=== PATIENT | female | born 1945 | race Caucasian/White ===

== ENCOUNTER 2020-10-22 21:53 | Inpatient (IN) | payer MEDICARE, SELFPAY ==
--- NOTE | ~2020-10-22 | XR_ITS ---
EXAMINATION: XR chest 1V portable INDICATION: Shortness of breath TECHNIQUE: Portable AP chest at 2341 hours COMPARISON: 07/27/2018 FINDINGS: The lungs are free of acute opacities. There is no pleural effusion. Chronic atelectasis is present in the left lung base. The heart size is normal. There is right paratracheal widening of the upper mediastinum, previously characterized as goiter. IMPRESSION: 1. No acute cardiopulmonary abnormality. Reviewed, dictated and finalized at location A.
[2020-10-22 21:55] VITALS: BP 130/79; PULSE 137; RESP 20; O2SAT 95
--- NOTE | 2020-10-22 22:00 | ECG_ITS ---
Measurements Intervals [place] Rate: 126 P: CO: 0 QRS: 74 QRSD: 101 T: 42 QT: 325 QTc: 471 Interpretive Statements ATRIAL FIBRILLATION WITH RAPID VENTRICULAR RESPONSE INCOMPLETE RIGHT BUNDLE BRANCH BLOCK CANNOT RULE OUT SEPTAL INFARCT, AGE INDETERMINATE ABNORMAL ECG Electronically Signed On 10-23-2020 5:45:43 CDT by George Bradley D.O.
[2020-10-22] MEDS: dilTIAZem HCl INJ 25 MG/5 ML VIAL 10 MG IV PUSH ×2 (22:24→23:33)
[2020-10-22 22:25] VITALS: TEMP 36.5
[2020-10-22 22:39] LABS: Basophils Percent Auto 0.5 % (0.2-1.2); Eosinophils Absolute Auto 0.1 K/mm3 (0-0.3); Eosinophils Percent Auto 0.6 % (0-4.4); Hematocrit 25.4 % (37.0-47.0); Hemoglobin 7.4 g/dL (12.0-15.0); Immature Granulocyte Absolute 0.04 K/mm3 (0.00-0.031); Immature Granulocyte Percent A 0.5 % (0-0.5); Lymphocytes Absolute Auto 1.51 K/mm3 (0.9-3.2); Lymphocytes Percent Auto 17.4 % (18.3-44.2); Mean Corpuscular HGB Conc 29.1 g/dl (32-36); Mean Corpuscular Hemoglobin 23.1 pg (26-34); Mean Corpuscular Volume 79.1 fl (80-100); Mean Platelet Volume 10.1 fl (7.4-10.4); Monocytes Absolute Auto 0.6 K/mm3 (0.1-0.6); Monocytes Percent Auto 6.9 % (2.6-8.5); Neutrophils Absolute Auto 6.4 K/mm3 (1.3-6.7); Neutrophils Percent Auto 74.1 % (45.5-73.1); Platelet Count Result 327 k/mm3 (150-375); Red Blood Count 3.21 M/mm3 (4.2-5.4); Red Cell Distribution Width 15.9 % (11.5-14.5); White Blood Count 8.7 K/mm3 (4.5-10.0)
[2020-10-22 22:49] LABS: Anion Gap 9 mmol/L (8-16); Blood Urea Nitrogen 13 mg/dL (7-17); Calcium 9.4 mg/dL (8.4-10.2); Carbon Dioxide 26 mmol/L (22-30); Chloride 96 mmol/L (98-107); Estimated CRCL calculation 50 ml/min; Estimated Glomerular Filt Rate 54; Glucose 153 mg/dL (65-110); Potassium 2.9 mmol/L (3.4-5.0); Sodium 131 mmol/L (137-145)
[2020-10-22 22:56] VITALS: BP 110/57; PULSE 116
[2020-10-22 23:02] LABS: Anisocytosis 1+ (NORMAL); Hypochromasia 1+ (NORMAL); Platelet Estimate Adequate (Adequate)
[2020-10-22 23:41] VITALS: BP 119/67; PULSE 126; RESP 19; O2SAT 97
--- NOTE | 2020-10-22 23:42 | ED.DIZZY ---
HPI - Dizziness General Chief Complaint: Dizziness Stated Complaint: dizziness, rt arm pain Time Seen by Provider: 10/22/20 22:12 Source: patient and family Mode of arrival: EMS Limitations: no limitations History of Present Illness HPI Narrative: 74-year-old with a history of hypertension, CVA on Xarelto was brought in from home with complaints of sudden onset of dizziness. 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 She ordered pizza for herself and her . She states that she ate more than normal few minutes after eating she felt a big bubble in the mid abdomen and she later became dizzy and and laid down on the floor. She denied any chest pain or headache. At the time she came to the ER her symptoms have much subsided. Patient states that she had normal blood work done 6 months ago and is scheduled to see Dr. Gonzalez end october. elicited complaint: dizziness Onset (ago): minute(s) (30) Timing: sudden onset Severity: moderate Description: lightheadedness Exacerbating factors: nothing Relieving factors: nothing Associated symptoms: denies other symptoms Related Data Home Medications Medication Instructions Recorded Confirmed alprazolam 10/22/20 10/22/20 amlodipine 10/22/20 clonidine HCl 10/22/20 gabapentin 10/22/20 hydrochlorothiazide 10/22/20 rivaroxaban [Xarelto] mg 10/22/20 triazolam 10/22/20 Allergies Allergy/AdvReac Type Severity Reaction Status Date / Time No Known Allergies Allergy Verified 10/22/20 22:08 Review of Systems Review of Systems: All systems reviewed & are unremarkable except as noted in HPI and below Constitutional: Constitutional: Reports no additional constitutional complaints Eyes: Eyes: Reports no additional eye complaints ENT: Reports dizziness Cardiovascular: Cardiovascular: Reports no additional cardiovascular complaints Respiratory: Respiratory: Reports no additional respiratory complaints Gastrointestinal: Gastrointestinal: Reports no additional gastrointestinal complaints Genitourinary: Genitourinary: Reports no additional female genitourinary complaints Musculoskeletal: Musculoskeletal: Reports no additional musculoskeletal complaints Integumentary/Breasts: Skin/Breast: Reports system reviewed and no additional complaints, except as docu PMFSH Past Medical History Medical History (Updated 10/22/20 @ 23:56 by Adelfo Hinds MD) Anxiety CVA (cerebrovascular accident) Follow-up fracture care for healing fracture GERD (gastroesophageal reflux disease) HTN (hypertension) Hypothyroid Metatarsal bone fracture (02/13/19) Metatarsal bone fracture (02/13/19) Peripheral neuropathy Pulmonary embolism Weight gain Surgical History Surgical History No history of previous surgery Family History Family History Father Acute myocardial infarction Social History Social History Smoking packs per day: 0.25 Smoking cigarettes per day: 5.0 Years smoked: 50 Smoking pack-years: 12.50 Smoking status: Current every day smoker Tobacco type: cigarettes Alcohol intake: never Gender identity (if verbalized by the patient): Female Exam Narrative: GENERAL: Well-appearing, well-nourished, and in no acute distress , pale. HEAD: Normocephalic, atraumatic. EYES: PERRLA and EOMI. ENT: Nares clear, no rhinorrhea or epistaxis. Mucous membranes moist. NECK: Supple. CHEST: Clear to auscultation. No respiratory distress. HEART: Irregularly irregular and tachycardic no murmur heard. Normal peripheral pulses. ABDOMEN: Soft, nontender, nondistended, normal active bowel sounds. Heme positive stool EXTREMITIES: Normal range of motion. No edema. SKIN: Warm, dry, no rash. NEURO: No focal deficits. Alert and oriented x3. PSYCH: Normal
[2020-10-23] VITALS (25 sets, daily range): BP systolic 98–150; BP diastolic 41–70; PULSE 51–119; RESP 14–20; TEMP 35.9–36.9; O2SAT 93–100; BMI 37.5
[2020-10-23] MEDS: PANTOPRAZOLE SODIUM IV 40 MG VIAL IV PUSH ×3 (00:42→17:22)
[2020-10-23] MEDS: SODIUM CHLORIDE 0.9% IV 500 ML 999 ML IV CONT (00:42)
--- NOTE | 2020-10-23 03:05 | ADMIMU ---
This patient, Norma Coleman, was admitted to IMU status, and placed in IMU Room 203-01. Patient/family oriented to hospital policies and general routines including ID bracelet, bed and alarms, visiting hours, pain management, procedures, bathroom and other care routines, personal items, smoking policy, room service/diet, and visiting hours. Valuables list has been completed. Information on how to activate the Rapid Response Team has been discussed. Patient/Family are encouraged to report perceived risks to care and to ask questions if they do not understand what they are told or what they should do.
--- NOTE | 2020-10-23 03:46 | PM.IMHP ---
H&P: HPI History of Present Illness Date/Time: 10/23/20 03:46 Chief Complaint: Dizziness Narrative: This is a 74-year-old female with past medical history significant for hypertension, stroke, tobacco dependence, peripheral neuropathy, hypothyroidism, pulmonary embolism, on chronic anticoagulation. Patient has been in her usual state of health. 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 Upon arrival to the emergency room she was found to have atrial fibrillation with rapid ventricular response. According to patient she has felt dizzy on another occasion just recent lightheaded as well funny fluttery feeling in her chest but did not think much of it. She denies any PND any orthopnea any cough any sputum production any leg swelling she had near syncopal episode no headaches, no vision changes, no chest pain, no fevers, no rigors, no chills, no nausea, no vomiting, no diarrhea. Chemistry panel was significant for sodium of 139 potassium of 2.9. Review of Systems Review of Systems: Dizziness abdominal discomfort near syncope Constitutional: Constitutional: Denies chills, Denies fatigue and Denies fever(s) Eyes: Eyes: Denies change in vision ENT: Denies dysphagia, Reports dizziness, Denies nasal congestion, Denies nasal discharge, Denies nasal obstruction and Denies odynophagia Cardiovascular: Cardiovascular: Denies irregular heart rhythm, Denies leg edema, Reports lightheadedness, Denies radiating jaw, neck or arm pain, Denies palpitations, Denies dyspnea, Denies dyspnea on exertion and Denies orthopnea Respiratory: Respiratory: Denies cough and Denies dyspnea Gastrointestinal: Gastrointestinal: Reports abdominal pain, Denies diarrhea, Denies nausea and Denies vomiting Genitourinary: Genitourinary: Reports no additional female genitourinary complaints Musculoskeletal: Musculoskeletal: Reports no additional musculoskeletal complaints Integumentary/Breasts: Skin/Breast: Reports system reviewed and no additional complaints, except as docu Neurologic: Reports system reviewed and no additional complaints, except as documented Psychiatric: Psychiatric: Reports no additional psychiatric complaints Endocrine: Endocrine: Reports no additional endocrine complaints Hematologic/Lymphatic: Hematologic/Lymphatic: Reports no additional hematologic/lymphatic complaints Allergic/Immunologic: Allergic/Immunologic: Reports no additional allergic/immunologic complaints PMFSH Past Medical History Medical History (Updated 10/23/20 @ 04:27 by Trevin Pereira MD) Anxiety CVA (cerebrovascular accident) Follow-up fracture care for healing fracture GERD (gastroesophageal reflux disease) HTN (hypertension) Hypothyroid Metatarsal bone fracture (02/13/19) Metatarsal bone fracture (02/13/19) Peripheral neuropathy Pulmonary embolism Weight gain Surgical History Surgical History No history of previous surgery Family History Family History Father Acute myocardial infarction Social History Social History Smoking packs per day: 0.25 Smoking cigarettes per day: 5.0 Years smoked: 50 Smoking pack-years: 12.50 Smoking status: Current every day smoker Tobacco type: cigarettes Alcohol intake: never Gender identity (if verbalized by the patient): Female Meds Home Medications and Allergies Home Medications Medication Instructions Recorded Confirmed Type alprazolam 0.5 mg PO DAILY PRN 10/22/20 10/23/20 History amlodipine 5 mg PO DAILY 10/22/20 10/23/20 History clonidine HCl 0.1 mg PO PRN 10/22/20 History gabapentin 300 mg PO TID 10/22/20 10/23/20 History hydrochlorothiazide 25 mg DAILY 10/22/20 10/23/20 History rivaroxaban [Xar
[2020-10-23 04:29] LABS: Troponin I 0.065 ng/mL (0.000-0.034)
[2020-10-23] MEDS: LEVOTHYROXINE SODIUM 88 MCG TABLET PO (05:34)
[2020-10-23] MEDS: SODIUM CHLORIDE 0.9% IV 1,000 ML 75 ML IV CONT (05:34)
[2020-10-23 07:22] LABS: Troponin I 0.085 ng/mL (0.000-0.034)
[2020-10-23] MEDS: GABAPENTIN 300 MG CAPSULE PO ×2 (08:19→17:22)
[2020-10-23] MEDS: CHOLECALCIFEROL 1,000 UNITS TABLET 2000 UNITS PO (08:19)
[2020-10-23] MEDS: hydroCHLOROthiazide 25 MG TABLET BY MOUTH (08:20)
[2020-10-23] MEDS: THERAPEUTIC MULTIVITAMINS/MINERALS TAB (*BKC) 1 TABLET PO (08:20)
[2020-10-23] MEDS: amLODIPine BESYLATE 5 MG TABLET PO (08:21)
[2020-10-23] MEDS: PREGABALIN (*CRX) 75 MG CAPSULE PO ×2 (08:26→17:22)
[2020-10-23] MEDS: ALPRAZolam (*CRX) 0.5 MG TABLET PO (08:26)
[2020-10-23 09:46] LABS: Hematocrit 24.1 % (37.0-47.0)
[2020-10-23 10:58] LABS: Anion Gap 7 mmol/L (8-16); Blood Urea Nitrogen 13 mg/dL (7-17); Calcium 9.3 mg/dL (8.4-10.2); Carbon Dioxide 24 mmol/L (22-30); Chloride 103 mmol/L (98-107); Estimated CRCL calculation 63 ml/min; Estimated Glomerular Filt Rate > 60; Glucose 108 mg/dL (65-110); Lactate Dehydrogenase 285 U/L (313-618); Magnesium 1.7 mg/dL (1.6-2.3); Potassium 3.7 mmol/L (3.4-5.0); Sodium 134 mmol/L (137-145)
[2020-10-23 11:07] LABS: Transferrin 277 mg/dL (206-381)
[2020-10-23 12:06] LABS: Folic Acid 17.9 ng/mL (2.76->20)
[2020-10-23 12:06] LABS: Troponin I 0.083 ng/mL (0.000-0.034)
--- NOTE | 2020-10-23 12:19 | WPDGICN ---
Assessment and Plan Assessment and plan (1) GI bleed: Qualifiers: GI bleed type/associated pathology: unspecified gastrointestinal hemorrhage type Qualified Code(s): K92.2 - Gastrointestinal hemorrhage, unspecified Code(s): K92.2 - Gastrointestinal hemorrhage, unspecified Status: Acute Assessment and Plan: probably occult gib, noted drop in hb and she was symptomatic but also presented with a fib with rvr (converted now) and hypokalemia egd today to asssess if upper gi loss, consider colonoscopy if no major findings to explain anemia (she never had one and has been using xarelto) (2) Acute blood loss anemia: Code(s): D62 - Acute posthemorrhagic anemia Status: Acute Assessment and Plan: monitor for signs of bleeding transfuse if hb<7 holding xarelto (3) Microcytic anemia: Code(s): D50.9 - Iron deficiency anemia, unspecified Status: Acute Assessment and Plan: most likely will need also colonoscopy (4) Atrial fibrillation with rapid ventricular response: Code(s): I48.91 - Unspecified atrial fibrillation Status: Acute Assessment and Plan: converted to sinus after drip, cardiology on board (5) CVA (cerebrovascular accident): Code(s): I63.9 - Cerebral infarction, unspecified Status: Acute (6) Chronic anticoagulation: Code(s): Z79.01 - halfway (current) use of anticoagulants Status: Acute Assessment and Plan: hold xarelto (7) Tobacco dependence: Code(s): F17.200 - Nicotine dependence, unspecified, uncomplicated Status: Acute GI Consult Note Consult date/time: 10/23/20 12:19 Reason for consult: acute blood loss anemia HPI: Norma Coleman is a 74 year old female with history of hypertension, stroke on xarelto for at least 2 years, tobacco dependence, peripheral neuropathy, pulmonary embolism. She came to the emergency room via EMS after new onset of dizziness and near syncope along with abdominal pain after dinner last night, also was tachycardic when checked her pulse ~ 130's. On arrival found to have atrial fibrillation with rapid ventricular response started on drip, had mild elevated troponins but flat. Also found to have low potassium of 2.9 and hb 7.4 (11 few months ago), microcytic anemia, she denies obvious GIB. Never had scopes. Review of Systems Constitutional: Constitutional: Reports weakness Eyes: Eyes: Denies blurry vision ENT: Reports Normal hearing present Cardiovascular: Cardiovascular: Reports palpitations Respiratory: Respiratory: Denies dyspnea Gastrointestinal: Gastrointestinal: Denies abdominal pain and Denies vomiting Genitourinary: Genitourinary: Denies flank pain Musculoskeletal: Musculoskeletal: Denies neck pain Neurologic: Comments: near syncope Psychiatric: Psychiatric: Denies anxiety REPLACED BY [facility] Past Medical History Medical History (Updated 10/23/20 @ 15:52 by Wilfredo Bridges MD) Acute blood loss anemia Anxiety CVA (cerebrovascular accident) Follow-up fracture care for healing fracture GERD (gastroesophageal reflux disease) HTN (hypertension) Hypothyroid Metatarsal bone fracture (02/13/19) Metatarsal bone fracture (02/13/19) Microcytic anemia Peripheral neuropathy Pulmonary embolism Weight gain Surgical History Surgical History No history of previous surgery Family History Family History Father Acute myocardial infarction Social History Social History Smoking packs per day: 0.4 Smoking cigarettes per day: 8.0 Years smoked: 50 Smoking pack-years: 20.00 Smoking status: Current every day smoker Tobacco type: cigarettes Alcohol intake: never Substance use: never Gender identity (if verbalized by the patient): Female Spiritual care concern
[2020-10-23 12:36] LABS: Iron 12 ug/dL (37-170)
[2020-10-23 12:47] LABS: Percent Iron Saturation 3 % (20-50)
[2020-10-23 13:13] LABS: Ferritin 5.62 ng/mL (11.1-264)
[2020-10-23] MEDS: METOPROLOL TARTRATE 25 MG TABLET PO ×2 (13:39→20:02)
[2020-10-23] MEDS: LACTATED RINGERS 1,000 ML 150 ML IV CONT (13:40)
--- NOTE | 2020-10-23 13:42 | WPDANESEPPF ---
Anes - Initial Pre Proc Eval Procedure: Operation Date: 10/23/20 14:45 Proposed Procedures p Esophagogastroduodenoscopy - Wilfredo Bridges MD Date/Time: 10/23/20 13:42 Surgeon: Julita Diaz PA-C Pre Op Diagnosis: Afib w/RVR, Hypokalemia, GI Bleed Patient Data Age: 74 Gender: F Height: 1.64 m Weight: 100.8 kg Last Vital Signs Temp 36.3 C L 10/23/20 12:00 Pulse 67 10/23/20 13:39 Resp 18 10/23/20 12:00 BP 118/53 L 10/23/20 12:00 Pulse Ox 96 10/23/20 12:00 Allergies Allergy/AdvReac Type Severity Reaction Status Date / Time No Known Allergies Allergy Verified 10/23/20 13:44 Home Medications Medication Instructions Recorded Confirmed Type alprazolam 0.5 mg PO DAILY PRN 10/22/20 10/23/20 History amlodipine 5 mg PO DAILY 10/22/20 10/23/20 History clonidine HCl 0.1 mg PO Q10-12H PRN 10/22/20 10/23/20 History gabapentin 300 mg PO TID 10/22/20 10/23/20 History hydrochlorothiazide 25 mg DAILY 10/22/20 10/23/20 History rivaroxaban [Xarelto] 20 mg PO DAILY 10/22/20 10/23/20 History alendronate-vitamin D3 2,000 units PO DAILY 10/23/20 10/23/20 History levothyroxine 0.8 mcg PO DAILY 10/23/20 10/23/20 History meclizine 25 mg PO DAILY PRN 10/23/20 10/23/20 History multivit with min-folic acid 0.4 tablet PO DAILY 10/23/20 10/23/20 History [Adult One Daily Multivitamin] pregabalin 75 mg PO BID 10/23/20 10/23/20 History Laboratory Tests 10/22/20 10/22/20 10/22/20 22:23 22:33 22:33 WBC 8.7 K/mm3 K/mm3 (4.5-10.0) RBC 3.21 M/mm3 L M/mm3 (4.2-5.4) Hgb 7.4 g/dL L g/dL (12.0-15.0) Hct 25.4 % L % (37.0-47.0) MCV 79.1 fl L fl (80-100) MCH 23.1 pg L pg (26-34) MCHC 29.1 g/dl L g/dl (32-36) RDW 15.9 % H % (11.5-14.5) Plt Count 327 k/mm3 k/mm3 (150-375) MPV 10.1 fl fl (7.4-10.4) Immature Gran % (Auto) 0.5 % % (0-0.5) Neut % (Auto) 74.1 % H % (45.5-73.1) Lymph % (Auto) 17.4 % L % (18.3-44.2) Grant % (Auto) 6.9 % % (2.6-8.5) Eos % (Auto) 0.6 % % (0-4.4) Baso % (Auto) 0.5 % % (0.2-1.2) Lymph # (Auto) 1.51 K/mm3 K/mm3 (0.9-3.2) Grant # (Auto) 0.6 K/mm3 K/mm3 (0.1-0.6) Eos # (Auto) 0.1 K/mm3 K/mm3 (0-0.3) Baso # (Auto) 0.0 K/mm3 K/mm3 (0.0-0.1) Abs Immat Gran (auto) 0.04 K/mm3 H K/mm3 (0.00-0.031) Absolute Neuts (auto) 6.4 K/mm3 K/mm3 (1.3-6.7) Absolute Nucleated RBC 0.0 K/mm3 K/mm3 (0.0-0.012) Nucleated RBC % 0.0 % % (0.0-0.2) Platelet Estimate Adequate (Adequate) Hypochromasia 1+ (NORMAL) Anisocytosis 1+ (NORMAL) Sodium 131 mmol/L L mmol/L (137-145) Potassium 2.9 mmol/L L mmol/L (3.4-5.0) Chloride 96 mmol/L L mmol/L (98-107) Carbon Dioxide 26 mmol/L mmol/L (22-30) Anion Gap 9 mmol/L mmol/L (8-16) BUN 13 mg/dL mg/dL (7-17) Creatinine 1.00 mg/dL mg/dL (0.7-1.0) Estim Creat Clear Calc 50 ml/min ml/min Estimated GFR 54 L (59 - ) Glucose 153 mg/dL H mg/dL (65-110) Calcium 9.4 mg/dL mg/dL (8.4-10.2) Magnesium Iron TIBC % Saturation Transferrin Ferritin Lactate Dehydrogenase Troponin I Vitamin B12 Folate TSH 3.240 uIU/mL uIU/mL (0.465-4.680) 10/23/20 10/23/20 10/23/20 03:49 06:39 09:18 WBC RBC Hgb Hct MCV MCH MCHC RDW Plt Count MPV Immature Gran % (Auto) Neut % (Auto) Lymph % (Auto) Grant % (Auto) Eos % (Auto) Baso % (Auto)
--- NOTE | 2020-10-23 15:19 | PM.CNCAR ---
Assessment and Plan Assessment and plan (1) Atrial fibrillation with rapid ventricular response: Code(s): I48.91 - Unspecified atrial fibrillation Status: Acute Assessment and Plan: Patient converted to sinus rhythm on diltiazem infusion. Transition to oral AV rebecca blocking agents metoprolol tartrate 25 mg twice. Monitor for bradycardia and or hypotension. Discontinue diltiazem infusion. Discussed pathophysiology and associated large stroke risk with atrial fibrillation. Patient is clearly symptomatic due to AFib with RVR at presentation. We discussed management options including rate versus rhythm control, antiplatelet versus anticoagulant therapy. CHADS2 Vasc score 3 (5 if CVA although unclear, negative CT head 2019), nonetheless systemic anticoagulation advised. However, in light of her severe anemia further workup per Gastroenterology anticipate EGD later today. Resume Xarelto if okay from GI and no evidence of active or recent bleeding. No prior known documented history of AFib although symptoms suggest at least paroxysmal in the past. No doubt her severe anemia and hypokalemia contribute to development of atrial fibrillation. 2D echocardiogram ordered. Will review when available. Recommendation to follow. All questions answered to patient's satisfaction. She verbalized understanding and agreed with plan of care. Apnea link overnight to screen for TRICIA as possible additional contributor. (2) Elevated troponin: Code(s): R77.8 - Other specified abnormalities of plasma proteins Status: Acute Assessment and Plan: Mild, flat troponin elevation type 2 infarct indicative of demand ischemia secondary to AFib with RVR in setting of severe anemia not acute coronary syndrome and/or plaque rupture. We will discuss appropriateness for ischemic evaluation on an outpatient basis provided patient remains asymptomatic and otherwise stable. (3) Anemia: Qualifiers: Anemia type: iron deficiency Iron deficiency anemia type: chronic blood loss Qualified Code(s): D50.0 - Iron deficiency anemia secondary to blood loss (chronic) Code(s): D64.9 - Anemia, unspecified Status: Acute Assessment and Plan: Severe. Patient denies evidence of active bleed. GI consult, anticipate EGD. Will await their recommendations. (4) Acute hypokalemia: Code(s): E87.6 - Hypokalemia Status: Acute Assessment and Plan: Repleted, 3.7 this morning. Continue to monitor closely. (5) Chronic anticoagulation: Code(s): Z79.01 - senior care (current) use of anticoagulants Status: Acute Assessment and Plan: If able resume Xarelto 20 mg at bedtime. (6) HTN (hypertension): Code(s): I10 - Essential (primary) hypertension Status: Acute Assessment and Plan: Stable, relatively hypotensive intermittently. Need to monitor closely. (7) History of pulmonary embolism: Code(s): Z86.711 - Personal history of pulmonary embolism Status: Acute Assessment and Plan: Reported history of PE on systemic anticoagulation chronically managed by her primary care physician. (8) Tobacco dependence: Code(s): F17.200 - Nicotine dependence, unspecified, uncomplicated Status: Acute Assessment and Plan: Smoking cessation counseled performed. History of Present Illness History of Present Illness Consult date/time: Date of service: 10/23/20 09:15 Cardiology consultation at the request of Dr. Gallegos of the [facility] for our opinion regarding atrial fibrillation with rapid ventricular response. Reason For Visit: Afib w/RVR, Hypokalemia, GI Bleed Narrative: Patient is a pleasant 74-year-old female with a past medical history significant for hypertension, tobacco abuse, hypothyroidism, history of pulmonary embolism maintained on chronic systemic anticoagulation he states she was in her usual state of health when on
[2020-10-23] MEDS: SODIUM CHLORIDE 0.9% IV 250 ML 30 ML IV CONT (17:19)
[2020-10-23] MEDS: MAGNESIUM SULF 2 GM/WATER 50ML 2 GM/50 ML BAG IVPB (17:20)
[2020-10-23] MEDS: polyethylene glycoL 3350 238 GM BOTTLE PO (17:20)
[2020-10-23] MEDS: BISACODYL 5 MG TABLET EC 20 MG PO (17:21)
[2020-10-23] MEDS: TUBING, BLOOD PLUM PUMP TUBING 1 EACH XX (17:22)
--- NOTE | 2020-10-23 17:39 | PM.IMPN ---
Progress Note: A&P Assessment and Plan (1) Acute blood loss anemia: Code(s): D62 - Acute posthemorrhagic anemia Status: Acute Assessment and Plan: Hgb down to 7.0, no known baseline at this time -anemia labs showing b12 deficiency and iron deficiency, will supplement -will do IV iron starting tomorrow -egd without any etiology, colonoscopy planned for tomorrow -Pts dizziness likely due to blood loss -hold xarelto. Pt is on this due to hx of (unprovoked) PE in 2019 and was the only time she has ever had a blood clot. She is now on it for afib (presumably) (2) Atrial fibrillation with rapid ventricular response: Code(s): I48.91 - Unspecified atrial fibrillation Status: Acute Assessment and Plan: Pt now in NSR after IV cardizem -now on metoprolol -no cp, troponins flat. -could be due to anemia or due to hypokalemia -TSH normal -cardiology consulted, echo ordered (3) Acute hypokalemia: Code(s): E87.6 - Hypokalemia Status: Acute Assessment and Plan: Resolved (4) GERD (gastroesophageal reflux disease): Code(s): K21.9 - Gastro-esophageal reflux disease without esophagitis Status: Acute Assessment and Plan: mild gastritis on egd -continue PPI (5) Pulmonary embolism: Code(s): I26.99 - Other pulmonary embolism without acute cor pulmonale Status: Acute Assessment and Plan: single PE in 2019 -anticoagulation now on hold (6) Peripheral neuropathy: Code(s): G62.9 - Polyneuropathy, unspecified Status: Acute Assessment and Plan: chronic, continue gabapentin and pregabalin (7) Tobacco dependence: Code(s): F17.200 - Nicotine dependence, unspecified, uncomplicated Status: Acute Assessment and Plan: Pt understands she needs to quit smoking (8) Anxiety: Code(s): F41.9 - Anxiety disorder, unspecified Status: Acute Assessment and Plan: Chronic and controlled (9) CVA (cerebrovascular accident): Code(s): I63.9 - Cerebral infarction, unspecified Status: Acute Assessment and Plan: Hx of CVA -On Xarelto -Not on statin, will speak to her about this (10) Microcytic anemia: Code(s): D50.9 - Iron deficiency anemia, unspecified Status: Acute Assessment and Plan: as above (11) Elevated troponin: Code(s): R77.8 - Other specified abnormalities of plasma proteins Status: Acute Assessment and Plan: as above Time Spent With Patient Time with patient: 25 - 35 minutes Subjective Date/time seen: 10/23/20 17:39 Interval history: Pt is a 74 y/o female here for afib rvr and anemia. Pt was seen today after her EGD who states her dizziness is much better. She has not really gotten out of bed but when she is sitting up she is not as dizzy which is an improvement. She states she has not noticed any blood loss in the last few months including rectal bleeding or vaginal bleeding. She denies CP or SOB today but does feel a little weak. Her only complaint is that her mouth is dry. Review of Systems Review of Systems: All systems reviewed & are unremarkable except as noted in HPI and below Exam Narrative: General: Well developed well nourished patient in NAD HEENT: normocephalic Neck: supple Neuro: Alert and oriented x4 CV:RRR. Tele shows NSR rate 60 Resp:CTA Abd: Soft, non distended. No pain to palpation. Positive bowel sounds Extremities: No swelling, erythema, or pain to palpation. Objective Data Vital Signs Vital Signs: Vital Signs - 24 hr 10/22/20 21:55 10/22/20 22:25 10/22/20 22:56 Temperature 97.7 F Pulse Rate 137 H 116 H Respiratory Rate 20 Blood Pressure 130/79 110/57 L Pulse Oximetry 95 10/22/20 23:41 10/23/20 00:47 10/23/20 01:45 Temperature Pulse Rate 126 H 108 H 119 H Respiratory Rate 19 14 16 Blood Pressure 119/67 119/70 121/60 P
[2020-10-23 21:00] LABS: Hematocrit 27.4 % (37.0-47.0); Hemoglobin 8.1 g/dL (12.0-15.0)
[2020-10-24] VITALS (18 sets, daily range): BP systolic 112–161; BP diastolic 48–79; PULSE 54–69; RESP 16–20; TEMP 36–37.4; O2SAT 92–100
[2020-10-24] MEDS: SODIUM CHLORIDE 0.9% IV 1,000 ML 75 ML IV CONT (02:09)
[2020-10-24] MEDS: MAGNESIUM CITRATE 300 ML BTL PO (02:10)
[2020-10-24 03:32] LABS: Basophils Percent Auto 0.6 % (0.2-1.2); Eosinophils Absolute Auto 0.1 K/mm3 (0-0.3); Eosinophils Percent Auto 1.8 % (0-4.4); Hematocrit 29.6 % (37.0-47.0); Hemoglobin 8.6 g/dL (12.0-15.0); Immature Granulocyte Absolute 0.02 K/mm3 (0.00-0.031); Immature Granulocyte Percent A 0.3 % (0-0.5); Lymphocytes Absolute Auto 2.77 K/mm3 (0.9-3.2); Lymphocytes Percent Auto 38.3 % (18.3-44.2); Mean Corpuscular HGB Conc 29.1 g/dl (32-36); Mean Corpuscular Hemoglobin 23.2 pg (26-34); Mean Platelet Volume 10.5 fl (7.4-10.4); Monocytes Absolute Auto 0.6 K/mm3 (0.1-0.6); Monocytes Percent Auto 7.7 % (2.6-8.5); Neutrophils Absolute Auto 3.7 K/mm3 (1.3-6.7); Neutrophils Percent Auto 51.3 % (45.5-73.1); Platelet Count Result 351 k/mm3 (150-375); Red Cell Distribution Width 15.9 % (11.5-14.5); White Blood Count 7.2 K/mm3 (4.5-10.0)
[2020-10-24 03:42] LABS: Anion Gap 9 mmol/L (8-16); Blood Urea Nitrogen 9 mg/dL (7-17); Calcium 9.5 mg/dL (8.4-10.2); Carbon Dioxide 24 mmol/L (22-30); Chloride 106 mmol/L (98-107); Estimated CRCL calculation 71 ml/min; Estimated Glomerular Filt Rate > 60; Glucose 93 mg/dL (65-110); Potassium 3.5 mmol/L (3.4-5.0); Sodium 139 mmol/L (137-145)
[2020-10-24 04:01] LABS: Hypochromasia 1+ (NORMAL); Large Platelets Present; Ovalocytes 1+ (NORMAL); Platelet Estimate Adequate (Adequate); Poikilocytosis 1+ (NORMAL)
[2020-10-24] MEDS: LACTATED RINGERS 1,000 ML 150 ML IV CONT (07:08)
--- NOTE | 2020-10-24 07:14 | WPDANESEPPF ---
Anes - Initial Pre Proc Eval Procedure: Operation Date: 10/23/20 14:45 Proposed Procedures p Esophagogastroduodenoscopy - Wilfredo Bridges MD Operation Date: 10/24/20 07:00 Proposed Procedures p Colonoscopy - Wilfredo Bridges MD Date/Time: 10/24/20 07:14 Surgeon: Julita Diaz PA-C Pre Op Diagnosis: Afib w/RVR, Hypokalemia, GI Bleed Patient Data Age: 74 Gender: F Height: 1.64 m Weight: 100.8 kg Last Vital Signs Temp 36.4 C L 10/24/20 04:00 Pulse 63 10/24/20 06:00 Resp 20 10/24/20 04:00 BP 131/59 L 10/24/20 04:00 Pulse Ox 99 10/24/20 04:00 Allergies Allergy/AdvReac Type Severity Reaction Status Date / Time No Known Allergies Allergy Verified 10/23/20 13:44 Home Medications Medication Instructions Recorded Confirmed Type alprazolam 0.5 mg PO DAILY PRN 10/22/20 10/23/20 History amlodipine 5 mg PO DAILY 10/22/20 10/23/20 History clonidine HCl 0.1 mg PO Q10-12H PRN 10/22/20 10/23/20 History gabapentin 300 mg PO TID 10/22/20 10/23/20 History hydrochlorothiazide 25 mg DAILY 10/22/20 10/23/20 History rivaroxaban [Xarelto] 20 mg PO DAILY 10/22/20 10/23/20 History alendronate-vitamin D3 2,000 units PO DAILY 10/23/20 10/23/20 History levothyroxine 0.8 mcg PO DAILY 10/23/20 10/23/20 History meclizine 25 mg PO DAILY PRN 10/23/20 10/23/20 History multivit with min-folic acid 0.4 tablet PO DAILY 10/23/20 10/23/20 History [Adult One Daily Multivitamin] pregabalin 75 mg PO BID 10/23/20 10/23/20 History Laboratory Tests 10/23/20 10/23/20 10/23/20 06:39 09:18 09:18 WBC RBC Hgb Hct MCV MCH MCHC RDW Plt Count MPV Immature Gran % (Auto) Neut % (Auto) Lymph % (Auto) Frederick % (Auto) Eos % (Auto) Baso % (Auto) Lymph # (Auto) Frederick # (Auto) Eos # (Auto) Baso # (Auto) Abs Immat Gran (auto) Absolute Neuts (auto) Absolute Nucleated RBC Nucleated RBC % Platelet Estimate Large Platelets Hypochromasia Poikilocytosis Ovalocytes Sodium 134 mmol/L L mmol/L (137-145) Potassium 3.7 mmol/L mmol/L (3.4-5.0) Chloride 103 mmol/L mmol/L (98-107) Carbon Dioxide 24 mmol/L mmol/L (22-30) Anion Gap 7 mmol/L L mmol/L (8-16) BUN 13 mg/dL mg/dL (7-17) Creatinine 0.80 mg/dL mg/dL (0.7-1.0) Estim Creat Clear Calc 63 ml/min ml/min Estimated GFR > 60 (59 - ) Glucose 108 mg/dL mg/dL (65-110) Calcium 9.3 mg/dL mg/dL (8.4-10.2) Magnesium 1.7 mg/dL mg/dL (1.6-2.3) Iron 12 ug/dL L ug/dL (37-170) TIBC 388 ug/dL ug/dL (261-462) % Saturation 3 % L % (20-50) Transferrin 277 mg/dL mg/dL (206-381) Ferritin 5.62 ng/mL L ng/mL (11.1-264) Lactate Dehydrogenase 285 U/L L U/L (313-618) Troponin I 0.085 ng/mL H* D ng/mL (0.000-0.034) Vitamin B12 284.0 pg/mL pg/mL (239-931) Folate 17.9 ng/mL ng/mL (2.76->20) Blood Type Antibody Screen Crossmatch 10/23/20 10/23/20 10/23/20 09:23 09:23 12:57 WBC RBC Hgb 7.0 g/dL L g/dL (12.0-15.0) Hct 24.1 % L % (37.0-47.0) MCV MCH MCHC RDW Plt Count MPV Immature Gran % (Auto) Neut % (Auto) Lymph % (Auto) Frederick % (Auto) Eos % (Auto) Baso % (Auto) Lymph # (Auto) Frederick # (Auto) Eos # (Auto) Baso # (Auto)
--- NOTE | 2020-10-24 09:15 | PM.IMPN ---
Progress Note: A&P Assessment and Plan (1) Acute blood loss anemia: Code(s): D62 - Acute posthemorrhagic anemia Status: Acute Assessment and Plan: Hgb up to 8.6 which is an improvement from admission at 7.0 -patient received 1 PRBC on 10/23 -anemia labs showing b12 deficiency and iron deficiency, continue supplementation -egd without any etiology, colonoscopy showing AVM which is likely the etiology of her iron deficiency anemia over time -Pts dizziness likely due to blood loss -hold xarelto for 5 additional days. She will need Xarelto due to stroke risk with AFib but does not necessarily need Xarelto for her single PE back in 2019 -if patient's hemoglobin is stable in the morning, her weakness has improved, echo looks okay, she will likely be discharged tomorrow (2) Atrial fibrillation with rapid ventricular response: Code(s): I48.91 - Unspecified atrial fibrillation Status: Acute Assessment and Plan: Pt now in NSR after IV cardizem which has been transition to oral metoprolol -no cp, troponins flat. -could be due to anemia or due to hypokalemia -TSH normal -cardiology consulted, echo ordered (3) Acute hypokalemia: Code(s): E87.6 - Hypokalemia Status: Acute Assessment and Plan: Resolved (4) GERD (gastroesophageal reflux disease): Code(s): K21.9 - Gastro-esophageal reflux disease without esophagitis Status: Acute Assessment and Plan: mild gastritis on egd -continue PPI (5) Pulmonary embolism: Code(s): I26.99 - Other pulmonary embolism without acute cor pulmonale Status: Acute Assessment and Plan: single PE in 2019 -anticoagulation now on hold (6) Peripheral neuropathy: Code(s): G62.9 - Polyneuropathy, unspecified Status: Acute Assessment and Plan: chronic, continue gabapentin and pregabalin (7) Tobacco dependence: Code(s): F17.200 - Nicotine dependence, unspecified, uncomplicated Status: Acute Assessment and Plan: Pt understands she needs to quit smoking (8) Anxiety: Code(s): F41.9 - Anxiety disorder, unspecified Status: Acute Assessment and Plan: Chronic and controlled (9) CVA (cerebrovascular accident): Code(s): I63.9 - Cerebral infarction, unspecified Status: Acute Assessment and Plan: Reported Hx of CVA in 2007 as noted in [employer] -On Xarelto -pt takes simvastatin (not on her home med list). will continue with that. (10) Microcytic anemia: Code(s): D50.9 - Iron deficiency anemia, unspecified Status: Acute Assessment and Plan: as above (11) Elevated troponin: Code(s): R77.8 - Other specified abnormalities of plasma proteins Status: Acute Assessment and Plan: as above Subjective Date/time seen: 10/24/20 09:15 Interval history: Pt is a 74 y/o female here for afib rvr and anemia. Patient was seen today after her colonoscopy and is doing well. She has no complaints of dizziness, chest pain, SOB, nausea, vomiting, fevers or chills. She has not been up with therapy yet. Exam Narrative: General: Well developed well nourished patient in NAD HEENT: normocephalic Neck: supple Neuro: Alert and oriented x4 CV:RRR. Tele shows NSR rate 61 Resp:CTA Abd: Soft, non distended. No pain to palpation. Positive bowel sounds Extremities: No swelling, erythema, or pain to palpation. Objective Data Vital Signs Vital Signs: Vital Signs - 24 hr 10/23/20 10:00 10/23/20 12:00 10/23/20 13:39 Temperature 97.3 F L Pulse Rate 66 69 67 Respiratory Rate 18 Blood Pressure 118/53 L Pulse Oximetry 96 10/23/20 13:45 10/23/20 15:09 10/23/20 15:19 Temperature 97.3 F L Pulse Rate 68 51 L 56 L Respiratory Rate 18 14 15 Blood Pressure 112/51 L 98/41 L 107/54 L Pulse Oximetry 96 100 95 10/23/20 15:29 10/23/20 16:00 10/23/20 16:
--- NOTE | 2020-10-24 10:56 | PM.PNCARD ---
Progress Note: A&P Assessment and Plan (1) Paroxysmal atrial fibrillation: Code(s): I48.0 - Paroxysmal atrial fibrillation Status: Acute Assessment and Plan: Remains in NSR; now on metoprolol 25 mg BID Resume Xarelto when OK w/ GI, in 5 days (resume Oct 30). Echo as above. FU w/ Dr. Wells in our office after discharge. (2) Acute blood loss anemia: Code(s): D62 - Acute posthemorrhagic anemia Status: Acute Assessment and Plan: Possibly 2nd AVM + gastritis. H&H stable. (3) HTN (hypertension): Code(s): I10 - Essential (primary) hypertension Status: Acute Assessment and Plan: Adequate control on metoprolol (4) Elevated troponin: Code(s): R77.8 - Other specified abnormalities of plasma proteins Status: Acute Assessment and Plan: 2nd to demand ischemia, no ACS (5) History of pulmonary embolism: Code(s): Z86.711 - Personal history of pulmonary embolism Status: Acute Assessment and Plan: Takes Xarelto for h/o PE. Additional Plan Will follow at a distance unless new or recurrent cardiac problems arise. Subjective Date/time seen: 10/24/20 10:56 Interval history: Fu for a fib of new onset. Date of Service: 10/24/2020 Feels fine, up in room w/o problems. Remains in NSR. EGD showed mild gastritis and colonoscopy showed AVMs and internal hemorrhoids. Echo showed normal LV function EF greater than 70%, mild LVH, diastolic dysfunction, moderate left atrial enlargement, no significant valve disease, normal pulmonary pressure. Review of Systems Review of Systems: Tired of sitting around in bed, hopes to go home tmr. Constitutional: Constitutional: Reports no additional constitutional complaints and Denies weakness Eyes: Eyes: Reports no additional eye complaints ENT: Denies epistaxis Cardiovascular: Cardiovascular: Denies chest pain, Denies pedal edema, Denies leg edema, Denies lightheadedness and Denies palpitations Respiratory: Respiratory: Denies dyspnea and Denies dyspnea on exertion Gastrointestinal: Gastrointestinal: Denies abdominal pain Genitourinary: Genitourinary: Denies hematuria Musculoskeletal: Musculoskeletal: Denies back pain Integumentary/Breasts: Skin/Breast: Denies rash Neurologic: Denies headache(s) Psychiatric: Psychiatric: Reports no additional psychiatric complaints Exam Const: General: comfortable and no acute distress HENMT: Mouth: Yes moist mucous membranes Eyes: EOM: EOMs intact bilaterally Neck: Neck: supple Resp: Effort & Inspection: normal respiratory effort Auscultation: clear to auscultation bilaterally Cardio: Rate: regular rate Rhythm: regular rhythm Heart sounds: no murmurs GI: GI Palp: Yes Soft to palpation Skin: General skin exam: normal color and no rashes or lesions noted Neuro: Cognition (Neuro): normal cognition Motor exam (neuro): Normal motor muscle tone present throughout Extrem: General: no edema and no pedal edema Psych: Mental Status: mental status grossly normal Objective Data Vital Signs Vital Signs: Vital Signs - 24 hr 10/23/20 12:00 10/23/20 13:39 10/23/20 13:45 Temperature 97.3 F L 97.3 F L Pulse Rate 69 67 68 Respiratory Rate 18 18 Blood Pressure 118/53 L 112/51 L Pulse Oximetry 96 96 10/23/20 15:09 10/23/20 15:19 10/23/20 15:29 Temperature Pulse Rate 51 L 56 L 53 L Respiratory Rate 14 15 14 Blood Pressure 98/41 L 107/54 L 107/53 L Pulse Oximetry 100 95 95 10/23/20 16:00 10/23/20 16:35 10/23/20 17:27 Temperature 96.7 F L 97.7 F 97.5 F L Pulse Rate 57 L 57 L 56 L Respiratory Rate 20 20 20 Blood Pressure 150/47 H 143/59 H 132/59 L Pulse Oximetry 100 93 99 10/23/20 17:44 10/23/20 17:45 10/23/20 18:00 Temperature 96.7 F L 96.7 F L Pulse Rate 56 L 57 L 57 L Re
[2020-10-24] MEDS: SIMVASTATIN 20 MG TABLET 40 MG PO (11:36)
[2020-10-24] MEDS: THERAPEUTIC MULTIVITAMINS/MINERALS TAB (*BKC) 1 TABLET PO (11:36)
[2020-10-24] MEDS: PANTOPRAZOLE 40 MG TABLET PO (11:36)
[2020-10-24] MEDS: METOPROLOL TARTRATE 25 MG TABLET PO ×2 (11:37→21:20)
[2020-10-24] MEDS: CHOLECALCIFEROL 1,000 UNITS TABLET 2000 UNITS PO (11:37)
[2020-10-24] MEDS: CYANOCOBALAMIN 1,000 MCG TABLET 1000 MCG PO (11:37)
[2020-10-24] MEDS: GABAPENTIN 300 MG CAPSULE PO ×2 (11:37→16:20)
[2020-10-24] MEDS: hydroCHLOROthiazide 25 MG TABLET BY MOUTH (11:38)
[2020-10-24] MEDS: IRON SUCROSE COMPLEX 100 MG in SODIUM CHLORIDE 0.9% IV 50 ML 220 MG IVPB (11:38)
[2020-10-24] MEDS: PREGABALIN (*CRX) 75 MG CAPSULE PO ×2 (11:43→16:20)
--- NOTE | 2020-10-24 13:21 | PC.NURSE ---
This patient, Norma Coleman, was transferred to [[id number] ] on 10/24/20 at 1321. Personal belongings sent with patient. Report given to [ Kori SPRINGER]. Appropriate documentation sent with patient.
--- NOTE | 2020-10-24 13:25 | PC.NURSE ---
Received from [facility] / via bed.
--- NOTE | 2020-10-24 15:38 | ECHO_ITS ---
Patient Info Name: Norma Coleman Age: 74 years : 1945 Gender: Female Ht: 64 in Wt: 210 lbs BSA: 2.12 m2 HR: 63 bpm BP: 131 / 59 mmHg Heart Rhythm: Sinus Rhythm Technical Quality: Good Exam Date: 10/24/2020 10:09 AM Exam Location: [facility] Patient Status: Inpatient Admit Date: 10/23/2020 Staff Ordering Physician: Bhavesh Wells MD Kitchen Lead: Louise Akhtar RDCS Attending Provider: Julita Diaz PA-C Referring Physician: Russell BENAVIDES; Exam Type: CA echo doppler color flow Study Info Complete two-dimensional, color flow and Doppler transthoracic echocardiogram is performed. Summary 1. Complete two-dimensional, color flow and Doppler transthoracic echocardiogram is performed. 2. Normal left ventricular size with mild concentric hypertrophy. Good systolic function of all segments, EF greater than 70%. Diastolic dysfunction is present. No segmental wall motion abnormalities. 3. Left atrial chamber dimension is moderately enlarged. 4. No pulmonary hypertension, estimated pulmonary arterial systolic pressure is 30 mmHg. 5. There is trace mitral and tricuspid valve regurgitation. 6. Normal sinus rhythm. Left Ventricle Left ventricular chamber dimension is normal. Left ventricular systolic function is normal, estimated at >70%. There is mildly increased left ventricular wall thickness. Left ventricular septal wall motion is normal. The left ventricular diastolic function is grade III diastolic dysfunction. Right Ventricle Right ventricular chamber dimension is normal. Right ventricular systolic function is normal. Left Atria Left atrial chamber dimension is moderately enlarged. Right Atria Right atrial chamber dimension is normal. Aortic Valve The aortic valve is trileaflet. There is no aortic valve sclerosis. There is no aortic valve stenosis. There is no aortic valve regurgitation. Pulmonic Valve The pulmonic valve is normal. There is no pulmonic valve stenosis. There is no pulmonic regurgitation. Mitral Valve The mitral valve has normal leaflets. There is no mitral valve stenosis. There is trace mitral and tricuspid valve regurgitation. Tricuspid Valve The tricuspid valve leaflets are normal. There is no significant tricuspid valve stenosis. There is trace tricuspid valve regurgitation. No pulmonary hypertension, estimated pulmonary arterial systolic pressure is 30 mmHg. Pericardium/Pleural The pericardium appears normal. There is no pericardial effusion. Inferior Vena Cava Normal inferior vena cava with >50% collapse upon inspiration consistent with Empty right atrial pressure, 10 mmHg. Aorta The aortic root size at the sinus of Valsalva is normal. The prox ascending aorta size is normal. Left Ventricular Outflow Tract Name Value Normal LVOT 2D LVOT Diameter 2.2 cm LVOT Doppler LVOT Peak Gradient 4 mmHg LVOT Mean Gradient 2 mmHg LVOT VTI 25 cm LVOT VTI/AV VTI Ratio 0.7 LVOT Stroke Volume
[2020-10-25] VITALS (7 sets, daily range): BP systolic 134–144; BP diastolic 51–67; PULSE 53–65; RESP 18; TEMP 36.1–36.2; O2SAT 93–95
[2020-10-25] MEDS: LEVOTHYROXINE SODIUM 88 MCG TABLET PO (06:09)
[2020-10-25 08:04] LABS: Hemoglobin 8.4 g/dL (12.0-15.0)
[2020-10-25 08:06] LABS: Cholesterol 135 mg/dL (0-200); HDL Direct 43 mg/dL; Triglycerides 139 mg/dL (<150)
[2020-10-25 08:17] LABS: LDL Cholesterol Direct 52 mg/dL
[2020-10-25] MEDS: GABAPENTIN 300 MG CAPSULE PO ×2 (08:29→12:26)
[2020-10-25] MEDS: hydroCHLOROthiazide 25 MG TABLET BY MOUTH (08:29)
[2020-10-25] MEDS: CHOLECALCIFEROL 1,000 UNITS TABLET 2000 UNITS PO (08:29)
[2020-10-25] MEDS: METOPROLOL TARTRATE 25 MG TABLET PO (08:30)
[2020-10-25] MEDS: CYANOCOBALAMIN 1,000 MCG TABLET 1000 MCG PO (08:30)
[2020-10-25] MEDS: PANTOPRAZOLE 40 MG TABLET PO (08:31)
[2020-10-25] MEDS: THERAPEUTIC MULTIVITAMINS/MINERALS TAB (*BKC) 1 TABLET PO (08:31)
[2020-10-25] MEDS: SIMVASTATIN 20 MG TABLET 40 MG PO (08:31)
[2020-10-25] MEDS: PREGABALIN (*CRX) 75 MG CAPSULE PO (08:41)
--- NOTE | 2020-10-25 09:03 | PM.DS ---
DS: Admitting Diagnosis Admitting Diagnosis acute blood loss anemia DS: Discharge Diagnosis Discharge Diagnosis (1) Acute blood loss anemia: Code(s): D62 - Acute posthemorrhagic anemia Status: Acute Assessment and Plan: Hgb up to 8.4 which is an improvement from admission at 7.0 -patient received 1 PRBC on 10/23 -anemia labs showing b12 deficiency and iron deficiency, these we were supplemented -egd without any etiology, colonoscopy showing AVM which is likely the etiology of her iron deficiency anemia over time -Pts dizziness likely due to blood loss, resolved at discharge -hold xarelto for 5 additional days. She will need Xarelto due to stroke risk with AFib but does not necessarily need Xarelto for her single PE back in 2019 -redraw h and h outpt and results to be sent to pcp (2) Atrial fibrillation with rapid ventricular response: Code(s): I48.91 - Unspecified atrial fibrillation Status: Acute Assessment and Plan: Pt now in NSR after IV cardizem which has been transition to oral metoprolol -no cp, troponins flat. -Likely due to anemia or due to hypokalemia (both have which resolved) -TSH normal -continue xarelto -f/u with cardiology outpt (3) Acute hypokalemia: Code(s): E87.6 - Hypokalemia Status: Acute Assessment and Plan: Resolved (4) GERD (gastroesophageal reflux disease): Code(s): K21.9 - Gastro-esophageal reflux disease without esophagitis Status: Acute Assessment and Plan: mild/mod gastritis on egd -continue PPI (5) Pulmonary embolism: Code(s): I26.99 - Other pulmonary embolism without acute cor pulmonale Status: Acute Assessment and Plan: single PE in 2019 -anticoagulation as above (6) Peripheral neuropathy: Code(s): G62.9 - Polyneuropathy, unspecified Status: Acute Assessment and Plan: chronic, continue gabapentin and pregabalin (7) Tobacco dependence: Code(s): F17.200 - Nicotine dependence, unspecified, uncomplicated Status: Acute Assessment and Plan: Pt understands she needs to quit smoking (8) Anxiety: Code(s): F41.9 - Anxiety disorder, unspecified Status: Acute Assessment and Plan: Chronic and controlled (9) CVA (cerebrovascular accident): Code(s): I63.9 - Cerebral infarction, unspecified Status: Acute Assessment and Plan: Reported Hx of CVA in 2007 as noted in [employer] -On Xarelto -pt takes simvastatin (not on her home med list). will continue with that. (10) Microcytic anemia: Code(s): D50.9 - Iron deficiency anemia, unspecified Status: Acute Assessment and Plan: as above (11) Elevated troponin: Code(s): R77.8 - Other specified abnormalities of plasma proteins Status: Acute Assessment and Plan: as above DS: Summary Hospital Course Hospital Course: Date of service October 25, 2020 Patient is a 74-year-old female who has history of PE and CVA on Xarelto who presented emergency room for sudden onset of dizziness with abdominal pain. Vitals in the ER were temperature 36.5? C, pulse 137, respiratory rate 20, blood pressure 130/79, pulse ox 95 on room air. Initial hemoglobin 7.4, hematocrit 25.4. Initial potassium 2.9. EKG showed atrial fibrillation with RVR which was new onset for the patient. She was admitted to the hospitalist service and started on a Cardizem drip. Troponins were mildly elevated and flat. She underwent echocardiogram which revealed mild hypertrophy with EF 70% with no pulmonary hypertension. Her AFib resolved and she converted on her own and was transition to metoprolol. AFib likely due to anemia and hypokalemia. She was given 1 unit of blood which improved her dizziness. She was found to be deficient in B12 and iron. She underwent an EGD which showed [id number] gastritis but no cause for he
[2020-10-25] MEDS: IRON SUCROSE COMPLEX 100 MG in SODIUM CHLORIDE 0.9% IV 50 ML 220 MG IVPB (10:01)
--- NOTE | 2020-10-25 11:13 | WPDGIPROGNO ---
Progress Note: A&P Assessment and Plan (1) Acute blood loss anemia: Code(s): D62 - Acute posthemorrhagic anemia Status: Acute Assessment and Plan: hb stable now, no signs of bleeding colonoscopy yesterday revealed AVM in cecum treated with APC, probably contributing factor for anemia ok to resume xarelto oct 30 she can go home by gi standpoint (2) AVM (arteriovenous malformation) of colon: Code(s): K55.20 - Angiodysplasia of colon without hemorrhage Status: Acute Assessment and Plan: treated yesterday, it was not actively bleeding (3) Erosive gastritis: Code(s): K29.60 - Other gastritis without bleeding Status: Acute Assessment and Plan: found by egd, on ppi now (4) Paroxysmal atrial fibrillation: Code(s): I48.0 - Paroxysmal atrial fibrillation Status: Acute Assessment and Plan: cardiology on board (5) Chronic anticoagulation: Code(s): Z79.01 - skilled nursing (current) use of anticoagulants Status: Acute Assessment and Plan: resume in 5 days (6) CVA (cerebrovascular accident): Code(s): I63.9 - Cerebral infarction, unspecified Status: Acute Subjective Date/time seen: 10/25/20 10:00 Interval history: she is doing well, no pain or signs of bleeding Review of Systems Review of Systems: All systems reviewed & are unremarkable except as noted in HPI and below Exam Const: General: comfortable and no acute distress HENMT: General nose exam: Normal nares present Eyes: General: appearance normal, both eyes and all related structures Neck: Neck: no JVD Resp: Auscultation: clear to auscultation bilaterally Cardio: Rate: regular rate Rhythm: regular rhythm GI: Inspection: non-distended GI Palp: Yes Soft to palpation and No Guarding due to palpation present (GI) Auscultation: normal bowel sounds Skin: General skin exam: normal color Neuro: General: gait normal Speech: normal speech Extrem: General: normal to inspection Psych: Mental Status: mental status grossly normal Objective Data Vital Signs Vital Signs: Vital Signs - 24 hr 10/24/20 11:37 10/24/20 12:00 10/24/20 13:30 Temperature Pulse Rate 67 69 Respiratory Rate 20 Blood Pressure Pulse Oximetry 99 10/24/20 13:46 10/24/20 14:00 10/24/20 16:00 Temperature 97.8 F 99.3 F Pulse Rate 57 L 60 61 Respiratory Rate 20 20 Blood Pressure 137/58 L 137/58 L Pulse Oximetry 100 95 10/24/20 20:00 10/24/20 20:53 10/24/20 21:20 Temperature 96.9 F L Pulse Rate 63 63 65 Respiratory Rate 20 Blood Pressure 119/48 L Pulse Oximetry 92 10/25/20 00:00 10/25/20 04:00 10/25/20 05:42 Temperature 96.9 F L 96.9 F L Pulse Rate 60 53 L 60 Respiratory Rate 18 18 Blood Pressure 137/51 L 144/60 H Pulse Oximetry 93 95 10/25/20 08:00 10/25/20 08:30 10/25/20 08:31 Temperature 97.1 F L Pulse Rate 62 63 Respiratory Rate 18 18 Blood Pressure 134/67 Pulse Oximetry 95 95 Intake/Output Intake/Output: Intake & Output 10/22/20 10/23/20 10/24/20 10/25/20 23:59 23:59 23:59 23:59 Intake Total 3010 995 350 Output Total 1250 900 Balance 1760 995 -550 Meds/Results Medications: Active Medications Generic Name Dose Route Start Last Admin Trade Name Freq PRN Reason Stop Dose Admin Acetaminophen 650 mg 10/23/20 00:01 Acetaminophen 325 Mg Tablet PO Q4H PRN Mild Pain (1-3) or Fever Alprazolam 0.5 mg 10/23/20 04:31 10/23/20 08:26 Alprazolam (*Crx) 0.5 Mg Tablet PO 0.5 mg DAILY PRN Administration Anxiety Cyanocobalamin 1,000 mcg 10/24/20 09:00 10/25/20 08:30 Cyanocobalamin 1,000 Mcg Tablet PO 1,000 mcg QAM ANGELIQUE Administration Gabapentin 300 mg 10/23/20 09:00 10/25/20 08:29 Gabapentin 300 Mg Capsule PO 300 mg TID ANGELIQUE Administration Hydrochlorothiazide 25 mg 10/23/20 09:00 10/25/20 08:29 Hydrochlorothiazide 25 Mg Tablet BY MOUTH 25 mg D
== END 2020-10-25 12:30 | disposition home or self-care (01) | DRG 811 ==
LOC: ANHED 23:56 → ANHIMU 10-23 05:57 → ANH2MED 10-25 09:02 → ANHIMU 10-28 16:56
PROVIDERS: Internal Medicine Gastroenterology; Admitting Provider Internal Medicine; Emergency Provider Family Medicine; PCP Family Medicine; Visit Provider Physician Assistant
PROC: 0DJ08ZZ Inspection of Upper Intestinal Tract, Via Natural or Artificial Opening Endoscopic (ICD-10-PCS; CPT 43235; principal; 2020-10-23 14:45)
PROC: 0DJD8ZZ Inspection of Lower Intestinal Tract, Via Natural or Artificial Opening Endoscopic (ICD-10-PCS; CPT 45378; principal; 2020-10-24 07:00)
DX: D62 Acute posthemorrhagic anemia (principal); I21.A1 Myocardial infarction type 2; K92.2 Gastrointestinal hemorrhage, unspecified; Q27.33 Arteriovenous malformation of digestive system vessel; I48.91 Unspecified atrial fibrillation; I10 Essential (primary) hypertension; Z86.73 Personal history of transient ischemic attack (TIA), and cerebral infarction without residual deficits; Z79.01 Long term (current) use of anticoagulants; F41.9 Anxiety disorder, unspecified; K21.9 Gastro-esophageal reflux disease without esophagitis; E03.9 Hypothyroidism, unspecified; G62.9 Polyneuropathy, unspecified; Z86.711 Personal history of pulmonary embolism; F17.210 Nicotine dependence, cigarettes, uncomplicated; E87.6 Hypokalemia; E53.8 Deficiency of other specified B group vitamins; K29.70 Gastritis, unspecified, without bleeding; G47.33 Obstructive sleep apnea (adult) (pediatric); I95.9 Hypotension, unspecified; K64.8 Other hemorrhoids
CPT/HCPCS: 36415; 36430; 71045; 80048; 80061; 82607; 82728; 82746; 83540; 83550; 83615; 83735; 84443; 84466; 84484; 85014; 85018; 85025; 86850; 86900; 86901; 86920; 88305; 93005; 93306; 96374; 96376; 97161; 97165; 99285; A9270; C9113; J1756; J2704; J3475; J3480; J7030; J7040; J7050; J7120; P9016

== ENCOUNTER 2020-12-28 21:22 | Observation (INO) | payer MEDICARE, SELFPAY ==
--- NOTE | ~2020-12-28 | XR_ITS ---
EXAMINATION: XR chest 1V portable EXAM DATE: 12/28/2020 22:05 INDICATION: palpitations X 1 HR,HX HTN,AFIB. TECHNIQUE: Portable AP frontal chest x-ray was obtained. Comparison is made to prior examination from 10/22/2020. FINDINGS: Chronic left pleural blunting. No acute airspace disease. There are no pleural effusions. The cardiomediastinal silhouette is within normal limits. There is no pneumothorax suspected. There is aortic arteriosclerosis. IMPRESSION: No acute cardiopulmonary findings. Reviewed, dictated and finalized at location A. ANCE CONSULTANT
[2020-12-28 21:27] VITALS: BP 216/135; PULSE 131; RESP 20; TEMP 35.8; O2SAT 100
[2020-12-28 21:32] VITALS: BP 125/100
[2020-12-28 22:05] LABS: Basophils Absolute Auto 0.1 K/mm3 (0.0-0.1); Basophils Percent Auto 0.6 % (0.2-1.2); Eosinophils Absolute Auto 0.2 K/mm3 (0-0.3); Eosinophils Percent Auto 2.6 % (0-4.4); Hematocrit 40.9 % (37.0-47.0); Hemoglobin 12.8 g/dL (12.0-15.0); Immature Granulocyte Absolute 0.01 K/mm3 (0.00-0.031); Immature Granulocyte Percent A 0.1 % (0-0.5); Lymphocytes Absolute Auto 3.13 K/mm3 (0.9-3.2); Lymphocytes Percent Auto 40.5 % (18.3-44.2); Mean Corpuscular HGB Conc 31.3 g/dl (32-36); Mean Corpuscular Hemoglobin 25.7 pg (26-34); Mean Corpuscular Volume 82.1 fl (80-100); Mean Platelet Volume 9.7 fl (7.4-10.4); Monocytes Absolute Auto 0.7 K/mm3 (0.1-0.6); Monocytes Percent Auto 8.5 % (2.6-8.5); Neutrophils Absolute Auto 3.7 K/mm3 (1.3-6.7); Neutrophils Percent Auto 47.7 % (45.5-73.1); Platelet Count Result 270 k/mm3 (150-375); Red Blood Count 4.98 M/mm3 (4.2-5.4); Red Cell Distribution Width 20.6 % (11.5-14.5); White Blood Count 7.7 K/mm3 (4.5-10.0)
--- NOTE | 2020-12-28 22:08 | ED.GENADULT ---
HPI - General Adult General Chief complaint: Arrhythmia/Palpitations Stated complaint: heart palpitations Time Seen by Provider: 12/28/20 21:42 Source: patient and RN notes reviewed History of Present Illness HPI narrative: Patient is a 75 y/o female complaining of heart fluttering starting 2 hours ago. She states that this feeling is intermittent. There is no alleviating or exacerbating factor. She has no chest pain or SOB. Related Data Home Medications Medication Instructions Recorded Confirmed Xarelto 20 mg PO DAILY 10/22/20 12/29/20 alprazolam 0.5 mg PO TID PRN 10/22/20 12/29/20 amlodipine 5 mg PO DAILY 10/22/20 12/29/20 gabapentin 300 mg PO TID 10/22/20 12/29/20 hydrochlorothiazide 25 mg DAILY 10/22/20 12/29/20 alendronate-vitamin D3 2,000 units PO DAILY 10/23/20 12/29/20 multivit with min-folic acid 0.4 tablet PO DAILY 10/23/20 12/29/20 pregabalin 75 mg PO BID 10/23/20 12/29/20 simvastatin 40 mg PO DAILY 10/24/20 12/29/20 levothyroxine 88 mcg PO DAILY 12/29/20 12/29/20 meclizine 25 mg PO BID 12/29/20 12/29/20 olmesartan 40 mg PO DAILY 12/29/20 12/29/20 Allergies Allergy/AdvReac Type Severity Reaction Status Date / Time No Known Allergies Allergy Verified 10/23/20 13:44 Review of Systems Constitutional: Constitutional: Denies chills, Denies fever(s), Denies headache(s) and Denies weakness Eyes: Eyes: Denies blurry vision ENT: Denies headache(s) and Denies neck pain Cardiovascular: Cardiovascular: Denies chest pain, Reports rapid heart rate, Reports irregular heart rhythm and Denies dyspnea Respiratory: Respiratory: Denies cough and Denies dyspnea Gastrointestinal: Gastrointestinal: Denies abdominal pain, Denies diarrhea, Denies nausea and Denies vomiting Genitourinary: Genitourinary: Denies hematuria and Denies dysuria Musculoskeletal: Musculoskeletal: Denies back pain and Denies neck pain Neurologic: Denies headache(s) and Denies weakness [facility] Past Medical History Medical History (Updated 12/29/20 @ 16:46 by Shaina Michel MD) Acute blood loss anemia Anxiety AVM (arteriovenous malformation) of colon (10/2020) CVA (cerebrovascular accident) Erosive gastritis (10/2020) GERD (gastroesophageal reflux disease) HTN (hypertension) Hypothyroid Macular degeneration Metatarsal bone fracture (02/13/19) Metatarsal bone fracture (02/13/19) Obstructive sleep apnea Apnea link screening was positive October 2020 Paroxysmal atrial fibrillation Peripheral neuropathy Pulmonary embolism (~07/2018) Vitamin D deficiency Weight gain Surgical History Surgical History (Updated 12/29/20 @ 04:03 by Liya Perdue DO) History of esophagogastroduodenoscopy (EGD) (10/2020) AVMs noted in cecum and erosive gastritis Status post cataract extraction of both eyes with insertion of intraocular lens Family History Family History Father Acute myocardial infarction Social History Social History (Updated 12/29/20 @ 07:09 by Liya Perdue DO) Social History: She has been for 52 years. They had 1 son who last year at 49 years old of heart disease. She is a retired hairdresser. She still smokes about 5 cigarettes a day. Up until recent years she used to smoke a half a pack of cigarettes per day and started smoking as a teenager. She denies any alcohol use or illicit substance use. Smoking packs per day: 5 Smoking cigarettes per day: 100.0 Years smoked: 50 Smoking pack-years: 250.00 Smoking status: Light tobacco smoker Tobacco type: cigarettes Alcohol intake: never Substance use: never Gender identity (if verbalized by the patient): Female Spiritual care concerns: No Exam Const: General: no acute distress and well developed Orientation/consciousness: oriented to person, oriented to place, oriented to time and patient oriented x3 HENMT: Head: normocephalic Ears: external ears normal General nose exam: N
[2020-12-28 22:14] LABS: INR 1.2; Prothrombin Time 15.3 Seconds (11.1-14.7)
[2020-12-28 22:15] LABS: Partial Thromboplastin Time 39.2 SECONDS (22.3-36.8)
[2020-12-28 22:16] LABS: Anion Gap 12 mmol/L (8-16); Blood Urea Nitrogen 13 mg/dL (7-17); Calcium 10.3 mg/dL (8.4-10.2); Carbon Dioxide 29 mmol/L (22-30); Chloride 96 mmol/L (98-107); Estimated CRCL calculation 59 ml/min; Estimated Glomerular Filt Rate > 60; Glucose 129 mg/dL (65-110); Sodium 137 mmol/L (137-145)
--- NOTE | 2020-12-28 22:23 | PC.NURSE ---
2215 sat patient up in bed heart rate decreased to 88
[2020-12-28 22:24] VITALS: BP 129/91; PULSE 103; RESP 18; O2SAT 96
[2020-12-28 22:27] LABS: Troponin I < 0.012 ng/mL (0.000-0.034)
[2020-12-28] MEDS: dilTIAZem HCl INJ 25 MG/5 ML VIAL 10 MG IV PUSH (23:14)
[2020-12-28 23:15] VITALS: BP 142/91; PULSE 146; RESP 20; O2SAT 96
[2020-12-28 23:25] VITALS: BP 125/73; PULSE 114
[2020-12-29] VITALS (15 sets, daily range): BP systolic 113–159; BP diastolic 61–74; PULSE 55–110; RESP 15–20; TEMP 36.3–36.6; O2SAT 96–98; BMI 36.8
[2020-12-29] MEDS: POTASSIUM CHLORIDE 20 MEQ TABLET 40 MEQ PO (01:06)
--- NOTE | 2020-12-29 01:30 | PC.NURSE ---
Patient placed in a hospital bed for comfort while awaiting IMU room availability
--- NOTE | 2020-12-29 03:49 | PM.IMHP ---
H&P: HPI History of Present Illness Date/Time: 12/29/20 06:00 Chief Complaint: Palpitations Narrative: 75-year-old female with a past medical history of paroxysmal atrial fibrillation, hypertension, hypothyroidism,, pulmonary embolism, and symptomatic anemia October 2020 who presented to the ER from home due to palpitations. The patient had been hospitalized in October due to symptomatic anemia an and AFib RVR at that time. She had an AVM that was Yang eyes. She has not had any further bleeding since that time and her hemoglobin has normalized. She was restarted on her Xarelto October 30. She has been compliant with all of her cardiac medications. She stated that she was at home watching TV when around 8:00 p.m. she felt a funny sensation in her chest similar to when she had her prior episodes of AFib. She came into the ER and was noted to be in AFib RVR. She was placed on a Cardizem drip and converted to sinus rhythm just prior to my evaluation this morning. She denies having any chest pain or shortness breast. She has not had any lower extremity swelling paroxysmal nocturnal dyspnea lightheadedness or dizziness. She reported that she felt her usual state of health prior to 8:00 p.m.. She denies any other ill symptoms. Review of Systems Review of Systems: 12 systems were reviewed with pertinent positives and negatives per HPI. Except as documented in the HPI, all other systems were reviewed and are negative. [facility] Past Medical History Medical History (Updated 12/29/20 @ 04:03 by Liya Perdue DO) Acute blood loss anemia Anxiety AVM (arteriovenous malformation) of colon (10/2020) CVA (cerebrovascular accident) Erosive gastritis (10/2020) GERD (gastroesophageal reflux disease) HTN (hypertension) Hypothyroid Macular degeneration Metatarsal bone fracture (02/13/19) Metatarsal bone fracture (02/13/19) Obstructive sleep apnea Apnea link screening was positive October 2020 Paroxysmal atrial fibrillation Peripheral neuropathy Pulmonary embolism (~07/2018) Vitamin D deficiency Weight gain Surgical History Surgical History (Updated 12/29/20 @ 04:03 by Liya Perdue DO) History of esophagogastroduodenoscopy (EGD) (10/2020) AVMs noted in cecum and erosive gastritis Status post cataract extraction of both eyes with insertion of intraocular lens Family History Family History Father Acute myocardial infarction Social History Social History (Updated 12/29/20 @ 07:09 by Liya Perdue DO) Social History: She has been for 52 years. They had 1 son who last year at 49 years old of heart disease. She is a retired hairdresser. She still smokes about 5 cigarettes a day. Up until recent years she used to smoke a half a pack of cigarettes per day and started smoking as a teenager. She denies any alcohol use or illicit substance use. Smoking packs per day: 0.4 Smoking cigarettes per day: 8.0 Years smoked: 50 Smoking pack-years: 20.00 Smoking status: Current every day smoker Tobacco type: cigarettes Alcohol intake: never Substance use: never Gender identity (if verbalized by the patient): Female Spiritual care concerns: No Meds Home Medications and Allergies Home Medications Medication Instructions Recorded Confirmed Type Xarelto 20 mg PO DAILY 10/22/20 12/29/20 History alprazolam 0.5 mg PO TID PRN 10/22/20 12/29/20 History amlodipine 5 mg PO DAILY 10/22/20 12/29/20 History gabapentin 300 mg PO TID 10/22/20 12/29/20 History hydrochlorothiazide 25 mg DAILY 10/22/20 12/29/20 History alendronate-vitamin D3 2,000 units PO DAILY 10/23/20 12/29/20 History multivit with min-folic acid 0.4 tablet PO DAILY 10/23/20 12/29/20 History pregabalin 75 mg PO BID 10/23/20 12/29/20 History simvastatin 40 mg PO DAILY 10/24/20 12/29/20 History metoprolol tartrate 25 mg PO Q12HR #60 tablet 10/25/20 12/29/20 Rx pantoprazole
--- NOTE | 2020-12-29 04:54 | ECG_ITS ---
Measurements Intervals [place] Rate: 52 P: 16 FL: 212 QRS: 80 QRSD: 101 T: 19 QT: 478 QTc: 447 Interpretive Statements SINUS BRADYCARDIA WITH FIRST DEGREE AV BLOCK INCOMPLETE RIGHT BUNDLE BRANCH BLOCK BASELINE WANDER- V5 ABNORMAL ECG Electronically Signed On 12-29-2020 7:42:30 TRAIN ENGINEER by George Bradley D.O.
--- NOTE | 2020-12-29 05:04 | PC.NURSE ---
dr wilson informed pt converted to nsr request stop Lela ramirez
[2020-12-29 06:00] LABS: Anion Gap 7 mmol/L (8-16); Blood Urea Nitrogen 12 mg/dL (7-17); Calcium 9.3 mg/dL (8.4-10.2); Carbon Dioxide 30 mmol/L (22-30); Chloride 100 mmol/L (98-107); Estimated CRCL calculation 67 ml/min; Estimated Glomerular Filt Rate > 60; Glucose 109 mg/dL (65-110); Magnesium 1.7 mg/dL (1.6-2.3); Potassium 3.5 mmol/L (3.4-5.0); Sodium 137 mmol/L (137-145)
--- NOTE | 2020-12-29 06:47 | PC.NURSE ---
This patient, Norma Coleman, was admitted to Intensive Care Unit-5. Patient/family oriented to hospital policies and general routines including ID bracelet, bed and alarms, visiting hours, pain management, procedures, bathroom and other care routines, personal items, smoking policy, room service/diet, and visiting hours. Information on how to activate the Rapid Response Team has been discussed. Patient/Family are encouraged to report perceived risks to care and to ask questions if they do not understand what they are told or what they should do.
[2020-12-29] MEDS: MAGNESIUM SULF 2 GM/WATER 50ML 2 GM/50 ML BAG IVPB (08:07)
[2020-12-29] MEDS: POTASSIUM CHLORIDE 20 MEQ PACKET (FOR LIQUID) 40 MEQ PO (08:07)
[2020-12-29 08:18] LABS: Add Urine Microscopic? YES; Appearance Urine Clear (Clear); Bilirubin Urine Negative (Negative); Blood Urine Negative (Negative); Color Urine Yellow (Yellow); Glucose Urine UA Negative (Negative); Ketones Urine Negative (Negative); Leukocyte Esterase Ur Negative LEU/UL (Negative); Mucus Urine Rare /lpf; Nitrate Urine Negative (Negative); Protein Urine Negative (Negative); RBC Urine 0-2 /hpf (0-2); Specific Grav Ur 1.012 (1.001-1.035); Urobilinogen Urine Negative mg/dL (<2.0)
[2020-12-29] MEDS: LEVOTHYROXINE SODIUM 88 MCG TABLET PO (08:52)
[2020-12-29] MEDS: amLODIPine BESYLATE 5 MG TABLET PO (08:52)
[2020-12-29] MEDS: hydroCHLOROthiazide 25 MG TABLET PO (08:52)
[2020-12-29] MEDS: GABAPENTIN 300 MG CAPSULE PO ×3 (08:52→17:28)
[2020-12-29] MEDS: MECLIZINE HCL 25 MG TABLET PO (08:52)
[2020-12-29] MEDS: RIVAROXABAN 20 MG TABLET PO (08:53)
[2020-12-29] MEDS: PANTOPRAZOLE 40 MG TABLET PO (08:53)
[2020-12-29] MEDS: OLMESARTAN MEDOXOMIL 20 MG TABLET 40 MG PO (08:53)
[2020-12-29] MEDS: METOPROLOL TARTRATE 25 MG TABLET PO ×2 (08:53→20:24)
[2020-12-29] MEDS: PREGABALIN (*CRX) 75 MG CAPSULE PO ×2 (08:53→17:28)
[2020-12-29] MEDS: THERAPEUTIC MULTIVITAMINS/MINERALS TAB (*BKC) 1 TABLET PO (08:53)
[2020-12-29] MEDS: SIMVASTATIN 20 MG TABLET 40 MG PO (08:54)
--- NOTE | 2020-12-29 10:20 | PC.NURSE ---
REPORT CALLED TO RACHEAL SHEPPARD. ALL QUESTIONS ANSWERED. PATIENT TAKEN TO [place] [id number] PER WHEELCHAIR.
--- NOTE | 2020-12-29 10:55 | PM.IMPN ---
Progress Note: A&P Assessment and Plan (1) Paroxysmal atrial fibrillation: Code(s): I48.0 - Paroxysmal atrial fibrillation Status: Acute Assessment and Plan: Patient presented the ED with palpitations, found to be in AFib RVR with heart rates in the 130s, started on Cardizem infusion. The patient has already converted back to sinus rhythm. This likely has to do with the normalization of the patient's potassium. Will resume the patient's home metoprolol and Xarelto. 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 Found to be in atrial fibrillation RVR with heart rate in the 130s ED. Patient was started on Cardizem infusion. Patient transferred to the ICU as an AVIS overflow. Has been off Cardizem infusion since early this morning. Patient did get her home medications. UA was clear. Patient denies any shortness of breath, chest pain, abdominal pain, nausea, vomiting, palpitations Review of Systems Review of Systems: All systems reviewed & are unremarkable except as noted in HPI and below Exam Narrative: General: Obese, no acute distress HEENT: No scleral icterus pallor, head is normocephalic atraumatic, no thyromegaly, Respiratory: Clear to auscultation bilaterally, no increased work of breathing Cardiovascular: Sinus rhythm with sinus arrhythmia, 2+ bilateral radial pedal pulses Gastrointestinal: Obese, soft, normoactive bowel sounds Skin: Generalized pallor, non jaundice, varicose veins bilateral lower extremities Musculoskeletal: No clubbing, cyanosis or edema Neurological: Alert oriented, speech is clear, no facial asymmetry, no localizing neurologic deficits noted on limited exam, moves all extremities equally Psychiatric: Appropriate mood and affect, pleasant and cooperative : Deferred Hematologic/lymphatic: No petechiae, no bruising, no anterior cervical or submandibular lymphadenopathy Objective Data Vital Signs Vital Signs: Vital Signs - 24 hr 12/28/20 21:27 12/28/20 21:32 12/28/20 22:24 Temperature 96.4 F L Pulse Rate 131 H 103 H Respiratory Rate 20 18 Blood Pressure 216/135 H 125/100 H 129/91 H Pulse Oximetry 100 96 12/28/20 23:15 12/28/20 23:25 12/29/20 00:26 Temperature Pulse Rate 146 H 114 H 110 H Respiratory Rate 20 18 Blood Pressure 142/91 H 125/73 124/74 Pulse Oximetry 96 98 12/29/20 00:45 12/29/20 02:47 12/29/20 04:37 Temperature Pulse Rate 93 91 61 Respiratory Rate 18 18 16 Blood Pressure 124/74 113/61 126/61 Pulse Oximetry 98 97 96 12/29/20 07:03 12/29/20 08:00 12/29/20 08:53 Temperature 97.9 F 97.7 F Pulse Rate 55 L 57 L 57 L Respiratory Rate 16 15 Blood Pressure 145/66 H 147/70 H Pulse Oximetry 96 98 12/29/20 10:00 Temperature Pulse Rate 73 Respiratory Rate Blood Pressure Pulse Oximetry Intake/Output Intake/Output: Intake & Output 12/27/20 12/27/20 12/28/20 12/29/20 00:59 23:59 23:59 23:59 Intake Total 360 Balance 360 Meds/Results Medications: Active Medications Generic Name Dose Route Start Last Admin Trade Name Freq PRN Reason Stop Dose Admin Alprazolam 0.5 mg 12/29/20 07:03 Alprazolam (*Crx) 0.5 Mg Tablet PO TID PRN Anxiety Amlodipine Besylate 5 mg 12/29/20 09:00 12/29/20 08:52 Amlodipine Besylate 5 Mg Tablet PO 5 mg DAILY ANGELIQUE Davila
--- NOTE | 2020-12-29 13:04 | PM.IMPN ---
Progress Note: A&P Assessment and Plan (1) Paroxysmal atrial fibrillation: Code(s): I48.0 - Paroxysmal atrial fibrillation Status: Acute Assessment and Plan: Patient presented the ED with palpitations, found to be in AFib RVR with heart rates in the 130s, started on Cardizem infusion. now off the infusion. Pt is now in NSR monitor on tele overnite and dc tomorrow. (2) Chronic anticoagulation: Code(s): Z79.01 - terminal operations manager (current) use of anticoagulants Status: Acute Assessment and Plan: Continue Xarelto for AF (3) Acute hypokalemia: Code(s): E87.6 - Hypokalemia Status: Acute Assessment and Plan: Corrected potassium 3.5 now also supplement magnesium check BMP yue AM Subjective Date/time seen: 12/29/20 13:04 Interval history: 5-year-old female with a past medical history of paroxysmal atrial fibrillation, hypertension, hypothyroidism,, pulmonary embolism, and symptomatic anemia October 2020 who presented to the ER from home due to palpitations. The patient had been hospitalized in October due to symptomatic anemia an and AFib RVR at that time. Pt is here with hypokalemia and PAF today. Pt to be monitored today and hopeful dc tomorrow. Review of Systems Review of Systems: All systems reviewed & are unremarkable except as noted in HPI and below Exam Const: General: cooperative and healthy appearing; No in distress Nutritional Appearance: overweight Orientation/consciousness: oriented to person HENMT: Head: normal to inspection Resp: Effort & Inspection: no respiratory distress Auscultation: no rhonchi and no wheezes Cardio: Rate: regular rate Rhythm: regular rhythm GI: Inspection: normal to inspection GI Palp: No abdominal tenderness, No Guarding due to palpation present (GI) and No Hepatomegaly present Auscultation: normal bowel sounds Neuro: General: oriented to person Objective Data Vital Signs Vital Signs: Vital Signs - 24 hr 12/28/20 21:27 12/28/20 21:32 12/28/20 22:24 Temperature 35.8 C L Pulse Rate 131 H 103 H Respiratory Rate 20 18 Blood Pressure 216/135 H 125/100 H 129/91 H Pulse Oximetry 100 96 12/28/20 23:15 12/28/20 23:25 12/29/20 00:26 Temperature Pulse Rate 146 H 114 H 110 H Respiratory Rate 20 18 Blood Pressure 142/91 H 125/73 124/74 Pulse Oximetry 96 98 12/29/20 00:45 12/29/20 02:47 12/29/20 04:37 Temperature Pulse Rate 93 91 61 Respiratory Rate 18 18 16 Blood Pressure 124/74 113/61 126/61 Pulse Oximetry 98 97 96 12/29/20 07:03 12/29/20 08:00 12/29/20 08:53 Temperature 36.6 C 36.5 C Pulse Rate 55 L 57 L 57 L Respiratory Rate 16 15 Blood Pressure 145/66 H 147/70 H Pulse Oximetry 96 98 12/29/20 10:00 12/29/20 11:15 Temperature Pulse Rate 73 56 L Respiratory Rate Blood Pressure Pulse Oximetry Intake/Output Intake/Output: Intake & Output 12/27/20 12/27/20 12/28/20 12/29/20 00:59 23:59 23:59 23:59 Intake Total 360 Balance 360 Meds/Results Medications: Active Medications Generic Name Dose Route Start Last Admin Trade Name Freq PRN Reason Stop Dose Admin Alprazolam 0.5 mg 12/29/20 07:03 Alprazolam (*Crx) 0.5 Mg Tablet PO TID PRN Anxiety Amlodipine Besylate 5 mg 12/29/20 09:00 12/29/20 08:52 Amlodipine Besylate 5 Mg Tablet PO 5 mg DAILY ANGELIQUE Administration Gabapentin 300 mg 12/29/20 09:00 12/29/20 08:52 Gabapentin 300 Mg Capsule PO 300 mg TID ANGELIQUE Administration Hydrochlorothiazide 25 mg 12/29/20 09:00 12/29/20 08:52 Hydrochlorothiazide 25 Mg Tablet PO 25 mg DAILY ANGELIQUE Administration Diltiazem HCl 100 mg in 100 mls @ 5 mls/hr 12/28/20 23:00 12/29/20 05:05 Cardizem 100 Mg/D5w 100 Ml IV CONT 12/29/20 18:59 5 mg/hr .Q20H STA 5 mls/hr Titration Protocol 5 MG/HR Levothyroxine Sodium 88 mcg 12/29/20 06:30 12/29/20 08:52 Levothyroxine Sodium 88 Mcg Tablet PO 88 mcg D
[2020-12-30] VITALS: PULSE 53
[2020-12-30 04:00] VITALS: PULSE 50
[2020-12-30 04:52] VITALS: BP 144/69; PULSE 60; RESP 16; TEMP 36.1; O2SAT 95
[2020-12-30] MEDS: LEVOTHYROXINE SODIUM 88 MCG TABLET PO (06:28)
[2020-12-30 08:00] VITALS: PULSE 67
[2020-12-30] MEDS: PREGABALIN (*CRX) 75 MG CAPSULE PO (08:01)
[2020-12-30] MEDS: OLMESARTAN MEDOXOMIL 20 MG TABLET 40 MG PO (08:01)
[2020-12-30 08:02] VITALS: PULSE 69
[2020-12-30] MEDS: THERAPEUTIC MULTIVITAMINS/MINERALS TAB (*BKC) 1 TABLET PO (08:02)
[2020-12-30] MEDS: MECLIZINE HCL 25 MG TABLET PO (08:02)
[2020-12-30] MEDS: amLODIPine BESYLATE 5 MG TABLET PO (08:02)
[2020-12-30] MEDS: SIMVASTATIN 20 MG TABLET 40 MG PO (08:02)
[2020-12-30] MEDS: GABAPENTIN 300 MG CAPSULE PO ×2 (08:02→12:13)
[2020-12-30] MEDS: RIVAROXABAN 20 MG TABLET PO (08:02)
[2020-12-30] MEDS: METOPROLOL TARTRATE 25 MG TABLET PO (08:02)
[2020-12-30] MEDS: PANTOPRAZOLE 40 MG TABLET PO (08:02)
[2020-12-30 08:25] LABS: Anion Gap 9 mmol/L (8-16); Blood Urea Nitrogen 13 mg/dL (7-17); Calcium 9.3 mg/dL (8.4-10.2); Carbon Dioxide 24 mmol/L (22-30); Chloride 102 mmol/L (98-107); Estimated CRCL calculation 68 ml/min; Estimated Glomerular Filt Rate > 60; Glucose 88 mg/dL (65-110); Potassium 4.1 mmol/L (3.4-5.0); Sodium 135 mmol/L (137-145)
[2020-12-30 12:00] VITALS: PULSE 54
--- NOTE | 2020-12-30 12:47 | PM.DS ---
DS: Admitting Diagnosis Discharge Date 12/30/2020 Admitting Diagnosis Palpitations DS: Discharge Diagnosis Discharge Diagnosis (1) Paroxysmal atrial fibrillation: Code(s): I48.0 - Paroxysmal atrial fibrillation Status: Acute Assessment and Plan: Patient presented the ED with palpitations, found to be in AFib RVR with heart rates in the 130s, started on Cardizem infusion. now off the infusion. Pt is now in NSR Pt is on betablockers and remains in NSR, oral cardizem not started, pt can follow with Dr ROWAN as outpatient. (2) Chronic anticoagulation: Code(s): Z79.01 - correction (current) use of anticoagulants Status: Acute Assessment and Plan: Continue Xarelto for AF (3) Acute hypokalemia: Code(s): E87.6 - Hypokalemia Status: Acute Assessment and Plan: Potassium corrected with potassium and magnesium supplementation in hospital HCTZ stopped in hospital as pts potassium was low on admission. DS: Summary Hospital Course Hospital Course: 75-year-old female with a past medical history of paroxysmal atrial fibrillation, hypertension, hypothyroidism,, pulmonary embolism, and symptomatic anemia October 2020 who presented to the ER from home due to palpitations. The patient had been hospitalized in October due to symptomatic anemia and AFib RVR at that time. Pt is here with hypokalemia and PAF today. Pt to be monitored overnight on tele potassium corrected. Pt stable for discharge with cardiology follow up. Time Spent with Patient Time attestation: Total time spent providing and/or coordinating discharge services:40 minutes on day of dischrage Exam Const: General: cooperative and healthy appearing; No in distress Nutritional Appearance: overweight Orientation/consciousness: oriented to person HENMT: Head: normal to inspection Resp: Effort & Inspection: no respiratory distress Auscultation: no rhonchi and no wheezes Cardio: Rate: regular rate Rhythm: regular rhythm GI: Inspection: normal to inspection Auscultation: normal bowel sounds Neuro: General: oriented to person DS: Data Data Completed and Pending Labs on day of discharge: Labs from last 24 hours 12/30/20 07:48 Sodium 135 L Potassium 4.1 Chloride 102 Carbon Dioxide 24 Anion Gap 9 BUN 13 Creatinine 0.70 Estim Creat Clear Calc 68 Estimated GFR > 60 Glucose 88 Calcium 9.3 Discharge Plan Discharge Attending physician on discharge: Khushboo Henry Discharging Clinician: Khushboo Henry Anticipated Discharge Date/Time: 12/30/20 12:49 Patient Disposition: Home, Self-Care Activity: as tolerated Diet: heart healthy Patient Instructions: Antibiotic Form Stand Alone Forms: General Discharge Information Follow-up/Referrals: Bhavesh Wells MD [Physician] - (FOLLOW UP FOR PAF ) Stefano,Blair Wiggins MD [Primary Care Provider] - Discharge Medications: Continued amlodipine 5 mg tablet 5 mg PO DAILY RF: 0 alprazolam 0.5 mg tablet 0.5 mg PO TID PRN (Reason: Anxiety) RF: 0 gabapentin 300 mg capsule 300 mg PO TID RF: 0 Xarelto 20 mg tablet 20 mg PO DAILY RF: 0 Hold Instructions: Resume on 10/30/20. multivit with min-folic acid 0.4 mg Tablet 0.4 tablet PO DAILY RF: 0 alendronate-vitamin D3 2,000 units PO DAILY RF: 0 pregabalin 75 mg PO BID RF: 0 simvastatin 40 mg tablet 40 mg PO DAILY RF: 0 metoprolol tartrate 25 mg Tablet 25 mg PO Q12HR Qty: 60 RF: 0 pantoprazole 40 mg Tablet,Delayed Release (Dr/Ec) 40 mg PO QAM 30 Days Qty: 30 RF: 5 olmesartan 40 mg tablet 40 mg PO DAILY RF: 0 levothyroxine 88 mcg Tablet 88 mcg PO DAILY RF: 0 meclizine 25 mg Tablet 25 mg PO BID RF: 0 Discontinued hydrochlorothiazide 25 mg tablet 25 mg DAILY RF: 0 Date of admission: 12/29/20 00:25 Primary Care Provider: Stefano,Blair Wiggins Admitting Provider: Monet Perdue
== END 2020-12-30 13:31 | disposition home or self-care (01) ==
LOC: ANHED 21:54 → ANHICU 12-29 06:43 → ANH3MED 12-29 13:16 → ANHICU 12-31 12:10 → ANHIMU 12-31 12:10
PROVIDERS: Emergency Medicine; Internal Medicine; Admitting Provider Internal Medicine; Emergency Provider Emergency Medicine; PCP Family Medicine; Visit Provider Family Medicine
DX: I48.0 Paroxysmal atrial fibrillation (principal); R00.2 Palpitations; D64.9 Anemia, unspecified; E03.9 Hypothyroidism, unspecified; F17.210 Nicotine dependence, cigarettes, uncomplicated; I10 Essential (primary) hypertension; Z86.711 Personal history of pulmonary embolism; Z79.01 Long term (current) use of anticoagulants
CPT/HCPCS: 36415; 71045; 80048; 81001; 83735; 84484; 85025; 85610; 85730; 93005; 96365; 96366; 96375; 99285; A9270; G0378; J3475

== ENCOUNTER 2021-01-03 11:46 | Emergency (ER) | payer MEDICARE, SELFPAY ==
[2021-01-03] VITALS (13 sets, daily range): BP systolic 159–173; BP diastolic 69–87; PULSE 53–63; RESP 12–21; TEMP 36.1; O2SAT 94–97
--- NOTE | 2021-01-03 11:55 | ECG_ITS ---
Measurements Intervals [place] Rate: 56 P: 46 DC: 185 QRS: -25 QRSD: 95 T: 35 QT: 423 QTc: 411 Interpretive Statements SINUS BRADYCARDIA INCOMPLETE RIGHT BUNDLE BRANCH BLOCK BORDERLINE R WAVE PROGRESSION, ANTERIOR LEADS BORDERLINE ECG Electronically Signed On 01-03-2021 14:44:19 PANEL SAW OPERATOR by George Bradley D.O.
[2021-01-03 13:05] LABS: Basophils Absolute Auto 0.1 K/mm3 (0.0-0.1); Basophils Percent Auto 0.8 % (0.2-1.2); Eosinophils Absolute Auto 0.1 K/mm3 (0-0.3); Eosinophils Percent Auto 1.8 % (0-4.4); Hemoglobin 11.6 g/dL (12.0-15.0); Immature Granulocyte Absolute 0.02 K/mm3 (0.00-0.031); Immature Granulocyte Percent A 0.3 % (0-0.5); Lymphocytes Absolute Auto 1.49 K/mm3 (0.9-3.2); Lymphocytes Percent Auto 24.2 % (18.3-44.2); Mean Corpuscular HGB Conc 31.4 g/dl (32-36); Mean Corpuscular Hemoglobin 26.2 pg (26-34); Mean Corpuscular Volume 83.7 fl (80-100); Mean Platelet Volume 9.7 fl (7.4-10.4); Monocytes Absolute Auto 0.4 K/mm3 (0.1-0.6); Monocytes Percent Auto 7.2 % (2.6-8.5); Neutrophils Percent Auto 65.7 % (45.5-73.1); Platelet Count Result 242 k/mm3 (150-375); Red Blood Count 4.42 M/mm3 (4.2-5.4); Red Cell Distribution Width 20.1 % (11.5-14.5); White Blood Count 6.2 K/mm3 (4.5-10.0)
[2021-01-03 13:16] LABS: Alanine Aminotransferase 13 U/L (4-35); Albumin Level 4.5 g/dL (3.5-5.1); Alkaline Phosphatase 73 U/L (38-126); Anion Gap 8 mmol/L (8-16); Aspartate Amino Transferase 24 U/L (14-36); Bilirubin,Total 0.3 mg/dL (0.2-1.3); Blood Urea Nitrogen 11 mg/dL (7-17); Calcium 9.8 mg/dL (8.4-10.2); Carbon Dioxide 29 mmol/L (22-30); Chloride 102 mmol/L (98-107); Estimated CRCL calculation 59 ml/min; Estimated Glomerular Filt Rate > 60; Glucose 99 mg/dL (65-110); Sodium 139 mmol/L (137-145)
--- NOTE | 2021-01-03 13:35 | ED.RECABL ---
HPI - Recheck/Abnormal Lab/Rx General Chief Complaint: Recheck/Abnormal Lab/Rx Stated Complaint: high blood pressure Time Seen by Provider: 01/03/21 12:41 Source: patient History of Present Illness HPI narrative: Patient presents with concern for elevated blood pressure. She was recently admitted for A. fib with RVR and had some medication adjustments. This morning she felt off and had ringing in her ears she checked her blood pressure and it was in the 180s systolic. She took her medications rechecked her blood pressure is 160 she was concerned so she came to the ER for evaluation. The time of ER arrival she reports feeling improved. She denies chest pain or shortness of breath denies any nausea vomiting or diarrhea. Patient was concerned as she was discontinued on one of her water pills and was started on metoprolol and thinks this may be contributing to her continued elevated pressure Related Data Home Medications Medication Instructions Recorded Confirmed Xarelto 20 mg PO DAILY 10/22/20 12/29/20 alprazolam 0.5 mg PO TID PRN 10/22/20 12/29/20 amlodipine 5 mg PO DAILY 10/22/20 12/29/20 gabapentin 300 mg PO TID 10/22/20 12/29/20 alendronate-vitamin D3 2,000 units PO DAILY 10/23/20 12/29/20 multivit with min-folic acid 0.4 tablet PO DAILY 10/23/20 12/29/20 pregabalin 75 mg PO BID 10/23/20 12/29/20 simvastatin 40 mg PO DAILY 10/24/20 12/29/20 levothyroxine 88 mcg PO DAILY 12/29/20 12/29/20 meclizine 25 mg PO BID 12/29/20 12/29/20 olmesartan 40 mg PO DAILY 12/29/20 12/29/20 Allergies Allergy/AdvReac Type Severity Reaction Status Date / Time No Known Allergies Allergy Verified 10/23/20 13:44 Review of Systems Review of Systems: CONSTITUTIONAL: Denies fever, chills, or sweats. EYES: Denies visual changes, redness, or discharge. ENT: Denies rhinorrhea, congestion, sore throat, or otalgia. CARDIOVASCULAR: Denies chest pain, palpitations, or edema. RESPIRATORY: Denies cough or dyspnea. GASTROINTESTINAL: Denies abdominal pain, nausea, vomiting, or diarrhea. GENITOURINARY: Denies dysuria or hematuria. SKIN: Denies rash or itching. MUSCULOSKELETAL: Denies back pain, joint pain, or myalgia. NEUROLOGIC: Denies headache, numbness, dizziness, or weakness. PSYCHIATRIC: Denies anxiety or depression. All systems reviewed & are unremarkable except as noted in HPI and below PMFSH Past Medical History Medical History Acute blood loss anemia Anxiety AVM (arteriovenous malformation) of colon (10/2020) CVA (cerebrovascular accident) Erosive gastritis (10/2020) GERD (gastroesophageal reflux disease) HTN (hypertension) Hypothyroid Macular degeneration Metatarsal bone fracture (02/13/19) Metatarsal bone fracture (02/13/19) Obstructive sleep apnea Apnea link screening was positive October 2020 Paroxysmal atrial fibrillation Peripheral neuropathy Pulmonary embolism (~07/2018) Vitamin D deficiency Weight gain Surgical History Surgical History History of esophagogastroduodenoscopy (EGD) (10/2020) AVMs noted in cecum and erosive gastritis Status post cataract extraction of both eyes with insertion of intraocular lens Family History Family History Father Acute myocardial infarction Social History Social History Social History: She has been for 52 years. They had 1 son who last year at 49 years old of heart disease. She is a retired hairdresser. She still smokes about 5 cigarettes a day. Up until recent years she used to smoke a half a pack of cigarettes per day and started smoking as a teenager. She denies any alcohol use or illicit substance use. Smoking packs per day: 5 Smoking cigarettes per day: 100.0 Years smoked: 50 Smoking pack-years: 250.00 Smoking status: Light tobacco smoker
[2021-01-03 13:43] LABS: Add Urine Microscopic? YES; Appearance Urine Clear (Clear); Bilirubin Urine Negative (Negative); Blood Urine Negative (Negative); Color Urine Yellow (Yellow); Glucose Urine UA Negative (Negative); Ketones Urine Negative (Negative); Leukocyte Esterase Ur Negative LEU/UL (Negative); Mucus Urine Rare /lpf; Nitrate Urine Negative (Negative); Protein Urine Negative (Negative); Squamous Epithelial Cell Urine Rare /hpf (Few); Urobilinogen Urine Negative mg/dL (<2.0); WBC Urine 0-3 /hpf
[2021-01-03 13:45] LABS: Specific Grav Ur 1.004 (1.001-1.035)
== END 2021-01-03 14:55 | disposition home or self-care (01) ==
PROVIDERS: Emergency Provider Emergency Medicine; PCP Family Medicine
DX: I10 Essential (primary) hypertension (principal); F41.9 Anxiety disorder, unspecified; E03.9 Hypothyroidism, unspecified; G47.33 Obstructive sleep apnea (adult) (pediatric); I48.0 Paroxysmal atrial fibrillation; G62.9 Polyneuropathy, unspecified; Z86.2 Personal history of diseases of the blood and blood-forming organs and certain disorders involving the immune mechanism; Z86.73 Personal history of transient ischemic attack (TIA), and cerebral infarction without residual deficits; Z86.711 Personal history of pulmonary embolism; Z72.0 Tobacco use
CPT/HCPCS: 36415; 80053; 81001; 85025; 93005; 99283

== ENCOUNTER 2021-01-26 08:22 | Outpatient (CLI) | payer MEDICARE, SELFPAY ==
--- NOTE | ~2021-01-26 | US_ITS ---
EXAMINATION: US retroperitoneal duplex ltd DATE: 01/26/2021 09:13 INDICATION: Uncontrolled hypertension TECHNIQUE: Multiple grayscale, color Doppler, and pulsed Doppler images of the kidneys and renal adilia maryan were obtained. COMPARISON: None. FINDINGS: The aorta peak systolic velocity is 96 cm/s. The right renal artery peak systolic velocity is 70 cm/s in the proximal segment, 55 cm/s in the mid segment, and 105 cm/s in the distal segment. The left re nal artery peak systolic velocity is 62 cm/s in the proximal segment, 72 cm/s in the mid segment, and 56 cm/s in the distal segment. IMPRESSION: 1. No Doppler evidence of renal artery stenosis. Reviewed, dictated and finalized at location B. COM ASSISTANT
== END 2021-01-26 08:23 | disposition home or self-care (01) ==
LOC: ANHIMG 08:26
PROVIDERS: PCP Family Medicine; Visit Provider Nurse Practitioner Adult Health
DX: I10 Essential (primary) hypertension (principal)
CPT/HCPCS: 93976

== ENCOUNTER 2022-02-23 12:36 | Emergency (ER) | payer MEDICARE, SELFPAY ==
--- NOTE | ~2022-02-23 | XR_ITS ---
EXAMINATION: XR chest 2V DATE: 02/23/2022 13:18 INDICATION: Shortness of breath. Right arm weakness. TECHNIQUE: Frontal and lateral views of the chest were obtained. COMPARISON: Chest one view 12/28/2020, chest CT 07/27/2018 FINDINGS: There is mild atelectasis in right lower lung zone and left mid and lower lung zones. No pl eural effusion or pneumothorax. The heart size is normal. There is widening of the superior mediastin um correlating with an intrathoracic goiter by CT . IMPRESSION: 1. Mild atelectasis in right lower lung zone and left mid and lower lung zones. 2. Intrathoracic goiter. Reviewed, dictated and finalized at location A. HAMMER OPERATOR
[2022-02-23 12:51] VITALS: BP 154/81; PULSE 75; RESP 16; TEMP 36.2; O2SAT 99
--- NOTE | 2022-02-23 12:54 | ECG_ITS ---
Measurements Intervals [place] Rate: 68 P: 40 PA: 191 QRS: -28 QRSD: 92 T: 21 QT: 380 QTc: 405 Interpretive Statements SINUS RHYTHM LOW QRS VOLTAGE IN PRECORDIAL LEADS INCOMPLETE RIGHT BUNDLE BRANCH BLOCK POOR R WAVE PROGRESSION, ANTERIOR LEADS BORDERLINE ECG COMPARED TO ECG 01/03/2021 11:58:50 SINUS RHYTHM NOW PRESENT Electronically Signed On 02-23-2022 13:44:57 DIE CAST OPERATOR by George Bradley D.O.
[2022-02-23 13:10] LABS: Basophils Absolute Auto 0.1 K/mm3 (0.0-0.1); Basophils Percent Auto 0.7 % (0.2-1.2); Eosinophils Absolute Auto 0.1 K/mm3 (0-0.3); Eosinophils Percent Auto 1.5 % (0-4.4); Hematocrit 41.4 % (37.0-47.0); Hemoglobin 13.4 g/dL (12.0-15.0); Immature Granulocyte Absolute 0.02 K/mm3 (0.00-0.031); Immature Granulocyte Percent A 0.3 % (0-0.5); Lymphocytes Absolute Auto 1.65 K/mm3 (0.9-3.2); Lymphocytes Percent Auto 24.3 % (18.3-44.2); Mean Corpuscular HGB Conc 32.4 g/dl (32-36); Mean Corpuscular Hemoglobin 30.1 pg (26-34); Mean Platelet Volume 9.5 fl (7.4-10.4); Monocytes Absolute Auto 0.5 K/mm3 (0.1-0.6); Monocytes Percent Auto 7.2 % (2.6-8.5); Neutrophils Absolute Auto 4.5 K/mm3 (1.3-6.7); Platelet Count Result 274 k/mm3 (150-375); Red Blood Count 4.45 M/mm3 (4.2-5.4); Red Cell Distribution Width 13.1 % (11.5-14.5); White Blood Count 6.8 K/mm3 (4.5-10.0)
[2022-02-23 13:24] LABS: Potassium 4.3 mmol/L (3.4-5.0)
[2022-02-23 13:26] LABS: Alanine Aminotransferase 17 U/L (6-35); Albumin Level 4.6 g/dL (3.5-5.1); Alkaline Phosphatase 68 U/L (38-126); Anion Gap 9 mmol/L (8-16); Aspartate Amino Transferase 21 U/L (14-36); Bilirubin,Total 0.5 mg/dL (0.2-1.3); Blood Urea Nitrogen 14 mg/dL (7-17); Calcium 9.5 mg/dL (8.4-10.2); Carbon Dioxide 26 mmol/L (22-30); Chloride 97 mmol/L (98-107); Estimated CRCL calculation 46 ml/min; Estimated Glomerular Filt Rate 48; Glucose 113 mg/dL (65-110); Sodium 132 mmol/L (137-145)
[2022-02-23 13:48] LABS: Influenza A QL RT-PCR Negative (Negative); Influenza B QL RT-PCR Negative (Negative); SARS-CoV-2 RNA PCR Negative
[2022-02-23 14:30] VITALS: BP 140/68; PULSE 76; RESP 16; O2SAT 97
[2022-02-23 15:37] LABS: Troponin I < 0.012 ng/mL (0.000-0.034)
[2022-02-23 16:00] VITALS: BP 144/62; PULSE 70; RESP 16; O2SAT 97
--- NOTE | 2022-02-23 16:00 | ED.GENADULT ---
HPI - General Adult General Chief complaint: Unspecified Stated complaint: right arm pain/weakness - happening for days Time Seen by Provider: 02/23/22 14:51 History of Present Illness HPI narrative: Patient is a 76-year-old female who presents ER with multiple concerns. Reports first concern is right arm pain its in her forearm. Occurs sporadically. It improves when she applies a cream. She had it occurred today while she was blow drying her hair and it was particularly intense. It lasted 30 minutes until her cream kicked down. She also reports that she has been having intermittent nausea for last couple days that is separate from her arm pain. Today though it did occur with her arm pain. No chest pain or chest heaviness. No exertional chest pain or dyspnea. No exertional component to the arm pain. No history of [place]. She is without diarrhea or urinary symptoms. Related Data Home Medications Medication Instructions Recorded Confirmed alprazolam 0.5 mg tablet 0.5 mg PO TID PRN Anxiety 10/22/20 12/29/20 amlodipine 5 mg tablet 5 mg PO DAILY 10/22/20 12/29/20 gabapentin 300 mg capsule 300 mg PO TID 10/22/20 12/29/20 rivaroxaban 20 mg tablet (Xarelto) 20 mg PO DAILY 10/22/20 12/29/20 alendronate-vitamin D3 2,000 units PO DAILY 10/23/20 12/29/20 multivitamin with minerals-folic 0.4 tablet PO DAILY 10/23/20 12/29/20 acid 0.4 mg tablet pregabalin 75 mg PO BID 10/23/20 12/29/20 simvastatin 40 mg tablet 40 mg PO DAILY 10/24/20 12/29/20 levothyroxine 88 mcg tablet 88 mcg PO DAILY 12/29/20 12/29/20 meclizine 25 mg tablet 25 mg PO BID 12/29/20 12/29/20 olmesartan 40 mg tablet 40 mg PO DAILY 12/29/20 12/29/20 spironolactone 25 mg tablet mg 02/23/22 Allergies Allergy/AdvReac Type Severity Reaction Status Date / Time No Known Allergies Allergy Verified 02/23/22 12:54 Review of Systems Review of Systems: All systems reviewed & are unremarkable except as noted in HPI and below Constitutional: Constitutional: Reports no additional constitutional complaints Cardiovascular: Cardiovascular: Denies chest pain, Denies rapid heart rate and Denies palpitations Respiratory: Respiratory: Reports no additional respiratory complaints Gastrointestinal: Gastrointestinal: Reports as per HPI Musculoskeletal: Musculoskeletal: Reports as per HPI [facility] Past Medical History Medical History Acute blood loss anemia Anxiety AVM (arteriovenous malformation) of colon (10/2020) CVA (cerebrovascular accident) Erosive gastritis (10/2020) GERD (gastroesophageal reflux disease) HTN (hypertension) Hypothyroid Macular degeneration Metatarsal bone fracture (02/13/19) Metatarsal bone fracture (02/13/19) Obstructive sleep apnea Apnea link screening was positive October 2020 Paroxysmal atrial fibrillation Peripheral neuropathy Pulmonary embolism (~07/2018) Vitamin D deficiency Weight gain Surgical History Surgical History History of esophagogastroduodenoscopy (EGD) (10/2020) AVMs noted in cecum and erosive gastritis Status post cataract extraction of both eyes with insertion of intraocular lens Family History Family History Father Acute myocardial infarction Social History Social History Social History: She has been for 52 years. They had 1 son who last year at 49 years old of heart disease. She is a retired hairdresser. She still smokes about 5 cigarettes a day. Up until recent years she used to smoke a half a pack of cigarettes per day and started smoking as a teenager. She denies any alcohol use or illicit substance use. Smoking packs per day: 5 Smoking cigarettes per day: 100.0 Years smoked: 50 Smoking pack-years: 250.00 Smoking status: Light tobacco smoker Tobacco type: cigarettes [place]
[2022-02-23 17:30] VITALS: BP 144/62; PULSE 74; RESP 16; O2SAT 98
== END 2022-02-23 17:30 | disposition home or self-care (01) ==
PROVIDERS: Emergency Provider Emergency Medicine; PCP Family Medicine
DX: M79.631 Pain in right forearm (principal); R11.0 Nausea; Z20.822 Contact with and (suspected) exposure to COVID-19; I10 Essential (primary) hypertension; I48.0 Paroxysmal atrial fibrillation; E03.9 Hypothyroidism, unspecified; H35.30 Unspecified macular degeneration; E55.9 Vitamin D deficiency, unspecified; G47.33 Obstructive sleep apnea (adult) (pediatric); F41.9 Anxiety disorder, unspecified; F17.210 Nicotine dependence, cigarettes, uncomplicated; Z86.73 Personal history of transient ischemic attack (TIA), and cerebral infarction without residual deficits; Z86.711 Personal history of pulmonary embolism; Z98.42 Cataract extraction status, left eye; Z98.41 Cataract extraction status, right eye; Z96.1 Presence of intraocular lens; Z79.01 Long term (current) use of anticoagulants; E04.9 Nontoxic goiter, unspecified; I45.10 Unspecified right bundle-branch block; R94.31 Abnormal electrocardiogram [ECG] [EKG]
CPT/HCPCS: 36415; 71046; 80053; 84484; 85025; 87636; 93005; 99284

== ENCOUNTER 2022-08-21 07:01 | Emergency (ER) | payer MEDICARE, SELFPAY ==
[2022-08-21] VITALS (28 sets, daily range): BP systolic 131–180; BP diastolic 64–87; PULSE 62–87; RESP 10–18; TEMP 36.6; O2SAT 95–100
--- NOTE | 2022-08-21 07:28 | ECG_ITS ---
Measurements Intervals [place] Rate: 66 P: 33 ND: 186 QRS: -22 QRSD: 90 T: 30 QT: 415 QTc: 437 Interpretive Statements SINUS RHYTHM INCOMPLETE RIGHT BUNDLE BRANCH BLOCK DELAYED PRECORDIAL R/S TRANSITION BASELINE ARTIFACT- I, II, III, AVR BORDERLINE ECG COMPARED TO ECG 02/23/2022 12:53:28 NO SIGNIFICANT CHANGES Electronically Signed On 08-21-2022 8:54:24 CDT by George Bradley D.O.
--- NOTE | 2022-08-21 07:52 | PC.NURSE ---
Dr. correia at bedside to assess pt.
[2022-08-21 07:56] LABS: Basophils Percent Auto 0.6 % (0.2-1.2); Eosinophils Absolute Auto 0.2 K/mm3 (0-0.3); Eosinophils Percent Auto 3.3 % (0-4.4); Hematocrit 38.9 % (37.0-47.0); Hemoglobin 12.4 g/dL (12.0-15.0); Immature Granulocyte Absolute 0.02 K/mm3 (0.00-0.031); Immature Granulocyte Percent A 0.3 % (0-0.5); Lymphocytes Absolute Auto 1.67 K/mm3 (0.9-3.2); Lymphocytes Percent Auto 24.9 % (18.3-44.2); Mean Corpuscular HGB Conc 31.9 g/dl (32-36); Mean Corpuscular Hemoglobin 29.5 pg (26-34); Mean Corpuscular Volume 92.6 fl (80-100); Mean Platelet Volume 9.4 fl (7.4-10.4); Monocytes Absolute Auto 0.4 K/mm3 (0.1-0.6); Monocytes Percent Auto 6.6 % (2.6-8.5); Neutrophils Absolute Auto 4.3 K/mm3 (1.3-6.7); Neutrophils Percent Auto 64.3 % (45.5-73.1); Platelet Count Result 243 k/mm3 (150-375); Red Cell Distribution Width 13.1 % (11.5-14.5); White Blood Count 6.7 K/mm3 (4.5-10.0)
[2022-08-21 08:06] LABS: Alanine Aminotransferase 18 U/L (6-35); Albumin Level 4.4 g/dL (3.5-5.1); Alkaline Phosphatase 59 U/L (38-126); Anion Gap 7 mmol/L (8-16); Aspartate Amino Transferase 23 U/L (14-36); Bilirubin,Total 0.5 mg/dL (0.2-1.3); Blood Urea Nitrogen 12 mg/dL (7-17); Calcium 9.7 mg/dL (8.4-10.2); Carbon Dioxide 30 mmol/L (22-30); Chloride 100 mmol/L (98-107); Estimated CRCL calculation 52 ml/min; Estimated Glomerular Filt Rate 54; Glucose 101 mg/dL (65-110); Lipase 229 U/L (23-300); Potassium 4.5 mmol/L (3.4-5.0); Sodium 137 mmol/L (137-145)
--- NOTE | 2022-08-21 08:10 | ED.GENADULT ---
HPI - General Adult General Chief complaint: Nausea/Vomiting/Diarrhea Stated complaint: nausea, lightheaded Time Seen by Provider: 08/21/22 07:09 Source: patient and RN notes reviewed Mode of arrival: ambulatory Limitations: no limitations History of Present Illness HPI narrative: This is a 76 year old female with history of atrial fibrillation, hypertension who presents for evaluation of elevated blood pressure. Patient states she got herself upset this morning because her power was out. She states she could not sleep last night worrying about her . This morning she reports having upset stomach due to anxiety. She was then worried she that her blood pressure was high so had her to check her blood pressure. She states it was elevated to systolic 200, so she came to ER due to history of afib. She reports lightheadedness that is normal for her. She denies chest pain, shortness of breath, abdominal pain, vomiting, diarrhea, nausea. She feels better now that she knows her blood pressure is better and she is not in atrial fibrillation Related Data Home Medications Medication Instructions Recorded Confirmed alprazolam 0.5 mg tablet 0.5 mg PO TID PRN Anxiety 10/22/20 12/29/20 amlodipine 5 mg tablet 5 mg PO DAILY 10/22/20 12/29/20 gabapentin 300 mg capsule 300 mg PO TID 10/22/20 12/29/20 rivaroxaban 20 mg tablet (Xarelto) 20 mg PO DAILY 10/22/20 12/29/20 alendronate-vitamin D3 2,000 units PO DAILY 10/23/20 12/29/20 multivitamin with minerals-folic 0.4 tablet PO DAILY 10/23/20 12/29/20 acid 0.4 mg tablet pregabalin 75 mg PO BID 10/23/20 12/29/20 simvastatin 40 mg tablet 40 mg PO DAILY 10/24/20 12/29/20 levothyroxine 88 mcg tablet 88 mcg PO DAILY 12/29/20 12/29/20 meclizine 25 mg tablet 25 mg PO BID 12/29/20 12/29/20 olmesartan 40 mg tablet 40 mg PO DAILY 12/29/20 12/29/20 spironolactone 25 mg tablet mg 02/23/22 Allergies Allergy/AdvReac Type Severity Reaction Status Date / Time No Known Allergies Allergy Verified 08/21/22 07:02 Review of Systems Constitutional: Constitutional: Denies weakness Cardiovascular: Cardiovascular: Denies syncope, Denies rapid heart rate, Denies irregular heart rhythm, Denies leg edema and Denies dyspnea Respiratory: Respiratory: Denies chest congestion, Denies hemoptysis, Denies excessive phlegm production and Denies dyspnea Gastrointestinal: Gastrointestinal: Denies abdominal pain, Denies hematochezia, Denies diarrhea and Denies vomiting Genitourinary: Genitourinary: Denies hematuria and Denies dysuria Musculoskeletal: Musculoskeletal: Denies joint swelling, Denies loss of height and Denies muscle weakness Neurologic: Denies syncope, Denies focal weakness and Denies weakness PMFSH Past Medical History Medical History Acute blood loss anemia Anxiety AVM (arteriovenous malformation) of colon (10/2020) CVA (cerebrovascular accident) Erosive gastritis (10/2020) GERD (gastroesophageal reflux disease) HTN (hypertension) Hypothyroid Macular degeneration Metatarsal bone fracture (02/13/19) Metatarsal bone fracture (02/13/19) Obstructive sleep apnea Apnea link screening was positive October 2020 Paroxysmal atrial fibrillation Peripheral neuropathy Pulmonary embolism (~07/2018) Vitamin D deficiency Weight gain Surgical History Surgical History History of esophagogastroduodenoscopy (EGD) (10/2020) AVMs noted in cecum and erosive gastritis Status post cataract extraction of both eyes with insertion of intraocular lens Family History Family History Father Acute myocardial infarction Social History Social History Social History: She has been for 52 years. They had 1 son who last year at 49 years old of heart disease. She is a retired lisha
[2022-08-21 09:20] LABS: Appearance Urine Clear (Clear); Bilirubin Urine Negative (Negative); Blood Urine Negative (Negative); Color Urine Yellow (Yellow); Glucose Urine UA Negative (Negative); Ketones Urine Negative (Negative); Leukocyte Esterase Ur Negative LEU/UL (Negative); Nitrate Urine Negative (Negative); Protein Urine Negative (Negative); Specific Grav Ur 1.006 (1.001-1.035); Urobilinogen Urine 0.2 mg/dL (<2.0); pH Urine 7.5 (5.0-9.0)
[2022-08-21 09:25] LABS: Add Urine Microscopic? NO
== END 2022-08-21 11:12 | disposition home or self-care (01) ==
PROVIDERS: Emergency Provider General Practice; PCP Family Medicine
DX: I10 Essential (primary) hypertension (principal); F17.210 Nicotine dependence, cigarettes, uncomplicated; K21.9 Gastro-esophageal reflux disease without esophagitis; F41.9 Anxiety disorder, unspecified; G47.30 Sleep apnea, unspecified; Z86.73 Personal history of transient ischemic attack (TIA), and cerebral infarction without residual deficits; I48.91 Unspecified atrial fibrillation
CPT/HCPCS: 36415; 80053; 81003; 83690; 85025; 93005; 99283

== ENCOUNTER 2023-04-30 21:20 | Emergency (ER) | payer MEDICARE, SELFPAY ==
[2023-04-30] VITALS (8 sets, daily range): BP systolic 182–214; BP diastolic 88–93; PULSE 76–82; RESP 13–20; TEMP 36.1; O2SAT 96–99
--- NOTE | ~2023-04-30 | CT_ITS ---
Noncontrast CT scan of the cervical spine Technique: Multiple contiguous axial [address] images of the cervical spine were obtained and rec onstructed in 2D sagittal and coronal planes on the acquisition scanner. Dose reduction technique was used on this scan by utilizing automated exposure control, adjustment of the mA and/or kV according to patient size. The dose-length product (DLP) was 497.87 mGy-cm. Clinical History: Pain Findings: No fractures or dislocations. Scattered facet joint arthropathy is present and cervical sp ine there is probable right neural foraminal narrowing at C6-C7. Several small disc ossify complexes are present. The intervertebral disc spaces are preserved. No prevertebral soft tissue swelling. Impression: No fracture or subluxation of the cervical spine. Mild degenerative change. Reviewed, dictated and finalized at [facility]. Impression: No fracture or subluxation of the cervical spine. Mild degenerative change.
--- NOTE | ~2023-04-30 | XR_ITS ---
Left Forearm AP and lateral views of the left forearm were performed. Clinical History: Pain Findings: No fracture or dislocation is seen. Osseous alignment in anatomic. Joint spaces are prese rved. Soft tissues are unremarkable. Impression: Unremarkable exam. Reviewed, dictated and finalized at location M. Impression: Unremarkable exam.
--- NOTE | ~2023-04-30 | XR_ITS ---
Left Shoulder Technique: AP and scapular Y views were obtained. Clinical History: Pain Findings: No fracture or dislocation is seen. Osseous alignment is anatomic. The glenohumeral and acr omioclavicular joint spaces are preserved. Soft tissues are unremarkable. Impression: Unremarkable left shoulder radiographs. Reviewed, dictated and finalized at [facility]. Impression: Unremarkable left shoulder radiographs.
--- NOTE | ~2023-04-30 | CT_ITS ---
Non-contrast Head CT History: Weakness Technique: Axial non-contrast imaging of the brain was performed. Dose reduction technique was used on this scan by utilizing automated exposure control and iterative reconstruction technique. The dose -length product (DLP) was 681.00 mGy-cm. Findings: There is no evidence of intracranial hemorrhage, mass lesion, or acute infarct. Brain par enchyma appears normal. The ventricles and subarachnoid spaces are normal in size. The calvarium ap pears normal. The visualized paranasal sinuses and mastoid air cells are clear. Impression: No significant abnormality seen. Reviewed, dictated and finalized at location . Impression: No significant abnormality seen.
--- NOTE | ~2023-04-30 | XR_ITS ---
Left Humerus Technique: AP and lateral views were obtained. Clinical History: Pain Findings: No fracture or dislocation is seen. Osseous alignment is anatomic. Visualized joint spaces are grossly preserved. Soft tissues are unremarkable. Impression: Unremarkable examination. No fracture or dislocation. Reviewed, dictated and finalized at location . Impression: Unremarkable examination. No fracture or dislocation.
--- NOTE | 2023-04-30 23:13 | ECG_ITS ---
Measurements Intervals [place] Rate: 71 P: 32 PA: 187 QRS: -25 QRSD: 88 T: 28 QT: 376 QTc: 411 Interpretive Statements SINUS RHYTHM INCOMPLETE RIGHT BUNDLE BRANCH BLOCK LOW QRS VOLTAGE IN PRECORDIAL LEADS POOR R WAVE PROGRESSION, CONSIDER ANTERIOR INFARCT BASELINE ARTIFACT- I, II, AVR, AVL, AVF, V6 ABNORMAL ECG COMPARED TO ECG 08/21/2022 07:43:53 POOR R WAVE PROGRESSION NOW PRESENT Electronically Signed On 05-01-2023 6:42:03 CDT by George Bradley D.O.
--- NOTE | 2023-04-30 23:14 | ED.UPPEXIN ---
HPI - Extremity Injury (Upper) General Chief Complaint: Extremity Injury, Upper Stated Complaint: left arm pain Time Seen by Provider: 04/30/23 22:44 Source: patient Mode of arrival: ambulatory Limitations: no limitations History of Present Illness HPI narrative: This is a 77 year old female that presents to the ER for left shoulder pain. Reports the pain radiates into her arm. Ongoing over the last week. No known injury or trauma. The pain is worse with movement and relieved with rest. She took Tylenol today for pain. She saw her double needle operator lockstitch and he took her off her Statin to see if that helped. Reports she then saw her PCP who started her on a steroid taper. She was improving, but is down to her last 2 days and started to have worsening pain again. Reports decreased ROM due to pain. Denies fever, chest pain, shortness of breath, or erythema. Related Data Home Medications Medication Instructions Recorded Confirmed alprazolam 0.5 mg tablet 0.5 mg PO TID PRN Anxiety 10/22/20 12/29/20 amlodipine 5 mg tablet 5 mg PO DAILY 10/22/20 12/29/20 gabapentin 300 mg capsule 300 mg PO TID 10/22/20 12/29/20 rivaroxaban 20 mg tablet (Xarelto) 20 mg PO DAILY 10/22/20 12/29/20 alendronate-vitamin D3 2,000 units PO DAILY 10/23/20 12/29/20 multivitamin with minerals-folic 0.4 tablet PO DAILY 10/23/20 12/29/20 acid 0.4 mg tablet pregabalin 75 mg PO BID 10/23/20 12/29/20 simvastatin 40 mg tablet 40 mg PO DAILY 10/24/20 12/29/20 levothyroxine 88 mcg tablet 88 mcg PO DAILY 12/29/20 12/29/20 meclizine 25 mg tablet 25 mg PO BID 12/29/20 12/29/20 olmesartan 40 mg tablet 40 mg PO DAILY 12/29/20 12/29/20 spironolactone 25 mg tablet mg 02/23/22 Allergies Allergy/AdvReac Type Severity Reaction Status Date / Time No Known Allergies Allergy Verified 04/30/23 21:56 Review of Systems Review of Systems: CONSTITUTIONAL: Denies fever CARDIOVASCULAR: Denies chest pain, or edema. RESPIRATORY: Denies dyspnea. SKIN: Denies rash MUSCULOSKELETAL: Reports joint pain, and myalgia. NEUROLOGIC: Denies numbness, or weakness. All systems reviewed & are unremarkable except as noted in HPI and below PMFSH Past Medical History Medical History Acute blood loss anemia Anxiety AVM (arteriovenous malformation) of colon (10/2020) CVA (cerebrovascular accident) Erosive gastritis (10/2020) GERD (gastroesophageal reflux disease) HTN (hypertension) Hypothyroid Macular degeneration Metatarsal bone fracture (02/13/19) Metatarsal bone fracture (02/13/19) Obstructive sleep apnea Apnea link screening was positive October 2020 Paroxysmal atrial fibrillation Peripheral neuropathy Pulmonary embolism (~07/2018) Vitamin D deficiency Weight gain Surgical History Surgical History History of esophagogastroduodenoscopy (EGD) (10/2020) AVMs noted in cecum and erosive gastritis Status post cataract extraction of both eyes with insertion of intraocular lens Family History Family History Father Acute myocardial infarction Social History Social History Social History: She has been for 52 years. They had 1 son who last year at 49 years old of heart disease. She is a retired hairdresser. She still smokes about 5 cigarettes a day. Up until recent years she used to smoke a half a pack of cigarettes per day and started smoking as a teenager. She denies any alcohol use or illicit substance use. Smoking packs per day: 5 Smoking cigarettes per day: 100.0 Years smoked: 50 Smoking pack-years: 250.00 Smoking status: Light tobacco smoker Tobacco type: cigarettes Alcohol intake: never Substance use: never Gender identity (if verbalized by the patient): Female Spiritual care concerns: No Exam Narrative: GENERAL:
--- NOTE | 2023-04-30 23:20 | PC.NURSE ---
Patient moved from room 17 to 13, placed on monitor and then taken to imaging at this time. patient resting on stretcher, no acute distress.
[2023-04-30 23:47] LABS: Basophils Percent Auto 0.2 % (0.2-1.2); Eosinophils Percent Auto 0.1 % (0-4.4); Hematocrit 41.6 % (37.0-47.0); Hemoglobin 13.1 g/dL (12.0-15.0); Immature Granulocyte Absolute 0.08 K/mm3 (0.00-0.031); Immature Granulocyte Percent A 0.5 % (0-0.5); Lymphocytes Absolute Auto 2.28 K/mm3 (0.9-3.2); Lymphocytes Percent Auto 15.6 % (18.3-44.2); Mean Corpuscular HGB Conc 31.5 g/dl (32-36); Mean Corpuscular Hemoglobin 29.2 pg (26-34); Mean Corpuscular Volume 92.7 fl (80-100); Monocytes Absolute Auto 1.1 K/mm3 (0.1-0.6); Monocytes Percent Auto 7.4 % (2.6-8.5); Neutrophils Absolute Auto 11.1 K/mm3 (1.3-6.7); Neutrophils Percent Auto 76.2 % (45.5-73.1); Platelet Count Result 374 k/mm3 (150-375); Red Blood Count 4.49 M/mm3 (4.2-5.4); Red Cell Distribution Width 13.3 % (11.5-14.5); White Blood Count 14.6 K/mm3 (4.5-10.0)
[2023-04-30 23:57] LABS: Alanine Aminotransferase 19 U/L (6-35); Albumin Level 4.8 g/dL (3.5-5.1); Alkaline Phosphatase 83 U/L (38-126); Anion Gap 13 mmol/L (8-16); Aspartate Amino Transferase 25 U/L (14-36); Bilirubin,Total 0.4 mg/dL (0.2-1.3); Blood Urea Nitrogen 25 mg/dL (7-17); Calcium 10.6 mg/dL (8.4-10.2); Carbon Dioxide 23 mmol/L (22-30); Chloride 101 mmol/L (98-107); Creatine Kinase < 20 U/L (30-135); Estimated CRCL calculation 50 ml/min; Estimated Glomerular Filt Rate 54; Glucose 128 mg/dL (65-110); Potassium 4.3 mmol/L (3.4-5.0); Sodium 137 mmol/L (137-145)
[2023-05-01] VITALS (12 sets, daily range): BP systolic 147–174; BP diastolic 72–85; PULSE 64–73; RESP 13–19; O2SAT 94–97
[2023-05-01 00:08] LABS: Troponin I < 0.012 ng/mL (0.000-0.034)
[2023-05-01] MEDS: ACETAMINOPHEN 500 MG TABLET 1000 MG PO (01:57)
== END 2023-05-01 03:32 | disposition home or self-care (01) ==
PROVIDERS: Emergency Provider Physician Assistant; PCP Family Medicine
DX: M25.512 Pain in left shoulder (principal); I10 Essential (primary) hypertension; I48.0 Paroxysmal atrial fibrillation; H35.30 Unspecified macular degeneration; G47.33 Obstructive sleep apnea (adult) (pediatric); E03.9 Hypothyroidism, unspecified; E55.9 Vitamin D deficiency, unspecified; G62.9 Polyneuropathy, unspecified; K21.9 Gastro-esophageal reflux disease without esophagitis; F41.9 Anxiety disorder, unspecified; F17.210 Nicotine dependence, cigarettes, uncomplicated; Z86.73 Personal history of transient ischemic attack (TIA), and cerebral infarction without residual deficits; Z86.711 Personal history of pulmonary embolism; Z96.1 Presence of intraocular lens; Z98.42 Cataract extraction status, left eye; Z98.41 Cataract extraction status, right eye; Z79.01 Long term (current) use of anticoagulants
CPT/HCPCS: 36415; 70450; 72125; 73030; 73060; 73090; 80053; 82550; 84484; 85025; 93005; 99284; A9270

== ENCOUNTER 2023-06-16 12:50 | Outpatient (CLI) | payer MEDICARE, SELFPAY ==
--- NOTE | ~2023-06-16 | XR_ITS ---
XR hip RT min 2V 06/16/2023 13:20 Indication: Right hip pain Procedure: 2 views right hip Comparison: No prior studies for comparison. Findings: There is moderate-severe osteoarthritis of the right hip. No fracture, subluxation or dislo cation. There is atherosclerosis. No soft tissue abnormality. Impression: 1: Moderate-severe osteoarthritis of the right hip. Reviewed, dictated and finalized at location B. Impression: 1: Moderate-severe osteoarthritis of the right hip.
--- NOTE | ~2023-06-16 | XR_ITS ---
XR foot RT 2V 06/16/2023 13:20 Indication: Joint pain Procedure: 2 views right foot Comparison: No prior studies for comparison. Findings: Osteopenia. Healed fourth and fifth metatarsal fractures. Mild osteoarthritis of the first MTP and IP joints. Lisfranc joint intact. There is a degenerative calcaneal enthesophyte at the plant ar surface. 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 Reviewed, dictated and finalized at location B. 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
--- NOTE | ~2023-06-16 | XR_ITS ---
EXAMINATION: XR ankle RT 2V DATE: 06/16/2023 13:20 INDICATION: Multiple joint pain TECHNIQUE: Anteroposterior and lateral views of the right ankle were obtained. COMPARISON: None. FINDINGS: Bone alignment is normal. No fracture. Mild osteoarthritis at the right ankle and talonavicular joint s. Small plantar calcaneal spur. No ankle joint effusion. Mild soft tissue swelling about the medial and lateral aspects of the right ankle. IMPRESSION: 1. Mild osteoarthritis at the right ankle and hindfoot. Reviewed, dictated and finalized at location A.
--- NOTE | ~2023-06-16 | XR_ITS ---
EXAMINATION: XR foot LT 2V, XR ankle LT 2V DATE: 06/16/2023 13:20 INDICATION: Multiple joint pain TECHNIQUE: 1. Anteroposterior and lateral view of the left ankle were obtained. 2. Dorsoplantar and lateral views of the left foot were obtained. COMPARISON: None. FINDINGS: Alignment of the left foot and ankle is normal. No fracture. Corticated ossicle at the tip of the lat eral malleolus, likely sequela of chronic trauma. Mild polyarticular osteoarthritis involving multipl e joints throughout the left foot and ankle. No cortical erosions to suggest inflammatory arthritis. Small plantar calcaneal spur. No ankle joint effusion. The soft tissues are unremarkable. IMPRESSION: 1. Mild polyarticular osteoarthritis throughout the left foot and ankle. Reviewed, dictated and finalized at location A. IMPRESSION: 1. Mild polyarticular osteoarthritis throughout the left foot and ankle.
--- NOTE | ~2023-06-16 | XR_ITS ---
EXAMINATION: XR hand RT 2V, XR hand LT 2V DATE: 06/16/2023 13:20 INDICATION: Multiple joint pain TECHNIQUE: 1. Posteroanterior and lateral views of the left hand were obtained. 2. Posteroanterior and lateral views of the right hand were obtained. COMPARISON: None. FINDINGS: Bone alignment is normal at the bilateral hands and wrists. No fracture. Polyarticular osteoarthritis , moderate severity at the left first metatarsophalangeal joint and bilateral first interphalangeal j oints and mild osteoarthritis at multiple joints throughout the bilateral hands and wrists. No erosio ns to suggest inflammatory arthritis. IMPRESSION: 1. Mild to moderate polyarticular osteoarthritis at the bilateral hands and wrists most prominent at the thumbs. Reviewed, dictated and finalized at location A. IMPRESSION: 1. Mild to moderate polyarticular osteoarthritis at the bilateral hands and wri sts most prominent at the thumbs.
== END 2023-06-16 12:51 ==
PROVIDERS: PCP Internal Medicine; Visit Provider Internal Medicine
DX: M19.071 Primary osteoarthritis, right ankle and foot (principal); M19.041 Primary osteoarthritis, right hand; M19.042 Primary osteoarthritis, left hand; M19.072 Primary osteoarthritis, left ankle and foot; M16.11 Unilateral primary osteoarthritis, right hip
CPT/HCPCS: 73120; 73502; 73600; 73620

== ENCOUNTER 2024-06-03 06:21 | Emergency (ER) | payer MEDICARE, SELFPAY ==
--- NOTE | ~2024-06-03 | XR_ITS ---
HISTORY: Hip pain COMPARISON: 06/03/2024 TECHNIQUE: Single frontal view of the pelvis FINDINGS: Diffuse bony demineralization is noted. Significant degenerative disease within the visualized portion of the lumbar spine. Inferior medial joint space narrowing and sclerosis is identified within the bilateral femoral acetab ular joint spaces consistent with severe degenerative disease. Joint space narrowing and sclerosis is present within the pubic symphysis. No acute fracture or dislocation is appreciated. IMPRESSION: Severe degenerative disease, without acute fracture. Reviewed, dictated and finalized at location A.
--- NOTE | ~2024-06-03 | CT_ITS ---
Noncontrast CT scan of the lumbar spine CLINICAL HISTORY: Back pain TECHNIQUE: Axial noncontrast imaging of the lumbar spine was performed. Sagittal and coronal reformat leslie images were constructed. Dose reduction technique was used on this scan by utilizing automated ex posure control and iterative reconstruction technique. The dose-length product (DLP) was 1291.44 mGy- cm. FINDINGS: Probable mild compression deformity of L5. No other fracture or subluxation seen. At L1-L2, there is minimal disc bulge with minimal facet hypertrophy. No central canal stenosis. Prob able mild bilateral neural foraminal narrowing. At L2-L3, there is mild disc bulge and mild facet arthropathy. No central canal stenosis. There is mo derate left neural foraminal narrowing, and mild right neural foraminal narrowing. At L3-L4, there is mild disc bulge with moderate facet arthropathy. Possible mild central canal steno sis. There is moderate bilateral neural foraminal narrowing. At L4-L5, there is disc bulge with advanced facet arthropathy. Probable mild central canal stenosis. There is mild to moderate bilateral neural foraminal narrowing. At L5-S1, there is mild disc bulge. No central canal stenosis. There is mild left neural foraminal na rrowing. Right neural foramen preserved. Paravertebral soft tissues are unremarkable. Infrarenal abdominal aortic aneurysm measures up to 3.1 cm in diameter. There are extensive atherosclerotic calcifications of the aorta and iliac vessels. Impression: Probable mild compression fracture of L5. Moderate degenerative spondylosis, as above. 3.1 cm infrarenal abdominal aortic aneurysm. Reviewed, dictated and finalized at [facility]. Impression: Probable mild compression fracture of L5. Moderate degenerative spondylosis, as above. 3.1 cm infrarenal abdominal aortic aneurysm.
--- OUTSIDE RECORDS SUMMARY | 2024-06-03 06:24 | XMS_ITS | Clinical Summary ---
Author Organization [facility] Address [address] [place] [address] Care Team Providers Care Bank Appraiser Name Role Phone Blair Agarwal MD Primary Care Provider [phone] Source Comments [facility],non-owned Affiliates and Associated Physician Practices is amultiple site organization consisting of ambulatory clinics and hospital sitesin [place], [place], [place] and [place]. This disclosure is being madepursuant to the Care Everywhere program and may not contain all information available regarding this patient. Last updated 17.[facility] Allergies No known active allergies Medications * Be aware that medications may not be up to date on this document. Alwaysverify current medications with the patient. amLODIPine (NORVASC) 5 MG tablet Take 5 mg by mouth once daily 8 Active clopidogrel (PLAVIX) 75 MG tablet Take 75 mg by mouth once daily 8 Active gabapentin (NEURONTIN) 300 MG capsule Take 200 mg by mouth once daily 8 Active hydroCHLOROthia zide (HYDRODIURIL) 25 MG tablet Take 25 mg by mouth once daily 8 Active levothyroxine (SYNTHROID) 50 MCG tablet 0.05 mcg 8 Active lisinopril (PRINIVIL; ZESTRIL) 20 MG tablet Take 20 mg by mouth 2 times daily 8 Active simvastatin (ZOCOR) 40 MG/5 ML suspension Take 40 mg by mouth at bedtime Active ALPRAZolam (XANAX) 0.5 MG tablet Take 0.5 mg by mouth 2 times daily as needed for Anxiety Active B-12, Methylcobalamin , 1000 MCG Dissolve 1,000 mg under the tongue once daily Active vitamin D3 (CHOLECALCIFERO L) 400 UNIT tablet Take 400 Units by mouth once daily Active Multiple Vitamins-Minera ls (CENTRUM SILVER PO) Active Polyvinyl Alcohol-Povidon e (REFRESH OP) Activ e meclizine (ANTIVERT) 25 MG tablet Take 25 mg by mouth 2 times daily as needed for Dizziness Active Active Problems Problem Noted Date Diagnosed Date 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 05/30/2017 Social History Tobacco Use Types Packs/Day Years Used Date Smoking Tobacco: Every Day Smokeless Tobacco: Never Alcohol Use Standard Drinks/Week Comments No 0 (1 standard drink = 0.6 oz pur e alcohol) Comments Unknown Sex and Gender Information Value Date Recorded Sex Assigned at Not on file Legal Sex Female 5:59 PM CDT Gender Identity Not on file Sexual Orientation Not on file Plan of Treatment Health Maintenance Due Date Last Done Comments HEPATITIS C SCREENING 11[birth year]01/1963 DTAP/TDAP/TD VACCINES (1 - Tdap) 1964 PNEUMOCOCCAL VACCINE 50+ (1 of 2 - PCV) 1964 ZOSTER VACCINE (1 of 2) 11/06/1995 Respiratory Syncytial Virus (RSV) Vaccine Pt: or over 60 yrs (1 - 1-dose 75+ series) 2020 COVID-19 VACCINE (2023- season) 2023 09/28/2022, 11/20/2021, 11/17/2021, Additional history exists DEPRESSION SCREENING 02/21/2024 MEDICARE AWV CALENDAR YEAR 2024 INFLUENZA VACCINE (Season Ended) 2024 11/17/2021, 12/19/2020, 11/07/2019, Additional history exists BONE DENSITY TESTING Completed 01/26/2023, 08/17/2018, 09/23/2013 HEPATITIS B VACCINE Aged Out No longe r eligible based on patient's age to complete this topic HIB VACCINE Aged Out No longer eligi ble based on patient's age to complete this topic HPV VACCINE Aged Out No longer eligi ble based on patient's age to complete this topic MENINGOCOCCAL (Group B) VACCINE SHARED DECISION-MAKING Aged Out No longer eligible based on patient's age to complete this topic MENINGOCOCCAL GROUPS A/C/Y/W VACCINE Aged Out No longer eligible based on patient's age to complete this topic Insurance MEDICARE [facility] UHC MANAGED MEDICARE ADV Care Teams Bank Appraiser Relationship Specialty Start Date End Date Blair Agarwal MD [address] [place] [phone] PCP - General 05/29/17
--- OUTSIDE RECORDS SUMMARY | 2024-06-03 06:24 | XMS_ITS | Clinical Summary ---
Author Organization [facility] Address [address] [place] [id number] Care Team Providers Care Regulatory Scientist Name Role Phone Unavailable Primary Care Provider Unavailabl e Social History Tobacco Use Types Packs/Day Years Used Date Smoking Tobacco: Never Assessed Comments Unknown Sex and Gender Information Value Date Recorded Sex Assigned at Not on file Legal Sex Female 7:20 PM CDT Gender Identity Not on file Sexual Orientation Not on file Plan of Treatment Health Maintenance Due Date Last Done Comments Hepatitis C 11/06/1963 DTaP, Tdap and Td Vaccines ( 1 - Tdap) 1964 Zoster Vaccines (1 of 2) 11/06/1995 Dexa Scan (General) 2010 Pneumococcal Vaccine: 50+ Ye ars (1 of 1 - PCV) 2010 RSV Immunization or 60+ Years (1 - 1-dose 75+ series) 2020 COVID-19 Vaccine (2023-2 5 season) 2023 Meningococcal B Vaccine Aged Out No l onger eligible based on patient's age to complete this topic Meningococcal Vaccine Aged Out No ron bo eligible based on patient's age to complete this topic RSV Immunizations Under 20 Months Aged Out No longer eligible based on patient's age to complete this topic
--- OUTSIDE RECORDS SUMMARY | 2024-06-03 06:24 | XMS_ITS | Clinical Summary ---
Author Organization [facility] Address [address] [place] [address] Care Team Providers Care Auto Body Customizer Name Role Phone Blair Agarwal MD Primary Care Provider [phone] Frank Whitney MD Unavailable [phone] Allergies No known active allergies Medications vitamins A,C,L-zuuh-jwiugk (ICAPS) 14,320226-200 puap-lv-rbhc capsule Take 2 capsules by mouth daily Active MULTIVITAMIN ORAL Take by mouth Active cholecalciferol (VITAMIN D-3) 1,000 unit capsule 1 capsule (1,000 Units total) daily Active meclizine (ANTIVERT) 25 mg tablet Take 1 tablet (25 mg total) by mouth 3 (three) times a day as needed for dizziness 90 tablet 1 021 Active carboxymethylcell ulose-glycern (Refresh Optive) 0.5-0.9 % drops Administer into affected eye(s) Active furosemide (LASIX) 20 mg tablet Take 1 tablet (20 mg total) by mouth daily 30 tablet 2 023 Active Additional Information Patient not taking.Reported on 12/26/2023 potassium chloride ER (KLOR-CON) 10 mEq CR tablet Take 1 tablet/capsule (10 mEq total) by mouth daily 30 tablet/caps ule 2 023 Active Additional Information Patient taking differently:10 mEq oralDaily PRN, Reported on 12/26/2023 acetaminophen-cod eine (TYLENOL with CODEINE #3) 300-30 mg per tabletIndications :Acute pain of both shoulders,Acute hip pain, bilateral,Hand pain, right,Acute pain of left shoulder Take 1-2 tablets by mouth every 6 (six) hours as needed for pain 60 tablet 024 Active predniSONE (DELTASONE) 20 mg tablet One daily 30 tablet 1 Active folic acid (FOLVITE) 1 mg tablet Take 1 tablet (1,000 mcg total) by mouth daily Active methotrexate 2.5 mg tablet 024 Active olmesartan (BENICAR) 40 mg tablet TAKE 1 TABLET BY MOUTH DAILY 100 tablet 2 024 Active rosuvastatin (CRESTOR) 20 mg tablet Take 1 tablet (20 mg total) by mouth nightly 90 tablet 6 024 Active ondansetron ODT (ZOFRAN-ODT) 4 mg disintegrating tablet Take 1 tablet (4 mg total) by mouth every 8 (eight) hours as needed for nausea or vomiting 20 tablet 024 Active gabapentin (NEURONTIN) 300 mg capsule TAKE 1 CAPSULE BY MOUTH 3 TIMES DAILY 300 capsule 2 024 Active Xarelto 20 mg tablet TAKE 1 TABLET BY MOUTH DAILY 100 tablet 2 024 Active metoprolol tartrate (LOPRESSOR) 25 mg immediate release tabletIndications :Paroxysmal atrial fibrillation (HCC) TAKE 1 TABLET BY MOUTH TWICE DAILY 200 tablet 2 024 Active spironolactone (ALDACTONE) 25 mg tabletIndications :Uncontrolled hypertension TAKE 1 TABLET BY MOUTH DAILY 100 tablet 2 024 Active amLODIPine (NORVASC) 10 mg tabletIndications :Uncontrolled hypertension TAKE 1 TABLET BY MOUTH DAILY 100 tablet 1 025 Active ALPRAZolam (XANAX) 0.5 mg tabletIndications :JERRELL (generalized anxiety disorder) TAKE 1 TABLET BY MOUTH DAILY NEEDED FOR ANXIETY 90 tablet 025 Active levothyroxine (SYNTHROID) 88 mcg tablet TAKE 1 TABLET BY MOUTH DAILY 100 tablet 2 025 Active levothyroxine (SYNTHROID) 88 mcg tablet Take 1 tablet (88 mcg total) by mouth daily 90 tablet 3 024 2024 Discontinued Active Problems Problem Noted Date Diagnosed Date Idiopathic peripheral neuropathy 03/02/2022 History of TIA (transient ischemic attack) 03/02 Chronic anticoagulation 03/09/2021 Paroxysmal atrial fibrillation 11/02/2020 Iron deficiency anemia 11/02/2020 History of pulmonary embolus (PE) 05/14/2020 Medicare annual wellness visit, subsequent 05/01 Benign paroxysmal positional vertigo due to bilateral vestibular disorder 11/01/2018 Thyroid nodule 08/27/2018 Macular degeneration of both eyes 04/18/2017 Hyperlipemia 09/09/2015 HTN (hypertension) 09/09/2015 Assessment & Plan (06/26/2018 3:15 PM CDT): .BP eval Seen in ER On 3 meds Labs / EKG neg Sent home better Hypothyroid 09/09/2015 Resolved Problems Problem Noted Date Diagnosed Date Resolved Date Myalgia 04/26/2023 04/27/2023 Medication side effect, sequela 03/02/2022 12/26/2023 Tobacco abuse 03/09/2021 06/21/2023 Syncope 11/02/2020 06/21/2023 Low blood potassium 11/02/2020 12/09/19 23 Elevated troponin 11/02/2020 12/08/2022 Herpes zoster without complication 05/02/2019 04/27/2023 History of pulmonary embolism 08/06/2018 09/13/2021 TIA (transient ischemic attack) 09/09/2015 06/21/2023 Immunizations Immunization Administration Dates Next Due Influenza, Quad, Adjuvantate d, Intramuscular 11/20/2021,11/20/2020 Influenza, Quadrivalent, Hig h Dose, Preservative Free, Intrr 12/08/2022 Influenza, Quadrivalent, Rec ombinant, Egg Free, Preservative Free, Intramuscular 11/07/2019 Influenza, Quadrivalent, Spl it, Intramuscular 12/02/2017 Influenza, Trivalent, Adjuva nted, Intramuscular 12/28/2018,12/02/2017 Influenza, Trivalent, High D ose, Split, Preservative Free, Intramuscular 03/20/2017 Influenza, Unspecified 11/17/2021,12/19/2020 Pfizer SARS-CoV-2 Monovalent Vaccination (12+ Yrs) PURPLE 11/17/2021,05/08/2020,04/19/2020 Peter Blueberry Sars-Cov-2 Bivalent V accination (12+ YRS) 09/28/2022,11/20/2021 Pneumococcal Conjugate PCV 13 03/11/2015 Pneumococcal Polysaccharide PPV23 09/08/2011 RSV Vaccine, Pref, Recombina nt, Subunit, Adjuvanted, PF, IM (Arexvy) 02/03/2023 ZOSTER Recombinant 02/22/2023,09/28/2022 Surgical History Surgery Date Site/Laterality Comments SECTION Medical History Medical History Date Comments HTN (hypertension) HLD (hyperlipidemia) Nervousness Thyroid disease A-fib (HCC) Stroke (HCC) 11/2008 Family History Medical History Relation Name Comments No Known Problems Brother Heart disease Father No Known Problems Maternal Grandfather No Known Problems Maternal Grandmother Organ Failure Mother No Known Problems Paternal Grandfather No Known Problems Paternal Grandmother Relation Name Status Comments Brother Alive Father (Age 57) Maternal Grandfather Maternal Grandmother Mother (Age 65) Paternal Grandfather Paternal Grandmother Social History Tobacco Use Types Packs/Day Years Used Date Smoking Tobacco: Some Days Cigarettes Last attempted to quit: 12/29/2020 Smokeless Tobacco: Never Tobacco Cessation:Ready to Q uit: Not Asked; Counseling Given: Not Answered Alcohol Use Standard Drinks/Week Comments Never 0 (1 standard drink = 0.6 oz pur e alcohol) AUDIT-C Answer Date Recorded Q1: How often do you have a drink containing alc ohol? Never 11/02/2020 Average Number of Drinks Not on file 021 Q3: How often do you have si x or more drinks on one occasion? Never 11/02/2020 PHQ-2 Answer Date Recorded PHQ-2 Total Score (If total score is 3 or more points, staff should administer the PHQ-9) 0 06/21/2023 Comments No Sex and Gender Information Value Date Recorded Sex Assigned at Not on file Legal Sex Female 8:25 AM CDT Gender Identity Not on file Sexual Orientation Not on file Obstetrics History Last Filed Vital Signs Vital Sign Reading Time Taken Comments Blood Pressure 146/76 01/03/2024 1:37 PM MARINE SUPERINTENDENT Pulse 64 12/26/2023 2:31 PM MARINE SUPERINTENDENT Temperature 36.8 C (98.2 F) 12/26/2023 2:31 PM MARINE SUPERINTENDENT Respiratory Rate 18 05/13/2023 3:33 PM CDT Oxygen Saturation 96% 12/26/2023 2:31 PM MARINE SUPERINTENDENT Inhaled Oxygen Concentration - - Weight 109 kg (240 lb 6.4 oz) 12/26/2023 2:31 PM MARINE SUPERINTENDENT Height 165.1 cm (5' 5 ) 12/26/2023 2:31 PM MARINE SUPERINTENDENT Body Mass Index 40 12/26/2023 2:31 PM MARINE SUPERINTENDENT Plan of Treatment Health Maintenance Due Date Last Done Comments Hepatitis C Screening 1945 DTaP/Tdap/Td Vaccine (1 - Tdap) 1956 Hepatitis B Screening 11[birth year]06/1963 Covid-19 Vaccine (2023-2 5 season) 2023 01/10/2023, 09/28/2022, 11/20/2021, Additional history exists Depression Screening 06/20/2024 06/21/2023, 06/08/2022, 03/02/2022, Additional history exists Fall Risk Assessment 06/20/2024 06/21/2023, 06/08/2022, 03/02/2022, Additional history exists Well Visit 65+ 06/20/2024 06/21/2023, 05/21, 06/02/2021, Additional history exists Influenza Vaccine (Season Ended) 2024 12/08/2022, 11/20/2021, 11/17/2021, Additional history exists Osteoporosis Screening-Bone Density Scan 01/26/2025 01/26/2023, 08/17/2018, 09/23/2013 Breast Cancer Screening-Mammogram Discontinued 015, 09/23/2013 Pneumococcal vaccine 65+ Completed 03/11/2015, 08/20 Colon Cancer Screening-CT Colonography Discontinued 10/24/2020 Colon Cancer Screening-Colonoscopy Discontinued 10/24/2020 Colon Cancer Screening-DNA Stool Discontinued 10/25/19 Colon Cancer Screening-FIT Discontinued 10/24/2020 Colon Cancer Screening-FOBT Discontinued 10/24/2020 Colon Cancer Screening-Sigmoidoscopy Discontinued 10/24/2020 Colorectal Cancer Screening Discontinued Zoster Vaccine Completed 02/22/2023, 09/28/2022 Procedures Procedure Name Priority Date/Time Associated Diagnosis Comments DEXA AXIAL SKELETON BONE DENSITY 1 OR MORE SITES Schedule Routine, Read Routine (OP Routine) 01/26/2023 10:09 AM MARINE SUPERINTENDENT Postmenopausal status COLONOSCOPY Routine 10/24/2020 SCREENING MAMMOGRAM BILATERAL W BALA Routine 11/25/2014 8:54 AM CDT from Last 3 Months or Most Recently Relevant to Health Maintenance Results * Dexa Axial Skeleton Bone Density 1 or 2 Site (01/26/2023 10:09 AM MARINE SUPERINTENDENT) Anatomical Region Laterality Modality Body N/A Mammography 01/26/2023 10:5 9 AM MARINE SUPERINTENDENT Narrative 01/26/2023 11:00 AM MARINE SUPERINTENDENT EXAM DESCRIPTION: DEXA AXIAL SKELETON BONE DENSITY 1 OR MORE SITES REASON FOR STUDY: 77 y/o year old F with given history of: Postmenopausal status. Patient has taken/is taking vitamin-D. 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 LEFT HIP: Total BMD is 0.875 g/cm2 T-score is -0.5 This is a 5.1% increase in comparison to prior exam which is statistically significant. Femoral neck BMD is 0.708 g/cm2 T-score is -1.3 FRAX: 10 year risk for a major osteoporotic fracture is 16 %, 10 year risk for a hip fracture is 4.2 % IMPRESSION: Low bone mass REFERENCE: Bone mineral density: Normal (T-score above or = -1.0) Low bone mass (T-score between -1.0 and -2.5) replaces the previously used term osteopenia Osteoporosis (T-score = or below -2.5) Medical evaluation for secondary causes of low bone mineral density may be appropriate. FRAX is a World Health Organization validated fracture risk assessment tool that calculates a person's 10 year probability of a major osteoporosis related fracture and hip fracture. According to the National Osteoporosis Foundation guidelines, postmenopausal women and men age 50 or older with low bone mass and a 10 year probability of a major osteoporosis related fracture = or greater than 20% or a 10 year probability of a hip fracture = or greater than 3% should be considered for treatment. For further information, including treatment recommendations, please refer to the 2019 ISCD Official Positions (http://www.iscd.org) and the NOF's Clinician's Guide to Prevention and Treatment of Osteoporosis (http://www.nof.org/professionals/clinical-guidelines) THIS IS AN ELECTRONICALLY VERIFIED FINAL REPORT 01/26/2023 11:00 AM - Electronically signed by Ml Ross M.D. TW: Report ID: [id number] Reading Location: [place] [id number] Procedure Note lM Ross MD - 01/26/2023 EXAM DESCRIPTION: DEXA AXIAL SKELETON BONE DENSITY 1 OR MORE SITES REASON FOR STUDY: 77 y/o year old F with given history of:Postmenopausal status. Patient has taken/is taking vitamin-D. 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 LEFT HIP: Total BMD is 0.875 g/cm2 T-score is -0.5 This is a 5.1% increase in comparison to prior exam which is statistically significant. Femoral neck BMD is 0.708 g/cm2 T-score is -1.3 FRAX: 10 year risk for a major osteoporotic fracture is 16 %, 10 year risk for ahip fracture is 4.2 % IMPRESSION: Low bone mass REFERENCE: Bone mineral density: Normal (T-score above or = -1.0) Low bone mass (T-score between -1.0 and -2.5) replaces thepreviously used term osteopenia Osteoporosis (T-score = or below -2.5) Medical evaluation for secondary causes of low bone mineral density may be appropriate. FRAX is a World Health Organization validated fracture risk assessmenttool that calculates a person's 10 year probability of a major osteoporosisrelated fracture and hip fracture. According to the National OsteoporosisFoundation guidelines, postmenopausal women and men age 50 or older with low bonemass and a 10 year probability of a major osteoporosis related fracture = or greater than 20% or a 10 year probability of a hip fracture = or greaterthan 3% should be considered for treatment. For further information, including treatment recommendations, please referto the 2019 ISCD Official Positions (http://www.iscd.org) and the NOF's Clinician's Guide to Prevention and Treatment of Osteoporosis (http://www.nof.org/professionals/clinical-guidelines) THIS IS AN ELECTRONICALLY VERIFIED FINAL REPORT 01/26/2023 11:00 AM - Electronically signed by Ml Ross M.D. TW: TW Report ID: [id number] Reading Location: [id number] Blair Agarwal MD IMG DXA PROCEDURES Final Resu lt * Colonoscopy (10/24/2020) Anatomical Region Laterality Modality Other Historical Provider ENDOSCOPY PROCEDURES Juhi l Result * Screening Mammogram Bilateral W Bala (11/25/2014 8:54 AM CDT) Anatomical Region Laterality Modality Breast Bilateral Mammography 11/25/2014 8:54 AM CDT Impressions 11/25/2014 10:18 AM CDT BI-RAD 2 BENIGN No mammographic evidence of malignancy. Stable benign-appearing bilateral breast masses. A 1 year screening mammogram is recommended. The patient has been or will be contacted. The patient will be entered into an automated reminder system to schedule a mammogram in one year. Electronically signed by: Shukri Noe md/:11/25/2014 10:14:56 Inspector Watch Train: Mariah TERAN (Shannon)(Yuval), [facility] letter sent: Normal Exam Reading location: BI-RADS: 2 Benign [EOD] Narrative 11/25/2014 10:18 AM T - [facility] BILAT SCREENING 3D W/CAD BILATERAL DIGITAL SCREENING MAMMOGRAM 3D/2D WITH CAD WITH MEDIOLATERAL OBLIQUE CRANIOCAUDAL: 11/25/2014 The study was acquired using full field digital technology and interpreted from soft copy. Current study was also evaluated with R2 CAD. 2D digital mammographic views, as well as 3D digital tomosynthesis were performed in the CC and MLO projections. CLINICAL: Routine mammogram. Patient denies any problems today. No personal or family history of breast cancer. COMPARISONS: Comparison is made to exams dated: 09/23/2013 mammogram and 09/29/2011 mammogram/ultrasound - [facility]. BREAST TISSUE: There are scattered fibroglandular densities in both breasts. FINDINGS: Bilateral breast round/oval circumscribed isodense masses demonstrate no suspicious mammographic change dating back to at least 09/29/2011, most consistent with benign entities. No suspicious mass, calcifications, or other significant mammographic findings are seen within either breast. There has been no suspicious interval mammographic change involving either breast. Procedure Note Provider, MD Carlos Manuel - 07/07/2020 - [facility] BILAT SCREENING 3D W/CAD BILATERAL DIGITAL SCREENING MAMMOGRAM 3D/2D WITH CAD WITH MEDIOLATERALOBLIQUE CRANIOCAUDAL: 11/25/2014 The study was acquired using full field digital technology and interpretedfrom soft copy. Current study was also evaluated with R2 CAD. 2D digital mammographic views, as well as 3D digital tomosynthesis were performed in the CC and MLO projections. CLINICAL: Routine mammogram. Patient denies any problems today. Nopersonal or family history of breast cancer. COMPARISONS: Comparison is made to exams dated: 09/23/2013 mammogram and 09/29/2011 mammogram/ultrasound - [facility]. BREAST TISSUE: There are scattered fibroglandular densities in bothbreasts. FINDINGS: Bilateral breast round/oval circumscribed isodense masses demonstrate no suspicious mammographic change dating back to at least09/29/2011, most consistent with benign entities. No suspicious mass, calcifications, or other significant mammographicfindings are seen within either breast. There has been no suspicious interval mammographic change involving either breast. IMPRESSION: BI-RAD 2 BENIGN No mammographic evidence of malignancy. Stable benign-appearing bilateral breast masses. A 1 year screening mammogram is recommended. The patient has been or will be contacted. The patient will be entered into an automated reminder system to schedulea mammogram in one year. Electronically signed by: Shukri Noe md/:11/25/2014 10:14:56 Inspector Watch Train: Mariah Herrera RT (R)(M), [facility] letter sent: Normal Exam Reading location: BI-RADS: 2 Benign [EOD] us Blair Agarwal MD IMG MAMMO PROCEDURES Final Re sult from Last 3 Months or Most Recently Relevant to Health Maintenance Insurance [employer] MEDICARE ADVANTAGE [facility] [place] [address] Advance Directives For more information, please contact: [phone] Documents on File Type Date Recorded Patient Tailercpa Expl anation ADVANCE DIRECTIVE 05/14/2020 Care Teams Auto Body Customizer Relationship Specialty Start Date End Date Blair Agarwal MD PCP - General 06/23/18 [place] [id number] [id number] Referring Physician Rheumatology 09/05/23
--- OUTSIDE RECORDS SUMMARY | 2024-06-03 06:24 | XMS_ITS | Encounter Summary ---
Author Organization [facility] Care Team Providers Care Electronics Installer Name Role Phone Blair Agarwal MD Primary Care Provider [phone] Frank Whitney MD Unavailable [phone] Encounter Details Date Type Department Care Team (Latest Contact Info) Description 04/06/2018 Orders Only MMG CLINCONV ProviderCarlos Manuel MD [address] [place] [address] [phone] Social History Tobacco Use Types Packs/Day Years Used Date Smoking Tobacco: Never Assessed Comments Unknown Sex and Gender Information Value Date Recorded Sex Assigned at Not on file Legal Sex Female 8:25 AM CDT Gender Identity Not on file Sexual Orientation Not on file documented as of this encounter Plan of Treatment Not on file documented as of this encounter Procedures Procedure Name Priority Date/Time Associated Diagnosis Comments PROCEDURE - RESULT 04/06/2018 12 :00 AM CROSSCUTTER documented in this encounter Results * PROCEDURE - RESULT (04/06/2018 12:00 AM CROSSCUTTER) Narrative 04/06/2018 12:00 AM CROSSCUTTER Ordered by an unspecified provider. Historical Provider Final Res ult documented in this encounter Visit Diagnoses Not on filedocumented in this encounter Care Teams Electronics Installer Relationship Specialty Start Date End Date Blair Agarwal MD PCP - General 06/23/18 [place] [address] [facility] [address] [place] [address] Referring Physician Rheumatology 09/05/23 documented as of this encounter
--- OUTSIDE RECORDS SUMMARY | 2024-06-03 06:24 | XMS_ITS | Referral Summary ---
Author Organization [facility] at the [facility] Office Center Address [address] [place] [address] Care Team Providers Care Head Strength And Conditioning Coach Name Role Phone Blair Agarwal MD Primary Care Provider [phone] Frank Whitney MD Unavailable [phone] Allergies No known active allergies Medications vitamins A,C,Q-jysy-mywkcd (ICAPS) 14,320226-200 hxsy-fr-ksfp capsule Take 2 capsules by mouth daily [...] SARS-CoV-2 Monovalent Vaccination (12+ Yrs) PURPLE 11/17/2021,05/08/2020,04/19/2020 Pfizer Sars-Cov-2 Bivalent V accination (12+ YRS) 09/28/2022,11/20/2021 Pneumococcal Conjugate PCV 13 03/11/2015 Pneumococcal Polysaccharide PPV23 09/08/2011 RSV Vaccine, Pref, Recombina nt, Subunit, Adjuvanted, PF, IM (Arexvy) 02/03/2023 ZOSTER Recombinant 02/22/2023,09/28/2022 Social History Tobacco Use Types Packs/Day Years [...] on file Sexual Orientation Not on file Last Filed Vital Signs Vital Sign Reading Time Taken Comments Blood Pressure 146/76 01/03/2024 1:37 PM RN DISCHARGE Pulse 64 12/26/2023 2:31 PM RN DISCHARGE Temperature 36.8 C (98.2 F) 12/26/2023 2:31 PM RN DISCHARGE Respiratory Rate 18 05/13/2023 3:33 PM CDT Oxygen Saturation 96% 12/26/2023 2:31 PM RN DISCHARGE Inhaled Oxygen Concentration - - Weight 109 kg (240 lb 6.4 oz) 12/26/2023 2:31 PM RN DISCHARGE Height 165.1 cm (5' 5 ) 12/26/2023 2:31 PM RN DISCHARGE Body Mass Index 40 12/26/2023 2:31 PM RN DISCHARGE Plan of Treatment Not on file Procedures Procedure Name Priority Date/Time Associated Diagnosis Comments DEXA AXIAL SKELETON BONE DENSITY 1 OR MORE SITES Schedule Routine, Read Routine (OP Routine) 01/26/2023 10:09 AM RN DISCHARGE Postmenopausal status COLONOSCOPY Routine 10/24/2020 SCREENING MAMMOGRAM BILATERAL W BALA Routine 11/25/2014 8:54 AM CDT from Last 3 Months or Most Recently Relevant to Health Maintenance Results * Dexa Axial Skeleton Bone Density 1 or 2 Site (01/26/2023 10:09 AM RN DISCHARGE) Anatomical Region Laterality Modality Body N/A Mammography 01/26/2023 10:5 9 AM RN DISCHARGE Narrative 01/26/2023 11:00 AM RN DISCHARGE EXAM DESCRIPTION: DEXA AXIAL SKELETON BONE DENSITY 1 OR MORE SITES REASON FOR STUDY: 77 y/o year old F with given history of: Postmenopausal status. Patient has taken/is taking vitamin-D. History of prior fracture and smoking Section Weaver/Model: Quewey A (S/N [id number]) CLINICAL INFORMATION: Current height: 64 inches Maximum [...] Ml Ross M.D. TW: TW Report ID: [id number] Reading Location: [id number] Procedure Note Ml Ross MD - 01/26/2023 EXAM DESCRIPTION: DEXA AXIAL SKELETON BONE DENSITY 1 OR MORE SITES REASON FOR STUDY: 77 y/o year old F with given history of:Postmenopausal status. Patient has taken/is taking vitamin-D. History of prior fractureand smoking Section Weaver/Model: HoloTrov Horizon A (S/N [id number]) CLINICAL INFORMATION: Current height: 64 inches Maximum [...] Ml Ross M.D. TW: TW Report ID: [id number] Reading Location: [place] [address] Blair Agarwal MD IMG DXA PROCEDURES Final Resu lt * Colonoscopy (10/24/2020) Anatomical Region Laterality Modality Other us Historical Provider ENDOSCOPY PROCEDURES Juhi l Result [...] Electronically signed by: Shukri Noe md/:11/25/2014 10:14:56 Strategic Account Manager: Mariah TERAN (R)(M), [facility] letter sent: Normal Exam Reading location: BI-RADS: 2 Benign [EOD] Narrative 11/25/2014 10:18 AM T - [facility] BILAT SCREENING 3D W/CAD BILATERAL DIGITAL SCREENING [...] dated: 09/23/2013 mammogram and 09/29/2011 mammogram/ultrasound - [facility]. BREAST TISSUE: There are scattered fibroglandular densities [...] Provider, MD Carlos Manuel - 07/07/2020 - [facility] BILAT SCREENING 3D W/CAD BILATERAL DIGITAL SCREENING [...] dated: 09/23/2013 mammogram and 09/29/2011 mammogram/ultrasound - [facility]. BREAST TISSUE: There are scattered fibroglandular densities [...] Electronically signed by: Shukri Noe md/:11/25/2014 10:14:56 Strategic Account Manager: Mariah Herrera RT (R)(M), [facility] letter sent: Normal Exam Reading location: BI-RADS: 2 Benign [EOD] Blair Agarwal MD IMG MAMMO PROCEDURES Final Re sult from Last 3 Months or Most Recently Relevant to Health Maintenance Insurance UHC MEDICARE ADVANTAGE UHC MEDICARE ADVANTAGE Advance Directives For more information, please contact: [phone] Documents on File Type Date Recorded Patient Senior Integration Architect Expl anation ADVANCE DIRECTIVE 05/14/2020 Care Teams Head Strength And Conditioning Coach Relationship Specialty Start Date End Date Blair Agarwal MD PCP - General 06/23/18 [place] [id number] [phone] Referring Physician Rheumatology 09/05/23
[2024-06-03 06:31] VITALS: BP 159/75; PULSE 70; RESP 18; TEMP 36.5; O2SAT 95
--- OUTSIDE RECORDS SUMMARY | 2024-06-03 07:17 | XMS_ITS | Clinical Summary ---
Author Organization [facility] Address [address] [place] [address] Care Team Providers Care Service Delivery Management Consultant Name Role Phone Blair Agarwal MD Primary Care Provider [phone] Source Comments [facility],non-owned Affiliates and Associated Physician Practices is amultiple site organization consisting of ambulatory clinics and hospital sitesin [place], [place], [place] and [place]. This disclosure is being madepursuant to the Care Everywhere program and may not contain all information available regarding this patient. Last updated 17.[facility] Allergies No known active allergies Medications * [...] age to complete this topic Insurance MEDICARE [facility] UHC MANAGED MEDICARE ADV Care Teams Service Delivery Management Consultant Relationship Specialty Start Date End Date Blair Agarwal MD [address] [place] [phone] PCP - General 05/29/17
--- OUTSIDE RECORDS SUMMARY | 2024-06-03 07:17 | XMS_ITS | Clinical Summary ---
Author Organization [facility] Address [address] [place] [address] Care Team Providers Care Director University Name Role Phone Unavailable Primary Care Provider [...] this topic Meningococcal Vaccine Aged Out No orn bo eligible based on patient's age to complete this topic RSV Immunizations Under 20 Months Aged Out No longer eligible based on patient's age to complete this topic
--- OUTSIDE RECORDS SUMMARY | 2024-06-03 07:18 | XMS_ITS | Referral Summary ---
Author Organization [facility] at the [facility] Office Center Address [address] [place] [address] Care Team Providers Care Sales Representative Printing Paper Name Role Phone Blair Agarwal MD Primary Care Provider [phone] Frank Whitney MD Unavailable [phone] Allergies No known active allergies Medications vitamins A,C,U-gjpt-badsdz (ICAPS) 14,320226-200 frsl-zk-vsec capsule Take 2 capsules by mouth daily [...] Comments Blood Pressure 146/76 01/03/2024 1:37 PM MIXER OPERATOR Pulse 64 12/26/2023 2:31 PM MIXER OPERATOR Temperature 36.8 C (98.2 F) 12/26/2023 2:31 PM MIXER OPERATOR Respiratory Rate 18 05/13/2023 3:33 PM CDT Oxygen Saturation 96% 12/26/2023 2:31 PM MIXER OPERATOR Inhaled Oxygen Concentration - - Weight 109 kg (240 lb 6.4 oz) 12/26/2023 2:31 PM MIXER OPERATOR Height 165.1 cm (5' 5 ) 12/26/2023 2:31 PM MIXER OPERATOR Body Mass Index 40 12/26/2023 2:31 PM MIXER OPERATOR Plan of Treatment Not on file Procedures Procedure Name Priority Date/Time Associated Diagnosis Comments DEXA AXIAL SKELETON BONE DENSITY 1 OR MORE SITES Schedule Routine, Read Routine (OP Routine) 01/26/2023 10:09 AM MIXER OPERATOR Postmenopausal status COLONOSCOPY Routine 10/24/2020 SCREENING MAMMOGRAM BILATERAL W BALA Routine 11/25/2014 8:54 AM CDT from Last 3 Months or Most Recently Relevant to Health Maintenance Results * Dexa Axial Skeleton Bone Density 1 or 2 Site (01/26/2023 10:09 AM MIXER OPERATOR) Anatomical Region Laterality Modality Body N/A Mammography 01/26/2023 10:5 9 AM MIXER OPERATOR Narrative 01/26/2023 11:00 AM MIXER OPERATOR EXAM DESCRIPTION: DEXA AXIAL SKELETON BONE DENSITY 1 OR MORE SITES REASON FOR STUDY: 77 y/o year old F with given history of: Postmenopausal status. Patient has taken/is taking vitamin-D. History of prior fracture and smoking Milling Machine Operator Gear/Model: [employer] A (S/N [id number]) CLINICAL INFORMATION: Current height: 64 inches Maximum [...] Ml Ross M.D. TW: TW Report ID: [id number] Reading Location: [id number] Procedure Note Ml Ross MD - 01/26/2023 EXAM DESCRIPTION: DEXA AXIAL SKELETON BONE DENSITY 1 OR MORE SITES REASON FOR STUDY: 77 y/o year old F with given history of:Postmenopausal status. Patient has taken/is taking vitamin-D. History of prior fractureand smoking Milling Machine Operator Gear/Model: HoloMirego Horizon A (S/N [id number]) CLINICAL INFORMATION: Current height: 64 inches Maximum [...] Ml Ross M.D. TW: TW Report ID: [id number] Reading Location: [place] [address] Blair Agarwal MD IMG DXA PROCEDURES Final [...] Electronically signed by: Shukri Noe md/:11/25/2014 10:14:56 Keyboard Action Assembler: Mariah TERAN (R)(M), [facility] letter sent: Normal Exam Reading location: BI-RADS: 2 Benign [EOD] Narrative 11/25/2014 10:18 AM T - [facility] BILAT SCREENING 3D W/CAD BILATERAL [...] dated: 09/23/2013 mammogram and 09/29/2011 mammogram/ultrasound - [facility]. BREAST TISSUE: There are scattered fibroglandular densities [...] Provider, MD Carlos Manuel - 07/07/2020 - [facility] BILAT SCREENING 3D W/CAD BILATERAL [...] dated: 09/23/2013 mammogram and 09/29/2011 mammogram/ultrasound - [facility]. BREAST TISSUE: There are scattered fibroglandular densities [...] Electronically signed by: Shukri Noe md/:11/25/2014 10:14:56 Keyboard Action Assembler: Mariah Herrera RT (R)(M), [facility] letter sent: Normal Exam Reading location: BI-RADS: 2 Benign [EOD] Blair Agarwal MD IMG MAMMO PROCEDURES Final Re sult from Last 3 Months or Most Recently Relevant to Health Maintenance Insurance UHC MEDICARE ADVANTAGE UHC MEDICARE ADVANTAGE Advance Directives For more information, please contact: [phone] Documents on File Type Date Recorded Patient Erp Developer Expl anation ADVANCE DIRECTIVE 05/14/2020 Care Teams Sales Representative Printing Paper Relationship Specialty Start Date End Date Blair Agarwal MD PCP - General 06/23/18 [place] [address] [phone] Referring Physician Rheumatology 09/05/23
--- OUTSIDE RECORDS SUMMARY | 2024-06-03 07:18 | XMS_ITS | Clinical Summary ---
Author Organization [facility] Office Center Address [address] [place] [address] Care Team Providers Care Senior Insight Manager Name Role Phone Blair Agarwal MD Primary Care Provider [phone] Frank Whitney MD Unavailable [phone] Allergies No known active allergies Medications vitamins A,C,M-juvy-ovunyq (ICAPS) 14,320226-200 udul-px-mlxq capsule Take 2 capsules by mouth daily [...] SARS-CoV-2 Monovalent Vaccination (12+ Yrs) PURPLE 11/17/2021,05/08/2020,04/19/2020 Ticket ABC Sars-Cov-2 Bivalent V accination (12+ YRS) 09/28/2022,11/20/2021 [...] Comments Blood Pressure 146/76 01/03/2024 1:37 PM PIN MAKER Pulse 64 12/26/2023 2:31 PM PIN MAKER Temperature 36.8 C (98.2 F) 12/26/2023 2:31 PM PIN MAKER Respiratory Rate 18 05/13/2023 3:33 PM CDT Oxygen Saturation 96% 12/26/2023 2:31 PM PIN MAKER Inhaled Oxygen Concentration - - Weight 109 kg (240 lb 6.4 oz) 12/26/2023 2:31 PM PIN MAKER Height 165.1 cm (5' 5 ) 12/26/2023 2:31 PM PIN MAKER Body Mass Index 40 12/26/2023 2:31 PM PIN MAKER Plan of Treatment Health Maintenance Due Date [...] Read Routine (OP Routine) 01/26/2023 10:09 AM PIN MAKER Postmenopausal status COLONOSCOPY Routine 10/24/2020 SCREENING MAMMOGRAM BILATERAL W BALA Routine 11/25/2014 8:54 AM CDT from Last 3 Months or Most Recently Relevant to Health Maintenance Results * Dexa Axial Skeleton Bone Density 1 or 2 Site (01/26/2023 10:09 AM PIN MAKER) Anatomical Region Laterality Modality Body N/A Mammography 01/26/2023 10:5 9 AM PIN MAKER Narrative 01/26/2023 11:00 AM PIN MAKER EXAM DESCRIPTION: DEXA AXIAL SKELETON BONE DENSITY 1 OR MORE SITES REASON FOR STUDY: 77 y/o year old F with given history of: Postmenopausal status. Patient has taken/is taking vitamin-D. History of prior fracture and smoking Sheet Turner/Model: B-Obvious A (S/N [id number]) CLINICAL INFORMATION: Current height: 64 inches Maximum [...] by Ml Ross M.D. TW: Report ID: [id number] Reading Location: [place] [address] Procedure Note Ml Ross MD - 01/26/2023 EXAM DESCRIPTION: DEXA AXIAL SKELETON BONE DENSITY 1 OR MORE SITES REASON FOR STUDY: 77 y/o year old F with given history of:Postmenopausal status. Patient has taken/is taking vitamin-D. History of prior fractureand smoking Sheet Turner/Model: Hologic Horizon A (S/N [id number]) CLINICAL INFORMATION: Current height: 64 inches Maximum [...] Ml Ross M.D. TW: TW Report ID: [id number] Reading Location: [id number] Blair Agarwal MD IMG DXA PROCEDURES Final [...] Electronically signed by: Shukri Noe md/:11/25/2014 10:14:56 Bail Bonding Agent: Mariah TERAN (Shannon)(Yuval), [facility] letter sent: Normal Exam Reading location: BI-RADS: 2 Benign [EOD] Narrative 11/25/2014 10:18 AM T - [facility] BILAT SCREENING 3D W/CAD BILATERAL [...] dated: 09/23/2013 mammogram and 09/29/2011 mammogram/ultrasound - [facility]. BREAST TISSUE: There are scattered fibroglandular [...] MD Carlos Manuel - 07/07/[address] - [facility] BILAT SCREENING 3D W/CAD BILATERAL [...] dated: 09/23/2013 mammogram and 09/29/2011 mammogram/ultrasound - [facility]. BREAST TISSUE: There are scattered fibroglandular [...] Electronically signed by: Shukri Noe md/:11/25/2014 10:14:56 Bail Bonding Agent: Mariah Herrera RT (R)(M), [facility] letter sent: Normal Exam Reading location: BI-RADS: 2 Benign [EOD] us Blair Agarwal MD IMG MAMMO PROCEDURES Final Re sult from Last 3 Months or Most Recently Relevant to Health Maintenance Insurance UHC MEDICARE ADVANTAGE [facility] MEDIC[facility] Address: [address] [address] [facility] MEDICARE ADVANTAGE [facility] MEDICARE Address: [facility] [address] [place] [address] Advance Directives For more information, please contact: [phone] Documents on File Type Date Recorded Patient Front Attendant Expl anation ADVANCE DIRECTIVE 05/14/2020 Care Teams Senior Insight Manager Relationship Specialty Start Date End Date lBair Agarwal MD PCP - General 06/23/18 [place] [address] [phone] Referring Physician Rheumatology 09/05/23
--- OUTSIDE RECORDS SUMMARY | 2024-06-03 07:18 | XMS_ITS | Encounter Summary ---
Author Organization [facility] Care Team Providers Care Wheel Buffer Name Role Phone Blair Agarwal MD Primary Care Provider [phone] Frakn Whitney MD Unavailable [phone] Encounter Details Date Type Department Care Team (Latest Contact Info) Description 04/06/2018 Orders Only MMG CLINCONV ProviderCarlos Manuel MD [address] [place] [phone] Social History Tobacco Use Types Packs/Day Years [...] PROCEDURE - RESULT 04/06/2018 12 :00 AM IT RISK ADVISOR documented in this encounter Results * PROCEDURE - RESULT (04/06/2018 12:00 AM IT RISK ADVISOR) Narrative 04/06/2018 12:00 AM IT RISK ADVISOR Ordered by an unspecified provider. Historical Provider Final Res ult documented in this encounter Visit Diagnoses Not on filedocumented in this encounter Care Teams Wheel Buffer Relationship Specialty Start Date End Date Blair Agarwal MD PCP - General 06/23/18 [place] [address] [facility] [address] [place] [address] Referring Physician Rheumatology 09/05/23 documented as of this encounter
[2024-06-03] MEDS: methocarbamoL 750 MG TABLET PO (08:25)
[2024-06-03] MEDS: LIDOCAINE 5% PATCH 1 PATCH TRANSDERM (08:25)
[2024-06-03] MEDS: HYDROcodone/acetaminophen (*CRX) 5-325 MG TABLET 2 TAB PO (08:25)
[2024-06-03 10:17] VITALS: BP 126/68; PULSE 59; RESP 18; O2SAT 98
--- NOTE | 2024-06-03 11:13 | ED_ITS ---
HPI - General Adult General Chief complaint: Back Pain/Injury Stated complaint: back pain Time Seen by Provider: 06/03/24 06:57 History of Present Illness HPI narrative: This is a 78-year-old female presenting with 2 weeks of back pain. Two weeks prior she had bent over felt a her back. Since then she has developed bandlike pain across her lower back. It does not radiate down her legs. It does not radiate to her stomach. She is not having any difficulty urinating or bowel incontinence. No weakness to the legs. She has been seeing her chiropractor with minimal relief. Related Data Home Medications ?Medication ?Instructions ?Recorded ?Confirmed ?Last Taken ?Type alprazolam 0.5 mg tablet 0.5 mg PO TID PRN Anxiety 10/22/20 12/29/20 Unknown History amlodipine 5 mg tablet 5 mg PO DAILY 10/22/20 12/29/20 12/28/20 History gabapentin 300 mg capsule 300 mg PO TID 10/22/20 12/29/20 12/28/20 History rivaroxaban 20 mg tablet (Xarelto) 20 mg PO DAILY 10/22/20 12/29/20 12/28/20 History alendronate-vitamin D3 2,000 units PO DAILY 10/23/20 12/29/20 12/28/20 History multivitamin with minerals-folic 0.4 tablet PO DAILY 10/23/20 12/29/20 12/28/20 History acid 0.4 mg tablet pregabalin 75 mg PO BID 10/23/20 12/29/20 12/28/20 History simvastatin 40 mg tablet 40 mg PO DAILY 10/24/20 12/29/20 12/28/20 History levothyroxine 88 mcg tablet 88 mcg PO DAILY 12/29/20 12/29/20 12/28/20 History meclizine 25 mg tablet 25 mg PO BID 12/29/20 12/29/20 Unknown History olmesartan 40 mg tablet 40 mg PO DAILY 12/29/20 12/29/20 12/28/20 History spironolactone 25 mg tablet mg 02/23/22 Unknown History Allergies Allergy/AdvReac Type Severity Reaction Status Date / Time No Known Allergies Allergy Verified 04/30/23 21:56 [facility] Past Medical History Medical History Macular degeneration Vitamin D deficiency Obstructive sleep apnea Apnea link screening was positive October 2020 Erosive gastritis (10/2020) AVM (arteriovenous malformation) of colon (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) Paroxysmal atrial fibrillation Acute blood loss anemia Weight gain Metatarsal bone fracture (02/13/19) Metatarsal bone fracture (02/13/19) Pulmonary embolism (~07/2018) Anxiety Hypothyroid GERD (gastroesophageal reflux disease) HTN (hypertension) Peripheral neuropathy CVA (cerebrovascular accident) Surgical History Surgical History History of esophagogastroduodenoscopy (EGD) (10/2020) AVMs noted in cecum and erosive gastritis Status post cataract extraction of both eyes with insertion of intraocular lens Family History Family History Father Acute myocardial infarction Social History Social History Social History: She has been for 52 years. They had 1 son who last year at 49 years old of heart disease. She is a retired hairdresser. She still smokes about 5 cigarettes a day. Up until recent years she used to smoke a half a pack of cigarettes per day and started smoking as a teenager. She denies any alcohol use or illicit substance use. Smoking packs per day: 5 Smoking cigarettes per day: 100.0 Years smoked: 50 Smoking pack-years: 250.00 Smoking status: Light tobacco smoker Tobacco type: cigarettes Alcohol intake: never Substance use: never Gender identity (if verbalized by the patient): Female Spiritual care concerns: No Exam Narrative: APPEARANCE: No apparent distress. Head: atraumatic. EYES: EOMI, NOSE: Atraumatic NECK/back: Trachea midline, no midline spinal tenderness, tenderness over the paralumbar muscles bilaterally, straight leg negative RESPIRATORY: No increased rate of breathing CARDIOVASCULAR: RRR, CTAB ABDOMINAL: Non-distended soft nontender MUSCULOSKELETAl: No obvious deformities NEURO: Alert. Cranial nerves 2-12 grossly intact. Sensation light touch, motor function cerebellar function intact for 4 extremities. Gait exam was normal. SKIN:: Warm, dry. Normal color PSYCHIATRIC: Normal affect Course Vital Signs Vital signs: Vital Signs Temperature 97.7 F 06/03/24 06:31 Pulse Rate 70 06/03/24 06:31 Respiratory Rate 18 06/03/24 06:31 Blood Pressure 159/75 H 06/03/24 06:31 Pulse Oximetry 95 06/03/24 06:31 Temperature 97.7 F 06/03/24 06:31 Pulse Rate 59 L 06/03/24 10:17 Respiratory Rate 18 06/03/24 10:17 Blood Pressure 126/68 06/03/24 10:17 Pulse Oximetry 98 06/03/24 10:17 Medical Decision Making MDM Narrative Medical decision making narrative: -Course: 70-year-old female presenting with bandlike pain across her lower back after bending over. CT showed a possible mild compression fracture but she has no midline tenderness. No neurologic deficits. Pain was controlled a ED and she was able to ambulate around the department. Patient says she feels much better. She will be discharged with supportive measures and primary care f ollow-up. Patient has incidental 3.1 cm AAA. No concern for abdominal rupture this time. No belly pain. Patient was informed this will follow-up primary care physician for referral to specialist care. -DDX includes but is not limited to: Lumbago, sciatica, compression fracture, herniated disc, spinal cord compression Vital Signs Vital Signs: Vital Signs Temperature 97.7 F 06/03/24 06:31 Pulse Rate 70 06/03/24 06:31 Respiratory Rate 18 06/03/24 06:31 Blood Pressure 159/75 H 06/03/24 06:31 Pulse Oximetry 95 06/03/24 06:31 Temperature 97.7 F 06/03/24 06:31 Pulse Rate 59 L 06/03/24 10:17 Respiratory Rate 18 06/03/24 10:17 Blood Pressure 126/68 06/03/24 10:17 Pulse Oximetry 98 06/03/24 10:17 Discharge Plan Discharge Clinical Impression: Back pain Patient Disposition: Home Condition: Stable Instructions: Antibiotic Form, Acute Low Back Pain (ED) Additional Instructions: You were seen emergency department for lower back pain. Please take the prescribed medications as directed. You have a 3.1 cm abdominal aortic aneurysm. Please follow-up with your primary care physician as this may need specialist referral. If you develop severe abdominal pain, weakness your legs or any new or worsening symptoms please return to the ED for re-evaluation. Patient Language: Filipino Prescriptions: New acetaminophen 500 mg tablet 1,000 mg PO TID PRN (Reason: rick) 7 Days Qty: 42 0RF methocarbamol 750 mg tablet 1,500 mg PO TID Qty: 42 0RF lidocaine 5 % adhesive patch,medicated 1 patch topical DAILY Qty: 15 0RF Rx Instructions: leave on most painful area for up to 12 hrs No Action amlodipine 5 mg tablet 5 mg PO DAILY alprazolam 0.5 mg tablet 0.5 mg PO TID PRN (Reason: Anxiety) gabapentin 300 mg capsule 300 mg PO TID Xarelto 20 mg tablet 20 mg PO DAILY multivit with min-folic acid 0.4 mg Tablet 0.4 tablet PO DAILY alendronate-vitamin D3 2,000 units PO DAILY pregabalin 75 mg PO BID simvastatin 40 mg tablet 40 mg PO DAILY metoprolol tartrate 25 mg Tablet 25 mg PO Q12HR Qty: 60 0RF pantoprazole 40 mg Tablet,Delayed Release (Dr/Ec) 40 mg PO QAM 30 Days Qty: 30 5RF olmesartan 40 mg tablet 40 mg PO DAILY levothyroxine 88 mcg Tablet 88 mcg PO DAILY meclizine 25 mg Tablet 25 mg PO BID spironolactone 25 mg tablet ondansetron 4 mg tablet,disintegrating 4 mg PO Q6H PRN (Reason: nausea and vomiting) Qty: 10 0RF cyclobenzaprine 10 mg tablet 10 mg PO HS PRN (Reason: muscle spasm) Qty: 10 0RF Follow-up/Referrals: Stefano,Blair Wiggins MD [Primary Care Provider] - 1 Week (Lower back pain, AAA)
== END 2024-06-03 11:31 | disposition home or self-care (01) ==
PROVIDERS: Emergency Provider Emergency Medicine; PCP Family Medicine
DX: M54.9 Dorsalgia, unspecified (principal); I48.0 Paroxysmal atrial fibrillation; I10 Essential (primary) hypertension; E03.9 Hypothyroidism, unspecified; E55.9 Vitamin D deficiency, unspecified; K21.9 Gastro-esophageal reflux disease without esophagitis; H35.30 Unspecified macular degeneration; G47.33 Obstructive sleep apnea (adult) (pediatric); G62.9 Polyneuropathy, unspecified; F41.9 Anxiety disorder, unspecified; F17.210 Nicotine dependence, cigarettes, uncomplicated; Z86.73 Personal history of transient ischemic attack (TIA), and cerebral infarction without residual deficits; Z86.711 Personal history of pulmonary embolism; Z96.1 Presence of intraocular lens; Z98.42 Cataract extraction status, left eye; Z98.41 Cataract extraction status, right eye; Z79.01 Long term (current) use of anticoagulants; Z79.899 Other long term (current) drug therapy
CPT/HCPCS: 72131; 72170; 99284; A9270

== ENCOUNTER 2024-06-27 22:26 | Observation (INO) | payer MEDICARE, SELFPAY ==
--- NOTE | ~2024-06-27 | XR_ITS ---
CHEST RADIOGRAPH, PA AND LATERAL CLINICAL HISTORY: palpations . COMPARISON: 02/23/2022 TECHNIQUE: PA and lateral views of the chest. FINDINGS The cardiomediastinal silhouette is enlarged, unchanged. Increased interstitial markings are identified bilaterally, findings suggesting mild pulmonary vascul ar congestion. The remainder of the lungs are clear. IMPRESSION: Mild pulmonary vascular congestion, without focal infiltrate or effusion. Reviewed, dictated and finalized at location A.
--- OUTSIDE RECORDS SUMMARY | 2024-06-27 22:28 | XMS_ITS | Clinical Summary ---
Author Organization [facility] Address [address] [place] [id number] Care Team Providers Care Manager Ed Name Role Phone Unavailable Primary Care Provider [...] Td Vaccines ( 1 - Tdap) 1964 Pneumococcal Vaccine: 50+ Ye ars (1 of 1 - PCV) 11/06/1995 Zoster Vaccines (1 of 2) 11/06/1995 Dexa Scan (General) 2010 RSV Immunization or 60+ Years (1 [...]
--- OUTSIDE RECORDS SUMMARY | 2024-06-27 22:28 | XMS_ITS | Encounter Summary ---
Author Organization [facility] Facility Care Team Providers Care Plate Stacker Name Role Phone Blair Agarwal MD Primary Care Provider [phone] Frank Whitney MD Unavailable [phone] Encounter Details Date Type Department Care Team (Latest Contact Info) Description 04/06/2018 Orders Only [facility] CLINCONV ProviderCarlos Manuel MD [address] [place] [address] [id number] Social History Tobacco Use Types Packs/Day Years [...] PROCEDURE - RESULT 04/06/2018 12 :00 AM [employer] ESTIMATOR documented in this encounter Results * PROCEDURE - RESULT (04/06/2018 12:00 AM F[employer]IC AND ACCESSORIES ESTIMATOR) Narrative 04/06/2018 12:00 AM [employer] AND ACCESSORIES ESTIMATOR Ordered by an unspecified provider. Historical Provider Final Res ult documented in this encounter Visit Diagnoses Not on filedocumented in this encounter Care Teams Plate Stacker Relationship Specialty Start Date End Date Blair Agarwal MD [address] [facility] [place] [address] PCP - General 06/23/18 [place] [id number] [address] Referring Physician Rheumatology 09/05/23 documented as of this encounter
--- OUTSIDE RECORDS SUMMARY | 2024-06-27 22:28 | XMS_ITS | Clinical Summary ---
Author Organization [facility] Office Center Address [address] [place] [address] Care Team Providers Care Director Safety Council Name Role Phone Blair Agarwal MD Primary Care Provider [phone] Frank Whitney MD Unavailable [phone] Allergies No known active allergies Medications vitamins A,C,E-hdrw-patdpt (ICAPS) 14,320226-200 dews-uo-vnsn capsule Take 2 capsules by mouth daily Active MULTIVITAMIN ORAL Take by mouth Active cholecalciferol (VITAMIN D-3) 1,000 unit capsule 1 capsule (1,000 Units total) daily Active meclizine (ANTIVERT) 25 mg tablet Take 1 tablet (25 mg total) by mouth 3 (three) times a day as needed for dizziness 90 tablet 1 11/03/19 21 Active carboxymethylcellu lose-glycern (Refresh Optive) 0.5-0.9 % drops Administer into affected eye(s) Active potassium chloride ER (KLOR-CON) 10 mEq CR tablet Take 1 tablet/capsule (10 mEq total) by mouth daily 30 tablet/caps ule 2 03/02/19 23 Active folic acid (FOLVITE) 1 mg tablet Take 1 tablet (1,000 mcg total) by mouth daily 06/29/19 24 Active methotrexate 2.5 mg tablet Take 1 tablet (2.5 mg total) by mouth 09/04/19 24 Active olmesartan (BENICAR) 40 mg tablet TAKE 1 TABLET BY MOUTH DAILY 100 tablet 2 10/11/19 24 Active rosuvastatin (CRESTOR) 20 mg tablet Take 1 tablet (20 mg total) by mouth nightly 90 tablet 6 11/08/19 24 Active ondansetron ODT (ZOFRAN-ODT) 4 mg disintegrating tablet Take 1 tablet (4 mg total) by mouth every 8 (eight) hours as needed for nausea or vomiting 20 tablet 11/27/19 24 Active gabapentin (NEURONTIN) 300 mg capsule TAKE 1 CAPSULE BY MOUTH 3 TIMES DAILY 300 capsule 2 12/22/19 24 Active Xarelto 20 mg tablet TAKE 1 TABLET BY MOUTH DAILY 100 tablet 2 12/22/19 24 Active metoprolol tartrate (LOPRESSOR) 25 mg immediate release tabletIndications: Paroxysmal atrial fibrillation (HCC) TAKE 1 TABLET BY MOUTH TWICE DAILY 200 tablet 2 01/15/20 24 Active spironolactone (ALDACTONE) 25 mg tabletIndications: Uncontrolled hypertension TAKE 1 TABLET BY MOUTH DAILY 100 tablet 2 01/26/20 24 Active amLODIPine (NORVASC) 10 mg tabletIndications: Uncontrolled hypertension TAKE 1 TABLET BY MOUTH DAILY 100 tablet 1 02/24/19 25 Active ALPRAZolam (XANAX) 0.5 mg tabletIndications: JERRELL (generalized anxiety disorder) TAKE 1 TABLET BY MOUTH DAILY NEEDED FOR ANXIETY 90 tablet 04/15/19 25 Active methocarbamoL (ROBAXIN) 750 mg tablet Take 1 tablet (750 mg total) by mouth 3 (three) times a day 06/04/19 25 Active levothyroxine (SYNTHROID) 100 mcg tablet Take 1 tablet (100 mcg total) by mouth daily 90 tablet 3 06/28/19 25 Active furosemide (LASIX) 20 mg tablet Take 1 tablet (20 mg total) by mouth daily 30 tablet 2 03/02/19 23 025 Discontinu ed(Therapy completed) acetaminophen-code ine (TYLENOL with CODEINE #3) 300-30 mg per tabletIndications: Acute pain of both shoulders,Acute hip pain, bilateral,Hand pain, right,Acute pain of left shoulder Take 1-2 tablets by mouth every 6 (six) hours as needed for pain 60 tablet 05/19/19 24 025 Discontinu ed(Alterna te therapy) predniSONE (DELTASONE) 20 mg tablet One daily 30 tablet 1 06/21/19 24 025 Discontinu ed(Therapy completed) levothyroxine (SYNTHROID) 88 mcg tablet TAKE 1 TABLET BY MOUTH DAILY 100 tablet 2 05/25/19 25 025 Discontinu ed(Reorder ) predniSONE (DELTASONE) 20 mg tablet Take 1 tablet (20 mg) by mouth 2 (two) times a day for 5 days 10 tablet 06/12/19 25 025 Active Problems Problem Noted Date Diagnosed Date [...] 09/13/2021 TIA (transient ischemic attack) 09/09/2015 06/21/2023 Encounters Date Type Department Care Team Description 06/27/2024 1:30 PM CDT Office Visit [facility] Family Medicine at [address] [place] [address] Blair Agarwal MD Medicare annual wellness visit, subsequent (Primary Dx); Primary hypertension; Mixed hyperlipidemia; Paroxysmal atrial fibrillation (HCC); Acquired hypothyroidism; JERRELL (generalized anxiety disorder); PMR (polymyalgia rheumatica); History of TIA (transient ischemic attack); Infrarenal abdominal aortic aneurysm (AAA) without rupture; Stage 3a chronic kidney disease (HCC); Compression fracture of L5 vertebra with routine healing, subsequent encounter; Unspecified menopausal and perimenopausal disorder 06/23/2024 Results Follow-Up [facility] Family Medicine at [address] [place] [address] Marlena Marcial PA 06/21/2024 9:15 AM CDT Lab [facility] Outpatient Lab at [address] [phone] 06/21/2024 9:05 AM CDT - 06/21/2024 11:59 PM CDT Hospital Encounter [address] [address] Primary hypertension; Mixed hyperlipidemia; Acquired hypothyroidism Discharge Disposition: Discharge to home or self care 06/11/2024 2:15 PM CDT Office Visit [facility] Family Medicine at [address] [place] [phone] Marlena Marcial PA Acute bilateral low back pain without sciatica (Primary Dx) 06/03/2024 Orders Only [facility] Health Information Management [address] [place] [id number] Blair Agarwal MD from Last 3 Months Immunizations Immunization Administration Dates Next Due Influenza, Quad, Adjuvantate d, Intramuscular 11/20/2021,11/20/2020 Influenza, Quadrivalent, Hig h Dose, Preservative Free, Intrr 12/08/2022 Influenza, Quadrivalent, Rec ombinant, Egg Free, Preservative Free, Intramuscular 11/07/2019 Influenza, Quadrivalent, Spl it, Intramuscular 12/02/2017 Influenza, Trivalent, Adjuva nted, Intramuscular 12/28/2018,12/02/2017 Influenza, Trivalent, High D ose, Split, Preservative Free, Intramuscular 03/20/2017 Influenza, Unspecified 11/21/2023,11/17/2021, Pfizer SARS-CoV-2 Monovalent Vaccination (12+ Yrs) PURPLE [...] points, staff should administer the PHQ-9) 0 06/27/2024 Comments No Sex and Gender Information Value Date Recorded Sex Assigned at Not on file Legal Sex Female 8:25 AM CDT Gender Identity Not on file Sexual Orientation Not on file Obstetrics History Last Filed Vital Signs Vital Sign Reading Time Taken Comments Blood Pressure 128/58 06/27/2024 1:17 PM CDT Pulse 61 06/27/2024 1:17 PM CDT Temperature 36.5 C (97.7 F) 06/27/2024 1:17 PM CDT Respiratory Rate 18 06/11/2024 2:25 PM CDT Oxygen Saturation 94% 06/27/2024 1:17 PM CDT Inhaled Oxygen Concentration - - Weight 106.4 kg (234 lb 8 oz) 06/27/2024 1:17 PM CDT Height 165.1 cm (5' 5 ) 06/27/2024 1:17 PM CDT Body Mass Index 39.02 06/27/2024 1:17 PM CDT Plan of Treatment Health Maintenance Due Date Last Done Comments Hepatitis C Screening 1945 DTaP/Tdap/Td Vaccine (1 - Tdap) 1956 Hepatitis B Screening 11/06/1963 Covid-19 Vaccine (2023-2 5 season) 2023 01/10/2023, 09/28/2022, 11/20/2021, Additional history exists Osteoporosis Screening-Bone Density Scan 01/26/2025 01/26/2023, 08/17/2018, 09/23/2013 Depression Screening 06/27/2025 06/27/2024, 06/21/2023, 06/08/2022, Additional history exists Fall Risk Assessment 06/27/2025 06/27/2024, 06/21/2023, 06/08/2022, Additional history exists Well Visit 65+ 06/27/2025 06/27/2024, 0502/2023, 06/08/2022, Additional history exists Breast Cancer Screening-Mammogram Discontinued 015, 09/23/2013 Pneumococcal vaccine 65+ Completed 03/11/2015, 08/20 Colon Cancer Screening-CT Colonography Discontinued 10/24/2020 Colon Cancer Screening-Colonoscopy Discontinued 10/24/2020 Colon Cancer Screening-DNA Stool Discontinued 10/25/19 Colon Cancer Screening-FIT Discontinued 10/24/2020 Colon Cancer Screening-FOBT Discontinued 10/24/2020 Colon Cancer Screening-Sigmoidoscopy Discontinued 10/24/2020 Colorectal Cancer Screening Discontinued Zoster Vaccine Completed 02/22/2023, 09/28/2022 Influenza Vaccine Completed 11/21/2023, , 11/20/2021, Additional history exists Procedures Procedure Name Priority Date/Time Associated Diagnosis Comments EGFR Routine 06/21/2024 9:05 AM CDT Primary hypertension T4, FREE Routine 06/21/2024 9:05 AM CDT Acquired hypothyroidism DIFFERENTIAL AUTO Routine 06/21/2024 9:0 5 AM CDT Primary hypertension THYROID FUNCTION CASCADE Routine 06/21/2024 9:05 AM CDT Acquired hypothyroidism CBC WITH AUTO DIFFERENTIAL Routine 06/21/2024 9:05 AM CDT Primary hypertension COMPREHENSIVE METABOLIC PANEL Routine 06/21/2024 9:05 AM CDT Primary hypertension LIPID PANEL Routine 06/21/2024 9:05 AM CDT Primary hypertension Mixed hyperlipidemia SCAN - RADIOLOGY/IMAGING 06/03/2024 DEXA AXIAL SKELETON BONE DENSITY 1 OR MORE SITES Schedule Routine, Read Routine (OP Routine) 01/26/2023 10:09 AM CARE TAKER Postmenopausal status COLONOSCOPY Routine 10/24/2020 SCREENING MAMMOGRAM BILATERAL W BALA Routine 11/25/2014 8:54 AM CDT from Last 3 Months or Most Recently Relevant to Health Maintenance Results * (ABNORMAL) eGFR (06/21/2024 9:05 AM CDT) eGFR 45(L) >=60 mL/min/1. 73 m2 Comment: Interpretive Data Reference Interval Normal >/= 90 mL/min/1.73m2 Mildly decreased* 60 - 89 mL/min/1.73m2 Mildly to moderately decreased 45 - 59 mL/min/1.73m2 Moderately to severely decreased 30 - 44 mL/min/1.73m2 Severely decreased 15 - 29 mL/min/1.73m2 Kidney Failure < 15 mL/min/1.73m2 *Relative to young adult level Estimated glomerular filtration rate is determined by the 2020 CKD-EPI equation recommended by the National Kidney Foundation (A Unifying Approach to GFR Estimation: Recommendations of the NKF-ASK Task Force on Reassessing the Inclusion of Race in Diagnosing Kidney Disease, JASN 202). The CKD-EPI equation should not be used for patients with unstable renal function and has not been validated in children and those over 70. Current interpretive data was last reviewed 2020. Blood 06/21/2024 9:05 AM CDT 06/21/2024 8:34 PM CDT us Blair Agarwal MD LAB BLOOD ORDERABLES Final Re sult YULIYA [address] Department [place] [address] * (ABNORMAL) Differential, auto (06/21/2024 9:05 AM CDT) Neutrophil abs 6.78(H) 1.50 - 6.50 K/cumm Imm gran abs 0.02 0.00 - 0.10 K/cumm [facility] Lymphocyte abs 1.45 0.80 - 3.30 K/cumm [facility] Monocyte abs 1.10(H) 0.20 - 0.80 K/cumm [facility] Eosinophil abs 0.31 0.00 - 0.50 K/cumm [facility] Basophil abs 0.03 0.00 - 0.10 K/cumm [facility] Neutrophil pct 69.9 % [facility] Comment: Interpretive Data Percent cell count reference ranges are not reported, since discordance with absolute values may lead to misinterpretation of CBC data. Current Interpretive Data was last revised on 2017. Imm gran pct 0.2 % [facility] Comment: Interpretive Data Percent cell count reference ranges are not reported, since discordance with absolute values may lead to misinterpretation of CBC data. Current Interpretive Data was last revised on 2017. Lymphocyte pct 15.0 % [facility] Comment: Interpretive Data Percent cell count reference ranges are not reported, since discordance with absolute values may lead to misinterpretation of CBC data. Current Interpretive Data was last revised on 2017. Monocyte pct 11.4 % [facility] Comment: Interpretive Data Percent cell count reference ranges are not reported, since discordance with absolute values may lead to misinterpretation of CBC data. Current Interpretive Data was last revised on 2017. Eosinophil pct 3.2 % [facility] Comment: Interpretive Data Percent cell count reference ranges are not reported, since discordance with absolute values may lead to misinterpretation of CBC data. Current Interpretive Data was last revised on 2017. Basophil pct 0.3 % [facility] Comment: Interpretive Data Percent cell count reference ranges are not reported, since discordance with absolute values may lead to misinterpretation of CBC data. Current Interpretive Data was last revised on 2017. Blood 06/21/2024 9:05 AM CDT 06/21/2024 8:23 PM CDT Blair Agarwal MD LAB BLOOD ORDERABLES Final Re sult Performing Organization Address [facility] Co de Phone Number YULIYA JONES [address] [place] [address] * (ABNORMAL) Thyroid Function [place] (06/21/2024 9:05 AM CDT) TSH 7.17(H) 0.30 - 4.20 mcIUnit/mL Blood 06/21/2024 9:05 AM CDT 06/21/2024 8:23 PM CDT Blair Agarwal MD LAB BLOOD ORDERABLES Final Re sult Performing Organization Address [facility]/ZIP Co de Phone Number YULIYA [address] [address] [place] [address] * (ABNORMAL) CBC with auto differential (06/21/2024 9:05 AM CDT) WBC 9.69 3.80 - 9.90 K/cumm Hgb 11.7(L) 11.9 - 15.5 g/dL [facility] Hct 39.9 35.6 - 45.5 % [facility] Plt 259 150 - 400 K/cumm [facility] MPV 9.6 9.1 - 12.3 fL [facility] RBC 3.93 3.90 - 5.20 M/cumm [facility] MCV 101.5(H) 81.3 - 96.4 fL [facility] M[facility] 29.8 27.1 - 33.3 pg [facility] MCHC 29.3(L) 32.3 - 35.7 g/dL [facility] RDW CV 15.3(H) 11.1 - 14.9 % [facility] RDW SD 57.3(H) 35.7 - 48.1 fL [facility] NRBC abs 0.00 0.00 - 0.01 K/cumm [facility] Blood 06/21/2024 9:05 AM CDT 06/21/2024 8:23 PM CDT Blair Agarwal MD LAB BLOOD ORDERABLES Final Re sult Performing Organization Address [facility] de Phone Number ADRYANALEX [address] [place] [address] * T4, free (06/21/2024 9:05 AM CDT) Free T4 1.26 0.90 - 1.70 ng/dL Blood 06/21/2024 9:05 AM CDT 06/21/2024 8:34 PM CDT Blair Agarwal MD LAB BLOOD ORDERABLES Final Re sult Performing Organization Address [facility] de Phone Number YULIYA [address] [facility] [place] [address] * Lipid panel (06/21/2024 9:05 AM CDT) Pathologist [facility] Cholesterol 116 30 - 199 mg/dL Comment: Interpretive Data Ages < or = 19 years Acceptable: <170 mg/dL Borderline high: 170-199 mg/dL High: >or= 200 mg/dL Ages > or = 20 years Desirable: <200 mg/dL Borderline high: 200-239 mg/dL High: >or= 240 mg/dL Literature References: 1. Expert Panel on Integrated Guidelines for Cardiovascular Health and Risk Reduction in Children and Adolescents. Pediatrics 2011;128:S213 2. NCEP Expert Panel. Circulation 2004;110:227 Current Interpretive Data was last revised on 2017. Triglycerides 105 <=149 mg/dL YUL[facility] Comment: Interpretive Data Ages < or = 9 years Acceptable: <75 mg/dL Borderline high: 75-99 mg/dL High: >or= 100 mg/dL Ages 10 to 20 years Acceptable: <90 mg/dL Borderline high: 90-129 mg/dL High: >or= 130 mg/dL Ages > or = 20 years Desirable: <150 mg/dL Borderline high: 150-199 mg/dL High: 200-499 mg/dL Very high: >or= 499 mg/dL Literature References: 1. Expert Panel on Integrated Guidelines for Cardiovascular Health and Risk Reduction in Children and Adolescents. Pediatrics 2011;128:S213 2. NCEP Expert Panel. Circulation 2004;110:227 Current Interpretive Data was last revised on 2017. HDL 51 >=40 mg/dL YUL[facility] Comment: Interpretive Data Ages < or = 19 years Acceptable: >45 mg/dL Borderline low: 40-45 mg/dL Low: <40 mg/dL Ages > or = 20 years Desirable: >or= 60 mg/dL Low: <40 mg/dL Literature References: 1. Expert Panel on Integrated Guidelines for Cardiovascular Health and Risk Reduction in Children and Adolescents. Pediatrics 2011;128:S213 2. NCEP Expert Panel. Circulation 2004;110:227 Current Interpretive Data was last revised on 2017. LDL, calculated 46 <=129 mg/dL YUL[facility] Comment: Interpretive Data Ages < or = 19 years Acceptable: <110 mg/dL Borderline high: 110-129 mg/dL High: >or= 130 mg/dL Ages > or = 20 years Optimal: <100 mg/dL Near optimal: 100-129 mg/dL Borderline high: 130-159 mg/dL High: >160 mg/dL Calculated using the Levine LDL-C estimating equation. This equation was implemented on 2023. Prior to this date LDL-C was estimated using the Friedewald equation. Literature References: 1. Expert Panel on Integrated Guidelines for Cardiovascular Health and Risk Reduction in Children and Adolescents. Pediatrics 2011;128:S213 2. NCEP Expert Panel. Circulation 2004;110:227 3. Abner M et al. BROOEK Cardiol. 2020 June 20;5(5):540-548. doi: 10.1001/jamacardio.2020.0013 Current Interpretive Data was last revised on 2023. Non-HDL Cholesterol 65 mg/dL [facility] Comment: Interpretive Data Ages < or = 19 years Acceptable: <120 mg/dL Borderline high: 120-144 mg/dL High: >145 mg/dL Ages > or = 20 years When triglycerides are >200 mg/dL, Non-HDL cholesterol is a secondary target of therapy with treatment goals that are 30 mg/dL greater than the LDL cholesterol target. Literature References: 1. Expert Panel on Integrated Guidelines for Cardiovascular Health and Risk Reduction in Children and Adolescents. Pediatrics 2011;128:S213 2. NCEP Expert Panel. Circulation 2004;110:227 Current Interpretive Data was last revised on 2017. Chol/HDL ratio 2 [facility] Blood 06/21/2024 9:05 AM CDT 06/21/2024 8:23 PM CDT Narrative [facility] - 06/21/2024 9:23 PM CDT Has the patient been fasting for 8 hours or more?->Yes Blair Agarwal MD LAB BLOOD ORDERABLES Final [facility] [address] Department [place] [address] * (ABNORMAL) Comprehensive metabolic panel (06/21/2024 9:05 AM CDT) Sodium 136 135 - 145 mmol/L Potassium, pl 4.8 3.3 - 4.9 mmol/L [facility] Chloride 98 97 - 110 mmol/L [facility] CO2 27 22 - 32 mmol/L [facility] Anion gap 11 2 - 15 mmol/L [facility] BUN 23 6 - 25 mg/dL [facility] Creatinine 1.23(H) 0.60 - 1.10 mg/dL [facility] Glucose 83 70 - 199 mg/dL [facility] Comment: Interpretive Data Fasting glucose >/= 126 mg/dl is diagnostic for diabetes. Fasting is defined as no caloric intake for at least 8 hours. Fasting glucose between 100 mg/dl to 125 mg/dl is diagnostic of prediabetes. In a patient with classic symptoms of hyperglycemia or hyperglycemic crisis, a random glucose >/= 200 mg/dl is diagnostic for diabetes. In the absence of unequivocal hyperglycemia, results should be confirmed by repeat testing. The classification and Diagnosis of Diabetes Diabetes Care 2021; 46: S19-S40. Current interpretive data was last revised 2022. Calcium 9.5 8.5 - 10.3 mg/dL [facility] Bilirubin, total 0.5 0.1 - 1.2 mg/dL [facility] Protein, pl 7.0 6.5 - 8.5 g/dL [facility] Albumin 3.8 3.5 - 5.0 g/dL [facility] Alk phos 81 40 - 130 Units/L [facility] ALT 17 7 - 45 Units/L [facility] AST 21 10 - 45 Units/L [facility] Blood 06/21/2024 9:05 AM CDT 06/21/2024 8:23 PM CDT us Blair Agarwal MD LAB BLOOD ORDERABLES Final [facility] Organization Address City/State/ZIP Co de Phone Number YULIYA JONES [address] [facility] Department [place] [address] * SCAN - RADIOLOGY/IMAGING (06/03/2024) Anatomical Region Laterality Modality Other us Blair Agarwal MD Edited Result - Final * Dexa Axial Skeleton Bone Density 1 or 2 Site (01/26/2023 10:09 AM CARE TAKER) Anatomical Region Laterality Modality Body N/A Mammography 01/26/2023 10:5 9 AM CARE TAKER Narrative 01/26/2023 11:00 AM CARE TAKER EXAM DESCRIPTION: DEXA AXIAL SKELETON BONE DENSITY 1 OR MORE SITES REASON FOR STUDY: 77 y/o year old F with given history of: Postmenopausal status. Patient has taken/is taking vitamin-D. History of prior fracture and smoking Concrete Paving Machine Operator/Model: Viamericas A ([id number]) CLINICAL INFORMATION: Current height: 64 inches Maximum [...] Ml Ross M.D. TW: TW Report ID: [id number] Reading Location: [id number] Procedure Note Ml Ross MD - 01/26/2023 EXAM DESCRIPTION: DEXA AXIAL SKELETON BONE DENSITY 1 OR MORE SITES REASON FOR STUDY: 77 y/o year old F with given history of:Postmenopausal status. Patient has taken/is taking vitamin-D. History of prior fractureand smoking Concrete Paving Machine Operator/Model: H[employer] Horizon A ([id number]) CLINICAL INFORMATION: Current height: 64 inches Maximum [...] Ml Ross M.D. TW: TW Report ID: [id number] Reading Location: [id number] us Blair Agarwal MD IMG DXA PROCEDURES Final [...] Electronically signed by: Shukri Noe md/:11/25/2014 10:14:56 Psychologist Engineering: Mariah Herrera RT (R)(M), [facility] letter sent: Normal Exam Reading location: BI-RADS: 2 Benign [EOD] Narrative 11/25/2014 10:18 AM CDT - [facility] BILAT SCREENING 3D W/CAD BILATERAL DIGITAL SCREENING [...] dated: 09/23/2013 mammogram and 09/29/2011 mammogram/ultrasound - [facility]. BREAST TISSUE: There are scattered [...] Provider, MD Carlos Manuel - 07/07/2020 - [facility] BILAT SCREENING 3D W/CAD BILATERAL DIGITAL SCREENING [...] dated: 09/23/2013 mammogram and 09/29/2011 mammogram/ultrasound - [facility]. BREAST TISSUE: There are scattered [...] Electronically signed by: Shukri Noe md/:11/25/2014 10:14:56 Psychologist Engineering: Mariah Herrera RT (R)(M), [facility] letter sent: Normal Exam Reading location: BI-RADS: 2 Benign [EOD] us Blair Agarwal MD IMG MAMMO PROCEDURES Final Re sult from Last 3 Months or Most Recently Relevant to Health Maintenance Insurance UHC MEDICARE ADVANTAGE [facility] Address: [address] [address] [place] [address] [employer] MEDICARE ADVANTAGE [facility] MED[facility] Address: [address] [address] [place] [address] Advance Directives For more information, please contact: [phone] Documents on File Type Date Recorded Patient Director Of Primary Expl anation ADVANCE DIRECTIVE 05/14/2020 Care Teams Director Safety Council Relationship Specialty Start Date End Date Blair Agarwal MD [facility] [address] [address] PCP - General 06/23/18 [place] [address] [facility] [address] [place] [address] Referring Physician Rheumatology 09/05/23
--- OUTSIDE RECORDS SUMMARY | 2024-06-27 22:28 | XMS_ITS | Referral Summary ---
Author Organization [facility] Address [address] [place] [address] Care Team Providers Care Motor And Generator Brush Maker Name Role Phone Blair Agarwal MD Primary Care Provider [phone] Frank Whitney MD Unavailable [phone] Encounters Date Type Department Care Team Description 06/27/2024 1:30 PM CDT Office Visit [facility] Family Medicine at [address] [place] [address] Blair Agarwal MD Medicare annual wellness visit, [...] menopausal and perimenopausal disorder 06/23/2024 Results Follow-Up [facility] Medical [facility] at [address] [place] [address] Marlena Marcial PA 06/21/2024 9:05 AM CDT - 06/21/2024 11:59 [place] [address] Primary hypertension; Mixed hyperlipidemia; Acquired hypothyroidism Discharge Disposition: Discharge to home or self care 06/21/2024 9:15 AM CDT Lab [facility] Outpatient Lab at [address] [address] 06/11/2024 2:15 PM CDT Office Visit [facility] Family Medicine at [address] [place] [address] Marlena Marcial PA Acute bilateral low back pain without sciatica (Primary Dx) 06/03/2024 Orders Only [facility] [address] [place] [address] Blair Agarwal MD from Last 3 Months Allergies No known active allergies Medications vitamins A,C,B-lsxi-vqktfh (ICAPS) [phone] acma-vb-verr capsule Take 2 capsules by mouth daily [...] 06/27/2024 1:17 PM CDT Plan of Treatment Not on file Procedures [...] Read Routine (OP Routine) 01/26/2023 10:09 AM ADDICTION NURSE Postmenopausal status COLONOSCOPY Routine 10/24/2020 SCREENING MAMMOGRAM BILATERAL W BALA Routine 11/25/2014 8:54 AM CDT from Last 3 Months or Most Recently Relevant to Health Maintenance Results * (ABNORMAL) eGFR (06/21/2024 9:05 AM CDT) Pathologist [facility] eGFR 45(L) >=60 mL/min/1. 73 m2 Comment: [...] MD LAB BLOOD ORDERABLES Final Re sult [facility] [address] Department [place] [address] * (ABNORMAL) Differential, auto (06/21/2024 9:05 AM CDT) Neutrophil abs 6.78(H) 1.50 - 6.50 K/cumm Imm gran abs 0.02 0.00 - 0.10 K/cumm [facility] Lymphocyte abs 1.45 0.80 - 3.30 K/cumm [facility] Monocyte abs 1.10(H) 0.20 - 0.80 K/cumm [facility] Eosinophil abs 0.31 0.00 - 0.50 K/cumm [facility] Basophil abs 0.03 0.00 - 0.10 K/cumm [facility] Neutrophil pct 69.9 % [facility] Comment: Interpretive Data Percent cell count [...] revised on 2017. Monocyte pct 11.4 % [facility] Comment: Interpretive Data Percent cell count reference ranges are not reported, since discordance with absolute values may lead to misinterpretation of CBC data. Current Interpretive Data was last revised on 2017. Eosinophil pct 3.2 % [facility] Comment: Interpretive Data Percent cell count reference ranges are not reported, since discordance with absolute values may lead to misinterpretation of CBC data. Current Interpretive Data was last revised on 2017. Basophil pct 0.3 % [facility] Comment: Interpretive Data Percent cell count reference ranges are not reported, since discordance with absolute values may lead to misinterpretation of CBC data. Current Interpretive Data was last revised on 2017. Blood 06/21/2024 9:05 AM CDT 06/21/2024 8:23 PM CDT Blair Agarwal MD LAB BLOOD ORDERABLES Final Re sult Performing Organization Address [facility] de Phone Number YULIYA JONES [address] [address] Department [place] [address] * (ABNORMAL) Thyroid Function [place] (06/21/2024 9:05 AM CDT) Pathologist [facility] TSH 7.17(H) 0.30 - 4.20 mcIUnit/mL Blood 06/21/2024 9:05 AM CDT 06/21/2024 8:23 PM CDT Blair Agarwal MD LAB BLOOD ORDERABLES Final Re sult Performing Organization Address [facility] Co de Phone Number YULIYA ROBERT [address] [address] Department [place] [address] * (ABNORMAL) CBC with auto differential (06/21/2024 9:05 AM CDT) Pathologist [facility] WBC 9.69 3.80 - 9.90 K/cumm Hgb 11.7(L) 11.9 - 15.5 g/dL [facility] Hct 39.9 35.6 - 45.5 % [facility] Plt 259 150 - 400 K/cumm [facility] MPV 9.6 9.1 - 12.3 fL [facility] RBC 3.93 3.90 - 5.20 M/cumm [facility] MCV 101.5(H) 81.3 - 96.4 fL [facility] MCH 29.8 27.1 - 33.3 pg [facility] MCHC 29.3(L) 32.3 - 35.7 g/dL [facility] RDW CV 15.3(H) 11.1 - 14.9 % [facility] RDW SD 57.3(H) 35.7 - 48.1 fL [facility] NRBC abs 0.00 0.00 - 0.01 K/cumm [facility] Blood 06/21/2024 9:05 AM CDT 06/21/2024 8:23 PM CDT Blair Agarwal MD LAB BLOOD ORDERABLES Final Re sult Performing Organization Address [facility] de Phone Number YULIYA [address] [address] Department [place] [address] * T4, free (06/21/2024 9:05 AM CDT) Free T4 1.26 0.90 - 1.70 ng/dL Blood 06/21/2024 9:05 AM CDT 06/21/2024 8:34 PM CDT Blair Agarwal MD LAB BLOOD ORDERABLES Final Re sult Performing Organization Address [facility] de Phone Number YULIYA [address] [address] Department [place] [address] * Lipid panel (06/21/2024 9:05 AM CDT) Cholesterol 116 30 - 199 mg/dL Comment: [...] Circulation 2004;110:227 3. Abner M et al. BROOKE Cardiol. 2020 June 20;5(5):540-548. doi: 10.1001/jamacardio.2020.0013 Current [...] MD LAB BLOOD ORDERABLES Final Re sult [facility] [address] [address] Department [place] [address] * (ABNORMAL) Comprehensive metabolic panel (06/21/2024 9:05 [...] Agarwal MD LAB BLOOD ORDERABLES Final Re [facility] Organization Address City/State/ZIP Co de Phone Number YULIYA JONES [address] [facility] Department [place] [address] * SCAN - RADIOLOGY/IMAGING (06/03/2024) Anatomical Region Laterality Modality Other Blair Agarwal MD Edited Result - Final * Dexa Axial Skeleton Bone Density 1 or 2 Site (01/26/2023 10:09 AM ADDICTION NURSE) Anatomical Region Laterality Modality Body N/A Mammography 01/26/2023 10:5 9 AM ADDICTION NURSE Narrative 01/26/2023 11:00 AM ADDICTION NURSE EXAM DESCRIPTION: DEXA AXIAL SKELETON BONE DENSITY 1 OR MORE SITES REASON FOR STUDY: 77 y/o year old F with given history of: Postmenopausal status. Patient has taken/is taking vitamin-D. History of prior fracture and smoking Chip Applying Machine Tender/Model: Wego A ([id number]/N [id number]) CLINICAL INFORMATION: Current height: 64 inches Maximum [...] Ml Ross M.D. TW: TW Report ID: [id number] Reading Location: [id number] Procedure Note Ml Ross MD - 12/07/2023 EXAM DESCRIPTION: DEXA AXIAL SKELETON BONE DENSITY 1 OR MORE SITES REASON FOR STUDY: 77 y/o year old F with given history of:Postmenopausal status. Patient has taken/is taking vitamin-D. History of prior fractureand smoking Chip Applying Machine Tender/Model: Hologic Horizon A ([id number]/N [id number]) CLINICAL INFORMATION: Current height: 64 inches Maximum [...] Ml Ross M.D. TW: TW Report ID: [id number] Reading Location: [id number] Blair Agarwal MD IMG DXA PROCEDURES Final [...] Electronically signed by: Shukri Noe md/:11/25/2014 10:14:56 Dog Obedience Instructor: Mariah Herrera RT (R)(M), [facility] letter sent: Normal Exam Reading [...] dated: 09/23/2013 mammogram and 09/29/2011 mammogram/ultrasound - [facility]. BREAST TISSUE: There are scattered [...] dated: 09/23/2013 mammogram and 09/29/2011 mammogram/ultrasound - [facility]. BREAST TISSUE: There are scattered [...] Electronically signed by: Shukri Noe md/:11/25/2014 10:14:56 Dog Obedience Instructor: Mariah Herrera RT (R)(M), [facility] letter sent: Normal Exam Reading location: BI-RADS: 2 Benign [EOD] us Blair Agarwal MD IMG MAMMO PROCEDURES Final Re sult from Last 3 Months or Most Recently Relevant to Health Maintenance Insurance [facility] MEDICARE [facility] Address: [address] [address] [place] [address] [employer] MEDICARE ADVANTAGE [facility] Address: [address] [address] [place] [address] Advance Directives For more information, please contact: [phone] Documents on File Type Date Recorded Patient Information Strategist Expl anation ADVANCE DIRECTIVE 05/14/2020 Care Teams Motor And Generator Brush Maker Relationship Specialty Start Date End Date Blair Agarwal MD [address] [address] PCP - General 06/23/18 [place] [address] [facility] [address] [place] [address] Referring Physician Rheumatology 09/05/23
--- OUTSIDE RECORDS SUMMARY | 2024-06-27 22:28 | XMS_ITS | Encounter Summary ---
Author Organization [facility] Address [address] [place] [address] Care Team Providers Care Wastewater Engineer Name Role Phone Blair Agarwal MD Primary Care Provider [phone] Frank Whitney MD Unavailable [phone] Encounter Details Date Type Department Care Team (Late st Contact Info) Description 06/23/2024 Results Follow-Up [facility] Family Medicine at [address] [place] [address] [address] [address] Social History Tobacco Use Types Packs/Day Years Used Date Smoking Tobacco: Some Days Cigarettes Last attempted to quit: 12/29/2020 Smokeless Tobacco: Never Alcohol Use Standard Drinks/Week Comments Never 0 [...] on file documented as of this encounter Visit Diagnoses Not on filedocumented in this encounter Care Teams Wastewater Engineer Relationship Specialty Start Date End Date Blair Agarwal MD [address] [facility] [address] [place] [address] PCP - General 06/23/18 [place] [address] [facility] [address] [place] [address] Referring Physician Rheumatology 09/05/23 documented as of this encounter
--- OUTSIDE RECORDS SUMMARY | 2024-06-27 22:28 | XMS_ITS | Clinical Summary ---
Author Organization [facility] Address [address] [facility] [place] [address] Care Team Providers Care Land Checker Name Role Phone Blair Agarwal MD Primary Care Provider [phone] Source Comments [facility],non-owned Affiliates and Associated Physician Practices is amultiple site organization consisting of ambulatory clinics and hospital sitesin [place], [place], [place] and [place]. This disclosure is being madepursuant to the Care Everywhere program and may not contain all information available regarding this patient. Last updated 17.[facility] Allergies No known active allergies Medications * [...] age to complete this topic Insurance MEDICARE [facility] [employer] MANAGED MEDICARE ADV Care Teams Land Checker Relationship Specialty Start Date End Date Blair Agarwal MD [address] [facility] [address] [place] [id number] PCP - General 05/29/17
--- OUTSIDE RECORDS SUMMARY | 2024-06-27 22:28 | XMS_ITS | Encounter Summary ---
Author Organization [facility] Healthcare Address [address] [place] [address] [address] Project Manager Name Role Phone Blair Agarwal MD Primary Care Provider [phone] Frank Whitney MD Unavailable [phone] Reason for Referral * Diagnostic Imaging (Routine) - Authorized Specialty Diagnoses / Procedures Referred By Contac t Referred To Contact Diagnoses Infrarenal abdominal aortic aneurysm (AAA) without rupture Procedures US Abdominal Aortic Aneurysm Screening Blair Agarwal MD [address] [place] [address] [address] [place] [address] Phone: tel: fax: [address] [phone] Referral ID Status Reason Start Date Expiration Date V isits Requested Visits Authorized [id number] Authorized 06/27/2024 07/27/2025 1 1 * Diagnostic Imaging (Routine) - Authorized Specialty Diagnoses / Procedures Referred By Contac t Referred To Contact Diagnoses Compression fracture of L5 vertebra with routine healing, subsequent encounter Unspecified menopausal and perimenopausal disorder Procedures Dexa Axial Skeleton Bone Density 1 or 2 Site Blair Agarwal MD [address] [place] [address] [address] [place] [address] Phone: tel: fax: [address] [phone] Referral ID Status Reason Start Date Expiration Date V isits Requested Visits Authorized [id number] Authorized 06/27/2024 07/27/2025 1 1 Reason for Visit * Reason Comments Medicare Wellness Encounter Details Date Type Department Care Team (Late st Contact Info) Description 06/27/2024 1:30 PM CDT Office Visit [facility] Family Medicine at [address] [place] [phone] Blair Agarwal MD [address] [place] [address] [address] [place] [address] Medicare annual wellness visit, subsequent (Primary Dx); Primary hypertension; Mixed hyperlipidemia; Paroxysmal atrial fibrillation (HCC); Acquired hypothyroidism; JERRELL (generalized anxiety disorder); PMR (polymyalgia rheumatica); History of TIA (transient ischemic attack); Infrarenal abdominal aortic aneurysm (AAA) without rupture; Stage 3a chronic kidney disease (HCC); Compression fracture of L5 vertebra with routine healing, subsequent encounter; Unspecified menopausal and perimenopausal disorder Social History Tobacco Use Types Packs/Day Years [...] on file documented as of this encounter Last Filed Vital Signs Vital Sign Reading Time Taken Comments Blood Pressure 128/58 06/27/2024 1:17 PM CDT Pulse 61 06/27/2024 1:17 PM CDT Temperature 36.5 C (97.7 F) 06/27/2024 1:17 PM CDT Respiratory Rate - - Oxygen Saturation 94% 06/27/2024 1:17 PM CDT Inhaled Oxygen Concentration - - Weight 106.4 kg (234 lb 8 oz) 06/27/2024 1:17 PM CDT Height 165.1 cm (5' 5 ) 06/27/2024 1:17 PM CDT Body Mass Index 39.02 06/27/2024 1:17 PM CDT documented in this encounter Ordered Prescriptions Prescription Sig Dispense Quantity Refills Last Filled Start Date End Date levothyroxine (SYNTHROID) 100 mcg tablet Take 1 tablet (100 mcg total) by mouth daily 90 tablet 3 06/27/2024 documented in this encounter Progress Notes * Blair Agarwal MD - 06/27/2024 1:30 PM CDT Images from the original note were not included. Norma Coleman is a 78 y.o. year old White Non- female here an for Annual Wellness Visit. Medicare Health Risk Assessment Basic Information In general, would you say your health is: (!) Poor Do you have an advance directive, such as a living will or durable power of assistant district attorney?: Yes Do you have to strain or struggle to hear/understand conversations?: No Over the last 2 weeks, how often have you been bothered by any of the following problems? Little Interest or Pleasure in Doing Things: Not at all Feeling Down, Depressed, or Hopeless: Not at all PHQ-2 Total Score (If total score is 3 or more points, staff should administer the PHQ-9): 0 In the past year, patient experienced: One or more falls in the last year: No Do you feel unsteady when standing or walking?: Yes Do you worry about falling?: Yes Safety Do you have a working smoke detector in your home?: Yes Does your home have throw rugs, poor lighting, or a slippery bath tub/shower?: No Do you always fasten your seatbelt when you are in a vehicle?: Yes What is your typical mode of transportation: Car Physical Activity How many days a week do you usually exercise?: 1-3 days per week How intense is your typical exercise?: Light (like stretching or slow walking) Nutrition How would you rate your appetite?: Good How would you describe the condition of your mouth and teeth/dentures?: Good On a typical day, how many servings of fruits and vegetables do you eat?: 1 On a typical day, how many servings of high fiber/whole-grain foods do you eat?: 1 On a typical day, how many servings of high fat/fried foods do you eat?: 1 Have you experienced any of the following problems currently or recently? Eating: No Grooming: No Bathing: No Walking: No Using the toilet: No Memory problems: No Difficulty speaking: No Dressing: No Balance: (!) Yes Pain: No Sexual Health: (!) Yes Fatigue: No Depression: No Life Satisfaction: (!) Yes Stress: (!) Yes Anger: No Loneliness or Social Isolation: No Suicide: No Have you experienced any of the following problems currently or recently? Laundry and/or housekeeping: (!) Yes Handling money: No Shopping: (!) Yes Using the Phone: (!) Yes Food preparation: (!) Yes Transportation: (!) Yes Taking and/or getting your own medications: (!) Yes Do you use prescription drugs that are not prescribed for you?: (!) Yes Based on my observation of the patient, review of Health Risk Assessment (HRA) and other records, this is my assessment and recommendation regarding fall risk, hearing impairment, home safety, ADLs, or any other issues identified in the HRA: reviewed 78-year-old female. She did see Rheumatology. Sees cardiology. Weight stable. She is basically eliminated cigarettes. Labs up-to-date. Problem List, Past Medical and Surgical History: Patient Active Problem List Diagnosis Hyperlipemia HTN (hypertension) Hypothyroid Macular degeneration of both eyes Thyroid nodule Benign paroxysmal positional vertigo due to bilateral vestibular disorder Medicare annual wellness visit, subsequent History of pulmonary embolus (PE) Paroxysmal atrial fibrillation (HCC) Iron deficiency anemia Chronic anticoagulation Idiopathic peripheral neuropathy History of TIA (transient ischemic attack) Past Medical History: Diagnosis Date A-fib (HCC) HLD (hyperlipidemia) HTN (hypertension) Nervousness Stroke (HCC) 11/2008 Thyroid disease Past Surgical History: Procedure Laterality Date SECTION Family History: Family History Problem Relation Age of Onset Other (Organ Failure ) Mother Heart disease Father No Known Problems Brother No Known Problems Maternal Grandmother No Known Problems Maternal Grandfather No Known Problems Paternal Grandmother No Known Problems Paternal Grandfather Social History: Social History Tobacco Use Smoking status: Some Days Current packs/day: 0.00 Types: Cigarettes Last attempt to quit: 12/29/2020 Years since quittin.4 Smokeless tobacco: Never Substance and Sexual Activity Drug use: Not Currently Sexual activity: None Alcohol Use: Not At Risk (11/02/2020) AUDIT-C Frequency of Alcohol Consumption: Never Average Number of Drinks: Not on file Frequency of Binge Drinking: Never Reviewed patient's substance use screening, and recommend reviewed. Allergies: No Known Allergies Medications: Current Outpatient Medications: ALPRAZolam (XANAX) 0.5 mg tablet, TAKE 1 TABLET BY MOUTH DAILY NEEDED FOR ANXIETY, Disp: 90 tablet, Rfl: 0 amLODIPine (NORVASC) 10 mg tablet, TAKE 1 TABLET BY MOUTH DAILY, Disp: 100 tablet, Rfl: 1 carboxymethylcellulose-glycern (Refresh Optive) 0.5-0.9 % drops, Administer into affected eye(s), Disp: , Rfl: cholecalciferol (VITAMIN D-3) 1,000 unit capsule, 1 capsule (1,000 Units total) daily, Disp: , Rfl: folic acid (FOLVITE) 1 mg tablet, Take 1 tablet (1,000 mcg total) by mouth daily, Disp: , Rfl: gabapentin (NEURONTIN) 300 mg capsule, TAKE 1 CAPSULE BY MOUTH 3 TIMES DAILY, Disp: 300 capsule, Rfl: 2 meclizine (ANTIVERT) 25 mg tablet, Take 1 tablet (25 mg total) by mouth 3 (three) times a day as needed for dizziness, Disp: 90 tablet, Rfl: 1 methocarbamoL (ROBAXIN) 750 mg tablet, Take 1 tablet (750 mg total) by mouth 3 (three) times a day,Disp: , Rfl: methotrexate 2.5 mg tablet, Take 1 tablet (2.5 mg total) by mouth, Disp: , Rfl: metoprolol tartrate (LOPRESSOR) 25 mg immediate release tablet, TAKE 1 TABLET BY MOUTH TWICE DAILY,Disp: 200 tablet, Rfl: 2 MULTIVITAMIN ORAL, Take by mouth, Disp: , Rfl: olmesartan (BENICAR) 40 mg tablet, TAKE 1 TABLET BY MOUTH DAILY, Disp: 100 tablet, Rfl: 2 ondansetron ODT (ZOFRAN-ODT) 4 mg disintegrating tablet, Take 1 tablet (4 mg total) by mouth every 8 (eight) hours as needed for nausea or vomiting, Disp: 20 tablet, Rfl: 0 potassium chloride ER (KLOR-CON) 10 mEq CR tablet, Take 1 tablet/capsule (10 mEq total) by mouth daily, Disp: 30 tablet/capsule, Rfl: 2 rosuvastatin (CRESTOR) 20 mg tablet, Take 1 tablet (20 mg total) by mouth nightly, Disp: 90 tablet,Rfl: 6 spironolactone (ALDACTONE) 25 mg tablet, TAKE 1 TABLET BY MOUTH DAILY, Disp: 100 tablet, Rfl: 2 vitamins A,C,H-knfs-edkwnn (ICAPS) 14,[id number] wywb-iz-rrnt capsule, Take 2 capsules by mouth daily, Disp: , Rfl: Xarelto 20 mg tablet, TAKE 1 TABLET BY MOUTH DAILY, Disp: 100 tablet, Rfl: 2 levothyroxine (SYNTHROID) 100 mcg tablet, Take 1 tablet (100 mcg total) by mouth daily, Disp: 90 tablet, Rfl: 3 Depression Screen: PHQ Screening Over the past 2 weeks, how often have you been bothered by any of the following problems? Little Interest or Pleasure in Doing Things: Not at all Feeling Down, Depressed, or Hopeless: Not at all PHQ-2 Total Score (If total score is 3 or more points, staff should administer the PHQ-9): 0 Vitals: Vitals BP 128/58 (BP Location: Right arm, Patient Position: Sitting) Pulse 61 Temp 36.5 ??C (97.7 ??F) (Oral) Ht 165.1 cm (5' 5 ) Wt 106.4 kg (234 lb 8 oz) SpO2 94% BMI 39.02 kg/m?? Body mass index is 39.02 kg/m??. Exam: Physical Exam Constitutional: Appearance: She is well-developed. Cardiovascular: Rate and Rhythm: Normal rate and regular rhythm. Heart sounds: Normal heart sounds. Pulmonary: Effort: Pulmonary effort is normal. Breath sounds: Normal breath sounds. Abdominal: General: Bowel sounds are normal. Palpations: Abdomen is soft. Skin: General: Skin is warm and dry. Neurological: Mental Status: She is alert and oriented to person, place, and time. Psychiatric: Speech: Speech normal. Care Team Providers: Patient Care Team: Blair Agarwal MD as PCP - General Frank Whitney MD as Referring Physician (Rheumatology) Primary Pharmacy/DME suppliers: [id number] - [place], [place] - [address] [facility] [phone] [facility] - [place], [place] - [address] [facility] [phone] I reviewed the patient???s home and community safety, including driving, and made the following recommendations reviewed. Detection of Cognitive Impairment: The patient does not have cognitive impairment based on direct observation, discussion with patientor family, or review of medical records. Health Maintenance: Health Maintenance Topics with due status: Overdue Topic Date Due Hepatitis C Screening Never done DTaP/Tdap/Td Vaccine Never done Hepatitis B Screening Never done Covid-19 Vaccine 10/22/2023 Health Maintenance Topics with due status: Due On Topic Date Due Well Visit 65+ 06/20/2024 Health Maintenance Topics with due status: Not Due Topic Last Completion Date Osteoporosis Screening-Bone Density Scan 01/26/2023 Fall Risk Assessment 06/27/2024 Depression Screening 06/27/2024 Health Maintenance Topics with due status: Completed Topic Last Completion Date Pneumococcal vaccine 65+ 03/11/2015 Zoster Vaccine 02/22/2023 Influenza Vaccine 11/21/2023 Health Maintenance Topics with due status: Discontinued Topic Date Due Colorectal Cancer Screening Discontinued Breast Cancer Screening-Mammogram Discontinued Counseling and Referral of Preventative Services: Lifestyle Recommendations Increase Physical Activity, Increase Social Engagement, Stop Using Tobacco, Reduce Weight, and Improve Diet Advanced Directive Durable Power of Irrigator Gravity Flow: Discussed Today: Living Will: Discussed Today: Assessment and Plan: Diagnoses and all orders for this visit: Medicare annual wellness visit, subsequent (Primary) Annual/MCR Wellness- 2024 Mammogram-na Colonoscopy- na Dexa (hx fx only)- 01/26/25 Diabetic eye exam- na Fall Risk- 2024 PHQ9- 2024 FLU- 11/20/24 Pneumo- done [facility] Labs- 2024 BMI- 39 Statins-simvastatin Antiplatelets-none [employer] prn Primary hypertension Blood pressure controlled. Continue present management Mixed hyperlipidemia LDL 46 continue present management at goal Acquired hypothyroidism TSH elevated. Will increase Synthroid to 100 mics per day. Repeat labs/ TSH in 3 months. Chronic problem not at goal pharmaceutical change Idiopathic peripheral neuropathy Continue present management. Stable Paroxysmal atrial fibrillation ([facility]) ([facility]) Sees Cardiology. Continue present management. Meds reviewed. On Xarelto. History of TIA (transient ischemic attack) Stable no changes PMR (polymyalgia rheumatica) ([facility]) ([facility]) Sees rheum. On meds. Sees Ophthalmology. Check sed rate JERRELL (generalized anxiety disorder) Continue meds. Currently stable. She takes limited Xanax use. We did discuss lethargy tiredness falls fractures. Cetera Possibly mild L5 compression fracture. Is due for a bone density. Order bone density 3 cm infrarenal aneurysm. Follow-up yearly. Ordered ultrasound. Did see Cardiology. Aware. Observation. Twelve months Stable stage IIIA chronic kidney disease Creatinine 1.23, stable. Labs 6 months Patient here for annual Medicare wellness visit and for review of complete medical problem list. All the elements of the plan were completed as outlined by CMS. A copy of the prevention plan was given to the patient. I reviewed Medicare Wellness Questionnaire (other physicians involved in care, depression screen, advanced directives), cognitive/memory, and functional assessment. I reviewed and updated the complete problem list, medication list, family history, and immunization records with the patient. I provided preventive counseling and early detection interventions to the patient through health maintenance update and summary of today's office visit. Blair Agarwal MD documented in this encounter Miscellaneous Notes * Addendum Note - Brandy Henderson RN - 06/27/2024 1:30 PM CDTAddended by: BRANDY HENDERSON on: 06/27/2024 02:40 PM Modules accepted: Orders documented in this encounter Plan of Treatment Scheduled Orders Name Type Priority Associated Diagnoses Orde r Schedule Dexa Axial Skeleton Bone Density 1 or 2 Site Imaging Schedule Routine, Read Routine (OP Routine) Compression fracture of L5 vertebra with routine healing, subsequent encounter Unspecified menopausal and perimenopausal disorder Expected: 06/27/2024, Expires: 06/27/2025 Erythrocyte sedimentation rate Lab Routine PMR (polymyalgia rheumatica) Expected: 06/27/2024, Expires: 06/27/2025 Thyroid Function [place] [facility] Routine Acquired hypothyroidism Expected: 09/27/2024, Expires: 06/27/2025 US Abdominal Aortic Aneurysm Screening Imaging Schedule Routine, Read Routine (OP Routine) Infrarenal abdominal aortic aneurysm (AAA) without rupture Expected: 06/27/2025, Expires: 06/27/2025 CBC with auto differential Lab Routine Medicare annual wellness visit, subsequent Primary hypertension Expected: 12/24/2024 (Approximate), Expires: 06/27/2025 Comprehensive metabolic panel Lab Routine Medicare annual wellness visit, subsequent Mixed hyperlipidemia Stage 3a chronic kidney disease (HCC) Expected: 12/24/2024 (Approximate), Expires: 06/27/2025 Lipid panel Lab Routine Medicare annual wellness visit, subsequent Mixed hyperlipidemia Expected: 12/24/2024 (Approximate), Expires: 06/27/2025 documented as of this encounter Visit Diagnoses Diagnosis Medicare annual wellness visit, subsequent- Primary Primary hypertension Unspecified essential hypertension Mixed hyperlipidemia Paroxysmal atrial fibrillation (HCC) Atrial fibrillation Acquired hypothyroidism Unspecified hypothyroidism JERRELL (generalized anxiety disorder) Generalized anxiety disorder PMR (polymyalgia rheumatica) Polymyalgia rheumatica History of TIA (transient ischemic attack) Infrarenal abdominal aortic aneurysm (AAA) without rupture Stage 3a chronic kidney disease (HCC) Compression fracture of L5 vertebra with routine healing, subsequent encounter Unspecified menopausal and perimenopausal disorder documented in this encounter Discontinued Medications Medication Sig Discontinue Reason Start Date End Da te levothyroxine (SYNTHROID) 88 mcg tablet TAKE 1 TABLET BY MOUTH DAILY Reorder 05/24/2024 06/27/2024 furosemide (LASIX) 20 mg tablet Take 1 tablet (20 mg total) by mouth daily Therapy completed 03/02/2022 06/27/2024 acetaminophen-codeine (TYLENOL with CODEINE #3) 300-30 mg per tabletIndications:Acute pain of both shoulders,Acute hip pain, bilateral,Hand pain, right,Acute pain of left shoulder Take 1-2 tablets by mouth every 6 (six) hours as needed for pain Alternate therapy 05/19/2023 06/27/2024 documented as of this encounter Care Teams Rd Project Manager Relationship Specialty Start Date End Date Blair Agarwal MD [address] [facility] [address] [place] [address] PCP - General 06/23/18 [place] [id number] [facility] [address] [place] [address] Referring Physician Rheumatology 09/05/23 documented as of this encounter
[2024-06-27 22:30] VITALS: BP 125/65; PULSE 164; RESP 20; TEMP 36.7; O2SAT 92
--- NOTE | 2024-06-27 22:37 | ECG_ITS ---
Test Date: 2024-06-27 22:41:55 Measurements Intervals [place] Rate: 160 P: 0 NH: 0 QRS: -6 QRSD: 101 T: 64 QT: 260 QTc: 425 Interpretive Statements ATRIAL FLUTTER/TACHYCARDIA WITH RAPID VENTRICULAR RESPONSE INDETERMINATE AXIS LOW QRS VOLTAGE IN PRECORDIAL LEADS [QRS DEFLECTION < 1.0 mV IN CHEST LEADS] INCOMPLETE RIGHT BUNDLE BRANCH BLOCK [90+ ms QRS DURATION, TERMINAL R IN V1/V2, 40+ ms S IN I/aVL/V4/V5/V6] ANTEROSEPTAL MYOCARDIAL INFARCTION , OF INDETERMINATE AGE [40+ ms Q WAVE IN V1-V4] No previous ECG available for comparison Electronically Signed On 06-28-2024 12:11:37 CDT by Antoinette Pierson M.D.
[2024-06-27] MEDS: SODIUM CHLORIDE 0.9% IV 500 ML 999 ML IV CONT (22:48)
[2024-06-27] MEDS: dilTIAZem HCl INJ 25 MG/5 ML VIAL 10 MG IV PUSH (22:48)
[2024-06-27 22:52] LABS: Basophils Absolute Auto 0.1 K/mm3 (0.0-0.1); Basophils Percent Auto 0.7 % (0.2-1.2); Eosinophils Absolute Auto 0.2 K/mm3 (0-0.3); Hematocrit 35.5 % (37.0-47.0); Hemoglobin 11.1 g/dL (12.0-15.0); Immature Granulocyte Absolute 0.03 K/mm3 (0.00-0.031); Immature Granulocyte Percent A 0.4 % (0-0.5); Lymphocytes Absolute Auto 1.06 K/mm3 (0.9-3.2); Lymphocytes Percent Auto 14.4 % (18.3-44.2); Mean Corpuscular HGB Conc 31.3 g/dl (32-36); Mean Corpuscular Hemoglobin 29.7 pg (26-34); Mean Corpuscular Volume 94.9 fl (80-100); Mean Platelet Volume 9.2 fl (7.4-10.4); Monocytes Absolute Auto 0.6 K/mm3 (0.1-0.6); Monocytes Percent Auto 7.9 % (2.6-8.5); Neutrophils Absolute Auto 5.4 K/mm3 (1.3-6.7); Neutrophils Percent Auto 73.6 % (45.5-73.1); Platelet Count Result 199 k/mm3 (150-375); Red Blood Count 3.74 M/mm3 (4.2-5.4); Red Cell Distribution Width 14.3 % (11.5-14.5); White Blood Count 7.4 K/mm3 (4.5-10.0)
[2024-06-27 23:04] LABS: Alanine Aminotransferase 16 U/L (6-35); Albumin Level 4.2 g/dL (3.5-5.1); Alkaline Phosphatase 95 U/L (38-126); Anion Gap 12 mmol/L (4-12); Aspartate Amino Transferase 20 U/L (14-36); Bilirubin,Total 0.3 mg/dL (0.2-1.3); Blood Urea Nitrogen 19 mg/dL (7-17); Calcium 9.7 mg/dL (8.4-10.2); Carbon Dioxide 22 mmol/L (22-30); Chloride 102 mmol/L (98-107); Estimated CRCL calculation 36 ml/min; Estimated Glomerular Filt Rate 37; Glucose 136 mg/dL (65-110); Lipase 138 U/L (23-300); Potassium 4.5 mmol/L (3.4-5.0); Sodium 136 mmol/L (137-145)
[2024-06-27 23:05] LABS: INR 1.7; Prothrombin Time 20.7 Seconds (11.1-14.7)
[2024-06-27 23:06] LABS: Partial Thromboplastin Time 41.1 Seconds (22.3-36.8)
[2024-06-27 23:16] LABS: Troponin I < 0.012 ng/mL (0.000-0.034)
[2024-06-27 23:21] VITALS: BP 135/83; PULSE 123
[2024-06-27] MEDS: dilTIAZem 100 MG/100 ML 100 MG/100 ML BAG IV CONT (23:21)
[2024-06-27 23:23] VITALS: PULSE 110; RESP 16; O2SAT 91
[2024-06-27 23:30] VITALS: PULSE 108; RESP 17; O2SAT 94
--- OUTSIDE RECORDS SUMMARY | 2024-06-27 23:37 | XMS_ITS | Encounter Summary ---
Author Organization [facility] Facility Care Team Providers Care Boot Trimmer Name Role Phone Blair Agarwal MD Primary Care Provider [phone] Frank Whitney MD Unavailable [phone] Encounter Details Date Type Department Care Team (Latest Contact Info) Description 04/06/2018 Orders Only [facility]INCON[facility] ProviderCarlos Manuel MD [address] [place] [phone] Social History Tobacco Use Types Packs/Day Years [...] PROCEDURE - RESULT 04/06/2018 12 :00 AM DRYING ROOM ATTENDANT documented in this encounter Results * PROCEDURE - RESULT (04/06/2018 12:00 AM DRYING ROOM ATTENDANT) Narrative 04/06/2018 12:00 AM DRYING ROOM ATTENDANT Ordered by an unspecified provider. Historical Provider Final Res ult documented in this encounter Visit Diagnoses Not on filedocumented in this encounter Care Teams Boot Trimmer Relationship Specialty Start Date End Date Blair Agarwal MD [address] [facility] [place] [address] PCP - General 06/23/18 [place] [id number] [address] Referring Physician Rheumatology 09/05/23 documented as of this encounter
--- OUTSIDE RECORDS SUMMARY | 2024-06-27 23:37 | XMS_ITS | Referral Summary ---
Author Organization [facility] Address [address] [place] [address] Care Team Providers Care Bench Molder Name Role Phone Blair Agarwal MD Primary Care Provider [phone] Frank Whitney MD Unavailable [phone] Encounters Date Type Department Care Team Description 06/27/2024 1:30 PM CDT Office Visit [facility] Family Medicine at [address] [place] [address] Blair Agarwal MD Medicare annual wellness visit, [...] menopausal and perimenopausal disorder 06/23/2024 Results Follow-Up [facility] Family Medicine at [address] [place] [address] Marlena Marcial PA 06/21/2024 9:05 AM CDT - 06/21/2024 11:59 PM CDT [place] [address] Primary hypertension; Mixed hyperlipidemia; Acquired hypothyroidism Discharge Disposition: Discharge to home or self care 06/21/2024 9:15 AM CDT Lab [facility] Outpatient Lab at [address] [address] 06/11/2024 2:15 PM CDT Office Visit [facility] Family Medicine at [address] [place] [address] Marlena Marcial PA Acute bilateral low back pain without sciatica (Primary Dx) 06/03/2024 Orders Only [facility] Health Information Management [address] [place] [address] Blair Agarwal MD from Last 3 Months Allergies No known active allergies Medications vitamins A,C,J-dgbo-hzuaot (ICAPS) 14,[phone] sdnq-vv-apfj capsule Take 2 capsules by mouth daily [...] Read Routine (OP Routine) 01/26/2023 10:09 AM WASTEWATER PROJECT ENGINEER Postmenopausal status COLONOSCOPY Routine 10/24/2020 SCREENING MAMMOGRAM BILATERAL W BALA Routine 11/25/2014 8:54 AM CDT from Last 3 Months or Most Recently Relevant to Health Maintenance Results * (ABNORMAL) eGFR (06/21/2024 9:05 AM CDT) Pathologist [facility] eGFR 45(L) >=60 mL/min/1. 73 m2 Comment: [...] MD LAB BLOOD ORDERABLES Final Re sult [facility] [address] [address] Department [place] [address] * (ABNORMAL) Differential, auto (06/21/2024 9:05 AM CDT) Neutrophil abs 6.78(H) 1.50 - 6.50 K/cumm Imm gran abs 0.02 0.00 - 0.10 K/cumm [facility] Lymphocyte abs 1.45 0.80 - 3.30 K/cumm [facility] Monocyte abs 1.10(H) 0.20 - 0.80 K/cumm [facility] Eosinophil abs 0.31 0.00 - 0.50 K/cumm [facility] Basophil abs 0.03 0.00 - 0.10 K/cumm [facility] Neutrophil pct 69.9 % [facility] Comment: Interpretive Data Percent cell count reference [...] revised on 2017. Eosinophil pct 3.2 % [facility] Comment: Interpretive Data Percent cell count reference ranges are not reported, since discordance with absolute values may lead to misinterpretation of CBC data. Current Interpretive Data was last revised on 2017. Basophil pct 0.3 % [facility] Comment: Interpretive Data Percent cell count reference ranges are not reported, since discordance with absolute values may lead to misinterpretation of CBC data. Current Interpretive Data was last revised on 2017. Blood 06/21/2024 9:05 AM CDT 06/21/2024 8:23 PM CDT Blair Agarwal MD LAB BLOOD ORDERABLES Final Re sult Performing Organization Address [facility] de Phone Number YULIYA JONES [address] [address] [place] [address] * (ABNORMAL) Thyroid Function Garrett (06/21/2024 9:05 AM CDT) Pathologist [facility] TSH 7.17(H) 0.30 - 4.20 mcIUnit/mL Blood 06/21/2024 9:05 AM CDT 06/21/2024 8:23 PM CDT Blair Agarwal MD LAB BLOOD ORDERABLES Final Re sult Performing Organization Address [facility] Co de Phone Number YULIYA ROBERT [address] [address] [place] [address] * (ABNORMAL) CBC with auto differential (06/21/2024 9:05 AM CDT) Pathologist [facility] WBC 9.69 3.80 - 9.90 K/cumm Hgb 11.7(L) 11.9 - 15.5 g/dL [facility] Hct 39.9 35.6 - 45.5 % [facility] Plt 259 150 - 400 K/cumm CERNER [...] ORDERABLES Final Re sult Performing Organization Address [facility] de Phone Number YULIYA [address] [address] [place] [address] * T4, free (06/21/2024 9:05 AM CDT) Free T4 1.26 0.90 - 1.70 ng/dL Blood 06/21/2024 9:05 AM CDT 06/21/2024 8:34 PM CDT Blair Agarwal MD LAB BLOOD ORDERABLES Final Re sult Performing Organization Address [facility] de Phone Number YULIYA [address] [address] [place] [address] * Lipid panel (06/21/2024 9:05 AM CDT) [...] MD LAB BLOOD ORDERABLES Final Re sult [facility] [address] [address] [place] [address] * (ABNORMAL) Comprehensive metabolic panel [...] MD LAB BLOOD ORDERABLES Final Re [facility] Organization Address City/State/ZIP Co de Phone Number YULIYA JONES [address] [facility] [place] [address] * SCAN - RADIOLOGY/IMAGING (06/03/2024) Anatomical Region Laterality Modality Other Blair Agarwal MD Edited Result - Final * Dexa Axial Skeleton Bone Density 1 or 2 Site (01/26/2023 10:09 AM WASTEWATER PROJECT ENGINEER) Anatomical Region Laterality Modality Body N/A Mammography 01/26/2023 10:5 9 AM WASTEWATER PROJECT ENGINEER Narrative 01/26/2023 11:00 AM WASTEWATER PROJECT ENGINEER EXAM DESCRIPTION: DEXA AXIAL SKELETON BONE DENSITY 1 OR MORE SITES REASON FOR STUDY: 77 y/o year old F with given history of: Postmenopausal status. Patient has taken/is taking vitamin-D. History of prior fracture and smoking Director Global Intelligence/Model: Celiro A (S/N [id number]) CLINICAL INFORMATION: Current height: 64 inches Maximum [...] Ml Ross M.D. TW: TW Report ID: [id number] Reading Location: [id number] Procedure Note Ml Ross MD - 12/07/2023 EXAM DESCRIPTION: DEXA AXIAL SKELETON BONE DENSITY 1 OR MORE SITES REASON FOR STUDY: 77 y/o year old F with given history of:Postmenopausal status. Patient has taken/is taking vitamin-D. History of prior fractureand smoking Director Global Intelligence/Model: Hologic Horizon A (S/N [id number]) CLINICAL INFORMATION: Current height: 64 inches Maximum [...] Ml Ross M.D. TW: TW Report ID: [id number] Reading Location: [id number] Blair Agarwal MD IMG DXA PROCEDURES Final [...] Electronically signed by: Shukri Noe md/:11/25/2014 10:14:56 Electronic Gaming Device Supervisor: Mariah Herrera RT (R)(M), [facility] letter sent: Normal Exam Reading [...] dated: 09/23/2013 mammogram and 09/29/2011 mammogram/ultrasound - [facility]. BREAST TISSUE: There are scattered [...] dated: 09/23/2013 mammogram and 09/29/2011 mammogram/ultrasound - [facility]. BREAST TISSUE: There are scattered [...] Electronically signed by: Shukri Noe md/:11/25/2014 10:14:56 Electronic Gaming Device Supervisor: Mariah Herrera RT (R)(M), [facility] letter sent: Normal Exam Reading location: BI-RADS: 2 Benign [EOD] us Blair Agarwal MD IMG MAMMO PROCEDURES Final Re sult from Last 3 Months or Most Recently Relevant to Health Maintenance Insurance [facility] MEDICARE ADVANTAGE [facility] Address: [address] [address] [place] [address] UHC MEDICARE ADVANTAGE [facility] Address: [address] [address] [place] [address] Advance Directives For more information, please contact: [phone] Documents on File Type Date Recorded Patient Hosiery Mender Expl anation ADVANCE DIRECTIVE 05/14/2020 Care Teams Bench Molder Relationship Specialty Start Date End Date Blair Agarwal MD [address] [address] PCP - General 06/23/[address] [place] [address] [facility] [address] [place] [address] Referring Physician Rheumatology 09/05/23
--- OUTSIDE RECORDS SUMMARY | 2024-06-27 23:37 | XMS_ITS | Clinical Summary ---
Author Organization [facility] Address [address] [place] [address] Care Team Providers Care Ceiling Insulation Blower Name Role Phone Unavailable Primary Care Provider [...]
--- OUTSIDE RECORDS SUMMARY | 2024-06-27 23:37 | XMS_ITS | Clinical Summary ---
Author Organization [facility] Address [address] [place] [address] Care Team Providers Care Kayaking Instructor Name Role Phone Blair Agarwal MD Primary Care Provider [phone] Frank Whitney MD Unavailable [phone] Allergies No known active allergies Medications vitamins A,C,E-txur-bzrxgp (ICAPS) 14,320226-200 ttcm-ua-pedp capsule Take 2 capsules by mouth daily [...] Description 06/27/2024 1:30 PM CDT Office Visit [facility] Family Medicine at [address] [place] [address] Blair Agarwal MD Medicare annual [...] menopausal and perimenopausal disorder 06/23/2024 Results Follow-Up [facility] Family Medicine at [address] [place] [address] Marlena Marcial PA 06/21/2024 9:15 AM CDT Lab [facility] Outpatient Lab at [address] [address] 06/21/2024 9:05 AM CDT - 06/21/2024 11:59 PM CDT Hospital Encounter [address] [address] Primary hypertension; Mixed hyperlipidemia; Acquired hypothyroidism Discharge Disposition: Discharge to home or self care 06/11/2024 2:15 PM CDT Office Visit [facility] Family Medicine at [address] [place] [address] Marlena Marcial PA Acute bilateral low back pain without sciatica (Primary Dx) 06/03/2024 Orders Only [facility] Health Information Management [address] [place] [address] Blair Agarwal MD from Last 3 Months [...] Read Routine (OP Routine) 01/26/2023 10:09 AM ROLLER SHOP SUPERVISOR Postmenopausal status COLONOSCOPY Routine 10/24/2020 SCREENING MAMMOGRAM [...] LAB BLOOD ORDERABLES Final Re sult YULIYA [address] [address] Department [place] [address] * (ABNORMAL) Differential, auto (06/21/2024 9:05 AM CDT) Neutrophil abs 6.78(H) 1.50 - 6.50 K/cumm Imm gran abs 0.02 0.00 - 0.10 K/cumm [facility] Lymphocyte abs 1.45 0.80 - 3.30 K/cumm [facility] Monocyte abs 1.10(H) 0.20 - 0.80 K/cumm [facility] Eosinophil abs 0.31 0.00 - 0.50 K/cumm [facility] Basophil abs 0.03 0.00 - 0.10 K/cumm [facility] Neutrophil pct 69.9 % [facility] Comment: Interpretive Data Percent cell count [...] revised on 2017. Monocyte pct 11.4 % [facility] Comment: Interpretive Data Percent cell count reference ranges are not reported, since discordance with absolute values may lead to misinterpretation of CBC data. Current Interpretive Data was last revised on 2017. Eosinophil pct 3.2 % [facility] Comment: Interpretive Data Percent cell count reference ranges are not reported, since discordance with absolute values may lead to misinterpretation of CBC data. Current Interpretive Data was last revised on 2017. Basophil pct 0.3 % [facility] Comment: Interpretive Data Percent cell count reference ranges are not reported, since discordance with absolute values may lead to misinterpretation of CBC data. Current Interpretive Data was last revised on 2017. Blood 06/21/2024 9:05 AM CDT 06/21/2024 8:23 PM CDT Blair Agarwal MD LAB BLOOD ORDERABLES Final Re sult Performing Organization Address [facility] Co de Phone Number YULIYA JONES [address] [address] Department [place] [address] * (ABNORMAL) Thyroid Function Emery (06/21/2024 9:05 AM CDT) TSH 7.17(H) 0.30 - 4.20 mcIUnit/mL Blood 06/21/2024 9:05 AM CDT 06/21/2024 8:23 PM CDT Blair Agarwal MD LAB BLOOD ORDERABLES Final Re sult Performing Organization Address [facility]/ZIP Co de Phone Number YULIYA [address] [address] Department [place] [address] * (ABNORMAL) CBC with auto differential (06/21/2024 9:05 AM CDT) WBC 9.69 3.80 - 9.90 K/cumm Hgb 11.7(L) 11.9 - 15.5 g/dL [facility] Hct 39.9 35.6 - 45.5 % [facility] Plt 259 150 - 400 K/cumm [facility] MPV 9.6 9.1 - 12.3 fL [facility] RBC 3.93 3.90 - 5.20 M/cumm [facility] MCV 101.5(H) 81.3 - 96.4 fL [facility] MCH 29.8 27.1 - 33.3 pg [facility] MCHC 29.3(L) 32.3 - 35.7 g/dL [facility] RDW CV 15.3(H) 11.1 - 14.9 % [facility] RDW SD 57.3(H) 35.7 - 48.1 fL [facility] NRBC abs 0.00 0.00 - 0.01 K/cumm [facility] Blood 06/21/2024 9:05 AM CDT 06/21/2024 8:23 PM CDT Blair Agarwal MD LAB BLOOD ORDERABLES Final Re sult Performing Organization Address [facility] de Phone Number ADRYANALEX [address] [address] Department [place] [address] * T4, free (06/21/2024 9:05 AM CDT) Free T4 1.26 0.90 - 1.70 ng/dL Blood 06/21/2024 9:05 AM CDT 06/21/2024 8:34 PM CDT Blair Agarwal MD LAB BLOOD ORDERABLES Final Re sult Performing Organization Address [facility] de Phone Number YULIYA [address] [address] [facility] [place] [employer] [place] [address] * Lipid panel (06/21/2024 9:05 AM CDT) Pathologist [facility] Cholesterol 116 30 - 199 mg/dL Comment: [...] MD LAB BLOOD ORDERABLES Final Re s[facility] [address] [address] [place] [address] * (ABNORMAL) Comprehensive metabolic panel (06/21/2024 9:05 [...] Agarwal MD LAB BLOOD ORDERABLES Final Re [facility] Organization Address City/State/ZIP Co de Phone Number YULIYA JONES [address] [facility] [place] [address] * SCAN - RADIOLOGY/IMAGING (06/03/2024) Anatomical Region Laterality Modality Other us Blair Agarwal MD Edited Result - Final * Dexa Axial Skeleton Bone Density 1 or 2 Site (01/26/2023 10:09 AM ROLLER SHOP SUPERVISOR) Anatomical Region Laterality Modality Body N/A Mammography 01/26/2023 10:5 9 AM ROLLER SHOP SUPERVISOR Narrative 01/26/2023 11:00 AM ROLLER SHOP SUPERVISOR EXAM DESCRIPTION: DEXA AXIAL SKELETON BONE DENSITY 1 OR MORE SITES REASON FOR STUDY: 77 y/o year old F with given history of: Postmenopausal status. Patient has taken/is taking vitamin-D. History of prior fracture and smoking Depositing Machine Operator/Model: Ringlead[employer].com A (S/N [id number]) CLINICAL INFORMATION: Current height: 64 inches Maximum [...] Ml Ross M.D. TW: TW Report ID: [id number] Reading Location: [id number] Procedure Note Ml Ross MD - 01/26/2023 EXAM DESCRIPTION: DEXA AXIAL SKELETON BONE DENSITY 1 OR MORE SITES REASON FOR STUDY: 77 y/o year old F with given history of:Postmenopausal status. Patient has taken/is taking vitamin-D. History of prior fractureand smoking Depositing Machine Operator/Model: Hologic Horizon A (S/N [id number]) CLINICAL INFORMATION: Current height: 64 inches Maximum [...] Ml Ross M.D. TW: TW Report ID: [id number] Reading Location: [id number] us Blair Agarwal MD IMG DXA PROCEDURES [...] Electronically signed by: Shukri Noe md/:11/25/2014 10:14:56 Certified Personal Chef: Mariah Herrera RT (R)(M), [facility] letter sent: Normal Exam Reading location: [...] dated: 09/23/2013 mammogram and 09/29/2011 mammogram/ultrasound - [facility]. BREAST TISSUE: There are scattered fibroglandular [...] dated: 09/23/2013 mammogram and 09/29/2011 mammogram/ultrasound - [facility]. BREAST TISSUE: There are scattered fibroglandular [...] Electronically signed by: Shukri Noe md/:11/25/2014 10:14:56 Certified Personal Chef: Mariah Herrera RT (R)(M), [facility] letter sent: Normal Exam Reading location: BI-RADS: 2 Benign [EOD] us Blair Agarwal MD IMG MAMMO PROCEDURES Final Re sult from Last 3 Months or Most Recently Relevant to Health Maintenance Insurance UHC MEDICARE ADVANTAGE [facility] MEDIC[facility] Address: [address] [address] [place] [address] UHC MEDICARE ADVANTAGE [facility] Address: [address] [address] [place] [address] Advance Directives For more information, please contact: [phone] Documents on File Type Date Recorded Patient Tipple Repairer Expl anation ADVANCE DIRECTIVE 05/14/2020 Care Teams Kayaking Instructor Relationship Specialty Start Date End Date Blair Agarwal MD [facility] [address] [address] PCP - General 06/23/18 [place] [address] [facility] [address] [place] [address] Referring Physician Rheumatology 09/05/23
--- OUTSIDE RECORDS SUMMARY | 2024-06-27 23:37 | XMS_ITS | Clinical Summary ---
Author Organization [facility] Address [address] [place] [address] Care Team Providers Care Flight Software Test Engineer Name Role Phone Blair Agarwal MD Primary Care Provider [phone] Source Comments [facility],non-owned Affiliates and Associated Physician Practices is amultiple site organization consisting of ambulatory clinics and hospital sitesin [place], [place], [place] and [place]. This disclosure is being madepursuant to the Care Everywhere program and may not contain all information available regarding this patient. Last updated 17.[facility] Allergies No known active allergies Medications * [...] age to complete this topic Insurance MEDICARE [facility] UHC MANAGED MEDICARE ADV Care Teams Flight Software Test Engineer Relationship Specialty Start Date End Date Blair Agarwal MD [address] [facility] [place] [id number] PCP - General 05/29/17
--- OUTSIDE RECORDS SUMMARY | 2024-06-27 23:37 | XMS_ITS | Encounter Summary ---
Author Organization [facility] Address [address] [place] [address] Care Team Providers Care Shell Molder Name Role Phone Blair Agarwal MD Primary Care Provider [phone] Frank Whitney MD Unavailable [phone] Reason for Referral * Diagnostic Imaging (Routine) - Authorized Specialty Diagnoses / Procedures Referred By Contac t Referred To Contact Diagnoses Infrarenal abdominal aortic aneurysm (AAA) without rupture Procedures US Abdominal Aortic Aneurysm Screening Blair Agarwal MD [address] [place] [address] [address] [place] [address] Phone: tel: fax: [address] [address] Referral ID Status Reason Start Date Expiration Date V isits Requested Visits Authorized [id number] Authorized 06/27/2024 07/27/2025 1 1 * Diagnostic Imaging (Routine) - Authorized Specialty Diagnoses / Procedures Referred By Contac t Referred To Contact Diagnoses Compression fracture of L5 vertebra with routine healing, subsequent encounter Unspecified menopausal and perimenopausal disorder Procedures Dexa Axial Skeleton Bone Density 1 or 2 Site Blair Agarwal MD [address] [place] [address] [address] [place] [address] Phone: tel: fax: [address] [phone] Referral ID Status Reason Start Date Expiration Date V isits Requested Visits Authorized [id number] Authorized 06/27/2024 07/27/2025 1 1 Reason for Visit * Reason Comments Medicare Wellness Encounter Details Date Type Department Care Team (Late st Contact Info) Description 06/27/2024 1:30 PM CDT Office Visit [facility] Family Medicine at [address] [place] [phone] Blair Agarwal MD [address] [place] [address] [address] [place] [address] Medicare annual wellness visit, subsequent (Primary Dx); [...] a living will or durable power of studio musician?: Yes Do you have to strain or [...] DAILY, Disp: 100 tablet, Rfl: 2 vitamins A,C,A-fhti-hmomve (ICAPS) 14,[id number] xkgm-bu-ybce capsule, Take 2 capsules by mouth daily, [...] as Referring Physician (Rheumatology) Primary Pharmacy/DME suppliers: [id number] - [place], [place] - [address] [facility] [address] [facility] [place], [place] - [address] [facility] [address] I reviewed the patient???s home and community [...] Improve Diet Advanced Directive Durable Power of Controls Operator Molded Goods: Discussed Today: Living Will: Discussed Today: Assessment and Plan: Diagnoses and all orders for this visit: Medicare annual wellness visit, subsequent (Primary) Annual/MCR Wellness- 2024 Mammogram-na Colonoscopy- na Dexa (hx fx only)- 01/26/25 Diabetic eye exam- na Fall Risk- 2024 PHQ9- 2024 FLU- 11/20/24 Pneumo- done [facility]- 2024 BMI- 39 Statins-simvastatin Antiplatelets-none ELECTRIC SOLDERER prn Primary hypertension Blood pressure controlled. Continue present management Mixed hyperlipidemia LDL 46 continue present management at goal Acquired hypothyroidism TSH elevated. Will increase Synthroid to 100 mics per day. Repeat labs/ TSH in 3 months. Chronic problem not at goal pharmaceutical change Idiopathic peripheral neuropathy Continue present management. Stable Paroxysmal atrial fibrillation ([facility]) ([facility]) Sees Cardiology. Continue present management. Meds reviewed. On Xarelto. History of TIA (transient ischemic attack) Stable no changes PMR (polymyalgia rheumatica) ([facility]) ([facility]) Sees rheum. On meds. Sees Ophthalmology. Check [...] rheumatica) Expected: 06/27/2024, Expires: 06/27/2025 Thyroid Function [place] [facility] Routine Acquired hypothyroidism Expected: 09/27/2024, Expires: [...] documented as of this encounter Care Teams Shell Molder Relationship Specialty Start Date End Date Blair Agarwal MD [address] [facility] [address] [place] [address] PCP - General 06/23/18 [place] [address] [facility] [address] [place] [address] Referring Physician Rheumatology 09/05/23 documented as of this encounter
--- OUTSIDE RECORDS SUMMARY | 2024-06-27 23:37 | XMS_ITS | Encounter Summary ---
Author Organization [facility] Healthcare Address [address] [place] [id number] Care Team Providers Care [employer] C[employer] Hand Name Role Phone Blair Agarwal MD Primary Care Provider [phone] Frank Whitney MD Unavailable [phone] Encounter Details Date Type Department Care Team (Late st Contact Info) Description 06/23/2024 Results Follow-Up [facility] Family Medicine at [address] [place] [address] [address] Social History Tobacco Use Types Packs/Day Years [...] on filedocumented in this encounter Care Teams [employer] Hand Relationship Specialty Start Date End Date Blair Agarwal MD [address] [facility] [address] [place] [address] PCP - General 06/23/18 [place] [id number] [facility] [address] [place] [address] Referring Physician Rheumatology 09/05/23 documented as of this encounter
[2024-06-27 23:42] VITALS: BP 124/56; PULSE 110; RESP 19; O2SAT 93
[2024-06-27 23:45] VITALS: PULSE 114; RESP 19; O2SAT 93
[2024-06-28] VITALS (32 sets, daily range): BP systolic 108–140; BP diastolic 45–76; PULSE 62–115; RESP 14–22; TEMP 36.4–36.6; O2SAT 90–95; BMI 39.6
--- NOTE | 2024-06-28 | ECHO_ITS ---
Patient Info Name: Norma Coleman Age: 78 years : 1945 Gender: Female Ht: 64 in Wt: 234 lbs BSA: 2.24 m2 HR: 63 bpm BP: 113 / 60 mmHg Heart Rhythm: Atrial Fibrillation Technical Quality: Fair Exam Date: 06/28/2024 12:50 PM Exam Location: Echo Lab Patient Status: Outpatient Admit Date: 06/28/2024 Staff Ordering Physician: Lalit Rushing MD Director Emergency: Yuli Strauss RDCS Attending Provider: Liya Perdue DO Exam Type: CA echo dop color flow w con Study Info Indications R07.9 - Chest pain, unspecified Complete two-dimensional, color flow and Doppler transthoracic echocardiogram is performed with contrast to opacify the left ventricle and to improve the deliniation of the left ventricle endocardial borders. Contrast/Agitated Saline Contrast/Ag. Saline: Definity Amount: 3.00 ml Administered By: Yuli Strauss RDCS Existing IV Access: Yes IV Access Condition: patent with no signs of infiltration Summary 1. Left ventricular chamber dimension is normal. 2. Left ventricular systolic function is hyperdynamic, estimated at >70%. 3. Right ventricular systolic function is normal. 4. Left atrial chamber dimension is moderately enlarged. 5. No significant valvular disease. Left Ventricle Left ventricular chamber dimension is normal. Left ventricular systolic function is hyperdynamic, estimated at >70%. The left ventricular diastolic function is abnormal. Right Ventricle Right ventricular chamber dimension is normal. Right ventricular systolic function is normal. Left Atria Left atrial chamber dimension is moderately enlarged. Right Atria Right atrial chamber dimension is normal. Atrial Septum Intact interatrial septum visualized by color flow imaging. Aortic Valve The aortic valve is not well visualized. There is no aortic valve stenosis. There is no aortic valve regurgitation. Pulmonic Valve The pulmonic valve is not well visualized. Mitral Valve There is trace mitral valve regurgitation. Tricuspid Valve There is trace tricuspid valve regurgitation. Pericardium/Pleural The pericardium appears epicardial fat pad. There is no pericardial effusion. Inferior Vena Cava Normal inferior vena cava with >50% collapse upon inspiration consistent with normal right atrial pressure, 3 mmHg. Aorta The aortic root size at the sinus of Valsalva is normal. Left Ventricular Outflow Tract Name Value Normal LVOT 2D LVOT Diameter 2.01 cm LVOT Doppler LVOT Peak Gradient 5 mmHg LVOT Mean Gradient 3 mmHg LVOT VTI 27.82 cm LVOT VTI/AV VTI Ratio 0.83 LVOT Stroke Volume 88.41 ml LVOT CO 6.69 l/min LVOT CI 2.98 L/min/m2 Pulmonic Valve Name Value Normal RVOT Doppler RVOT Peak Gradient 2 mmHg PV Doppler PV Peak Gradient 4 mmHg Mitral Valve Name Value Normal MV Doppler MV Decel [place] 592.46 cm/s2 MV PHT 0 s MV Area (PHT) 3.74 cm2 4.00-5.00 MV Diastolic Function MV E Peak Velocity 120.23 cm/s MV A Peak Velocity 0.28 cm/s MV E/A 434.03 MV Decel Time 0 s MV Annular TDI MV E/e' (Septal) 12.33 <=8.00 MV E/e' (Lateral) 10.90 <=8.00 MV E/e' (Average) 11.62 Tricuspid Valve Name Value Normal Estimated PAP/RSVP RA Pressure 3 mmHg <=5 Aortic Valve Name Value Normal AV Doppler AV Peak Velocity 171.14 cm/s AV Peak Gradient 10 mmHg AV Mean Gradient 7 mmHg AV VTI 33.35 cm AV Area (Cont Eq VTI) 2.65 cm2 >=3.00 AV Area (Cont Eq Vinh) 2.20 cm2 AV Regurgitation 2D LVOT Area 3.18 cm2 Ventricles Name Value Normal LV Dimensions 2D/MM LVOT Diameter 2.01 cm LV Fractional Shortening/Ejection Fraction 2D/MM LV Diastolic Volume (4C MOD) 50.72 ml LV EF (4C MOD) 79 % LV Diastolic Volume (2C MOD) 49.56 ml LV EF (2C MOD) 80 % LV Diastolic Volume (BP MOD) 50.56 ml 46.00-106.00 LV Diastolic Volume Index (BP MOD) 0.02 l/m2 0.03-0.06 LV Systolic Volume (BP MOD) 10.36 ml 14.00-42.00 LV Systolic Volume Index (BP MOD) 0.00 l/m2 0.01-0.02 LV EF (BP MOD) 80 % 54-74 LV Diastolic Length (4C) 7.96 cm LV Systolic Length (4C) 6.51 cm LV Stroke Volume (4C MOD) 40.25 ml Atria Name Value Normal LA Dimensions LA Volume (4C A-L) 70.40 ml LA Volume (BP A-L) 89.54 ml RA Dimensions RA Area (4C) 15.77 cm2 <=18.00 Report Signatures
--- NOTE | 2024-06-28 00:02 | ED.ARRPALP ---
HPI - Arrhythmia/Palpitations General Chief Complaint: Arrhythmia/Palpitations Stated Complaint: high HR, pains in neck and arms Time Seen by Provider: 06/27/24 22:42 Source: patient and family Mode of arrival: ambulatory Limitations: no limitations History of Present Illness HPI narrative: 78-year-old with a history of atrial fibrillation on Xarelto here with a complaint some onset chest discomfort. Patient states that she saw her primary doctor this afternoon him at home supper with her daughter does sleep she started having blood patient not had chest radiating into her arms with mild shortness of breath. Denied having any chest pain. She states that she took all evening medication MD complaint: rapid heart beat Onset (ago): hour(s) (1) Duration: constant Severity: moderate Context: occurred during rest Arrhythmia history: atrial fibrillation Associated symptoms: shortness of breath Related Data Home Medications ?Medication ?Instructions ?Recorded ?Confirmed ?Last Taken ?Type alprazolam 0.5 mg tablet 0.5 mg PO TID PRN Anxiety 10/22/20 12/29/20 Unknown History amlodipine 5 mg tablet 5 mg PO DAILY 10/22/20 12/29/20 12/28/20 History gabapentin 300 mg capsule 300 mg PO TID 10/22/20 12/29/20 12/28/20 History rivaroxaban 20 mg tablet (Xarelto) 20 mg PO DAILY 10/22/20 12/29/20 12/28/20 History alendronate-vitamin D3 2,000 units PO DAILY 10/23/20 12/29/20 12/28/20 History multivitamin with minerals-folic 0.4 tablet PO DAILY 10/23/20 12/29/20 12/28/20 History acid 0.4 mg tablet pregabalin 75 mg PO BID 10/23/20 12/29/20 12/28/20 History simvastatin 40 mg tablet 40 mg PO DAILY 10/24/20 12/29/20 12/28/20 History levothyroxine 88 mcg tablet 88 mcg PO DAILY 12/29/20 12/29/20 12/28/20 History meclizine 25 mg tablet 25 mg PO BID 12/29/20 12/29/20 Unknown History olmesartan 40 mg tablet 40 mg PO DAILY 12/29/20 12/29/20 12/28/20 History spironolactone 25 mg tablet mg 02/23/22 Unknown History Allergies Allergy/AdvReac Type Severity Reaction Status Date / Time No Known Allergies Allergy Verified 04/30/23 21:56 Review of Systems Review of Systems: All systems reviewed & are unremarkable except as noted in HPI and below Constitutional: Constitutional: Reports no additional constitutional complaints Eyes: Eyes: Reports no additional eye complaints ENT: Reports system reviewed and no additional complaints, except as documented Cardiovascular: Cardiovascular: Reports as per HPI Respiratory: Respiratory: Reports no additional respiratory complaints Gastrointestinal: Gastrointestinal: Reports no additional gastrointestinal complaints Musculoskeletal: Musculoskeletal: Reports no additional musculoskeletal complaints Neurologic: Reports system reviewed and no additional complaints, except as documented [facility] Past Medical History Medical History Macular degeneration Vitamin D deficiency Obstructive sleep apnea Apnea link screening was positive October 2020 Erosive gastritis (10/2020) AVM (arteriovenous malformation) of colon (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) Paroxysmal atrial fibrillation Acute blood loss anemia Weight gain Metatarsal bone fracture (02/13/19) Metatarsal bone fracture (02/13/19) Pulmonary embolism (~07/2018) Anxiety Hypothyroid GERD (gastroesophageal reflux disease) HTN (hypertension) Peripheral neuropathy CVA (cerebrovascular accident) Surgical History Surgical History History of esophagogastroduodenoscopy (EGD) (10/2020) AVMs noted in cecum and erosive gastritis Status post cataract extraction of both eyes with insertion of intraocular lens Family History Family History Father Acute myocardial infarction Social History Social History Social History: She has been for 52 years. They had 1 son who last year at 49 years old of heart disease. She is a retired hairdresser. She still smokes about 5 cigarettes a day. Up until recent years she used to smoke a half a pack of cigarettes per day and started smoking as a teenager. She denies any alcohol use or illicit substance use. Smoking packs per day: 5 Smoking cigarettes per day: 100.0 Years smoked: 50 Smoking pack-years: 250.00 Smoking status: Light tobacco smoker Tobacco type: cigarettes Alcohol intake: never Substance use: never Gender identity (if verbalized by the patient): Female Spiritual care concerns: No Exam Narrative: GENERAL: Well-appearing, well-nourished, and in no acute distress, anxious HEAD: Normocephalic, atraumatic. EYES: PERRLA and EOMI. ENT: Nares clear, no rhinorrhea or epistaxis. Mucous membranes moist. NECK: Supple. CHEST: Clear to auscultation. No respiratory distress. HEART: . Tachycardic ABDOMEN: Soft, nontender, nondistended, normal active bowel sounds. EXTREMITIES: Normal range of motion. No edema. SKIN: Warm, dry, no rash. NEURO: No focal deficits. Alert and oriented x3. PSYCH: Normal mood and affect. Course Course Emergency Course: Patient initial heart rate upon arrival was and 190s I did give her Cardizem 10 mg which she responded very well however heart rate keeps jumping 80s to 130s. And started on Cardizem drip. She feels better but heart rate is quite fluctuant. Vital Signs Vital signs: Vital Signs Temperature 36.7 C 06/27/24 22:30 Pulse Rate 164 H 06/27/24 22:30 Respiratory Rate 20 06/27/24 22:30 Blood Pressure 125/65 06/27/24 22:30 Pulse Oximetry 92 06/27/24 22:30 Oxygen Delivery Room Air 06/27/24 22:30 Temperature 36.7 C 06/27/24 22:30 Pulse Rate 93 06/28/24 01:30 Respiratory Rate 18 06/28/24 01:30 Blood Pressure 125/69 06/28/24 01:22 Pulse Oximetry 92 06/28/24 01:30 Oxygen Delivery Room Air 06/27/24 22:30 MDM - Arrhythmia/Palpitations Differential Diagnosis Differential diagnosis: Likely palpitations, anxiety, artial fibrillation and supraventricular tachycardia Medical Records Attestation: I reviewed the patient's medical records. Lab Data Attestation: I reviewed the patient's lab results. 06/27/24 22:45 06/27/24 22:45 Labs: Lab Results 06/27/24 06/28/24 Range/Units 22:45 01:32 WBC 7.4 (4.5-10.0) K/mm3 RBC 3.74 L (4.2-5.4) M/mm3 Hgb 11.1 L (12.0-15.0) g/dL Hct 35.5 L (37.0-47.0) % MCV 94.9 (80-100) fl MCH 29.7 (26-34) pg MCHC 31.3 L (32-36) g/dl RDW 14.3 (11.5-14.5) % Plt Count 199 (150-375) k/mm3 MPV 9.2 (7.4-10.4) fl Immature Gran % (Auto) 0.4 (0-0.5) % Neut % (Auto) 73.6 H (45.5-73.1) % Lymph % (Auto) 14.4 L (18.3-44.2) % [place] % (Auto) 7.9 (2.6-8.5) % Eos % (Auto) 3.0 (0-4.4) % Baso % (Auto) 0.7 (0.2-1.2) % Lymph # (Auto) 1.06 (0.9-3.2) K/mm3 [place] # (Auto) 0.6 (0.1-0.6) K/mm3 Eos # (Auto) 0.2 (0-0.3) K/mm3 Baso # (Auto) 0.1 (0.0-0.1) K/mm3 Abs Immat Gran (auto) 0.03 (0.00-0.031) K/mm3 Absolute Neuts (auto) 5.4 (1.3-6.7) K/mm3 Absolute Nucleated RBC 0.000 (0.0-0.012) K/mm3 Nucleated RBC % 0.0 (0.0-0.2) % PT 20.7 H (11.1-14.7) Seconds INR 1.7 APTT 41.1 H (22.3-36.8) Seconds Sodium 136 L (137-145) mmol/L Potassium 4.5 (3.4-5.0) mmol/L Chloride 102 (98-107) mmol/L Carbon Dioxide 22 (22-30) mmol/L Anion Gap 12 (4-12) mmol/L BUN 19 H (7-17) mg/dL Creatinine 1.38 H (0.7-1.0) mg/dL Estim Creat Clear Calc 36 ml/min Estimated GFR 37 L (59 - ) Glucose 136 H (65-110) mg/dL Calcium 9.7 (8.4-10.2) mg/dL Magnesium 1.9 (1.6-2.3) mg/dL Total Bilirubin 0.3 (0.2-1.3) mg/dL AST 20 (14-36) U/L ALT 16 (6-35) U/L Alkaline Phosphatase 95 (38-126) U/L Troponin I < 0.012 Pending (0.000-0.034) ng/mL Total Protein 8.0 (6.3-8.2) g/dL Albumin 4.2 (3.5-5.1) g/dL Lipase 138 (23-300) U/L ABG Data Interpretation: ITS Impressions Chest X-Ray 06/27/24 23:20 IMPRESSION: Mild pulmonary vascular congestion, without focal infiltrate or effusion. Imaging Data Radiologist's impression: ITS Impressions Chest X-Ray 06/27/24 23:20 IMPRESSION: Mild pulmonary vascular congestion, without focal infiltrate or effusion. ECG Data EKG #1: ECG completion date: 06/28/24 ECG completion time: 22:41 EKG Interpretation: tachycardia (160), atrial fibrillation, no ST changes and no acute changes Discharge Plan Discharge Clinical Impression: Atrial fibrillation with RVR Patient Disposition: Still a Patient Condition: Stable Patient Language: Yi Prescriptions: No Action amlodipine 5 mg tablet 5 mg PO DAILY alprazolam 0.5 mg tablet 0.5 mg PO TID PRN (Reason: Anxiety) gabapentin 300 mg capsule 300 mg PO TID Xarelto 20 mg tablet 20 mg PO DAILY multivit with min-folic acid 0.4 mg Tablet 0.4 tablet PO DAILY alendronate-vitamin D3 2,000 units PO DAILY pregabalin 75 mg PO BID simvastatin 40 mg tablet 40 mg PO DAILY metoprolol tartrate 25 mg Tablet 25 mg PO Q12HR Qty: 60 0RF pantoprazole 40 mg Tablet,Delayed Release (Dr/Ec) 40 mg PO QAM 30 Days Qty: 30 5RF olmesartan 40 mg tablet 40 mg PO DAILY levothyroxine 88 mcg Tablet 88 mcg PO DAILY meclizine 25 mg Tablet 25 mg PO BID spironolactone 25 mg tablet ondansetron 4 mg tablet,disintegrating 4 mg PO Q6H PRN (Reason: nausea and vomiting) Qty: 10 0RF acetaminophen 500 mg tablet 1,000 mg PO TID PRN (Reason: rick) 7 Days Qty: 42 0RF methocarbamol 750 mg tablet 1,500 mg PO TID Qty: 42 0RF lidocaine 5 % adhesive patch,medicated 1 patch topical DAILY Qty: 15 0RF Rx Instructions: leave on most painful area for up to 12 hrs cyclobenzaprine 10 mg tablet 10 mg PO HS PRN (Reason: muscle spasm) Qty: 10 0RF Follow-up/Referrals: Stefano,Blair Wiggins MD [Primary Care Provider] -
--- NOTE | 2024-06-28 01:12 | ECG_ITS ---
Test Date: 2024-06-28 01:31:46 Measurements Intervals [place] Rate: 107 P: 0 [place]: 0 QRS: -11 QRSD: 91 T: 40 QT: 327 QTc: 437 Interpretive Statements ATRIAL FIBRILLATION WITH RAPID VENTRICULAR RESPONSE LOW QRS VOLTAGE IN PRECORDIAL LEADS [QRS DEFLECTION < 1.0 mV IN CHEST LEADS] ANTEROSEPTAL MYOCARDIAL INFARCTION , OF INDETERMINATE AGE [40+ ms Q WAVE IN V1-V4] Compared to ECG 06/27/2024 22:41:55 Atrial flutter no longer present Electronically Signed On 06-28-2024 12:13:26 CDT by Antoinette Pierson M.D.
[2024-06-28 01:31] LABS: Magnesium 1.9 mg/dL (1.6-2.3)
[2024-06-28 02:05] LABS: Troponin I < 0.012 ng/mL (0.000-0.034)
--- NOTE | 2024-06-28 03:30 | ADMGEN ---
This patient, Norma Coleman, was admitted to IMU Room 210-01 on 06/28/24 at 0315. Patient/family oriented to hospital policies and general routines including ID bracelet, bed and alarms, visiting hours, pain management, procedures, bathroom and other care routines, personal items, smoking policy, room service/diet, and visiting hours. Information on how to activate the Rapid Response Team has been discussed. Patient/Family are encouraged to report perceived risks to care and to ask questions if they do not understand what they are told or what they should do.
[2024-06-28] MEDS: SODIUM CHLORIDE 0.9% IV 1,000 ML 125 ML IV CONT ×2 (05:06→21:59)
[2024-06-28 05:48] LABS: Troponin I < 0.012 ng/mL (0.000-0.034)
--- NOTE | 2024-06-28 06:00 | ECG_ITS ---
Test Date: 2024-06-28 06:12:01 Measurements Intervals [place] Rate: 90 P: 55 [place]: 293 QRS: -24 QRSD: 109 T: 36 QT: 358 QTc: 440 Interpretive Statements SINUS RHYTHM WITH SINUS ARRHYTHMIA WITH FIRST DEGREE AV BLOCK LOW QRS VOLTAGE IN PRECORDIAL LEADS [QRS DEFLECTION < 1.0 mV IN CHEST LEADS] INCOMPLETE RIGHT BUNDLE BRANCH BLOCK [90+ ms QRS DURATION, TERMINAL R IN V1/V2, 40+ ms S IN I/aVL/V4/V5/V6] SEPTAL MYOCARDIAL INFARCTION [40+ ms Q WAVE IN V1/V2], OF INDETERMINATE AGE Compared to ECG 06/28/2024 01:31:46 First degree AV block now present Atrial fibrillation no longer present Electronically Signed On 06-28-2024 12:17:06 CDT by Antoinette Pierson M.D.
[2024-06-28] MEDS: METOPROLOL TARTRATE 25 MG TABLET PO ×4 (09:28→23:55)
[2024-06-28] MEDS: OPTI-GEN TAB 2 TABLET PO (09:28)
[2024-06-28] MEDS: OLMESARTAN MEDOXOMIL 20 MG TABLET 40 MG PO (09:28)
[2024-06-28] MEDS: CHOLECALCIFEROL 1,000 UNITS TABLET 2000 UNITS PO (09:28)
[2024-06-28] MEDS: SPIRONOLACTONE 25 MG TABLET PO (09:29)
[2024-06-28] MEDS: MULTIVITAMINS THERAPEUTIC TAB (*BKC) 1 TABLET PO (09:29)
[2024-06-28] MEDS: amLODIPine BESYLATE 10 MG TABLET PO (09:29)
[2024-06-28] MEDS: LEVOTHYROXINE SODIUM 88 MCG TABLET PO (09:29)
[2024-06-28] MEDS: FOLIC ACID 1 MG TABLET PO (09:29)
[2024-06-28] MEDS: GABAPENTIN 300 MG CAPSULE PO ×3 (09:29→17:36)
[2024-06-28] MEDS: METHOTREXATE 2.5 MG TAB (*CHEMO) 7.5 MG PO ×2 (09:43→17:36)
[2024-06-28] MEDS: ARTIFICIAL TEARS OPHTH SOLN 15 ML BOTTLE 1 DROP EACH EYE ×3 (09:43→17:37)
--- NOTE | 2024-06-28 12:11 | P.CONCA_ITS ---
Assessment and Plan Assessment and plan (1) Atrial fibrillation with rapid ventricular response: Code(s): I48.91 - Unspecified atrial fibrillation Status: Acute Assessment and Plan: History of paroxysmal atrial fibrillation with rapid ventricular response. This is her 1st hospitalization since her initial diagnosis in 2020. * Heart rate is controlled on IV diltiazem. * Since there is an interaction with diltiazem and Xarelto and patient artery takes metoprolol, will increase dose of metoprolol and discontinue diltiazem. Currently, she is only on 5 milligrams/hour of diltiazem after 1st additional dose of metoprolol is given. * Will increase metoprolol tartrate to 25 mg every 6 hours. * Discussed the option of outpatient cardioversion which she is going to consider and we will discuss in the office in a few weeks. * Continue anticoagulation with Xarelto * Will check an ApneaLink * Check TSH * Echocardiogram is pending-previous echocardiogram performed in our office in December of 2023 showed normal LV systolic function, mild left atrial enlargement, mild aortic stenosis. (2) Chronic anticoagulation: Code(s): Z79.01 - USP (current) use of anticoagulants Status: Acute Assessment and Plan: On Xarelto. Previous history of anemia, but hemoglobin is stable and she has not had any bleeding problems. (3) HTN (hypertension): Code(s): I10 - Essential (primary) hypertension Status: Acute Assessment and Plan: At goal. History of Present Illness History of Present Illness Consult date/time: 06/28/24 12:11 Reason For Visit: Atrial fib with RVR Narrative: Norma Coleman is a 78-year-old female with paroxysmal atrial fibrillation. This is a patient who follows in our office with Dr. Arevalo. She comes to the hospital with a chief complaint of palpitations. Patient stated that earlier in the week she felt some fluttering in her chest that resolved. However, later on the week she began to feel the fluttering again and her checked her pulse and it was in the 160s. At that time, she was brought to the emergency department. EKG in the emergency department showed atrial fibrillation with rapid ventricular response. She was given IV diltiazem push and placed on a diltiazem drip. Her rate is now controlled on diltiazem and she no longer is experiencing any palpitations. She does not have any chest pain or shortness of breath. Review of Systems 2 Review of Systems: All systems reviewed & are unremarkable except as noted in HPI and below PMFSH Past Medical History Medical History Macular degeneration Vitamin D deficiency Obstructive sleep apnea Apnea link screening was positive October 2020 Erosive gastritis (10/2020) AVM (arteriovenous malformation) of colon (10/2020) Paroxysmal atrial fibrillation Acute blood loss anemia Weight gain Metatarsal bone fracture (02/13/19) Metatarsal bone fracture (02/13/19) Pulmonary embolism (~07/2018) Anxiety Hypothyroid GERD (gastroesophageal reflux disease) HTN (hypertension) Peripheral neuropathy CVA (cerebrovascular accident) Surgical History Surgical History History of esophagogastroduodenoscopy (EGD) (10/2020) AVMs noted in cecum and erosive gastritis Status post cataract extraction of both eyes with insertion of intraocular lens Family History Family History Father Acute myocardial infarction Heart problem Mother Chronic kidney disease (CKD) Son Heart problem Sibling A-fib Social History Social History Social History: She has been for 52 years. They had 1 son who last year at 49 years old of heart disease. She is a retired hairdresser. She still smokes about 5 cigarettes a day. Up until recent years she used to smoke a half a pack of cigarettes per day and started smoking as a teenager. She denies any alcohol use or illicit substance use. Smoking packs per day: 0.75 Smoking cigarettes per day: 15.0 Years smoked: 59 Smoking pack-years: 44.25 Smoking status: Former smoker Tobacco type: cigarettes Alcohol intake: never Substance use: never Substance use type: does not use Do You Feel Safe in your Home?: Yes Lack of Transportation: No Lack of Food: Never True Current Housing: I Have Housing Concerned About Future Housing: No Difficulty Paying Gas/Electric Bills: No Difficulty Paying for Meds: No Currently Unemployed: No Education: Trade/Vocational Certificate Difficulty w/ Childcare or Family Care: No Gender identity (if verbalized by the patient): Female Spiritual care concerns: No Meds Home Medications and Allergies Home Medications ?Medication ?Instructions ?Recorded ?Confirmed ?Type alprazolam 0.5 mg tablet 0.5 mg PO TID PRN Anxiety 10/22/20 06/28/24 History gabapentin 300 mg capsule 300 mg PO TID 10/22/20 06/28/24 History rivaroxaban 20 mg tablet (Xarelto) 20 mg PO DAILY 10/22/20 06/28/24 History metoprolol tartrate 25 mg tablet 25 mg PO Q12HR #60 tabs 10/25/20 06/28/24 Rx levothyroxine 88 mcg tablet 88 mcg PO DAILY 12/29/20 06/28/24 History meclizine 25 mg tablet 25 mg PO DAILY PRN dizziness 12/29/20 06/28/24 History olmesartan 40 mg tablet 40 mg PO DAILY 12/29/20 06/28/24 History ondansetron 4 mg disintegrating 4 mg PO Q6H PRN nausea and 02/23/22 06/28/24 Rx tablet vomiting #10 tabs spironolactone 25 mg tablet 25 mg PO DAILY 02/23/22 06/28/24 History acetaminophen 500 mg tablet 1,000 mg (2 x 500 mg) PO TID PRN 06/03/24 06/28/24 Rx pain (scale score 1-3) 7 days #42 tabs amlodipine 10 mg tablet 10 mg PO DAILY 06/28/24 06/28/24 History carboxymethylcellulose sodium 0.5 1 drp EACH EYE TID 06/28/24 06/28/24 History % eye drops (Refresh Tears) cholecalciferol (vitamin D3) 50 50 mcg PO DAILY 06/28/24 06/28/24 History mcg (2,000 unit) tablet (Vitamin D3) folic acid 1 mg tablet 1 mg PO DAILY 06/28/24 06/28/24 History lidocaine 4 % topical patch 1 patch topical BID PRN arthritic 06/28/24 06/28/24 History (Lidocaine Pain Relief) pain. methotrexate sodium 2.5 mg tablet 7.5 mg PO .COMPLEX 06/28/24 06/28/24 History multivitamin 1 tablet PO DAILY 06/28/24 06/28/24 History rosuvastatin 20 mg tablet 20 mg PO .Evening 06/28/24 06/28/24 History vit C 250 mg-vit E 90 mg-zinc 40 2 tablet PO DAILY 06/28/24 06/28/24 History mg-copper 1 [id number] capsule (PreserVision AREDS-2) Allergies Allergy/AdvReac Type Severity Reaction Status Date / Time No Known Allergies Allergy Verified 06/28/24 04:11 Vital Signs Vital Signs - 24 hr 06/27/24 22:30 06/27/24 23:21 06/27/24 23:23 Temperature 36.7 C Pulse Rate 164 H 123 H 110 H Respiratory Rate 20 16 Blood Pressure 125/65 135/83 Pulse Oximetry 92 91 Oxygen Delivery Room Air 06/27/24 23:30 06/27/24 23:42 06/27/24 23:45 Temperature Pulse Rate 108 H 110 H 114 H Respiratory Rate 17 19 19 Blood Pressure 124/56 L Pulse Oximetry 94 93 93 Oxygen Delivery 06/28/24 00:00 06/28/24 00:02 06/28/24 00:15 Temperature Pulse Rate 115 H 98 89 Respiratory Rate 22 H 21 H 21 H Blood Pressure 122/54 L Pulse Oximetry 90 91 90 Oxygen Delivery 06/28/24 00:22 06/28/24 00:30 06/28/24 01:00 Temperature Pulse Rate 83 98 77 Respiratory Rate 15 20 18 Blood Pressure 121/64 Pulse Oximetry 93 90 90 Oxygen Delivery 06/28/24 01:02 06/28/24 01:05 06/28/24 01:22 Temperature Pulse Rate 79 104 H 94 Respiratory Rate 20 16 15 Blood Pressure 111/66 125/69 Pulse Oximetry 93 92 94 Oxygen Delivery 06/28/24 01:30 06/28/24 02:43 06/28/24 03:20 Temperature Pulse Rate 93 94 100 Respiratory Rate 18 14 Blood Pressure 135/69 Pulse Oximetry 92 94 Oxygen Delivery 06/28/24 03:25 06/28/24 03:26 06/28/24 03:26 Temperature 36.5 C Pulse Rate 98 98 98 Respiratory Rate 18 18 Blood Pressure 126/65 126/65 Pulse Oximetry 91 91 Oxygen Delivery Room Air 06/28/24 04:00 06/28/24 04:00 06/28/24 04:00 Temperature 36.5 C Pulse Rate 94 94 98 Respiratory Rate 20 Blood Pressure 108/62 108/62 Pulse Oximetry 92 Oxygen Delivery 06/28/24 06:00 06/28/24 06:00 06/28/24 06:00 Temperature Pulse Rate 91 89 91 Respiratory Rate Blood Pressure 115/53 L 115/53 L Pulse Oximetry Oxygen Delivery 06/28/24 08:00 06/28/24 08:00 06/28/24 08:00 Temperature 36.4 C Pulse Rate 63 104 H Respiratory Rate 20 Blood Pressure 113/60 Pulse Oximetry 95 95 Oxygen Delivery Room Air 06/28/24 09:28 06/28/24 10:00 06/28/24 10:00 Temperature Pulse Rate 99 89 Respiratory Rate Blood Pressure 131/71 Pulse Oximetry Oxygen Delivery Exam 2 Const: General: comfortable, no acute distress, alert and awake O rientation/consciousness: patient oriented x3 Other: Morbidly obese HENMT: Head: normal to inspection Eyes: General: appearance normal, both eyes and all related structures P upils: Equal, round and reactive pupils present Neck: Neck: normal visual inspection and supple Carotids: normal carotid upstroke Resp: Effort & Inspection: normal respiratory effort Auscultation: clear to auscultation bilaterally Cardio: Rate: regular rate Rhythm: abnormal rhythm irregularly irregular Heart sounds: S1 normal heart sound present, S2 normal heart sound present and no murmurs GI: Auscultation: normal bowel sounds Skin: General skin exam: normal color Neuro: General: patient oriented x3 Cranial nerves: Yes Equal, round and reactive pupils present Extrem: General: normal to inspection Psych: Appearance: grossly normal Mental Status: mental status grossly normal Results Labs and Meds 06/27/24 22:45 06/27/24 22:45 Lab results: Cardiac Enzymes 06/27/24 06/28/24 06/28/24 Range/Units 22:45 01:32 04:31 AST 20 (14-36) U/L Troponin I < 0.012 < 0.012 < 0.012 (0.000-0.034) ng/mL Coagulation 06/27/24 Range/Units 22:45 PT 20.7 H (11.1-14.7) Seconds APTT 41.1 H (22.3-36.8) Seconds CBC 06/27/24 Range/Units 22:45 WBC 7.4 (4.5-10.0) K/mm3 RBC 3.74 L (4.2-5.4) M/mm3 Hgb 11.1 L (12.0-15.0) g/dL Hct 35.5 L (37.0-47.0) % Plt Count 199 (150-375) k/mm3 Lymph # (Auto) 1.06 (0.9-3.2) K/mm3 [place] # (Auto) 0.6 (0.1-0.6) K/mm3 Eos # (Auto) 0.2 (0-0.3) K/mm3 Baso # (Auto) 0.1 (0.0-0.1) K/mm3 Comprehensive Metabolic Panel 06/27/24 Range/Units 22:45 Sodium 136 L (137-145) mmol/L Potassium 4.5 (3.4-5.0) mmol/L Chloride 102 (98-107) mmol/L Carbon Dioxide 22 (22-30) mmol/L BUN 19 H (7-17) mg/dL Creatinine 1.38 H (0.7-1.0) mg/dL Glucose 136 H (65-110) mg/dL Calcium 9.7 (8.4-10.2) mg/dL AST 20 (14-36) U/L ALT 16 (6-35) U/L Alkaline Phosphatase 95 (38-126) U/L Total Protein 8.0 (6.3-8.2) g/dL Albumin 4.2 (3.5-5.1) g/dL Intake and Output 06/27/24 06/28/24 06/28/24 23:59 07:59 15:59 Intake Total 633.2 240 Output Total 575 Balance 58.2 240 Intake: IV 533.2 Sodium Chloride 0.9% IV 500 ml 500 @ 999 mls/hr IV CONT .Q31M STA Rx#:[id number] dilTIAZem 100 MG/100 ML 100 mg 33.2 In 100 ml @ 5 MG/HR 5 mls/hr IV CONT .Q20H STA Rx#:[id number] Oral 100 240 Output: Urine 575 Patient Weight 06/28/24 23:59 Weight 106.4 kg
[2024-06-28] MEDS: PERFLUTREN LIPID MICROSPHERES 1.5 ML VIAL DILUTED TO 10 ML TOTAL VOLUME IV PUSH (13:50)
--- NOTE | 2024-06-28 14:04 | IVDEFINITY ---
Prior to administration of IV Definity the patient was educated on the risks and benefits of the imaging enhancing agent including potential adverse side effects. The patient verbalized understanding. Allergies were verified. No exclusion criteria were identified and at least one of the following inclusion criteria were met: 1) physician request, 2) patient technically difficult to image (per the [place] [employer]ocardi[employer] guidelines of two or more segments not discernable within the apical view), or 3) questionable left ventricular function. ?
--- NOTE | 2024-06-28 15:48 | P.HP_ITS ---
H&P: HPI History of Present Illness Date/Time: 06/28/24 15:48 Chief Complaint: Chest pain Narrative: ER-HPI narrative: 78-year-old with a history of atrial fibrillation on Xarelto here with a complaint some onset chest discomfort. Patient states that she saw her primary doctor this afternoon him at home supper with her daughter does sleep she started having blood patient not had chest radiating into her arms with mild shortness of breath. Denied having any chest pain. She states that she took all evening medication patient with history of atrial fibrillation and had been seen by the food stand manager and was taking metoprolol 25mg BID to control rate however Patient develop CP and went into A.Fibrillation and started on diltiazem drip, rate is trending down, her food stand manager increased her metoprolol 25mg q6, patient is anticoagulated with Xarelto, will monitor. will monitor, patient 3 sets of cardiac enzymes are negative, cardiac echo is pending patient is seen by food stand manager and further recommendation to follow. [facility] Past Medical History Medical History Macular degeneration Vitamin D deficiency Obstructive sleep apnea Apnea link screening was positive October 2020 Erosive gastritis (10/2020) AVM (arteriovenous malformation) of colon (10/2020) Paroxysmal atrial fibrillation Acute blood loss anemia Weight gain Metatarsal bone fracture (02/13/19) Metatarsal bone fracture (02/13/19) Pulmonary embolism (~07/2018) Anxiety Hypothyroid GERD (gastroesophageal reflux disease) HTN (hypertension) Peripheral neuropathy CVA (cerebrovascular accident) Surgical History Surgical History History of esophagogastroduodenoscopy (EGD) (10/2020) AVMs noted in cecum and erosive gastritis Status post cataract extraction of both eyes with insertion of intraocular lens Family History Family History Father Acute myocardial infarction Heart problem Mother Chronic kidney disease (CKD) Son Heart problem Sibling A-fib Social History Social History Social History: She has been for 52 years. They had 1 son who last year at 49 years old of heart disease. She is a retired hairdresser. She still smokes about 5 cigarettes a day. Up until recent years she used to smoke a half a pack of cigarettes per day and started smoking as a teenager. She denies any alcohol use or illicit substance use. Smoking packs per day: 0.75 Smoking cigarettes per day: 15.0 Years smoked: 59 Smoking pack-years: 44.25 Smoking status: Former smoker Tobacco type: cigarettes Alcohol intake: never Substance use: never Substance use type: does not use Do You Feel Safe in your Home?: Yes Lack of Transportation: No Lack of Food: Never True Current Housing: I Have Housing Concerned About Future Housing: No Difficulty Paying Gas/Electric Bills: No Difficulty Paying for Meds: No Currently Unemployed: No Education: Trade/Vocational Certificate Difficulty w/ Childcare or Family Care: No Gender identity (if verbalized by the patient): Female Spiritual care concerns: No Meds Home Medications and Allergies Home Medications ?Medication ?Instructions ?Recorded ?Confirmed ?Type alprazolam 0.5 mg tablet 0.5 mg PO TID PRN Anxiety 10/22/20 06/28/24 History gabapentin 300 mg capsule 300 mg PO TID 10/22/20 06/28/24 History rivaroxaban 20 mg tablet (Xarelto) 20 mg PO DAILY 10/22/20 06/28/24 History metoprolol tartrate 25 mg tablet 25 mg PO Q12HR #60 tabs 10/25/20 06/28/24 Rx levothyroxine 88 mcg tablet 88 mcg PO DAILY 12/29/20 06/28/24 History meclizine 25 mg tablet 25 mg PO DAILY PRN dizziness 12/29/20 06/28/24 History olmesartan 40 mg tablet 40 mg PO DAILY 12/29/20 06/28/24 History ondansetron 4 mg disintegrating 4 mg PO Q6H PRN nausea and 02/23/22 06/28/24 Rx tablet vomiting #10 tabs spironolactone 25 mg tablet 25 mg PO DAILY 02/23/22 06/28/24 History acetaminophen 500 mg tablet 1,000 mg (2 x 500 mg) PO TID PRN 06/03/24 06/28/24 Rx pain (scale score 1-3) 7 days #42 tabs amlodipine 10 mg tablet 10 mg PO DAILY 06/28/24 06/28/24 History carboxymethylcellulose sodium 0.5 1 drp EACH EYE TID 06/28/24 06/28/24 History % eye drops (Refresh Tears) cholecalciferol (vitamin D3) 50 50 mcg PO DAILY 06/28/24 06/28/24 History mcg (2,000 unit) tablet (Vitamin D3) folic acid 1 mg tablet 1 mg PO DAILY 06/28/24 06/28/24 History lidocaine 4 % topical patch 1 patch topical BID PRN arthritic 06/28/24 06/28/24 History (Lidocaine Pain Relief) pain. methotrexate sodium 2.5 mg tablet 7.5 mg PO .COMPLEX 06/28/24 06/28/24 History multivitamin 1 tablet PO DAILY 06/28/24 06/28/24 History rosuvastatin 20 mg tablet 20 mg PO .Evening 06/28/24 06/28/24 History vit C 250 mg-vit E 90 mg-zinc 40 2 tablet PO DAILY 06/28/24 06/28/24 History mg-copper 1 [id number] capsule (PreserVision AREDS-2) Allergies Allergy/AdvReac Type Severity Reaction Status Date / Time No Known Allergies Allergy Verified 06/28/24 04:11 Vital Signs Vital Signs - 24 hr 06/27/24 22:30 06/27/24 23:21 06/27/24 23:23 Temperature 36.7 C Pulse Rate 164 H 123 H 110 H Respiratory Rate 20 16 Blood Pressure 125/65 135/83 Pulse Oximetry 92 91 Oxygen Delivery Room Air 06/27/24 23:30 06/27/24 23:42 06/27/24 23:45 Temperature Pulse Rate 108 H 110 H 114 H Respiratory Rate 17 19 19 Blood Pressure 124/56 L Pulse Oximetry 94 93 93 Oxygen Delivery 06/28/24 00:00 06/28/24 00:02 06/28/24 00:15 Temperature Pulse Rate 115 H 98 89 Respiratory Rate 22 H 21 H 21 H Blood Pressure 122/54 L Pulse Oximetry 90 91 90 Oxygen Delivery 06/28/24 00:22 06/28/24 00:30 06/28/24 01:00 Temperature Pulse Rate 83 98 77 Respiratory Rate 15 20 18 Blood Pressure 121/64 Pulse Oximetry 93 90 90 Oxygen Delivery 06/28/24 01:02 06/28/24 01:05 06/28/24 01:22 Temperature Pulse Rate 79 104 H 94 Respiratory Rate 20 16 15 Blood Pressure 111/66 125/69 Pulse Oximetry 93 92 94 Oxygen Delivery 06/28/24 01:30 06/28/24 02:43 06/28/24 03:20 Temperature Pulse Rate 93 94 100 Respiratory Rate 18 14 Blood Pressure 135/69 Pulse Oximetry 92 94 Oxygen Delivery 06/28/24 03:25 06/28/24 03:26 06/28/24 03:26 Temperature 36.5 C Pulse Rate 98 98 98 Respiratory Rate 18 18 Blood Pressure 126/65 126/65 Pulse Oximetry 91 91 Oxygen Delivery Room Air 06/28/24 04:00 06/28/24 04:00 06/28/24 04:00 Temperature 36.5 C Pulse Rate 94 94 98 Respiratory Rate 20 Blood Pressure 108/62 108/62 Pulse Oximetry 92 Oxygen Delivery 06/28/24 06:00 06/28/24 06:00 06/28/24 06:00 Temperature Pulse Rate 91 89 91 Respiratory Rate Blood Pressure 115/53 L 115/53 L Pulse Oximetry Oxygen Delivery 06/28/24 08:00 06/28/24 08:00 06/28/24 08:00 Temperature 36.4 C Pulse Rate 63 104 H Respiratory Rate 20 Blood Pressure 113/60 Pulse Oximetry 95 95 Oxygen Delivery Room Air 06/28/24 09:28 06/28/24 10:00 06/28/24 10:00 Temperature Pulse Rate 99 89 Respiratory Rate Blood Pressure 131/71 Pulse Oximetry Oxygen Delivery 06/28/24 12:00 06/28/24 12:00 06/28/24 12:00 Temperature 36.6 C Pulse Rate 84 93 Respiratory Rate 18 Blood Pressure 136/76 Pulse Oximetry 92 92 Oxygen Delivery Room Air 06/28/24 13:27 06/28/24 14:00 Temperature Pulse Rate 92 101 H Respiratory Rate Blood Pressure Pulse Oximetry Oxygen Delivery Exam Narrative: Patient is comfortable, NAD HEENT: eyes are clear and none icteric LUNGS: CTA HEART: Irregularly irregular ABD: BS+, Soft and nontender Lower extremities: no edema SKIN: nonjaundiced Neuro: grossly intact. H&P: Results Labs Labs: Short CBC 06/27/24 Range/Units 22:45 WBC 7.4 (4.5-10.0) K/mm3 Hgb 11.1 L (12.0-15.0) g/dL Hct 35.5 L (37.0-47.0) % Plt Count 199 (150-375) k/mm3 BMP 06/27/24 22:45 Sodium 136 L Potassium 4.5 Chloride 102 Carbon Dioxide 22 BUN 19 H Creatinine 1.38 H Glucose 136 H Calcium 9.7 Cardiac Enzymes 06/27/24 06/28/24 06/28/24 Range/Units 22:45 01:32 04:31 Troponin I < 0.012 < 0.012 < 0.012 (0.000-0.034) ng/mL Liver Function 06/27/24 Range/Units 22:45 Total Bilirubin 0.3 (0.2-1.3) mg/dL AST 20 (14-36) U/L ALT 16 (6-35) U/L Alkaline Phosphatase 95 (38-126) U/L Albumin 4.2 (3.5-5.1) g/dL Assessment and Plan Assessment and plan (1) Atrial fibrillation with rapid ventricular response: Code(s): I48.91 - Unspecified atrial fibrillation Status: Acute (2) HTN (hypertension): Code(s): I10 - Essential (primary) hypertension Status: Acute (3) Chronic anticoagulation: Code(s): Z79.01 - terminal worker (current) use of anticoagulants Status: Acute Plan ER-HPI narrative: 78-year-old with a history of atrial fibrillation on Xarelto here with a complaint some onset chest discomfort. Patient states that she saw her primary doctor this afternoon him at home supper with her daughter does sleep she started having blood patient not had chest radiating into her arms with mild shortness of breath. Denied having any chest pain. She states that she took all evening medication patient with history of atrial fibrillation and had been seen by the food stand manager and was taking metoprolol 25mg BID to control rate however Patient develop CP and went into A.Fibrillation and started on diltiazem drip, rate is trending down, her food stand manager increased her metoprolol 25mg q6, patient is anticoagulated with Xarelto, will monitor. will monitor, patient 3 sets of cardiac enzymes are negative, cardiac echo is pending patient is seen by food stand manager and further recommendation to follow. Quality VTE Prophylaxis VTE prophylaxis: pharmacologic ordered Hospitalist MIPS Advance Care Plan I have confirmed that the patient's Advanced Care Plan is present, code status is documented, or surrogate decision maker is listed in patient medical record.: Yes Medication Reconciliation I have utilized all available resources to obtain, update and review the patients current medications (includes all prescriptions, OTC, herbals, cannabis, and nutritional supplements).: Yes
[2024-06-28] MEDS: RIVAROXABAN 20 MG TABLET PO (17:36)
[2024-06-28] MEDS: ROSUVASTATIN 20 MG TABLET PO (17:36)
[2024-06-28] MEDS: ACETAMINOPHEN 325 MG TABLET 650 MG PO (22:10)
[2024-06-29] VITALS (9 sets, daily range): BP systolic 126–144; BP diastolic 54–67; PULSE 57–97; RESP 16–18; TEMP 36.6–36.8; O2SAT 93–97
[2024-06-29] MEDS: METOPROLOL TARTRATE 25 MG TABLET PO (06:04)
[2024-06-29] MEDS: LEVOTHYROXINE SODIUM 88 MCG TABLET PO (06:04)
[2024-06-29] MEDS: SODIUM CHLORIDE 0.9% IV 1,000 ML 125 ML IV CONT (06:09)
--- NOTE | 2024-06-29 08:04 | PM.PNCARD ---
Progress Note: A&P Assessment and Plan (1) Atrial fibrillation with rapid ventricular response: Code(s): I48.91 - Unspecified atrial fibrillation Status: Acute (2) HTN (hypertension): Code(s): I10 - Essential (primary) hypertension Status: Acute Plan Problem list: AFib with RVR-has a history of paroxysmal atrial fibrillation ---troponin negative x3 ---TTE showed normal LVEF, mild MR Hypertension History of CVA CLAUDY with creatinine of 1.38 (baseline creatinine around 1) Plan: Continue metoprolol 50 mg q.12 hours Continue Xarelto for anticoagulation Continue statin at home does Continue amlodipine Hold olmesartan, spironolactone given CLAUDY and resume when renal function is at baseline Check and replace electrolytes as needed to keep potassium greater than 4 and magnesium greater than 2 Thank you for allowing us to participate in the care of this patient. Cardiology will sign off. Please call us with any questions Subjective Date/time seen: 06/29/24 08:04 Interval history: Reason for the encounter: AFib with RVR Relevant history: 78-year-old female with paroxysmal atrial fibrillation was admitted with chief complaint of palpitations. EKG in the emergency department showed atrial fibrillation with rapid ventricular response. She was started on IV diltiazem drip. Cardiology was consulted for further recommendations. Interval history: Patient denies any chest pain, shortness of breath, dizziness, lightheadedness. This morning she is in sinus rhythm with heart rate in the 70s. Review of Systems Review of Systems: A complete review of systems was performed and pertinent positives are noted in the HPI Exam Narrative: General: Alert oriented x3, no acute distress Neck: Supple, no JVD Chest: Bilaterally clear to auscultation, no rales or rhonchi Cardiac: S1, S2 +, regular rate, regular rhythm, no murmurs or rubs Extremities: No pedal edema, no skin rash Neurologic: Alert and oriented x3, no focal neurological deficits Objective Data Vital Signs Vital Signs: Vital Signs - 24 hr 06/28/24 09:28 06/28/24 10:00 06/28/24 10:00 Temperature Pulse Rate 99 89 Respiratory Rate Blood Pressure 131/71 Pulse Oximetry Oxygen Delivery 06/28/24 12:00 06/28/24 12:00 06/28/24 12:00 Temperature 36.6 C Pulse Rate 84 93 Respiratory Rate 18 Blood Pressure 136/76 Pulse Oximetry 92 92 Oxygen Delivery Room Air 06/28/24 13:27 06/28/24 14:00 06/28/24 14:00 Temperature 36.4 C L Pulse Rate 92 101 H 79 Respiratory Rate 18 Blood Pressure 133/70 Pulse Oximetry 94 Oxygen Delivery 06/28/24 16:00 06/28/24 16:00 06/28/24 16:00 Temperature 36.4 C L Pulse Rate 79 87 Respiratory Rate 18 Blood Pressure 133/70 Pulse Oximetry 94 94 Oxygen Delivery Room Air 06/28/24 17:36 06/28/24 18:00 06/28/24 18:00 Temperature Pulse Rate 63 69 Respiratory Rate Blood Pressure 115/51 L Pulse Oximetry Oxygen Delivery 06/28/24 20:00 06/28/24 20:00 06/28/24 21:42 Temperature 36.4 C L Pulse Rate 68 64 68 Respiratory Rate 18 18 Blood Pressure 133/45 L Pulse Oximetry 95 95 Oxygen Delivery Room Air 06/28/24 21:59 06/28/24 22:00 06/28/24 23:50 Temperature Pulse Rate 68 67 69 Respiratory Rate 18 Blood Pressure 128/53 L Pulse Oximetry 92 Oxygen Delivery Room Air 06/28/24 23:55 06/28/24 23:57 06/29/24 00:00 Temperature 36.6 C Pulse Rate 62 69 66 Respiratory Rate 18 Blood Pressure 140/63 Pulse Oximetry 92 Oxygen Delivery 06/29/24 01:54 06/29/24 03:40 06/29/24 04:00 Temperature Pulse Rate 57 L 62 66 Respiratory Rate 16 Blood Pressure Pulse Oximetry Oxygen Delivery Room Air 06/29/24 04:00 06/29/24 04:00 06/29/24 05:12 Temperature 36.8 C Pulse Rate 64 67 Respiratory Rate 18 Blood Pressure 139/67 Pulse Oximetry 93 93 Oxygen Delivery Room Air 06/29/24 06:04 Temperature Pulse Rate 66 Respiratory Rate Blood Pressure Pulse Oximetry Oxygen Delivery Intake/Output Intake/Output: Intake & Output 06/26/24 06/27/24 06/28/24 06/29/24 23:59 23:59 23:59 23:59 Intake Total 3023.2 1260 Output Total 2465 200 Balance 558.2 1060 Meds/Results Medications: Active Medications Generic Name Dose Route Start Last Admin Trade Name Abdullahiq PRN Reason Stop Dose Admin Acetaminophen 650 mg 06/28/24 01:24 06/28/24 22:10 Acetaminophen 325 Mg Tablet PO 650 mg Q4H PRN Administration Mild Pain (1-3) or Fever Acetaminophen 1,000 mg 06/28/24 08:58 Acetaminophen 500 Mg Tablet PO TID PRN pain (scale score 1-3) Alprazolam 0.5 mg 06/28/24 08:58 Alprazolam (*Crx) 0.5 Mg Tablet PO TID PRN Anxiety Amlodipine Besylate 10 mg 06/28/24 09:00 06/28/24 09:29 Amlodipine Besylate 10 Mg Tablet PO 10 mg DAILY ANGELIQUE Administration Artificial Tears 1 drop 06/28/24 09:00 06/28/24 17:37 Artificial Tears Ophth Soln 15 Ml Bottle EACH EYE 07/28/24 08:59 1 drop TID ANGELIQUE Administration Folic Acid 1 mg 06/28/24 09:00 06/28/24 09:29 Folic Acid 1 Mg Tablet PO 1 mg DAILY ANGELIQUE Administration Gabapentin 300 mg 06/28/24 09:00 06/28/24 17:36 Gabapentin 300 Mg Capsule PO 300 mg TID ANGELIQUE Administration Sodium Chloride 1,000 mls @ 125 mls/hr 06/28/24 01:25 06/29/24 06:09 Normal Saline Iv IV CONT 125 mls/hr .Q8H ANGELIQUE Administration Levothyroxine Sodium 88 mcg 06/28/24 09:00 06/29/24 06:04 Levothyroxine Sodium 88 Mcg Tablet PO 88 mcg DAILY@0630 ANGELIQUE Administration Lidocaine 1 patch 06/28/24 09:17 Lidocaine 5% Patch TRANSDERM DAILY PRN arthritic pain. Meclizine HCl 25 mg 06/28/24 08:58 Meclizine Hcl 25 Mg Tablet PO DAILY PRN dizziness Methotrexate 7.5 mg 06/28/24 09:00 06/28/24 17:36 Methotrexate 2.5 Mg Tab (*Chemo) PO 7.5 mg Fr@0900,1700 ANGELIQUE Administration Metoprolol Tartrate 25 mg 06/28/24 13:15 06/29/24 06:04 Metoprolol Tartrate 25 Mg Tablet PO 25 mg Q6HR ANGELIQUE Administration Multivitamins Therapeutic 1 tablet 06/28/24 09:00 06/28/24 09:29 Multivitamins Therapeutic Tab (*Bkc) PO 1 tablet DAILY ANGELIQUE Administration Multivitamins/Minerals 2 tablet 06/28/24 09:00 06/28/24 09:28 Opti-Gen Tab PO 07/28/24 08:59 2 tablet DAILY ANGELIQUE Administration Olmesartan 40 mg 06/28/24 09:00 06/28/24 09:28 Olmesartan Medoxomil 20 Mg Tablet PO 07/28/24 08:59 40 mg DAILY ANGELIQUE Administration Ondansetron HCl 4 mg 06/28/24 08:58 Ondansetron Hcl Odt 4 Mg Tablet PO Q6H PRN nausea and vomiting Rivaroxaban 20 mg 06/28/24 18:00 06/28/24 17:36 Rivaroxaban 20 Mg Tablet PO 20 mg QPM ANGELIQUE Administration Rosuvastatin Calcium 20 mg 06/28/24 18:00 06/28/24 17:36 Rosuvastatin 20 Mg Tablet PO 20 mg QPM ANGELIQUE Administration Spironolactone 25 mg 06/28/24 09:00 06/28/24 09:29 Spironolactone 25 Mg Tablet PO 25 mg DAILY ANGELIQUE Administration Vitamin D 2,000 units 06/28/24 09:00 06/28/24 09:28 Cholecalciferol 1,000 Units Tablet PO 2,000 units DAILY ANGELIQUE Administration Radiology Results: ITS Impressions Chest X-Ray 06/27/24 23:20 IMPRESSION: Mild pulmonary vascular congestion, without focal infiltrate or effusion. Labs Labs: Laboratory Results - last 24 hr 06/28/24 04:26 TSH 2.510
[2024-06-29 08:55] LABS: Hemoglobin 10.2 g/dL (12.0-15.0); Mean Corpuscular Hemoglobin 29.3 pg (26-34); Mean Corpuscular Volume 97.7 fl (80-100); Mean Platelet Volume 9.4 fl (7.4-10.4); Platelet Count Result 184 k/mm3 (150-375); Red Blood Count 3.48 M/mm3 (4.2-5.4); Red Cell Distribution Width 14.4 % (11.5-14.5)
[2024-06-29] MEDS: MULTIVITAMINS THERAPEUTIC TAB (*BKC) 1 TABLET PO (08:56)
[2024-06-29] MEDS: OPTI-GEN TAB 2 TABLET PO (08:56)
[2024-06-29] MEDS: GABAPENTIN 300 MG CAPSULE PO (08:56)
[2024-06-29] MEDS: OLMESARTAN MEDOXOMIL 20 MG TABLET 40 MG PO (08:56)
[2024-06-29] MEDS: ARTIFICIAL TEARS OPHTH SOLN 15 ML BOTTLE 1 DROP EACH EYE (08:57)
[2024-06-29] MEDS: CHOLECALCIFEROL 1,000 UNITS TABLET 2000 UNITS PO (08:57)
[2024-06-29] MEDS: amLODIPine BESYLATE 10 MG TABLET PO (08:57)
[2024-06-29] MEDS: ACETAMINOPHEN 500 MG TABLET 1000 MG PO (08:57)
[2024-06-29] MEDS: SPIRONOLACTONE 25 MG TABLET PO (08:57)
[2024-06-29] MEDS: FOLIC ACID 1 MG TABLET PO (08:57)
[2024-06-29 09:21] LABS: Anion Gap 7 mmol/L (4-12); Blood Urea Nitrogen 12 mg/dL (7-17); Calcium 9.1 mg/dL (8.4-10.2); Carbon Dioxide 24 mmol/L (22-30); Chloride 107 mmol/L (98-107); Estimated CRCL calculation 50 ml/min; Estimated Glomerular Filt Rate 54; Glucose 127 mg/dL (65-110); Magnesium 1.8 mg/dL (1.6-2.3); Potassium 4.1 mmol/L (3.4-5.0); Sodium 138 mmol/L (137-145)
--- NOTE | 2024-06-29 12:01 | PM.DS ---
DS: Admitting Diagnosis Discharge Date 06/29/24 Admitting Diagnosis chest pain DS: Discharge Diagnosis Discharge Diagnosis (1) Atrial fibrillation with rapid ventricular response: Code(s): I48.91 - Unspecified atrial fibrillation Status: Acute (2) HTN (hypertension): Code(s): I10 - Essential (primary) hypertension Status: Acute (3) Chronic anticoagulation: Code(s): Z79.01 - FDC (current) use of anticoagulants Status: Acute Plan ER-HPI narrative: 78-year-old with a history of atrial fibrillation on Xarelto here with a complaint some onset chest discomfort. Patient states that she saw her primary doctor this afternoon him at home supper with her daughter does sleep she started having blood patient not had chest radiating into her arms with mild shortness of breath. Denied having any chest pain. She states that she took all evening medication patient with history of atrial fibrillation and had been seen by the auxiliary engineer and was taking metoprolol 25mg BID to control rate however Patient develop CP and went into A.Fibrillation and started on diltiazem drip, rate is trending down, her auxiliary engineer increased her metoprolol 25mg q6, patient is anticoagulated with Xarelto, will monitor. will monitor, patient 3 sets of cardiac enzymes are negative, cardiac echo is pending patient is seen by auxiliary engineer and further recommendation to follow. DS: Summary Hospital Course Hospital Course: patient with history of atrial fibrillation and had been seen by the auxiliary engineer and was taking metoprolol 25mg BID to control rate however Patient develop CP and went into A.Fibrillation and started on diltiazem drip, rate is trending down, her auxiliary engineer increased her metoprolol 25mg q6, patient is anticoagulated with Xarelto, will monitor. will monitor, patient 3 sets of cardiac enzymes are negative, cardiac echo showed normal LV function and abnormal diastolic function, seen by auxiliary engineer continued metoprolol 50mg BID, xarelto, statin and norvasc, hold olmesartan, spironolactone given CLAUDY and resume when renal function is at baseline, patient is clinically stable, will dicharge patient home today. Time Spent with Patient Time attestation: Total time spent providing and/or coordinating discharge services: Exam Narrative: Patient is comfortable, NAD HEENT: eyes are clear and none icteric LUNGS: CTA HEART: Irregularly irregular ABD: BS+, Soft and nontender Lower extremities: no edema SKIN: nonjaundiced Neuro: grossly intact. DS: Data Data Completed and Pending Labs on day of discharge: Labs from last 24 hours 06/29/24 06/28/24 08:46 04:26 WBC 7.0 RBC 3.48 L Hgb 10.2 L Hct 34.0 L MCV 97.7 MCH 29.3 MCHC 30.0 L RDW 14.4 Plt Count 184 MPV 9.4 Sodium 138 Potassium 4.1 Chloride 107 Carbon Dioxide 24 Anion Gap 7 BUN 12 D Creatinine 1.00 Estim Creat Clear Calc 50 Estimated GFR 54 L Glucose 127 H Calcium 9.1 Magnesium 1.8 TSH 2.510 Discharge Plan Discharge Attending physician on discharge: Liya Perdue Consulting providers: Antoinette Pierson; Vivian Sorto; Laura Vanegas; Maira Dominguez Discharging Clinician: Lalit Rushing Patient Disposition: Home Activity: as tolerated Diet: heart healthy Discharge Instructions: patient to follow discharge care instruction from her auxiliary engineer and follow up as scheduled, patient to follow up with her primary care provider as soon as possible. Patient Instructions: Antibiotic Form, Rivaroxaban (By mouth), A-fib (Atrial Fibrillation) (DC) Patient Language: Togolese Stand Alone Forms: General Discharge Information Follow-up/Referrals: Antoinette Pierson MD [Physician] - [facility],Blair Wiggins MD [Primary Care Provider] - Discharge Medications: New metoprolol tartrate 50 mg tablet 50 mg PO Q12H Qty: 60 0RF Continued alprazolam 0.5 mg tablet 0.5 mg PO TID PRN (Reason: Anxiety) gabapentin 300 mg capsule 300 mg PO TID Xarelto 20 mg tablet 20 mg PO DAILY levothyroxine 88 mcg Tablet 88 mcg PO DAILY Rx Instructions: Pt instructed to take the 88mcg PO daily until bottle runs out and then increase to 100mcg PO daily. meclizine 25 mg Tablet 25 mg PO DAILY PRN (Reason: dizziness) ondansetron 4 mg tablet,disintegrating 4 mg PO Q6H PRN (Reason: nausea and vomiting) Qty: 10 0RF acetaminophen 500 mg tablet 1,000 mg PO TID PRN (Reason: pain (scale score 1-3)) 7 Days Qty: 42 0RF lidocaine [Lidocaine Pain Relief] 4 % adhesive patch,medicated 1 patch topical BID PRN (Reason: arthritic pain.) Rx Instructions: Apply one patch to area of arthritis pain BID PRN arthritic pain. rosuvastatin 20 mg tablet 20 mg PO .Evening multivitamin Tablet 1 tablet PO DAILY cholecalciferol (vitamin D3) [Vitamin D3] 50 mcg (2,000 unit) tablet 50 mcg PO DAILY PreserVision AREDS-2 250-90-40-1 mg capsule 2 tablet PO DAILY carboxymethylcellulose sodium [Refresh Tears] 0.5 % drops 1 drp EACH EYE TID amlodipine 10 mg tablet 10 mg PO DAILY folic acid 1 mg tablet 1 mg PO DAILY methotrexate sodium 2.5 mg tablet 7.5 mg PO .COMPLEX Rx Instructions: 7.5 mg orally BID weekly on Fridays. Held olmesartan 40 mg tablet 40 mg PO DAILY Hold Instructions: until seen by her auxiliary engineer spironolactone 25 mg tablet 25 mg PO DAILY Hold Instructions: until seen by her auxiliary engineer Discontinued metoprolol tartrate 25 mg Tablet 25 mg PO Q12HR Qty: 60 0RF Date of admission: 06/28/24 01:24 Primary Care Provider: Stefano,Blair Wiggins Admitting Provider: Liya Perdue Attending physician on admission: Lalit Rushing Condition: Stable
== END 2024-06-29 12:57 | disposition home or self-care (01) ==
LOC: ANHED 06-28 00:12 → ANHIMU 06-28 04:11
PROVIDERS: Nurse Practitioner; Admitting Provider Internal Medicine; Emergency Provider Family Medicine; PCP Family Medicine; Visit Provider Family Medicine
DX: I48.91 Unspecified atrial fibrillation (principal); N17.9 Acute kidney failure, unspecified; I10 Essential (primary) hypertension; E03.9 Hypothyroidism, unspecified; F17.210 Nicotine dependence, cigarettes, uncomplicated; G47.33 Obstructive sleep apnea (adult) (pediatric); H35.30 Unspecified macular degeneration; E55.9 Vitamin D deficiency, unspecified; K21.9 Gastro-esophageal reflux disease without esophagitis; G62.9 Polyneuropathy, unspecified; Z79.01 Long term (current) use of anticoagulants; Z79.899 Other long term (current) drug therapy; Z86.711 Personal history of pulmonary embolism; Z86.73 Personal history of transient ischemic attack (TIA), and cerebral infarction without residual deficits; Z96.1 Presence of intraocular lens; Z98.42 Cataract extraction status, left eye; Z98.41 Cataract extraction status, right eye
CPT/HCPCS: 36415; 71046; 80048; 80053; 83690; 83735; 84443; 84484; 85025; 85027; 85610; 85730; 93005; 94762; 96361; 96366; 96374; 96375; 99285; A9270; C8929; G0378; J7030; J7040; Q9957

== ENCOUNTER 2024-10-09 09:30 | Outpatient (CLI) | payer MEDICARE, SELFPAY ==
--- NOTE | ~2024-10-09 | XR_ITS ---
EXAM/PROCEDURE: XR chest 2V - 10/09/2024 10:30 CDT HISTORY: 78 years old Female with Cough,unspecified, PA/LA TECHNIQUE: Two view(s) of the chest. COMPARISON: None available. FINDINGS: LUNGS/ PLEURA: Mild vascular congestion with increased interstitial markings. HEART/ MEDIASTINUM: Mild cardiomegaly. Tortuous aorta. BONES: Degenerative changes. OTHER: Visualized upper abdomen is unremarkable. IMPRESSION: Mild CHF. Superimposed infection cannot be excluded. Reviewed, dictated and finalized at location A.
--- OUTSIDE RECORDS SUMMARY | 2024-10-09 09:41 | XMS_ITS | Clinical Summary ---
Author Organization [facility] Address [address] [place] [address] Care Team Providers Care Stopper Grinder Name Role Phone Blair Agarwal MD Primary Care Provider Frank Whitney MD Unavailable [phone] Allergies No known active allergies Medications vitamins A,C,S-iqtc-klgbct (ICAPS) 14,320226-200 kssj-zm-thqu capsule Take 2 capsules by mouth daily Active MULTIVITAMIN ORAL Take by mouth Active cholecalciferol (VITAMIN D-3) 1,000 unit capsule 1 capsule (1,000 Units total) daily Active meclizine (ANTIVERT) 25 mg tablet Take 1 tablet (25 mg total) by mouth 3 (three) times a day as needed for dizziness 90 tablet 1 11/03/19 21 Active carboxymethylcell ulose-glycern (Refresh Optive) 0.5-0.9 % drops Administer into affected eye(s) Active folic acid (FOLVITE) 1 mg tablet Take 1 tablet (1,000 mcg total) by mouth daily 06/29/19 24 Active methotrexate 2.5 mg tablet Take 1 tablet (2.5 mg total) by mouth 09/04/19 24 Active ondansetron ODT (ZOFRAN-ODT) 4 mg disintegrating tablet Take 1 tablet (4 mg total) by mouth every 8 (eight) hours as needed for nausea or vomiting 20 tablet 11/27/19 24 Active Xarelto 20 mg tablet TAKE 1 TABLET BY MOUTH DAILY 100 tablet 2 12/22/19 24 Active levothyroxine (SYNTHROID) 100 mcg tablet Take 1 tablet (100 mcg total) by mouth daily 90 tablet 3 06/28/19 25 Active metoprolol tartrate (LOPRESSOR) 50 mg immediate release tabletIndications :Paroxysmal atrial fibrillation (HCC) Take 1 tablet (50 mg total) by mouth every 12 (twelve) hours 180 tablet 3 07/20/19 25 Active amLODIPine (NORVASC) 10 mg tabletIndications :Uncontrolled hypertension TAKE 1 TABLET BY MOUTH DAILY 100 tablet 1 07/26/19 25 Active ALPRAZolam (XANAX) 0.5 mg tabletIndications :JERRELL (generalized anxiety disorder) TAKE 1 TABLET BY MOUTH DAILY NEEDED FOR ANXIETY 90 tablet 08/01/19 25 Active rosuvastatin (CRESTOR) 20 mg tablet Take 1 tablet (20 mg total) by mouth nightly 90 tablet 6 08/03/19 25 Active gabapentin (NEURONTIN) 300 mg capsule TAKE 1 CAPSULE BY MOUTH 3 TIMES DAILY 300 capsule 10/05/19 25 Active gabapentin (NEURONTIN) 300 mg capsule TAKE 1 CAPSULE BY MOUTH 3 TIMES DAILY 300 capsule 2 12/22/19 24 2024 Discontinued Active Problems Problem Noted Date [...] 11/02/2020 06/21/2023 Low blood potassium 11/02/2020 12/09/19 Elevated troponin 11/02/2020 12/08/2022 Herpes zoster without complication 05/02/2019 04/27/2023 History of pulmonary embolism 08/06/2018 09/13/2021 TIA (transient ischemic attack) 09/09/2015 06/21/2023 Encounters Date Type Department Care Team Description 10/04/2024 Telephone [facility] Family Medicine at [address] [place] [phone] Blair Agarwal MD Medical Records Request 09/10/2024 Telephone [facility] Medicine at [address] [place] [phone] Blair Agarwal MD Med Refill 08/13/2024 Telephone [facility] Medicine at [address] [place] [phone] Blair Agarwal MD Symptom Based Call 08/02/2024 Telephone [facility] Cardiology [address] [place] [phone] Kiran Arevalo MD 07/19/2024 11:30 AM CDT Office Visit [facility] Cardiology [address] [place] [phone] Kala Molina NP Paroxysmal atrial fibrillation (HCC) (Primary Dx); Chronic anticoagulation; Essential hypertension from Last 3 Months Immunizations Immunization Administration [...] Types Packs/Day Years Used Date Smoking Tobacco: Former Cigarettes Q uit: 12/29/2020 Smokeless Tobacco: Never Tobacco Cessation:Counseling Given: Not Answered Alcohol Use Standard Drinks/Week [...] Sign Reading Time Taken Comments Blood Pressure 134/66 07/19/2024 11:46 AM CDT Pulse 56 07/19/2024 11:46 AM CDT Temperature 36.7 C (98 F) 07/03/2024 1:29 PM CDT Respiratory Rate 18 06/11/2024 2:25 PM CDT Oxygen Saturation 96% 07/19/2024 11:46 AM CDT Inhaled Oxygen Concentration - - Weight 107.5 kg (237 lb) 07/19/2024 11:46 AM CDT Height 165.1 cm (5' 5) 07/19/2024 11:46 AM CDT Body Mass Index 39.44 07/19/2024 11:46 AM CDT Plan of Treatment Health Maintenance Due Date Last Done Comments Hepatitis C Screening 1945 DTaP/Tdap/Td Vaccine (1 - Tdap) 1956 Hepatitis B Screening 11[birth year]06/1963 Covid-19 Vaccine (9 - Pfizer risk season) 2024 11/16/2023, 01/10/2023, 09/28/2022, Additional history exists Influenza Vaccine (#1) 2024 , 11/16/2023, 12/08/2022, Additional history exists Osteoporosis Screening-Bone Density Scan 01/26/2025 01/26/2023, 08/17/2018, 09/23/2013 Depression Screening 06/27/2025 06/27/2024, 06/21/2023, 06/08/2022, Additional history exists Fall Risk Assessment 06/27/2025 06/27/2024, 06/21/2023, 06/08/2022, Additional history exists Well Visit 65+ 06/27/2025 06/27/2024, 05/02/2023, 06/08/2022, Additional history exists Breast Cancer Screening-Mammogram [...] Read Routine (OP Routine) 01/26/2023 10:09 AM SLIPCOVER CUTTER Postmenopausal status COLONOSCOPY Routine 10/24/2020 SCREENING MAMMOGRAM BILATERAL W BALA Routine 11/25/2014 8:54 AM CDT from Last 3 Months or Most Recently Relevant to Health Maintenance Results * Dexa Axial Skeleton Bone Density 1 or 2 Site (01/26/2023 10:09 AM SLIPCOVER CUTTER) Anatomical Region Laterality Modality Body N/A Mammography 01/26/2023 10:5 9 AM SLIPCOVER CUTTER Narrative 01/26/2023 11:00 AM SLIPCOVER CUTTER EXAM DESCRIPTION: DEXA AXIAL SKELETON BONE DENSITY 1 OR MORE SITES REASON FOR STUDY: 77 y/o year old F with given history of: Postmenopausal status. Patient has taken/is taking vitamin-D. History of prior fracture and smoking Departmental Secretary/Model: OffScale Horizon A (S/N [id number]) CLINICAL INFORMATION: Current height: 64 inches Maximum [...] Ml Ross M.D. TW: TW Report ID: [id number] Reading Location: [id number] Procedure Note Ml Ross MD - 01/26/2023 EXAM DESCRIPTION: DEXA AXIAL SKELETON BONE DENSITY 1 OR MORE SITES REASON FOR STUDY: 77 y/o year old F with given history of:Postmenopausal status. Patient has taken/is taking vitamin-D. History of prior fractureand smoking Departmental Secretary/Model: Hologic Horizon A (S/N [id number]) CLINICAL INFORMATION: Current height: 64 inches Maximum [...] Ml Ross M.D. TW: TW Report ID: [id number] Reading Location: [id number] Blair Agarwal MD IMG DXA PROCEDURES Final [...] Electronically signed by: Shukri Noe md/:11/25/2014 10:14:56 Sound Engineering Technician: Mariah TERAN (R)(M), [facility] letter sent: Normal Exam Reading location: BI-RADS: 2 Benign [EOD] Narrative 11/25/2014 10:18 AM CDT - [facility] BILAT SCREENING 3D W/CAD BILATERAL DIGITAL [...] 09/23/2013 mammogram and 09/29/2011 mammogram/ultrasound - [facility]. BREAST TISSUE: There are scattered fibroglandular densities [...] Provider, MD Carlos Manuel - 07/07/2020 - [facility] BILAT SCREENING 3D W/CAD BILATERAL DIGITAL [...] 09/23/2013 mammogram and 09/29/2011 mammogram/ultrasound - [facility]. BREAST TISSUE: There are scattered fibroglandular densities [...] Electronically signed by: Shukri Noe md/:11/25/2014 10:14:56 Sound Engineering Technician: Mariah Herrera RT (R)(M), [facility] letter sent: Normal Exam Reading location: BI-RADS: 2 Benign [EOD] us Blair Agarwal MD IMG MAMMO PROCEDURES Final Re sult from Last 3 Months or Most Recently Relevant to Health Maintenance Insurance [facility] MEDICARE ADVANTAGE [facility] MEDICARE ADVANTAGE Advance Directives For more information, please contact: [phone] Documents on File Type Date Recorded Patient Fitness Teacher Expl anation ADVANCE DIRECTIVE 05/14/2020 Care Teams Stopper Grinder Relationship Specialty Start Date End Date Blair Agarwal MD [address] [place] [address] PCP - General 06/23/18 [place] [address] [facility] [address] [place] [id number] Referring Physician Rheumatology 09/05/23
--- OUTSIDE RECORDS SUMMARY | 2024-10-09 09:41 | XMS_ITS | Clinical Summary ---
Author Organization [facility] Address [address] [place] [address] Care Team Providers Care Diplomatic Courier Name Role Phone Blair Agarwal MD Primary Care Provider [phone] Source Comments [facility],non-owned Affiliates and Associated Physician Practices is amultiple site organization consisting of ambulatory clinics and hospital sitesin [place], [place], [place] and [place]. This disclosure is being madepursuant to the Care Everywhere program and may not contain all information available regarding this patient. Last updated 17.[facility] Allergies No known active allergies Medications * [...] - 1-dose 75+ series) 2020 COVID-19 VACCINE ( - 2023- season) 2023 09/28/2022, 11/20/2021, 11/17/2021, Additional history exists DEPRESSION SCREENING 02/21/2024 MEDICARE AWV CALENDAR YEAR 2024 INFLUENZA VACCINE (#1) 2024 2, 12/19/2020, 11/07/2019, Additional history exists BONE DENSITY [...] age to complete this topic Insurance [facility] [employer] MANAGED MEDICARE ADV Care Teams Diplomatic Courier Relationship Specialty Start Date End Date Blair Agarwal MD [address] [facility] [address] [phone] PCP - General 05/29/17
--- OUTSIDE RECORDS SUMMARY | 2024-10-09 09:41 | XMS_ITS | Encounter Summary ---
Author Organization [facility] Facility Care Team Providers Care Block Sorter Name Role Phone Blair Agarwal MD Primary Care Provider [phone] Frank Whitney MD Unavailable [phone] Encounter Details Date Type Department Care Team (Latest Contact Info) Description 04/06/2018 Orders Only [facility] CLINCONV ProviderCarlos Manuel MD [address] [place] [phone] Social History Tobacco Use Types Packs/Day Years [...] PROCEDURE - RESULT 04/06/2018 12 :00 AM MANAGER PMO documented in this encounter Results * PROCEDURE - RESULT (04/06/2018 12:00 AM MANAGER PMO) Narrative 04/06/2018 12:00 AM MANAGER PMO Ordered by an unspecified provider. Historical Provider Final Res ult documented in this encounter Visit Diagnoses Not on filedocumented in this encounter Care Teams Block Sorter Relationship Specialty Start Date End Date lBair Agarwal MD [address] [facility] [place] [address] PCP - General 06/23/18 [place] [id number] [address] Referring Physician Rheumatology 09/05/23 documented as of this encounter
--- OUTSIDE RECORDS SUMMARY | 2024-10-09 09:41 | XMS_ITS | Clinical Summary ---
Author Organization [facility] Address [address] [place] [id number] Care Team Providers Care Sand Mill Grinder Name Role Phone Unavailable Primary Care Provider [...]
--- OUTSIDE RECORDS SUMMARY | 2024-10-09 09:41 | XMS_ITS | Encounter Summary ---
Author Organization [facility] Healthcare Address [address] [place] [address] Care Team Providers Care Orthopaedic Surgeon Name Role Phone Blair Agarwal MD Primary Care Provider [phone] Frank Whitney MD Unavailable [phone] Reason for Visit * Reason Onset Date Comments Medical Records Request 10/04/2024 Encounter Details Date Type Department Care Team (Late st Contact Info) Description 10/04/2024 Telephone [facility] Medical Group Family Medicine at [address] [place] [address] Blair Agarwal MD [address] [place] [id number] Medical Records Request Social History Tobacco Use Types Packs/Day Years Used Date Smoking Tobacco: Former Cigarettes Q uit: 12/29/2020 Smokeless Tobacco: Never Alcohol Use Standard [...] on file documented as of this encounter Miscellaneous Notes * Telephone Encounter - Priscila Balbuena - 10/04/2024 9:33 AM CDT Faxed labs to [phone]. There was no Imaging * Telephone Encounter - Anny Hobbs - 10/04/2024 9:17 AM CDT Medical Records Request Request Type: Records Request Practice Will Complete What records are being requested:recent labs & recent xray Who will the records be sent to (if being sent to another doctor, list the doctor's name and specialty)? Dr Claudia Wlikerson, [employer] Date Needed: before 10/24/24 visit Delivery Method: Fax Fax number to use for return of records: [phone] Additional Comments/Concerns: Pt calling as she was seen with Dr Wilkerson yesterday and will need recent labs & recent xray faxed to her before pt's 10/24/24 visit Does the message need to be routed? Yes-Action Needed documented in this encounter Plan of Treatment Not on file documented as of this encounter Visit Diagnoses Not on filedocumented in this encounter Care Teams Orthopaedic Surgeon Relationship Specialty Start Date End Date Blair Agarwal MD [address] [facility] [address] [place] [address] PCP - General 06/23/18 [place] [address] [facility] [address] [place] [id number] Referring Physician Rheumatology 09/05/23 documented as of this encounter
[2024-10-09 10:45] LABS: Hematocrit 35.9 % (37.0-47.0); Hemoglobin 11.0 g/dL (12.0-15.0); Immature Granulocyte Percent A 0.4 % (0-0.5); Lymphocytes Absolute Auto 1.16 K/mm3 (0.9-3.2); Mean Corpuscular HGB Conc 30.6 g/dl (32-36); Mean Corpuscular Hemoglobin 29.2 pg (26-34); Mean Corpuscular Volume 95.2 fl (80-100); Nucleated Red Blood Cells Absolute Auto 0.000 K/mm3 (0.0-0.012); Nucleated Red Blood Cells Perc 0.0 % (0.0-0.2); Platelet Count Result 269 k/mm3 (150-375); Red Blood Count 3.77 M/mm3 (4.2-5.4); White Blood Count 6.9 K/mm3 (4.5-10.0)
[2024-10-09 10:52] LABS: Add Urine Microscopic? YES; Appearance Urine Cloudy (Clear); Glucose Urine UA Negative (Negative); Leukocyte Esterase Ur 3+ LEU/UL (Negative); Nitrate Urine Positive (Negative); Non Pathogenic Casts 0-2; Specific Grav Ur 1.012 (1.001-1.035)
[2024-10-09 11:03] LABS: Alanine Aminotransferase 13 U/L (6-35); Albumin Level 4.1 g/dL (3.5-5.1); Alkaline Phosphatase 64 U/L (38-126); Anion Gap 7 mmol/L (4-12); Aspartate Amino Transferase 23 U/L (14-36); Bilirubin,Total 0.4 mg/dL (0.2-1.3); Blood Urea Nitrogen 14 mg/dL (7-17); CRP 0.7 mg/dL (<1.0); Calcium 10.0 mg/dL (8.4-10.2); Carbon Dioxide 29 mmol/L (22-30); Chloride 104 mmol/L (98-107); Estimated Glomerular Filt Rate 52; Glucose 90 mg/dL (65-110); Potassium 4.0 mmol/L (3.4-5.0); Sodium 140 mmol/L (137-145); Total Protein 7.7 g/dL (6.3-8.2); Uric Acid 3.6 mg/dL (2.5-7.5)
[2024-10-09 11:51] LABS: Hepatitis B Surface Anti Res Negative
[2024-10-10 13:09] LABS: Anti-CCP Ab, IgG/IgA >250 units (0-19)
[2024-10-11 14:08] LABS: ANA by IFA Rfx Titer/Pattern Negative (.)
== END 2024-10-09 09:31 | disposition home or self-care (01) ==
PROVIDERS: PCP Family Medicine; Visit Provider Internal Medicine
DX: M06.9 Rheumatoid arthritis, unspecified (principal); R05.9 Cough, unspecified; I11.0 Hypertensive heart disease with heart failure; I50.9 Heart failure, unspecified; Z87.891 Personal history of nicotine dependence
CPT/HCPCS: 36415; 71046; 80053; 81001; 84100; 84550; 85025; 85652; 86038; 86140; 86200; 86235; 86430; 86480; 86706

== ENCOUNTER 2024-12-29 18:56 | Emergency (ER) | payer MEDICARE, SELFPAY ==
--- NOTE | ~2024-12-29 | XR_ITS ---
EXAMINATION: XR chest 1V portable COMPARISON: No comparisons available. HISTORY: shortness of breath FINDINGS: Mild pulmonary venous congestion. No pneumothorax. Mild cardiomegaly. Mediastinal and hilar contours are within normal limits. Bony thorax no acute abnormality. Miscellaneous: None Impression: CHF Reviewed, dictated and finalized at location P. STANT PROFESSOR SURGICAL TECHNOLOGY Impression: CHF
--- NOTE | 2024-12-29 18:58 | ECG_ITS ---
Test Date: 2024-12-29 19:06:24 Measurements Intervals [place] Rate: 158 P: 0 MA: 0 QRS: -6 QRSD: 96 T: 19 QT: 286 QTc: 464 Interpretive Statements ATRIAL FIBRILLATION WITH RAPID VENTRICULAR RESPONSE POSSIBLE ANTERIOR MYOCARDIAL INFARCTION , PROBABLY OLD [30 ms Q WAVE IN V3/V4, OR R < 0.2 mV IN V4] Electronically Signed On 12-30-2024 18:23:08 BRAZER CRAWLER TORCH by Nathan Caldwell M.D.
--- OUTSIDE RECORDS SUMMARY | 2024-12-29 18:58 | XMS_ITS | Encounter Summary ---
Author Organization [facility] Healthcare Address [address] [place] [id number] Care Team Providers Care Repairer Maintenance Building Name Role Phone Blair Agarwal MD Primary Care Provider [phone] Frank Whitney MD Unavailable [phone] Encounter Details Date Type Department Care Team (Late st Contact Info) Description 12/25/2024 Results Follow-Up [facility] Medical Group Family Medicine at [address] [address] Blair Agarwal MD [address] [place] [id number] Lipid panel, Comprehensive metabolic panel, CBC with auto differential, Additional followed-up results: 5 Social History Tobacco Use Types Packs/Day Years [...] points, staff should administer the PHQ-9) 0 12/16/2024 Comments No Sex and Gender Information Value Date Recorded Sex Assigned at Not on file Legal Sex Female 8:25 AM CDT Gender Identity Not on file Sexual Orientation Not on file documented as of this encounter Plan of Treatment Not on file documented as of this encounter Visit Diagnoses Not on filedocumented in this encounter Care Teams Repairer Maintenance Building Relationship Specialty Start Date End Date Blair Agarwal MD [address] [facility] [address] [place] [address] PCP - General 06/23/18 [place] [address] [facility] [address] [place] [address] Referring Physician Rheumatology 09/05/23 documented as of this encounter
--- OUTSIDE RECORDS SUMMARY | 2024-12-29 18:58 | XMS_ITS | Clinical Summary ---
Author Organization [facility] Office Center Address [address] [place] [address] Care Team Providers Care Supervisor Machine Setter Name Role Phone Blair Agarwal MD Primary Care Provider [phone] Frank Whitney MD Unavailable [phone] Allergies No known active allergies Medications vitamins A,C,E-ffed-oqdmnb (ICAPS) 14,320226-200 fail-wl-daul capsule Take 2 capsules by mouth daily [...] 1 tablet (2.5 mg total) by mouth 8 tablets once a week 09/04/19 24 Active ondansetron ODT (ZOFRAN-ODT) 4 [...] daily 90 tablet 3 06/28/19 25 Active amLODIPine (NORVASC) 10 mg tabletIndications: Uncontrolled hypertension TAKE 1 TABLET BY MOUTH DAILY 100 tablet 1 07/26/19 25 Active ALPRAZolam (XANAX) 0.5 mg tabletIndications: JERRELL (generalized anxiety disorder) TAKE 1 TABLET BY MOUTH DAILY NEEDED FOR ANXIETY 90 tablet 08/01/19 25 Active rosuvastatin (CRESTOR) 20 mg tablet Take 1 tablet (20 mg total) by mouth nightly 90 tablet 6 08/03/19 25 Active gabapentin (NEURONTIN) 300 mg capsule TAKE 1 CAPSULE BY MOUTH 3 TIMES DAILY 300 capsule 10/05/19 25 Active metoprolol XL (TOPROL-XL) 50 mg extended release tablet Take 1 tablet (50 mg total) by mouth nightly 90 tablet 3 12/13/19 25 Active hydroxychloroquine (PLAQUENIL) 200 mg tablet Take 1 tablet (200 mg total) by mouth 2 (two) times a day Active methocarbamoL (ROBAXIN) 500 mg tabletIndications: Acute right-sided low back pain with right-sided sciatica Take 1 tablet (500 mg total) by mouth 3 (three) times a day as needed for muscle spasms 40 tablet 12/17/19 25 Active metoprolol tartrate (LOPRESSOR) 50 mg immediate release tabletIndications: Paroxysmal atrial fibrillation (HCC) Take 1 tablet (50 mg total) by mouth every 12 (twelve) hours 180 tablet 3 07/20/19 25 025 Discontin ued(Alter jamel therapy) olmesartan (BENICAR) 40 mg tabletIndications: Essential hypertension Take 1 tablet (40 mg total) by mouth daily 90 tablet 3 12/13/19 25 025 Discontin ued(Reord er) olmesartan (BENICAR) 40 mg tabletIndications: Essential hypertension Take 1 tablet (40 mg total) by mouth daily 90 tablet 3 12/13/19 25 025 Discontin ued(Thera py completed ) Active Problems Problem Noted Date Diagnosed Date [...] Encounters Date Type Department Care Team Description 12/25/2024 9:00 AM COST MANAGER Lab [facility] [place] [facility] [address] [place] [address] Medicare annual wellness visit, subsequent; Mixed hyperlipidemia; Stage 3a chronic kidney disease (HCC); Primary hypertension; PMR (polymyalgia rheumatica); Acquired hypothyroidism 12/25/2024 Results Follow-Up [facility] at [address] [place] [phone] Blair Agarwal MD Lipid panel, Comprehensive metabolic panel, CBC with auto differential, Additional followed-up results: 5 12/22/2024 Results Follow-Up [facility] Family Medicine at [address] [place] [phone] Lumbar Spine WO Contrast 12/20/2024 12:56 PM CDT - 12/20/2024 11:59 PM CDT Hospital Encounter [facility] [address] [place] [phone] Acute right-sided low back pain with right-sided sciatica; Compression deformity of vertebra Discharge Disposition: Discharge to home or self care 12/19/2024 Telephone [facility] at [address] [place] [address] Blair Agarwal MD Medical Question/Miscellaneo us 12/16/2024 9:52 AM CDT - 12/16/2024 11:59 PM CDT Hospital Encounter [facility] Imaging [address] [place] [address] Acute right-sided low back pain with right-sided sciatica Discharge Disposition: Discharge to home or self care 12/16/2024 9:15 AM CDT Office Visit [facility] Family Medicine at [address] [place] [address] Marlena Marcial PA Acute right-sided low back pain with right-sided sciatica (Primary Dx); Need for influenza vaccination 12/16/2024 Results Follow-Up [facility] at [address] [place] [phone] Marlena Marcial PA XR Spine Lumbar 2 Or 3 Vw 12/13/2024 Nurse Triage [facility] Family Medicine at [address] [place] [phone] Cyndy Weinberg, RACHEAL 12/12/2024 2:00 PM CDT Office Visit [facility] Cardiology [address] [place] [address] Kala Molina NP Paroxysmal atrial fibrillation (HCC); Chronic anticoagulation; Essential hypertension; Obesity, class 3 (E66.813); Body mass index [BMI] 40.0-44.9, adult (Z68.41) 11/06/2024 Telephone [facility] Family Medicine at [address] [place] [address] Blair Agarwal MD Medical Records Request 10/18/2024 ACO Medication Access [facility] Accountable Care Organization [address] [place] [address] Ashli Soria sail finisher machine 10/17/2024 Telephone [facility] Medicine at [address] [place] [address] Blair Agarwal MD Symptom Based Call 10/15/2024 Telephone [facility] at [address] [phone] Blair Agarwal MD [facility] 10/09/[address] [facility] [address] [place] [address] Blair Agarwal MD 10/04/2024 Telephone [facility] Family Medicine at [address] [place] [phone] Blair Agarwal MD Medical Records Request from Last 3 Months Immunizations Immunization Administration Dates Next Due Influenza, Quad, Adjuvantate d, Intramuscular 11/20/2021,11/20/2020 Influenza, Quadrivalent, Hig h Dose, Preservative Free, Intrr 12/08/2022 Influenza, Quadrivalent, Rec ombinant, Egg Free, Preservative Free, Intramuscular 11/07/2019 Influenza, Quadrivalent, Spl it, Intramuscular 12/02/2017 Influenza, Trivalent, Adjuva nted, Intramuscular 12/28/2018,12/02/2017 Influenza, Trivalent, High D ose, Split, Preservative Free, Intramuscular 12/16/2024,11/16/2023,03/20/2017 Influenza, Unspecified 11/21/2023,11/17/2021, Pfizer SARS-CoV-2 Monovalent Vaccination (12+ Yrs) PURPLE 11/17/2021,05/08/2020,04/19/2020 [employer] Sars-Cov-2 Bivalent V accination (12+ YRS) 09/28/2022,11/20/2021 [...] Sign Reading Time Taken Comments Blood Pressure 142/74 12/16/2024 9:15 AM CDT Pulse 75 12/16/2024 9:15 AM CDT Temperature 36.5 C (97.7 F) 12/16/2024 9:15 AM CDT Respiratory Rate 18 06/11/2024 2:25 PM CDT Oxygen Saturation 95% 12/16/2024 9:15 AM CDT Inhaled Oxygen Concentration - - Weight 110.7 kg (244 lb 1.6 oz) 12/16/2024 9:15 AM CDT Height 165.1 cm (5' 5) 12/16/2024 9:15 AM CDT Body Mass Index 40.62 12/16/2024 9:15 AM CDT Plan of Treatment Health Maintenance Due Date Last Done Comments Hepatitis C Screening 1945 DTaP/Tdap/Td Vaccine (1 - Tdap) 1956 Hepatitis B Screening 11/06/1963 Covid-19 Vaccine (2024-2 6 season) 2024 11/16/2023, 01/10/2023, 09/28/2022, Additional history exists Osteoporosis Screening-Bone Density Scan 01/26/2025 01/26/2023, 08/17/2018, 09/23/2013 Well Visit 65+ 06/27/2025 06/27/2024, 05/0 02/2023, 06/08/2022, Additional history exists Depression Screening 12/16/2025 12/16/2024, 06/27/2024, 06/21/2023, Additional history exists Fall Risk Assessment 12/16/2025 12/16/2024, 06/27/2024, 06/21/2023, Additional history exists Breast Cancer Screening-Mammogram Discontinued 015, 09/23/2013 Pneumococcal vaccine 65+ Completed 03/11/2015, 08/20 Colon Cancer Screening-CT Colonography Discontinued 10/24/2020 Colon Cancer Screening-Colonoscopy Discontinued 10/24/2020 Colon Cancer Screening-DNA Stool Discontinued 10/25/19 Colon Cancer Screening-FIT Discontinued 10/24/2020 Colon Cancer Screening-FOBT Discontinued 10/24/2020 Colon Cancer Screening-Sigmoidoscopy Discontinued 10/24/2020 Colorectal Cancer Screening Discontinued Zoster Vaccine Completed 02/22/2023, 09/28/2022 Influenza Vaccine Completed 12/16/2024, , 11/16/2023, Additional history exists Procedures Procedure Name Priority Date/Time Associated Diagnosis Comments EGFR Routine 12/25/2024 9:09 AM COST MANAGER Medicare annual wellness visit, subsequent Mixed hyperlipidemia Stage 3a chronic kidney disease (HCC) T4, FREE Routine 12/25/2024 9:09 AM COST MANAGER Acquired hypothyroidism DIFFERENTIAL AUTO Routine 12/25/2024 9:0 9 AM COST MANAGER Medicare annual wellness visit, subsequent Primary hypertension THYROID FUNCTION CASCADE Routine 12/25/2024 9:09 AM COST MANAGER Acquired hypothyroidism ERYTHROCYTE SEDIMENTATION RATE Routine 12/25/2024 9:09 AM COST MANAGER PMR (polymyalgia rheumatica) CBC WITH AUTO DIFFERENTIAL Routine 12/25/2024 9:09 AM COST MANAGER Medicare annual wellness visit, subsequent Primary hypertension COMPREHENSIVE METABOLIC PANEL Routine 12/25/2024 9:09 AM COST MANAGER Medicare annual wellness visit, subsequent Mixed hyperlipidemia Stage 3a chronic kidney disease (HCC) LIPID PANEL Routine 12/25/2024 9:09 AM COST MANAGER Medicare annual wellness visit, subsequent Mixed hyperlipidemia CT LUMBAR SPINE WO CONTRAST Schedule Routine, Read Routine (OP Routine) 12/20/2024 1:05 PM CDT Acute right-sided low back pain with right-sided sciatica Compression deformity of vertebra XR SPINE LUMBAR 2 OR 3 VIEWS Schedule Routine, Read Routine (OP Routine) 12/16/2024 9:57 AM CDT Acute right-sided low back pain with right-sided sciatica SCAN - LABS 10/09/2024 SCAN - RADIOLOGY/IMAGING 10/09/2024 DEXA AXIAL SKELETON BONE DENSITY 1 OR MORE SITES Schedule Routine, Read Routine (OP Routine) 01/26/2023 10:09 AM COST MANAGER Postmenopausal status COLONOSCOPY Routine 10/24/2020 SCREENING MAMMOGRAM BILATERAL W BALA Routine 11/25/2014 8:54 AM CDT from Last 3 Months or Most Recently Relevant to Health Maintenance Results * (ABNORMAL) eGFR (12/25/2024 9:09 AM COST MANAGER) [facility] eGFR 56(L) >=60 mL/min/1. 73 m2 Comment: Interpretive Data [...] of Race in Diagnosing Kidney Disease, JASN 2020). The CKD-EPI equation should not be used for patients with unstable renal function and has not been validated in children and those over 70. Current interpretive data was last reviewed 2020. Blood 12/25/2024 9:09 AM COST MANAGER 12/25/2024 10:41 AM COST MANAGER us Blair Agarwal MD LAB BLOOD ORDERABLES Final Re sult YULIYA [address] [facility] Department [place] [address] * Differential, auto (12/25/2024 9:09 AM COST MANAGER) [facility] Neutrophil abs 4.97 1.50 - 6.50 K/cumm Imm gran abs 0.02 0.00 - 0.10 K/cumm [facility] Lymphocyte abs 1.48 0.80 - 3.30 K/cumm [facility] Monocyte abs 0.63 0.20 - 0.80 K/cumm [facility] Eosinophil abs 0.37 0.00 - 0.50 K/cumm [facility] Basophil abs 0.05 0.00 - 0.10 K/cumm [facility] Neutrophil pct 66.0 % [facility] Comment: Interpretive Data Percent cell count reference ranges are not reported, since discordance with absolute values may lead to misinterpretation of CBC data. Current Interpretive Data was last revised on 2017. Imm gran pct 0.3 % [facility] Comment: Interpretive Data Percent cell count reference ranges are not reported, since discordance with absolute values may lead to misinterpretation of CBC data. Current Interpretive Data was last revised on 2017. Lymphocyte pct 19.7 % [facility] Comment: Interpretive Data Percent cell count reference ranges are not reported, since discordance with absolute values may lead to misinterpretation of CBC data. Current Interpretive Data was last revised on 2017. Monocyte pct 8.4 % [facility] Comment: Interpretive Data Percent cell count reference ranges are not reported, since discordance with absolute values may lead to misinterpretation of CBC data. Current Interpretive Data was last revised on 2017. Eosinophil pct 4.9 % [facility] Comment: Interpretive Data Percent cell count reference ranges are not reported, since discordance with absolute values may lead to misinterpretation of CBC data. Current Interpretive Data was last revised on 2017. Basophil pct 0.7 % [facility] Comment: Interpretive Data Percent cell count reference ranges are not reported, since discordance with absolute values may lead to misinterpretation of CBC data. Current Interpretive Data was last revised on 2017. Blood 12/25/2024 9:09 AM COST MANAGER 12/25/2024 10:43 AM COST MANAGER Blair Agarwal MD LAB BLOOD ORDERABLES Final Re sult Performing Organization Address [facility] Co de Phone Number [facility] [address] [facility] Department [place] [address] * (ABNORMAL) Thyroid Function [place] (12/25/2024 9:09 AM COST MANAGER) TSH 5.99(H) 0.30 - 4.20 mcIUnit/mL Blood 12/25/2024 9:09 AM COST MANAGER 12/25/2024 10:41 AM COST MANAGER Blair Agarwal MD LAB BLOOD ORDERABLES Final Re sult Performing Organization Address [facility] Co de Phone Number [address] [address] * (ABNORMAL) CBC with auto differential (12/25/2024 9:09 AM COST MANAGER) [facility] WBC 7.52 3.80 - 9.90 K/cumm Hgb 11.4(L) 11.9 - 15.5 g/dL [facility] Hct 37.1 35.6 - 45.5 % [facility] Plt 300 150 - 400 K/cumm [facility] MPV 9.7 9.1 - 12.3 fL [facility] RBC 3.94 3.90 - 5.20 M/cumm [facility] MCV 94.2 81.3 - 96.4 fL [facility] MCH 28.9 27.1 - 33.3 pg [facility] MCHC 30.7(L) 32.3 - 35.7 g/dL [facility] RDW CV 15.5(H) 11.1 - 14.9 % [facility] RDW SD 52.4(H) 35.7 - 48.1 fL [facility] NRBC abs 0.00 0.00 - 0.01 K/cumm [facility] Blood 12/25/2024 9:09 AM COST MANAGER 12/25/2024 10:43 AM COST MANAGER us Blair Agarwal MD LAB BLOOD ORDERABLES Final Re sult Performing Organization Address [facility] Co de Phone Number [address] [employer] [place] [address] * (ABNORMAL) Erythrocyte sedimentation rate (12/25/2024 9:09 AM COST MANAGER) [facility] Erythrocyte sedimentation rate 49(H) 1 - 30 mm/hr Blood 12/25/2024 9:09 AM COST MANAGER 12/25/2024 10:43 AM COST MANAGER us Blair Agarwal MD LAB BLOOD ORDERABLES Final Re sult Performing Organization Address [facility] Co de Phone Number [address] [employer] [place] [address] * T4, free (12/25/2024 9:09 AM COST MANAGER) Free T4 1.16 0.90 - 1.70 ng/dL Blood 12/25/2024 9:09 AM COST MANAGER 12/25/2024 10:41 AM COST MANAGER Narrative YULIYA - 12/25/2024 12:27 PM COST MANAGER This test was reflexed from a TSH result. us Blair Agarwal MD LAB BLOOD ORDERABLES Final Re sult YULIYA [address] [facility] Department [place] [address] * Lipid panel (12/25/2024 9:09 AM COST MANAGER) Cholesterol 119 30 - 199 mg/dL Comment: Interpretive Data [...] Data was last revised on 2017. Triglycerides 141 <=149 mg/dL YULIYA Comment: Interpretive Data Ages [...] Data was last revised on 2017. HDL 54 >=40 mg/dL YULIYA Comment: Interpretive Data Ages [...] was last revised on 2017. LDL, calculated 41 <=129 mg/dL YULIYA TATE Comment: Interpretive Data Ages < or = 19 years Acceptable: <110 mg/dL Borderline high: 110-129 mg/dL High: >or= 130 mg/dL Ages > or = 20 years Optimal: <100 mg/dL Near optimal: 100-129 mg/dL Borderline high: 130-159 mg/dL High: >160 mg/dL Calculated using the Abner LDL-C estimating equation. This equation was implemented on 2023. Prior to this date LDL-C was estimated using the Friedewald equation. Literature References: 1. Expert Panel on Integrated Guidelines for Cardiovascular Health and Risk Reduction in Children and Adolescents. Pediatrics 2011;128:S213 2. NCEP Expert Panel. Circulation 2004;110:227 3. Abner Keys al. BROOKE Cardiol. 2019June 20;5(5):540-548. doi: 10.1001/jamacardio.2020.0013 Current Interpretive Data was last revised on 2023. Non-HDL Cholesterol 65 mg/dL YULIYA Comment: Interpretive Data Ages < [...] last revised on 2017. Chol/HDL ratio 2 [facility] Blood 12/25/2024 9:09 AM COST MANAGER 12/25/2024 10:41 AM COST MANAGER Blair Agarwal MD LAB BLOOD ORDERABLES Final Re sult YULIYA [address] [facility] Department [place] [address] * Comprehensive metabolic panel (12/25/2024 9:09 AM COST MANAGER) Pathologist [facility] Sodium 141 135 - 145 mmol/L Potassium, pl 4.2 3.3 - 4.9 mmol/L [facility] Chloride 103 97 - 110 mmol/L [facility] CO2 27 22 - 32 mmol/L [facility] Anion gap 11 2 - 15 mmol/L [facility] BUN 16 6 - 25 mg/dL [facility] Creatinine 1.02 0.60 - 1.10 mg/dL [facility] Glucose 89 70 - 199 mg/dL [facility] Comment: Interpretive Data Fasting glucose >/= 126 [...] interpretive data was last revised 2022. Calcium 10.1 8.5 - 10.3 mg/dL [facility] Bilirubin, total 0.4 0.1 - 1.2 mg/dL [facility] Protein, pl 7.6 6.5 - 8.5 g/dL [facility] Albumin 4.2 3.5 - 5.0 g/dL [facility] Alk phos 66 40 - 130 Units/L [facility] ALT 14 7 - 45 Units/L [facility] AST 19 10 - 45 Units/L [facility] Blood 12/25/2024 9:09 AM COST MANAGER 12/25/2024 10:41 AM COST MANAGER us Blair Agarwal MD LAB BLOOD ORDERABLES Final Re sult YULIYA [address] [facility] Department [place] [address] * CT Lumbar Spine WO Contrast (12/20/2024 1:05 PM CDT) Anatomical Region Laterality Modality Spine N/A Computed Tomogra phy 12/20/2024 1:27 PM CDT Impressions 12/20/2024 1:27 PM CDT 1. The L5 vertebral body compression deformity as seen on the lumbar spine radiographs dated 12/16/2024 but remains age indeterminate by CT technique. Correlate with point tenderness. MRI can be obtained as clinically indicated. 2. The L4 inferior endplate concavity could be degenerative in nature or additional subtle nondisplaced fracture. Correlate with point tenderness. 3. Multilevel lumbar disc degeneration with thickened ligamentum flavum and facet arthropathy as described. Osseous spinal canal stenosis ranging up to moderate to severe. 4. Varying degrees of bilateral neural foraminal stenosis and other findings as above. Electronically signed by: Don Pierson D.O. Narrative 12/20/2024 1:27 PM CDT EXAM DESCRIPTION:CT LUMBAR SPINE WO CONTRAST REASON FOR STUDY: . compression deformity L5 TECHNIQUE: Axial images through the lumbar spine with sagittal and coronal reformatted images. Automated exposure control was used as a dose optimization technique for this examination. COMPARISON:Lumbar spine radiograph dated 12/16/2024. FINDINGS: SEGMENTATION: To maintain continuity with the nomenclature used on the lumbar spine radiographs dated 12/16/2024 assumption is made for the last well-formed disc space seen on series 2, image 102 to be labeled as L5-S1. In this system of nomenclature there are hypoplastic 12th ribs. If a surgical or therapeutic intervention is considered and recommend imaging of the complete spinal axis to accurately delineate vertebral levels. ALIGNMENT: The anterior posterior alignment is maintained. VERTEBRAE:Osseous structures are diffusely demineralized and limits assessment for subtle nondisplaced fracture. Superior endplate of L5 compression deformity with mild retropulsion of the posterior fragment as seen on the lumbar spine radiographs dated 12/16/2024. Additional L5 inferior endplate concavity there is 75% height loss. Subtle L4 inferior endplate concavity. Multilevel endplate degenerative changes and marginal spur formation. Diffuse facet arthropathy. There are interspinous degenerative changes. DISCS: Multilevel intervertebral disc height loss. No HARDWARE: None in the spine. LOWER THORACIC: Incompletely imaged. No high-grade osseous spinal canal stenosis. INDIVIDUAL DISC LEVELS: Suboptimally evaluated by non-myelographic CT technique. L1-L2: Disc bulge with thickened/calcified ligamentum flavum and facet arthropathy. Proliferation of dorsal epidural fat. Mild osseous spinal canal stenosis. No significant osseous neural foraminal narrowing. L2-L3: Disc bulge and marginal spur formation. Thickened/calcified ligamentum flavum and facet arthropathy. Moderate osseous spinal canal stenosis. Moderate left and mild to moderate right osseous neural foraminal narrowing. L2-L3 L4: Disc bulge and marginal spur formation. Thickened/calcified ligamentum flavum and facet arthropathy. Moderate osseous spinal canal stenosis. Moderate osseous neural foraminal narrowing. L4-L5: Disc bulge with marginal spur formation. Retropulse posterior corner of L5 fracture. Thickened/calcified ligamentum flavum and facet arthropathy. Proliferation of dorsal epidural fat. Moderate to severe osseous spinal canal stenosis. Mild to moderate osseous neural foraminal narrowing. L5-S1: Disc bulge with marginal spur formation. Bilateral facet arthropathy. Proliferation of epidural fat. No significant osseous spinal canal stenosis. Mild inferior left and no significant right osseous neural foraminal narrowing. SOFT TISSUES: Calcified plaque in the imaged abdominal aorta and major branch vessels. SACRUM: The lucent and sclerotic changes in the sacrum are nonspecific and presumed to be combination of degenerative change and osseous structures being diffusely demineralized. If this concern for additional fracture in the sacrum then please correlate with point tenderness and dedicated MRI. Procedure Note Don Pierson DO - 12/20/2024 EXAM DESCRIPTION:CT LUMBAR SPINE WO CONTRAST REASON FOR STUDY: . compression deformity L5 TECHNIQUE: Axial images through the lumbar spine with sagittal and coronal reformatted images. Automated exposure control was used as a dose optimization technique for this examination. COMPARISON:Lumbar spine radiograph dated 12/16/2024. FINDINGS: SEGMENTATION: To maintain continuity with the nomenclature used on the lumbar spine radiographs dated 12/16/2024 assumption is made for the last well-formed disc space seen on series 2, image 102 to be labeled as L5-S1. In this system of nomenclature there are hypoplastic 12th ribs. If a surgical or therapeutic intervention is considered and recommend imaging of the complete spinal axis to accurately delineate vertebral levels. ALIGNMENT: The anterior posterior alignment is maintained. VERTEBRAE:Osseous structures are diffusely demineralized and limits assessment for subtle nondisplaced fracture. Superior endplate of L5 compression deformity with mild retropulsion of the posterior fragment as seen on the lumbar spine radiographs dated 12/16/2024. Additional L5 inferior endplate concavity there is 75% height loss. Subtle L4 inferior endplate concavity. Multilevel endplate degenerative changes and marginal spur formation. Diffuse facet arthropathy. There are interspinous degenerative changes. DISCS: Multilevel intervertebral disc height loss. No HARDWARE: None in the spine. LOWER THORACIC: Incompletely imaged. No high-grade osseous spinal canal stenosis. INDIVIDUAL DISC LEVELS: Suboptimally evaluated by non-myelographic CT technique. L1-L2: Disc bulge with thickened/calcified ligamentum flavum and facet arthropathy. Proliferation of dorsal epidural fat. Mild osseous spinal canal stenosis. No significant osseous neural foraminal narrowing. L2-L3: Disc bulge and marginal spur formation. Thickened/calcified ligamentum flavum and facet arthropathy. Moderate osseous spinal canal stenosis. Moderate left and mild to moderate right osseous neural foraminal narrowing. L2-L3 L4: Disc bulge and marginal spur formation. Thickened/calcified ligamentum flavum and facet arthropathy. Moderate osseous spinal canal stenosis. Moderate osseous neural foraminal narrowing. L4-L5: Disc bulge with marginal spur formation. Retropulse posterior corner of L5 fracture. Thickened/calcified ligamentum flavum and facet arthropathy. Proliferation of dorsal epidural fat. Moderate to severe osseous spinal canal stenosis. Mild to moderate osseous neural foraminal narrowing. L5-S1: Disc bulge with marginal spur formation. Bilateral facet arthropathy. Proliferation of epidural fat. No significant osseous spinal canal stenosis. Mild inferior left and no significant right osseous neural foraminal narrowing. SOFT TISSUES: Calcified plaque in the imaged abdominal aorta and major branch vessels. SACRUM: The lucent and sclerotic changes in the sacrum are nonspecific and presumed to be combination of degenerative change and osseous structures being diffusely demineralized. If this concern for additional fracture in the sacrum then please correlate with point tenderness and dedicated MRI. IMPRESSION: 1. The L5 vertebral body compression deformity as seen on the lumbar spine radiographs dated 12/16/2024 but remains age indeterminate by CT technique. Correlate with point tenderness. MRI can be obtained as clinically indicated. 2. The L4 inferior endplate concavity could be degenerative in nature or additional subtle nondisplaced fracture. Correlate with point tenderness. 3. Multilevel lumbar disc degeneration with thickened ligamentum flavum and facet arthropathy as described. Osseous spinal canal stenosis ranging up to moderate to severe. 4. Varying degrees of bilateral neural foraminal stenosis and other findings as above. Electronically signed by: Don Pierson D.O. us Marlena Zelaya IMAaliyah CT PROCEDURES Final Result * XR Spine Lumbar 2 Or 3 Vw (12/16/2024 9:57 AM CDT) Anatomical Region Laterality Modality Spine N/A Computed Radiogr aphy 12/16/2024 10:3 2 AM CDT Impressions 12/16/2024 10:32 AM CDT 1. Moderate L5 compression deformity. This is of indeterminate chronicity can be further evaluated with cross-sectional imaging. 2. Mild diffuse lumbar degenerative disc disease with inferior lumbar facet osteoarthritis. 3. Aortic atherosclerosis with ectasia. This can be correlated with any prior imaging or further evaluated with aortic ultrasound/CTA if clinically indicated. 4. Cholelithiasis. Electronically signed by: Sameer Crum M.D. Narrative 12/16/2024 10:32 AM CDT EXAMINATION: XR SPINE LUMBAR 2 OR 3 VIEWS HISTORY: persistent RT sided LBP with RT sided radicular pain. FINDINGS: 3 views submitted without comparison. Moderate L5 compression deformity. Mild diffuse lumbar degenerative disc disease. Inferior lumbar facet osteoarthritis is present. Arterial atherosclerosis with aortic ectasia and cholelithiasis noted. Procedure Note Sameer Crum MD - 12/16/2024 EXAMINATION: XR SPINE LUMBAR 2 OR 3 VIEWS HISTORY: persistent RT sided LBP with RT sided radicular pain. FINDINGS: 3 views submitted without comparison. Moderate L5 compression deformity. Mild diffuse lumbar degenerative disc disease. Inferior lumbar facet osteoarthritis is present. Arterial atherosclerosis with aortic ectasia and cholelithiasis noted. IMPRESSION: 1. Moderate L5 compression deformity. This is of indeterminate chronicity can be further evaluated with cross-sectional imaging. 2. Mild diffuse lumbar degenerative disc disease with inferior lumbar facet osteoarthritis. 3. Aortic atherosclerosis with ectasia. This can be correlated with any prior imaging or further evaluated with aortic ultrasound/CTA if clinically indicated. 4. Cholelithiasis. Electronically signed by: Sameer Crum M.D. us Marlena Zelaya IMG XR PROCEDURES Final Result * SCAN - RADIOLOGY/IMAGING (10/09/2024) Anatomical Region Laterality Modality Other Blair Agarwal MD Final Result * SCAN - LABS (10/09/2024) Blair Agarwal MD Final Result * Dexa Axial Skeleton Bone Density 1 or 2 Site (01/26/2023 10:09 AM COST MANAGER) Anatomical Region Laterality Modality Body N/A Mammography 01/26/2023 10:5 9 AM COST MANAGER Narrative 01/26/2023 11:00 AM COST MANAGER EXAM DESCRIPTION: DEXA AXIAL SKELETON BONE DENSITY 1 OR MORE SITES REASON FOR STUDY: 77 y/o year old F with given history of: Postmenopausal status. Patient has taken/is taking vitamin-D. History of prior fracture and smoking Clinical Appeals Specialist/Model: [employer] Horizon A ([id number]/N [id number]) CLINICAL INFORMATION: Current height: 64 inches Maximum [...] Ml Ross M.D. TW: TW Report ID: [id number] Reading Location: [id number] Procedure Note Ml Ross MD - 01/26/2023 EXAM DESCRIPTION: DEXA AXIAL SKELETON BONE DENSITY 1 OR MORE SITES REASON FOR STUDY: 77 y/o year old F with given history of:Postmenopausal status. Patient has taken/is taking vitamin-D. History of prior fractureand smoking Clinical Appeals Specialist/Model: Hologic Horizon A ([id number]/N [id number]) CLINICAL INFORMATION: Current height: 64 inches Maximum [...] Electronically signed by Ml Ross M.D. TW: SHEA Report ID: [id number] Reading Location: [id number] Blair Agarwal MD IMG DXA PROCEDURES Final [...] Electronically signed by: Shukri Noe md/:11/25/2014 10:14:56 Beverage Steward: Mariah Herrera RT (R)(M), [facility] letter sent: Normal Exam Reading location: [...] dated: 09/23/2013 mammogram and 09/29/2011 mammogram/ultrasound - [facility]. BREAST TISSUE: There are scattered fibroglandular [...] dated: 09/23/2013 mammogram and 09/29/2011 mammogram/ultrasound - [facility]. BREAST TISSUE: There are scattered fibroglandular [...] Electronically signed by: Shukri Noe md/:11/25/2014 10:14:56 Beverage Steward: Mariah Herrera RT (R)(M), [facility] letter sent: Normal Exam Reading location: BI-RADS: 2 Benign [EOD] Blair Agarwal MD IMG MAMMO PROCEDURES Final Re sult from Last 3 Months or Most Recently Relevant to Health Maintenance Insurance [facility] MEDIC[facility] ADVANTAGE [facility] AD[facility] Advance Directives For more information, please contact: [phone] Documents on File Type Date Recorded Patient Technology Solutions Architect Expl anation ADVANCE DIRECTIVE 05/14/2020 Care Teams Supervisor Machine Setter Relationship Specialty Start Date End Date Blair Agarwal MD [address] [address] PCP - General 06/23/18 [place] [address] [facility] [address] [place] [id number] Referring Physician Rheumatology 09/05/23
--- OUTSIDE RECORDS SUMMARY | 2024-12-29 18:58 | XMS_ITS | Encounter Summary ---
Author Organization [facility] Facility Care Team Providers Care Shot Core Drill Operator Name Role Phone Blair Agarwal MD Primary Care Provider [phone] Frank Whitney MD Unavailable [phone] Encounter Details Date Type Department Care Team (Latest Contact Info) Description 04/06/2018 Orders Only [facility] CLINCONV ProviderCarlos Manuel MD [address] [place] [phone] Social History Tobacco Use Types Packs/Day Years [...] - RESULT 04/06/2018 12 :00 AM MANAGER REPORT documented in this encounter Results * PROCEDURE - RESULT (04/06/2018 12:00 AM MANAGER REPORT) Narrative 04/06/2018 12:00 AM MANAGER REPORT Ordered by an unspecified provider. Historical Provider Final Res ult documented in this encounter Visit Diagnoses Not on filedocumented in this encounter Care Teams Shot Core Drill Operator Relationship Specialty Start Date End Date Blair Agarwal MD [address] [facility] [place] [address] PCP - General 06/23/18 [place] [id number] [phone] Referring Physician Rheumatology 09/05/23 documented as of this encounter
--- OUTSIDE RECORDS SUMMARY | 2024-12-29 18:58 | XMS_ITS | Clinical Summary ---
Author Organization [facility] Address [address] [place] [address] Care Team Providers Care Shopper Name Role Phone Unavailable Primary Care Provider [...] - 1-dose 75+ series) 2020 COVID-19 Vaccine ( - 2024-2 6 season) 2024 Influenza Adult (#1) 2024 Hepatitis A Vaccines Aged Out No long er eligible based on patient's age to complete this topic Meningococcal B Vaccine Aged Out No l onger eligible based on patient's age to complete this topic Meningococcal Vaccine Aged Out No ron bo eligible based on patient's age to complete this topic RSV Immunizations Under 20 Months Aged Out No longer eligible based on patient's age to complete this topic
--- OUTSIDE RECORDS SUMMARY | 2024-12-29 18:58 | XMS_ITS | Encounter Summary ---
Author Organization [facility] Healthcare Address [address] [place] [address] Care Team Providers Care Harvesting Contractor Name Role Phone Blair Agarwal MD Primary Care Provider Frank Whitney MD Unavailable [phone] Reason for Referral * MRI/CAT/PET Scan (Routine) - Closed Specialty Diagnoses / Procedures Referred By Contac t Referred To Contact Radiology Diagnoses Acute right-sided low back pain with right-sided sciatica Compression deformity of vertebra Procedures CT Lumbar Spine WO Contrast Marlena Marcial PA [address] [place] [address] [address] [place] [address] Phone: tel: fax: [address] [address] Referral ID Status Reason Start Date Expiration Date Visits Re quested Visits Authorized [id number] Closed 12/17/2024 01/16/2026 1 1 Encounter Details Date Type Department Care Team (Late st Contact Info) Description 12/16/2024 Results Follow-Up [facility] Family Medicine at [address] [place] [phone] Marlena Marcial PA [address] [place] [address] [address] [place] [id number] XR Spine Lumbar 2 Or 3 Vw Social History Tobacco Use Types Packs/Day Years [...] on file documented as of this encounter Functional Status * In the past year, patient experienced: Question Answer Date of Assessment Author One or more falls in the last year 0 2024 9:12 AM CDT Maria C Ward MA * BP Location Answer Date of Assessment Author Right arm 12/16/2024 9:15 AM CDT Geraldine Ward MA * BP Location Answer Date of Assessment Author Right arm 12/16/2024 9:15 AM CDT Geraldine Ward MA documented as of this encounter Plan of Treatment Not on file documented as of this encounter Results * CT Lumbar Spine WO Contrast (12/20/2024 [...] tenderness and dedicated MRI. Procedure Note Don Pierson, DO - 12/20/2024 EXAM DESCRIPTION:CT LUMBAR SPINE [...] above. Electronically signed by: Don Pierson D.O. Marlena Zelaya IM CT PROCEDURES Final Result documented in this encounter Visit Diagnoses Diagnosis Acute right-sided low back pain with right-sided sciatica- Primary Compression deformity of vertebra Acute right-sided low back pain with right-sided sciatica Compression deformity of vertebra documented in this encounter Care Teams Harvesting Contractor Relationship Specialty Start Date End Date Blair Agarwal MD [address] [facility] [place] [address] PCP - General 06/23/18 [place] [address] [address] [address] [place] [phone] Referring Physician Rheumatology 09/05/23 documented as of this encounter
--- OUTSIDE RECORDS SUMMARY | 2024-12-29 18:58 | XMS_ITS | Encounter Summary ---
Author Organization [facility] Healthcare Address [address] [place] [address] Care Team Providers Care Stripper Shovel Operator Name Role Phone Blair Agarwal MD Primary Care Provider [phone] Frank Whitney MD Unavailable [phone] Encounter Details Date Type Department Care Team (Late st Contact Info) Description 12/22/2024 Results Follow-Up [facility] Family Medicine at [address] [place] [phone] Lumbar Spine WO Contrast Social History Tobacco Use Types Packs/Day Years [...] on filedocumented in this encounter Care Teams Stripper Shovel Operator Relationship Specialty Start Date End Date Blair Agarwal MD [address] [facility] [address] [place] [address] PCP - General 06/23/18 [place] [address] [address] [place] [address] Referring Physician Rheumatology 09/05/23 documented as of this encounter
[2024-12-29 19:01] VITALS: BP 142/120; PULSE 171; RESP 21; TEMP 36.6; O2SAT 96
--- NOTE | 2024-12-29 19:17 | ED.DIZZY ---
HPI - Dizziness General Chief Complaint: Dizziness Stated Complaint: palpitations Time Seen by Provider: 12/29/24 18:59 History of Present Illness HPI Narrative: This is a 79-year-old female with history of AFib, hypertension, hypothyroidism, CVA who presents the ED for palpitations. Patient states for the past 10 hours or so, she has been having palpitations with dizziness. She states that is worse than when she normally goes and AFib. She recently had her metoprolol increased from 25 mg to 50 mg and was restarted on olmesartan. Has otherwise been doing well. Denies fevers, chills, chest pain. Does report some shortness of breath. Related Data Home Medications ?Medication ?Instructions ?Recorded ?Confirmed ?Last Taken ?Type alprazolam 0.5 mg tablet 0.5 mg PO TID PRN Anxiety 10/22/20 06/28/24 06/20/24 History gabapentin 300 mg capsule 300 mg PO TID 10/22/20 06/28/24 06/27/24 21:00 History rivaroxaban 20 mg tablet (Xarelto) 20 mg PO DAILY 10/22/20 06/28/24 06/27/24 08:00 History levothyroxine 88 mcg tablet 88 mcg PO DAILY 12/29/20 06/28/24 06/27/24 History meclizine 25 mg tablet 25 mg PO DAILY PRN dizziness 12/29/20 06/28/24 06/20/24 History olmesartan 40 mg tablet 40 mg PO DAILY 12/29/20 06/28/24 06/27/24 10:00 History Held on 06/29/24. Instructions: until seen by her auto rental clerk spironolactone 25 mg tablet 25 mg PO DAILY 02/23/22 06/28/24 06/27/24 10:00 History Held on 06/29/24. Instructions: until seen by her auto rental clerk amlodipine 10 mg tablet 10 mg PO DAILY 06/28/24 06/28/24 06/27/24 08:00 History carboxymethylcellulose sodium 0.5 1 drp EACH EYE TID 06/28/24 06/28/24 06/27/24 18:00 History % eye drops (Refresh Tears) cholecalciferol (vitamin D3) 50 50 mcg PO DAILY 06/28/24 06/28/24 06/27/24 History mcg (2,000 unit) tablet (Vitamin D3) folic acid 1 mg tablet 1 mg PO DAILY 06/28/24 06/28/24 06/27/24 History lidocaine 4 % topical patch 1 patch topical BID PRN arthritic 06/28/24 06/28/24 06/27/24 19:30 History (Lidocaine Pain Relief) pain. methotrexate sodium 2.5 mg tablet 7.5 mg PO .COMPLEX 06/28/24 06/28/24 06/21/24 History multivitamin 1 tablet PO DAILY 06/28/24 06/28/24 06/27/24 History rosuvastatin 20 mg tablet 20 mg PO .Evening 06/28/24 06/28/24 06/27/24 19:00 History vit C 250 mg-vit E 90 mg-zinc 40 2 tablet PO DAILY 06/28/24 06/28/24 06/27/24 History mg-copper 1 [id number] capsule (PreserVision AREDS-2) Allergies Allergy/AdvReac Type Severity Reaction Status Date / Time No Known Allergies Allergy Verified 12/29/24 19:09 Review of Systems Review of Systems: Gen.: Denies fevers or chills Eyes: Denies eye pain or visual change ENT: Denies congestion Respiratory: As per HPI CV: As per HPI GI: Denies abdominal pain nausea, emesis or diarrhea denies burning, urgency, frequency or hematuria Musculoskeletal: Denies back pain or muscle pain Neuro: Denies numbness, tingling, weakness or focal weakness Skin: Denies rash Except as documented, all other systems reviewed and negative PMFSH Past Medical History Medical History Macular degeneration Vitamin D deficiency Obstructive sleep apnea Apnea link screening was positive October 2020 Erosive gastritis (10/2020) AVM (arteriovenous malformation) of colon (10/2020) Paroxysmal atrial fibrillation Acute blood loss anemia Weight gain Metatarsal bone fracture (02/13/19) Metatarsal bone fracture (02/13/19) Pulmonary embolism (~07/2018) Anxiety Hypothyroid GERD (gastroesophageal reflux disease) HTN (hypertension) Peripheral neuropathy CVA (cerebrovascular accident) Surgical History Surgical History History of esophagogastroduodenoscopy (EGD) (10/2020) AVMs noted in cecum and erosive gastritis Status post cataract extraction of both eyes with insertion of intraocular lens Family History Family History Father Acute myocardial infarction Heart problem Mother Chronic kidney disease (CKD) Son Heart problem Sibling A-fib Social History Social History Social History: She has been for 52 years. They had 1 son who last year at 49 years old of heart disease. She is a retired hairdresser. She still smokes about 5 cigarettes a day. Up until recent years she used to smoke a half a pack of cigarettes per day and started smoking as a teenager. She denies any alcohol use or illicit substance use. Smoking packs per day: 0.75 Smoking cigarettes per day: 15.0 Years smoked: 59 Smoking pack-years: 44.25 Tobacco type: cigarettes Alcohol intake: never Substance use: never Substance use type: does not use Do You Feel Safe in your Home?: Yes Lack of Transportation: No Lack of Food: Never True Current Housing: I Have Housing Concerned About Future Housing: No Difficulty Paying Gas/Electric Bills: No Difficulty Paying for Meds: No Currently Unemployed: No Education: Trade/Vocational Certificate Difficulty w/ Childcare or Family Care: No Gender identity (if verbalized by the patient): Female Spiritual care concerns: No Exam Narrative: APPEARANCE: No acute distress, nontoxic, resting in bed EYES: EOMI HEENT: Normocephalic, atraumatic, OMM RESPIRATORY: No respiratory distress Clear to auscultation bilaterally with no rhonchi wheezing or rales. CARDIOVASCULAR: Irregularly irregular without murmurs rubs or gallops. ABDOMINAL: Soft, nontender, nondistended, no rebound or guarding MUSCULOSKELETAl: Moves all extremities. No clubbing, cyanosis or edema. NEURO: Awake and alert. Following commands, speech normal, no focal deficits SKIN:: Warm, dry. No rashes lesions or abrasions PSYCHIATRIC: Normal affect/mood, Course Vital Signs Vital signs: Vital Signs Temperature 97.9 F 12/29/24 19:01 Pulse Rate 171 H 12/29/24 19:01 Respiratory Rate 21 H 12/29/24 19:01 Blood Pressure 142/120 H 12/29/24 19:01 Pulse Oximetry 96 12/29/24 19:01 Oxygen Delivery Room Air 12/29/24 19:01 Temperature 97.9 F 12/29/24 19:01 Pulse Rate 61 12/29/24 20:52 Respiratory Rate 18 12/29/24 20:52 Blood Pressure 133/74 12/29/24 20:52 Pulse Oximetry 96 12/29/24 20:52 Oxygen Delivery Room Air 12/29/24 19:01 MDM - Dizziness MDM Narrative Medical decision making narrative: 79-year-old female Presenting for dizziness and palpitations. On initial evaluation patient was in mild distress afebrile, hemodynamic stable. Differentials include but are not limited to: ACS, CHF Exacerbation, COPD exacerbation, AFib, PE, PNA, PTX, bronchitis, viral syndrome Notable exam findings: Irregularly irregular in the 150s to 160s. Notable lab findings: CBC without significant abnormalities. CMP without significant abnormalities. BNP elevated at 3000. Notable imaging findings: Chest x-ray consistent with CHF. Initial EKG consistent with AFib RVR with rate in the 150s. Patient was given 10 mg Cardizem and converted to normal sinus in the 50s to 60s. Repeat EKG confirmed this. Patient remained in a normal sinus rhythm throughout the remainder of her ED course. She remained on room air and in no acute distress. Patient was deemed appropriate for discharge at this time. Patient was given a prescription for Lasix. Patient was advised follow-up with their PCP in the next week for re-evaluation. Patient was agreeable to this plan. Given strict return precautions. Medical Records Attestation: I reviewed the patient's medical records. Lab Data Attestation: I reviewed the patient's lab results. 12/29/24 19:12 12/29/24 19:12 Labs: Lab Results 12/29/24 Range/Units 19:12 WBC 7.9 (4.5-10.0) K/mm3 RBC 4.01 L (4.2-5.4) M/mm3 Hgb 11.6 L (12.0-15.0) g/dL Hct 36.5 L (37.0-47.0) % MCV 91.0 (80-100) fl MCH 28.9 (26-34) pg MCHC 31.8 L (32-36) g/dl RDW 15.4 H (11.5-14.5) % Plt Count 306 (150-375) k/mm3 MPV 9.8 (7.4-10.4) fl Immature Gran % (Auto) 0.3 (0-0.5) % Neut % (Auto) 65.7 (45.5-73.1) % Lymph % (Auto) 23.5 (18.3-44.2) % [place] % (Auto) 6.6 (2.6-8.5) % Eos % (Auto) 3.3 (0-4.4) % Baso % (Auto) 0.6 (0.2-1.2) % Lymph # (Auto) 1.86 (0.9-3.2) K/mm3 [place] # (Auto) 0.5 (0.1-0.6) K/mm3 Eos # (Auto) 0.3 (0-0.3) K/mm3 Baso # (Auto) 0.1 (0.0-0.1) K/mm3 Abs Immat Gran (auto) 0.02 (0.00-0.031) K/mm3 Absolute Neuts (auto) 5.2 (1.3-6.7) K/mm3 Absolute Nucleated RBC 0.000 (0.0-0.012) K/mm3 Nucleated RBC % 0.0 (0.0-0.2) % PT 20.8 H (11.1-14.7) Seconds INR 1.8 APTT 40.4 H (22.3-36.8) Seconds Sodium 138 (137-145) mmol/L Potassium 3.9 (3.4-5.0) mmol/L Chloride 106 (98-107) mmol/L Carbon Dioxide 24 (22-30) mmol/L Anion Gap 8 (4-12) mmol/L BUN 13 (7-17) mg/dL Creatinine 1.18 H (0.7-1.0) mg/dL Estim Creat Clear Calc 38 ml/min Estimated GFR 44 L (59 - ) Glucose 102 (65-110) mg/dL Calcium 9.8 (8.4-10.2) mg/dL Magnesium 1.9 (1.6-2.3) mg/dL Total Bilirubin 0.6 (0.2-1.3) mg/dL AST 23 (14-36) U/L ALT 16 (6-35) U/L Alkaline Phosphatase 69 (38-126) U/L Troponin I 0.015 (0.000-0.034) ng/mL NT-Pro-B Natriuret Pep 3320 H (19.9-100) pg/mL Total Protein 7.9 (6.3-8.2) g/dL Albumin 4.3 (3.5-5.1) g/dL Lipase 157 (23-300) U/L Imaging Data Attestation: I personally reviewed and interpreted this imaging study as follows: Radiologist's impression: Impressions Chest X-Ray 12/29/24 19:51 Impression: CHF ECG Data EKG #1: Attestation: I personally reviewed and interpreted this ECG as follows: ECG completion date: 12/29/24 ECG completion time: 19:06 Interpretation: AFib with RVR rate of 158, normal axis, no acute ST or T-wave changes EKG #2: Attestation: I personally reviewed and interpreted this ECG as follows: ECG completion date: 12/29/24 ECG completion time: 19:33 Interpretation: Sinus bradycardia rate of 56, normal axis, normal intervals Q-waves in precordial leads, no acute ST or T-wave changes Discharge Plan Discharge Clinical Impression: Atrial fibrillation with rapid ventricular response CHF (congestive heart failure) Qualifiers: Heart failure type: unspecified Heart failure chronicity: chronic Qualified Code(s): I50.9 - Heart failure, unspecified Patient Disposition: Home Condition: Stable Instructions: Antibiotic Form, Heart Failure (ED), A-fib (Atrial Fibrillation) (ED) Additional Instructions: You were found to be in AFib with RVR and this was resolved with a dose of the medicine called Cardizem. If you remain asymptomatic at home, you do not you take your metoprolol dose this evening, resume it in the morning. Your also found to be in heart failure, your given a prescription for Lasix take this as prescribed. Follow up with her PCP on Monday as scheduled. Return to the ED for any new or worsening symptoms were in Patient Language: Frisian Prescriptions: New furosemide [Lasix] 20 mg tablet 20 mg PO DAILY Qty: 30 0RF No Action alprazolam 0.5 mg tablet 0.5 mg PO TID PRN (Reason: Anxiety) gabapentin 300 mg capsule 300 mg PO TID Xarelto 20 mg tablet 20 mg PO DAILY olmesartan 40 mg tablet 40 mg PO DAILY levothyroxine 88 mcg Tablet 88 mcg PO DAILY Rx Instructions: Pt instructed to take the 88mcg PO daily until bottle runs out and then increase to 100mcg PO daily. meclizine 25 mg Tablet 25 mg PO DAILY PRN (Reason: dizziness) spironolactone 25 mg tablet 25 mg PO DAILY ondansetron 4 mg tablet,disintegrating 4 mg PO Q6H PRN (Reason: nausea and vomiting) Qty: 10 0RF acetaminophen 500 mg tablet 1,000 mg PO TID PRN (Reason: pain (scale score 1-3)) 7 Days Qty: 42 0RF lidocaine [Lidocaine Pain Relief] 4 % adhesive patch,medicated 1 patch topical BID PRN (Reason: arthritic pain.) Rx Instructions: Apply one patch to area of arthritis pain BID PRN arthritic pain. rosuvastatin 20 mg tablet 20 mg PO .Evening multivitamin Tablet 1 tablet PO DAILY cholecalciferol (vitamin D3) [Vitamin D3] 50 mcg (2,000 unit) tablet 50 mcg PO DAILY PreserVision AREDS-2 250-90-40-1 mg capsule 2 tablet PO DAILY carboxymethylcellulose sodium [Refresh Tears] 0.5 % drops 1 drp EACH EYE TID amlodipine 10 mg tablet 10 mg PO DAILY folic acid 1 mg tablet 1 mg PO DAILY methotrexate sodium 2.5 mg tablet 7.5 mg PO .COMPLEX Rx Instructions: 7.5 mg orally BID weekly on Fridays. metoprolol tartrate 50 mg tablet 50 mg PO Q12H Qty: 60 0RF Follow-up/Referrals: Stefano,Blair Wiggins MD [Primary Care Provider, Unknown]
[2024-12-29] MEDS: SODIUM CHLORIDE 0.9% IV 1,000 ML 999 ML IV CONT (19:23)
[2024-12-29 19:24] LABS: Hematocrit 36.5 % (37.0-47.0); Hemoglobin 11.6 g/dL (12.0-15.0); Immature Granulocyte Percent A 0.3 % (0-0.5); Lymphocytes Absolute Auto 1.86 K/mm3 (0.9-3.2); Mean Corpuscular HGB Conc 31.8 g/dl (32-36); Mean Corpuscular Hemoglobin 28.9 pg (26-34); Mean Corpuscular Volume 91.0 fl (80-100); Nucleated Red Blood Cells Absolute Auto 0.000 K/mm3 (0.0-0.012); Nucleated Red Blood Cells Perc 0.0 % (0.0-0.2); Platelet Count Result 306 k/mm3 (150-375); Red Blood Count 4.01 M/mm3 (4.2-5.4); White Blood Count 7.9 K/mm3 (4.5-10.0)
--- NOTE | 2024-12-29 19:30 | ECG_ITS ---
Test Date: 2024-12-29 19:33:28 Measurements Intervals [place] Rate: 56 P: 7 CO: 175 QRS: -21 QRSD: 97 T: 11 QT: 431 QTc: 419 Interpretive Statements SINUS BRADYCARDIA MINIMAL VOLTAGE CRITERIA FOR LVH, CONSIDER NORMAL VARIANT [MEETS CRITERIA IN ONE OF: R(aVL), S(V1), R(V5), R(V5/V6)+S(V1)] Poor R wave progression Electronically Signed On 12-30-2024 18:23:25 [employer] by Nathan Caldwell M.D.
[2024-12-29 19:36] VITALS: BP 116/61; PULSE 56; RESP 18; O2SAT 96
--- OUTSIDE RECORDS SUMMARY | 2024-12-29 19:43 | XMS_ITS | Encounter Summary ---
Author Organization [facility] Healthcare Address [address] [place] [address] Care Team Providers Care Senior Government Program Analyst Name Role Phone Blair Agarwal MD Primary Care Provider [phone] Frank Whitney MD Unavailable [phone] Encounter Details Date Type Department Care Team (Late st Contact Info) Description 12/22/2024 Results Follow-Up [facility] Family Medicine at [address] [place] [address] [id number] Lumbar Spine WO Contrast Social History [...] on filedocumented in this encounter Care Teams Senior Government Program Analyst Relationship Specialty Start Date End Date Blair Agarwal MD [address] [facility] [address] [place] [address] PCP - General 06/23/18 [place] [id number] [place] [address] Referring Physician Rheumatology 09/05/23 documented as of this encounter
--- OUTSIDE RECORDS SUMMARY | 2024-12-29 19:43 | XMS_ITS | Clinical Summary ---
Author Organization [facility] Address [address] [place] [id number] Care Team Providers Care Lawn Care Technician Name Role Phone Unavailable Primary Care Provider [...]
--- OUTSIDE RECORDS SUMMARY | 2024-12-29 19:43 | XMS_ITS | Encounter Summary ---
Author Organization [facility] Healthcare Address [address] [place] [address] Care Team Providers Care Chain Testing Machine Operator Name Role Phone Blair Agarwal MD Primary Care Provider Frank Whitney MD Unavailable [phone] Reason for Referral * MRI/CAT/PET Scan (Routine) - Closed Specialty Diagnoses / Procedures Referred By Contac t Referred To Contact Radiology Diagnoses Acute right-sided low back pain with right-sided sciatica Compression deformity of vertebra Procedures CT Lumbar Spine WO Contrast Marlena Marcial PA [address] [place] [address] [address] [place] [phone] Phone: tel: fax: [address] [address] Referral ID Status Reason Start Date Expiration Date Visits Re quested Visits Authorized [id number] Closed 12/17/2024 01/16/2026 1 1 Encounter Details Date Type Department Care Team (Late st Contact Info) Description 12/16/2024 Results Follow-Up [facility] Family Medicine at [address] [place] [phone] Marlena Marcial PA [address] [place] [address] [address] [place] [phone] XR Spine Lumbar 2 Or 3 Vw [...] vertebra documented in this encounter Care Teams Chain Testing Machine Operator Relationship Specialty Start Date End Date Blair Agarwal MD [address] [facility] [place] [address] PCP - General 06/23/18 [place] [address] [place] [id number] Referring Physician Rheumatology 09/05/23 documented as of this encounter
--- OUTSIDE RECORDS SUMMARY | 2024-12-29 19:43 | XMS_ITS | Clinical Summary ---
Author Organization [facility] Office Center Address [address] [place] [address] Care Team Providers Care Marriage And Family Teacher Name Role Phone Blair Agarwal MD Primary Care Provider [phone] Frank Whitney MD Unavailable [phone] Allergies No known active allergies Medications vitamins A,C,P-jhcd-ahlmuo (ICAPS) 14,320226-200 lfhv-mp-ntfj capsule Take 2 capsules by mouth daily [...] Department Care Team Description 12/25/2024 9:00 AM AVIATION TECHNICAL SYSTEMS SPECIALIST Lab [facility] [place] [facility] [address] [place] [address] Medicare annual wellness visit, subsequent; Mixed hyperlipidemia; Stage 3a chronic kidney disease (HCC); Primary hypertension; PMR (polymyalgia rheumatica); Acquired hypothyroidism 12/25/2024 Results Follow-Up [facility] Family Medicine at [address] [place] [address] Blair Agarwal MD Lipid panel, Comprehensive metabolic panel, CBC with auto differential, Additional followed-up results: 5 12/22/2024 Results Follow-Up [facility] Medical [facility] Family Medicine at [address] [place] [address] Lumbar Spine WO Contrast 12/20/2024 12:56 PM CDT - 12/20/2024 11:59 PM CDT Hospital Encounter [facility] [address] [place] [address] Acute right-sided low back pain with right-sided sciatica; Compression deformity of vertebra Discharge Disposition: Discharge to home or self care 12/19/2024 Telephone [facility] Family [facility] at [address] [place] [address] Blair Agarwal MD Medical Question/Miscellaneo us 12/16/2024 9:52 AM CDT - 12/16/2024 11:59 PM CDT Hospital Encounter [facility] Di[facility] Imaging [address] [place] [address] Acute right-sided low back pain with right-sided sciatica Discharge Disposition: Discharge to home or self care 12/16/2024 9:15 AM CDT Office Visit [facility] Family Medicine at [address] [place] [address] Marlena Marcial PA Acute right-sided low back pain with right-sided sciatica (Primary Dx); Need for influenza vaccination 12/16/2024 Results Follow-Up [facility] Family [facility] at [address] [place] [address] Marlena Marcial PA XR Spine Lumbar 2 Or 3 Vw 12/13/2024 Nurse Triage [facility] Family Medicine at [address] [place] [address] Cyndy Weinberg, RACHEAL 12/12/2024 2:00 PM CDT Office Visit [facility] Medical [facility] Cardiology [address] [place] [address] Kala Molina NP Paroxysmal atrial fibrillation (HCC); Chronic anticoagulation; Essential hypertension; Obesity, class 3 (E66.813); Body mass index [BMI] 40.0-44.9, adult (Z68.41) 11/06/2024 Telephone [facility] Medical [facility] Family Medicine at [address] [place] [address] Blair Agarwal MD Medical Records Request 10/18/2024 ACO Medication Access [facility] Accountable Care Organization [address] [place] [address] Ashli Soria grievance manager 10/17/2024 Telephone [facility] Medicine at [address] [place] [address] Blair Agarwal MD Symptom Based Call 10/15/2024 Telephone [facility] at [address] [address] [facility] 10/09/2024 Orders Only [facility] Health Information Management [address] [place] [address] Blair Agarwal MD 10/04/2024 Telephone [facility] Family Medicine at [address] [place] [address] Blair Agarwal MD Medical Records Request from [...] SARS-CoV-2 Monovalent Vaccination (12+ Yrs) PURPLE 11/17/2021,05/08/2020,04/19/2020 [employer] Sars-Cov-2 Bivalent V accination (12+ YRS) 09/28/2022,11/20/2021 [...] Diagnosis Comments EGFR Routine 12/25/2024 9:09 AM AVIATION TECHNICAL SYSTEMS SPECIALIST Medicare annual wellness visit, subsequent Mixed hyperlipidemia Stage 3a chronic kidney disease (HCC) T4, FREE Routine 12/25/2024 9:09 AM AVIATION TECHNICAL SYSTEMS SPECIALIST Acquired hypothyroidism DIFFERENTIAL AUTO Routine 12/25/2024 9:0 9 AM AVIATION TECHNICAL SYSTEMS SPECIALIST Medicare annual wellness visit, subsequent Primary hypertension THYROID FUNCTION CASCADE Routine 12/25/2024 9:09 AM AVIATION TECHNICAL SYSTEMS SPECIALIST Acquired hypothyroidism ERYTHROCYTE SEDIMENTATION RATE Routine 12/25/2024 9:09 AM AVIATION TECHNICAL SYSTEMS SPECIALIST PMR (polymyalgia rheumatica) CBC WITH AUTO DIFFERENTIAL Routine 12/25/2024 9:09 AM AVIATION TECHNICAL SYSTEMS SPECIALIST Medicare annual wellness visit, subsequent Primary hypertension COMPREHENSIVE METABOLIC PANEL Routine 12/25/2024 9:09 AM AVIATION TECHNICAL SYSTEMS SPECIALIST Medicare annual wellness visit, subsequent Mixed hyperlipidemia Stage 3a chronic kidney disease (HCC) LIPID PANEL Routine 12/25/2024 9:09 AM AVIATION TECHNICAL SYSTEMS SPECIALIST Medicare annual wellness visit, subsequent Mixed hyperlipidemia [...] Read Routine (OP Routine) 01/26/2023 10:09 AM AVIATION TECHNICAL SYSTEMS SPECIALIST Postmenopausal status COLONOSCOPY Routine 10/24/2020 SCREENING MAMMOGRAM BILATERAL W BALA Routine 11/25/2014 8:54 AM CDT from Last 3 Months or Most Recently Relevant to Health Maintenance Results * (ABNORMAL) eGFR (12/25/2024 9:09 AM AVIATION TECHNICAL SYSTEMS SPECIALIST) [facility] eGFR 56(L) >=60 mL/min/1. 73 m2 Comment: [...] last reviewed 2020. Blood 12/25/2024 9:09 AM AVIATION TECHNICAL SYSTEMS SPECIALIST 12/25/2024 10:41 AM AVIATION TECHNICAL SYSTEMS SPECIALIST us Blair Agarwal MD LAB BLOOD ORDERABLES Final Re sult YULIYA [address] [facility] Department [place] [address] * Differential, auto (12/25/2024 9:09 AM AVIATION TECHNICAL SYSTEMS SPECIALIST) [facility] Neutrophil abs 4.97 1.50 - 6.50 K/cumm Imm gran abs 0.02 0.00 - 0.10 K/cumm [facility] Lymphocyte abs 1.48 0.80 - 3.30 K/cumm [facility] Monocyte abs 0.63 0.20 - 0.80 K/cumm [facility] Eosinophil abs 0.37 0.00 - 0.50 K/cumm [facility] Basophil abs 0.05 0.00 - 0.10 K/cumm [facility] Neutrophil pct 66.0 % [facility] Comment: Interpretive Data Percent cell count reference ranges are not reported, since discordance with absolute values may lead to misinterpretation of CBC data. Current Interpretive Data was last revised on 2017. Imm gran pct 0.3 % [facility] Comment: Interpretive Data Percent cell count reference ranges are not reported, since discordance with absolute values may lead to misinterpretation of CBC data. Current Interpretive Data was last revised on 2017. Lymphocyte pct 19.7 % [facility] Comment: Interpretive Data Percent cell count reference ranges are not reported, since discordance with absolute values may lead to misinterpretation of CBC data. Current Interpretive Data was last revised on 2017. Monocyte pct 8.4 % [facility] Comment: Interpretive Data Percent cell count reference ranges are not reported, since discordance with absolute values may lead to misinterpretation of CBC data. Current Interpretive Data was last revised on 2017. Eosinophil pct 4.9 % [facility] Comment: Interpretive Data Percent cell count reference ranges are not reported, since discordance with absolute values may lead to misinterpretation of CBC data. Current Interpretive Data was last revised on 2017. Basophil pct 0.7 % [facility] Comment: Interpretive Data Percent cell count reference ranges are not reported, since discordance with absolute values may lead to misinterpretation of CBC data. Current Interpretive Data was last revised on 2017. Blood 12/25/2024 9:09 AM AVIATION TECHNICAL SYSTEMS SPECIALIST 12/25/2024 10:43 AM AVIATION TECHNICAL SYSTEMS SPECIALIST Blair Agarwal MD LAB BLOOD ORDERABLES Final Re sult Performing Organization Address [facility] Co de Phone Number [facility] [address] [facility] Department [place] [address] * (ABNORMAL) Thyroid Function Hominy (12/25/2024 9:09 AM AVIATION TECHNICAL SYSTEMS SPECIALIST) TSH 5.99(H) 0.30 - 4.20 mcIUnit/mL Blood 12/25/2024 9:09 AM AVIATION TECHNICAL SYSTEMS SPECIALIST 12/25/2024 10:41 AM AVIATION TECHNICAL SYSTEMS SPECIALIST Blair Agarwal MD LAB BLOOD ORDERABLES Final Re sult Performing Organization Address [facility] Co de Phone Number [address] [address] * (ABNORMAL) CBC with auto differential (12/25/2024 9:09 AM AVIATION TECHNICAL SYSTEMS SPECIALIST) [facility] WBC 7.52 3.80 - 9.90 K/cumm Hgb 11.4(L) 11.9 - 15.5 g/dL [facility] Hct 37.1 35.6 - 45.5 % [facility] Plt 300 150 - 400 K/cumm [facility] MPV 9.7 9.1 - 12.3 fL [facility] RBC 3.94 3.90 - 5.20 M/cumm [facility] MCV 94.2 81.3 - 96.4 fL [facility] MCH 28.9 27.1 - 33.3 pg [facility] MCHC 30.7(L) 32.3 - 35.7 g/dL [facility] RDW CV 15.5(H) 11.1 - 14.9 % [facility] RDW SD 52.4(H) 35.7 - 48.1 fL [facility] NRBC abs 0.00 0.00 - 0.01 K/cumm [facility] Blood 12/25/2024 9:09 AM AVIATION TECHNICAL SYSTEMS SPECIALIST 12/25/2024 10:43 AM AVIATION TECHNICAL SYSTEMS SPECIALIST us Blair Agarwal MD LAB BLOOD ORDERABLES Final Re sult Performing Organization Address [facility] Co de Phone Number [address] [place] [place] [address] * (ABNORMAL) Erythrocyte sedimentation rate (12/25/2024 9:09 AM AVIATION TECHNICAL SYSTEMS SPECIALIST) [facility] Erythrocyte sedimentation rate 49(H) 1 - 30 mm/hr Blood 12/25/2024 9:09 AM AVIATION TECHNICAL SYSTEMS SPECIALIST 12/25/2024 10:43 AM AVIATION TECHNICAL SYSTEMS SPECIALIST us Blair Agarwal MD LAB BLOOD ORDERABLES Final Re sult Performing Organization Address [facility] Co de Phone Number [address] [place] [address] * T4, free (12/25/2024 9:09 AM AVIATION TECHNICAL SYSTEMS SPECIALIST) Free T4 1.16 0.90 - 1.70 ng/dL Blood 12/25/2024 9:09 AM AVIATION TECHNICAL SYSTEMS SPECIALIST 12/25/2024 10:41 AM AVIATION TECHNICAL SYSTEMS SPECIALIST Narrative YULIYA - 12/25/2024 12:27 PM AVIATION TECHNICAL SYSTEMS SPECIALIST This test was reflexed from a TSH result. us Blair Agarwal MD LAB BLOOD ORDERABLES Final Re sult YULIYA [address] [facility] Department [place] [address] * Lipid panel (12/25/2024 9:09 AM AVIATION TECHNICAL SYSTEMS SPECIALIST) Cholesterol 119 30 - 199 mg/dL Comment: [...] last revised on 2017. Chol/HDL ratio 2 [facility] Blood 12/25/2024 9:09 AM AVIATION TECHNICAL SYSTEMS SPECIALIST 12/25/2024 10:41 AM AVIATION TECHNICAL SYSTEMS SPECIALIST Blair Agarwal MD LAB BLOOD ORDERABLES Final Re sult YULIYA [address] [facility] Department [place] [address] * Comprehensive metabolic panel (12/25/2024 9:09 AM AVIATION TECHNICAL SYSTEMS SPECIALIST) Pathologist [facility] Sodium 141 135 - 145 mmol/L Potassium, pl 4.2 3.3 - 4.9 mmol/L [facility] Chloride 103 97 - 110 mmol/L [facility] CO2 27 22 - 32 mmol/L [facility] Anion gap 11 2 - 15 mmol/L [facility] BUN 16 6 - 25 mg/dL [facility] Creatinine 1.02 0.60 - 1.10 mg/dL [facility] Glucose 89 70 - 199 mg/dL [facility] Comment: Interpretive Data Fasting glucose >/= [...] 2022. Calcium 10.1 8.5 - 10.3 mg/dL [facility] Bilirubin, total 0.4 0.1 - 1.2 mg/dL [facility] Protein, pl 7.6 6.5 - 8.5 g/dL [facility] Albumin 4.2 3.5 - 5.0 g/dL [facility] Alk phos 66 40 - 130 Units/L [facility] ALT 14 7 - 45 Units/L [facility] AST 19 10 - 45 Units/L [facility] Blood 12/25/2024 9:09 AM AVIATION TECHNICAL SYSTEMS SPECIALIST 12/25/2024 10:41 AM AVIATION TECHNICAL SYSTEMS SPECIALIST us Blair Agarwal MD LAB BLOOD ORDERABLES Final Re sult YULIYA [address] [facility] Department [place] [address] * CT Lumbar Spine WO [...] 1 or 2 Site (01/26/2023 10:09 AM AVIATION TECHNICAL SYSTEMS SPECIALIST) Anatomical Region Laterality Modality Body N/A Mammography 01/26/2023 10:5 9 AM AVIATION TECHNICAL SYSTEMS SPECIALIST Narrative 01/26/2023 11:00 AM AVIATION TECHNICAL SYSTEMS SPECIALIST EXAM DESCRIPTION: DEXA AXIAL SKELETON BONE DENSITY 1 OR MORE SITES REASON FOR STUDY: 77 y/o year old F with given history of: Postmenopausal status. Patient has taken/is taking vitamin-D. History of prior fracture and smoking Commutator V Ring Assembler/Model: eXelate Horizon A (S/N [id number]) CLINICAL INFORMATION: Current height: 64 inches Maximum [...] Ml Ross M.D. TW: TW Report ID: [id number] Reading Location: [id number] Procedure Note Ml Ross MD - 01/26/2023 EXAM DESCRIPTION: DEXA AXIAL SKELETON BONE DENSITY 1 OR MORE SITES REASON FOR STUDY: 77 y/o year old F with given history of:Postmenopausal status. Patient has taken/is taking vitamin-D. History of prior fractureand smoking Commutator V Ring Assembler/Model: Hologic Horizon A (S/N [id number]) CLINICAL INFORMATION: Current height: 64 inches Maximum [...] Ml Ross M.D. TW: SHEA Report ID: [id number] Reading Location: [id number] Blair Agarwal MD IMG DXA PROCEDURES Final [...] Electronically signed by: Shukri Noe md/:11/25/2014 10:14:56 Product Support Analyst: Mariah Herrera RT (R)(M), [facility] letter sent: Normal Exam Reading location: BI-RADS: [...] dated: 09/23/2013 mammogram and 09/29/2011 mammogram/ultrasound - [facility]. BREAST TISSUE: There are scattered fibroglandular densities [...] dated: 09/23/2013 mammogram and 09/29/2011 mammogram/ultrasound - [facility]. BREAST TISSUE: There are scattered fibroglandular densities [...] Electronically signed by: Shukri Noe md/:11/25/2014 10:14:56 Product Support Analyst: Mariah Herrera RT (R)(M), [facility] letter sent: Normal Exam Reading location: BI-RADS: 2 Benign [EOD] Blair Agarwal MD IMG MAMMO PROCEDURES Final Re sult from Last 3 Months or Most Recently Relevant to Health Maintenance Insurance [facility] MEDICARE [facility] Address: [facility] [address] [place] [address] [facility] MEDICARE ADVANTAGE [facility] Address: [address] [address] Advance Directives For more information, please contact: [phone] Documents on File Type Date Recorded Patient Production Utility Worker Expl anation ADVANCE DIRECTIVE 05/14/2020 Care Teams Marriage And Family Teacher Relationship Specialty Start Date End Date Blair Agarwal MD [address] [address] PCP - General 06/23/18 [place] [address] [facility] [address] [place] [address] Referring Physician Rheumatology 09/05/23
--- OUTSIDE RECORDS SUMMARY | 2024-12-29 19:43 | XMS_ITS | Encounter Summary ---
Author Organization [facility] Facility Care Team Providers Care Geoscience Technician Name Role Phone Blair Agarwal MD Primary Care Provider [phone] Frank Whitney MD Unavailable [phone] Encounter Details Date Type Department Care Team (Latest Contact Info) Description 04/06/2018 Orders Only [facility] CLINCONV ProviderCarlos Manuel MD [address] [place] [phone] Social History Tobacco Use Types Packs/Day Years [...] PROCEDURE - RESULT 04/06/2018 12 :00 AM PLAN CHECKER documented in this encounter Results * PROCEDURE - RESULT (04/06/2018 12:00 AM PLAN CHECKER) Narrative 04/06/2018 12:00 AM PLAN CHECKER Ordered by an unspecified provider. Historical Provider Final Res ult documented in this encounter Visit Diagnoses Not on filedocumented in this encounter Care Teams Geoscience Technician Relationship Specialty Start Date End Date Blair Agarwal MD [address] [facility] [place] [address] PCP - General 06/23/18 [place] [address] [address] Referring Physician Rheumatology 09/05/23 documented as of this encounter
--- OUTSIDE RECORDS SUMMARY | 2024-12-29 19:43 | XMS_ITS | Encounter Summary ---
Author Organization [facility] Healthcare Address [address] [place] [address] Care Team Providers Care Resident Physician Name Role Phone Blair Agarwal MD Primary Care Provider [phone] Frank Whitney MD Unavailable [phone] Encounter Details Date Type Department Care Team (Late st Contact Info) Description 12/25/2024 Results Follow-Up [facility] Medical Group Family Medicine at [address] [address] Blair Agarwal MD [address] [place] [address] Lipid panel, Comprehensive metabolic panel, CBC [...] on filedocumented in this encounter Care Teams Resident Physician Relationship Specialty Start Date End Date Blair Agarwal MD [address] [facility] [address] [place] [address] PCP - General 06/23/18 [place] [address] [facility] [address] [place] [address] Referring Physician Rheumatology 09/05/23 documented as of this encounter
--- OUTSIDE RECORDS SUMMARY | 2024-12-29 19:43 | XMS_ITS | Clinical Summary ---
Author Organization [facility] Address [address] [facility] [place] [address] Care Team Providers Care Show Design Supervisor Name Role Phone Blair Agarwal MD Primary Care Provider [phone] Source Comments [facility],non-owned Affiliates and Associated Physician Practices is amultiple site organization consisting of ambulatory clinics and hospital sitesin [place], [place], [place] and [place]. This disclosure is being madepursuant to the Care Everywhere program and may not contain all information available regarding this patient. Last updated 17.[facility] Allergies No known active allergies Medications * [...] Health Maintenance Due Date Last Done Comments DTAP/TDAP/TD VACCINES (1 - Tdap) 1964 PNEUMOCOCCAL VACCINE 50+ (1 of 2 - PCV) 1964 ZOSTER VACCINE (1 of 2) 11/06/1995 Respiratory Syncytial Virus (RSV) Vaccine Pt: or over 60 yrs (1 - 1-dose 75+ series) 2020 DEPRESSION SCREENING 02/21/2024 MEDICARE AWV CALENDAR YEAR 2024 COVID-19 VACCINE ( season) 2024 09/28/2022, 11/20/2021, 11/17/2021, Additional history exists INFLUENZA VACCINE (#1) 2024 2, 12/19/2020, 11/07/2019, [...] age to complete this topic Insurance MEDICARE [facility] [employer] MANAGED MEDICARE ADV Care Teams Show Design Supervisor Relationship Specialty Start Date End Date Blair Agarwal MD [facility] [facility] [place] [address] PCP - General 05/29/17
[2024-12-29 19:44] LABS: Alanine Aminotransferase 16 U/L (6-35); Albumin Level 4.3 g/dL (3.5-5.1); Alkaline Phosphatase 69 U/L (38-126); Anion Gap 8 mmol/L (4-12); Aspartate Amino Transferase 23 U/L (14-36); Bilirubin,Total 0.6 mg/dL (0.2-1.3); Blood Urea Nitrogen 13 mg/dL (7-17); Calcium 9.8 mg/dL (8.4-10.2); Carbon Dioxide 24 mmol/L (22-30); Chloride 106 mmol/L (98-107); Estimated CRCL calculation 38 ml/min; Estimated Glomerular Filt Rate 44; Glucose 102 mg/dL (65-110); Lipase 157 U/L (23-300); Magnesium 1.9 mg/dL (1.6-2.3); Potassium 3.9 mmol/L (3.4-5.0); Sodium 138 mmol/L (137-145); Total Protein 7.9 g/dL (6.3-8.2)
[2024-12-29 19:46] LABS: INR 1.8; Prothrombin Time 20.8 Seconds (11.1-14.7)
[2024-12-29 19:47] LABS: Partial Thromboplastin Time 40.4 Seconds (22.3-36.8)
[2024-12-29 19:50] LABS: Troponin I 0.015 ng/mL (0.000-0.034)
--- NOTE | 2024-12-29 20:13 | PC.NURSE ---
Pt has a HX afib RVR taking metoprolol, per pt dose was just increased from 25mg to 50mg. Refer to MAR for medication administration.
[2024-12-29 20:20] LABS: NT Pro B Type Natriuretic Pept 3320 pg/mL (19.9-100)
[2024-12-29 20:52] VITALS: BP 133/74; PULSE 61; RESP 18; O2SAT 96
== END 2024-12-29 20:52 | disposition home or self-care (01) ==
PROVIDERS: Emergency Provider Student in an Organized Health Care Education/Training Program; PCP Family Medicine
DX: I48.20 Chronic atrial fibrillation, unspecified (principal); I11.0 Hypertensive heart disease with heart failure; I48.91 Unspecified atrial fibrillation; I50.9 Heart failure, unspecified; E03.9 Hypothyroidism, unspecified; E55.9 Vitamin D deficiency, unspecified; G47.33 Obstructive sleep apnea (adult) (pediatric); K21.9 Gastro-esophageal reflux disease without esophagitis; F17.210 Nicotine dependence, cigarettes, uncomplicated; Z79.01 Long term (current) use of anticoagulants
CPT/HCPCS: 36415; 71045; 80053; 83690; 83735; 83880; 84484; 85025; 85610; 85730; 93005; 96361; 96374; 99284; J1163; J7030

== ENCOUNTER 2025-01-14 09:19 | Outpatient (CLI) | payer MEDICARE, SELFPAY ==
[2025-01-14 10:03] LABS: Hematocrit 35.1 % (37.0-47.0); Hemoglobin 11.1 g/dL (12.0-15.0); Immature Granulocyte Percent A 0.4 % (0-0.5); Lymphocytes Absolute Auto 1.25 K/mm3 (0.9-3.2); Mean Corpuscular HGB Conc 31.6 g/dl (32-36); Mean Corpuscular Hemoglobin 29.4 pg (26-34); Mean Corpuscular Volume 93.1 fl (80-100); Nucleated Red Blood Cells Absolute Auto 0.000 K/mm3 (0.0-0.012); Nucleated Red Blood Cells Perc 0.0 % (0.0-0.2); Platelet Count Result 269 k/mm3 (150-375); Red Blood Count 3.77 M/mm3 (4.2-5.4); White Blood Count 5.4 K/mm3 (4.5-10.0)
--- OUTSIDE RECORDS SUMMARY | 2025-01-14 10:10 | XMS_ITS | Encounter Summary ---
Author Organization [facility] Healthcare Address [address] [place] [address] Care Team Providers Care Auger Supervisor Name Role Phone Blair Agarwal MD Primary Care Provider [phone] Frank Whitney MD Unavailable [phone] Encounter Details Date Type Department Care Team (Late st Contact Info) Description 12/25/2024 Results Follow-Up [facility] Family Medicine at [address] [address] Blair Agarwal MD [address] [place] [address] Lipid panel, Comprehensive metabolic panel, CBC [...] on filedocumented in this encounter Care Teams Auger Supervisor Relationship Specialty Start Date End Date Blair Agarwal MD [address] [facility] [address] [place] [address] PCP - General 06/23/18 [place] [address] [facility] [address] [place] [address] Referring Physician Rheumatology 09/05/23 documented as of this encounter
--- OUTSIDE RECORDS SUMMARY | 2025-01-14 10:10 | XMS_ITS | Encounter Summary ---
Author Organization [facility] Facility Care Team Providers Care Light Truck Driver Name Role Phone Blair Agarwal MD Primary Care Provider [phone] Frank Whitney MD Unavailable Encounter Details Date Type Department Care Team (Latest Contact Info) Description 04/06/2018 Orders Only [facility] CLINCONV ProviderCarlos Manuel MD [address] [place] [phone] Social History Tobacco Use Types Packs/Day Years [...] PROCEDURE - RESULT 04/06/2018 12 :00 AM EMBROIDERY FINISHER documented in this encounter Results * PROCEDURE - RESULT (04/06/2018 12:00 AM EMBROIDERY FINISHER) Narrative 04/06/2018 12:00 AM EMBROIDERY FINISHER Ordered by an unspecified provider. Historical Provider Final Res ult documented in this encounter Visit Diagnoses Not on filedocumented in this encounter Care Teams Light Truck Driver Relationship Specialty Start Date End Date Blair Agarwal MD [address] [facility] [place] [address] PCP - General 06/23/18 [place] [address] [address] Referring Physician Rheumatology 09/05/23 documented as of this encounter
--- OUTSIDE RECORDS SUMMARY | 2025-01-14 10:10 | XMS_ITS | Encounter Summary ---
Author Organization [facility] Healthcare Address [address] [place] [address] Care Team Providers Care Aerial Gunner Superintendent Name Role Phone Blair Agarwal MD Primary Care Provider [phone] Frank Whitney MD Unavailable [phone] Encounter Details Date Type Department Care Team (Late st Contact Info) Description 12/22/2024 Results Follow-Up [facility] Medical Group Family Medicine at [address] [place] [phone] Lumbar Spine WO Contrast Social History [...] on filedocumented in this encounter Care Teams Aerial Gunner Superintendent Relationship Specialty Start Date End Date Blair Agarwal MD [address] [facility] [address] [place] [address] PCP - General 06/23/18 [place] [address] [place] [address] Referring Physician Rheumatology 09/05/23 documented as of this encounter
--- OUTSIDE RECORDS SUMMARY | 2025-01-14 10:10 | XMS_ITS | Encounter Summary ---
Author Organization [facility] Healthcare Address [address] [place] [address] Care Team Providers Care Director Of Quantitative Research Name Role Phone Blair Agarwal MD Primary Care Provider Frank Whitney MD Unavailable [phone] Reason for Referral * MRI/CAT/PET Scan (Routine) - Closed Specialty Diagnoses / Procedures Referred By Contac t Referred To Contact Radiology Diagnoses Acute right-sided low back pain with right-sided sciatica Compression deformity of vertebra Procedures CT Lumbar Spine WO Contrast Marlena Marcial PA [address] [place] [address] DR BELL [address] [place] [address] Phone: tel: fax: [address] [address] Referral ID Status Reason Start Date Expiration Date Visits Re quested Visits Authorized [id number] Closed 12/17/2024 01/16/2026 1 1 Encounter Details Date Type Department Care Team (Late st Contact Info) Description 12/16/2024 Results Follow-Up [facility] Medical Group Family Medicine at [address] [place] [phone] Marlena Marcial PA [address] [place] [address] DR BELL [address] [place] [phone] XR Spine Lumbar 2 Or 3 Vw [...] vertebra documented in this encounter Care Teams Director Of Quantitative Research Relationship Specialty Start Date End Date Blair Agarwal MD [address] [facility] [place] [address] PCP - General 06/23/18 [place] [address] [place] [phone] Referring Physician Rheumatology 09/05/23 documented as of this encounter
--- OUTSIDE RECORDS SUMMARY | 2025-01-14 10:10 | XMS_ITS | Clinical Summary ---
Author Organization [facility] Office Center Address [address] [place] [address] Care Team Providers Care Caddy Packer Name Role Phone Blair Agarwal MD Primary Care Provider [phone] Frank Whitney MD Unavailable [phone] Allergies No known active allergies Medications vitamins A,C,G-yzcw-dljdua (ICAPS) 14,320226-200 awfb-sl-weyl capsule Take 2 capsules by mouth daily [...] TIMES DAILY 300 capsule 10/05/19 25 Active hydroxychloroquine (PLAQUENIL) 200 mg tablet Take 1 tablet (200 mg total) by mouth 2 (two) times a day Active methocarbamoL (ROBAXIN) 500 mg tabletIndications: Acute right-sided low back pain with right-sided sciatica Take 1 tablet (500 mg total) by mouth 3 (three) times a day as needed for muscle spasms 40 tablet 12/17/19 25 Active furosemide (LASIX) 20 mg tablet Take 1 tablet (20 mg total) by mouth daily 30 tablet 2 01/02/20 25 Active potassium chloride ER (KLOR-CON) 10 mEq CR tablet Take 1 tablet/capsule (10 mEq total) by mouth daily 30 tablet 2 01/02/20 25 026 Active metoprolol tartrate (LOPRESSOR) 50 mg immediate release tablet Take 1 tablet (50 mg total) by mouth 2 (two) times a day 180 tablet 3 01/03/20 25 026 Active olmesartan (BENICAR) 40 mg tabletIndications: Essential hypertension Take 1 tablet (40 mg total) by mouth daily 90 tablet 3 12/13/19 25 025 Discontin ued(Thera py completed ) metoprolol XL (TOPROL-XL) 50 mg extended release tablet Take 1 tablet (50 mg total) by mouth nightly 90 tablet 3 12/13/19 25 025 Discontin ued(Reord er) furosemide (LASIX) 20 mg tablet Take 1 tablet (20 mg total) by mouth daily 01/01/20 025 Discontin ued(Reord er) metoprolol XL (TOPROL-XL) 50 mg extended release tablet Take 1 tablet (50 mg total) by mouth nightly 90 tablet 3 01/02/20 025 Discontin ued(Alter jamel therapy) Active Problems Problem Noted Date Diagnosed Date Acute blood loss anemia 01/01/2025 Anxiety 01/01/2025 AVM (arteriovenous malformation) of colon 2024 CVA (cerebrovascular accident) 01/01/2025 GERD (gastroesophageal reflux disease) GI bleed 01/01/2025 Pulmonary embolism 01/01/2025 Idiopathic peripheral neuropathy 03/02/2022 History of TIA (transient ischemic attack) 03/02 Chronic anticoagulation 03/09/2021 Paroxysmal atrial fibrillation 11/02/2020 Iron deficiency anemia 11/02/2020 History of pulmonary embolus (PE) 05/14/2020 Medicare annual wellness visit, subsequent 05/01 Metatarsal bone fracture 02/13/2019 Benign paroxysmal positional vertigo due to bilateral vestibular disorder 11/01/2018 Thyroid nodule 08/27/2018 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 05/30/2017 Macular degeneration of both eyes 04/18/2017 Hyperlipemia 09/09/2015 HTN (hypertension) 09/09/2015 Assessment & Plan (06/26/2018 3:15 PM CDT): .BP eval Seen in ER On 3 meds Labs / EKG neg Sent home better Hypothyroid 09/09/2015 Resolved Problems Problem Noted Date Diagnosed Date Resolved Date Erosive gastritis 01/01/2025 01/01/2025 Myalgia 04/26/2023 04/27/2023 Medication side effect, sequela 03/02/2022 12/26/2023 Tobacco abuse 03/09/2021 06/21/2023 Syncope 11/02/2020 06/21/2023 Low blood potassium 11/02/2020 12/09/19 23 Elevated troponin 11/02/2020 12/08/2022 Herpes zoster without complication 05/02/2019 04/27/2023 History of pulmonary embolism 08/06/2018 09/13/2021 TIA (transient ischemic attack) 09/09/2015 06/21/2023 Encounters Date Type Department Care Team Description 01/02/2025 Telephone [facility] Cardiology [address] [facility] [address] [place] [phone] Kiran Arevalo MD 01/01/2025 1:00 PM WILDLIFE FORENSIC GENETICIST Office Visit [facility] Family Medicine at [address] [place] [address] Blair Agarwal MD Paroxysmal atrial fibrillation (HCC) (Primary Dx); Fluid retention in legs; Primary hypertension; Chronic anticoagulation; Gastroesophageal reflux disease, unspecified whether esophagitis present; Acquired hypothyroidism; Mixed hyperlipidemia; Elevated sed rate (elev SR); Mild anemia 12/25/2024 9:00 AM WILDLIFE FORENSIC GENETICIST Lab [address] [address] Medicare annual wellness visit, subsequent; Mixed hyperlipidemia; Stage 3a chronic kidney disease (HCC); Primary hypertension; PMR (polymyalgia rheumatica); Acquired hypothyroidism 12/25/2024 Results Follow-Up [facility] Family Medicine at [address] [place] [address] Blair Agarwal MD Lipid panel, Comprehensive metabolic panel, CBC with auto differential, Additional followed-up results: 5 12/22/2024 Results Follow-Up [facility] Family Medicine at [address] [place] [address] Lumbar Spine WO Contrast 12/20/2024 12:56 PM CDT - 12/20/2024 11:59 PM CDT Hospital Encounter [facility] [address] [place] [address] Acute right-sided low back pain with right-sided sciatica; Compression deformity of vertebra Discharge Disposition: Discharge to home or self care 12/19/2024 Telephone [facility] Family Medicine at [address] [place] [address] Blair Agarwal MD Medical Question/Miscellaneo us 12/16/2024 9:52 AM CDT - 12/16/2024 11:59 PM CDT Hospital Encounter [facility] Di[facility] Imaging [address] [place] [address] Acute right-sided low back pain with right-sided sciatica Discharge Disposition: Discharge to home or self care 12/16/2024 9:15 AM CDT Office Visit [facility] Family Medicine at [address] [place] [phone] Marlena Marcial PA Acute right-sided low back pain with right-sided sciatica (Primary Dx); Need for influenza vaccination 12/16/2024 Results Follow-Up [facility] Family [facility] at [address] [place] [phone] Marlena Marcial PA XR Spine Lumbar 2 Or 3 Vw 12/13/2024 Nurse Triage [facility] Family Medicine at [address] [place] [phone] Cyndy Weinberg, RACHEAL 12/12/2024 2:00 PM CDT Office Visit [facility] Cardiology [address] [place] [phone] Kala Molina NP Paroxysmal atrial fibrillation (HCC); Chronic anticoagulation; Essential hypertension; Obesity, class 3 (E66.813); Body mass index [BMI] 40.0-44.9, adult (Z68.41) 11/06/2024 Telephone [facility] Family Medicine at [address] [place] [phone] Blair Agarwal MD Medical Records Request 10/18/2024 ACO Medication Access [facility] Care Organization [address] [place] [address] Ashli Soria CPhT 10/17/2024 Telephone [facility] Family Medicine at [address] [place] [phone] Blair Agarwal MD Symptom Based Call 10/15/2024 Telephone [facility] Family Medicine at [address] [place] [address] Blair Agarwal MD Hypertension from Last 3 Months Immunizations Immunization Administration Dates Next Due Influenza, Quad, Adjuvantate d, Intramuscular 11/20/2021,11/20/2020 Influenza, Quadrivalent, Hig h Dose, Preservative Free, Intrr 12/08/2022 Influenza, Quadrivalent, Rec ombinant, Egg Free, Preservative Free, Intramuscular 11/07/2019 Influenza, Quadrivalent, Spl it, Intramuscular 12/02/2017 Influenza, Trivalent, Adjuva nted, Intramuscular 12/28/2018,12/02/2017 Influenza, Trivalent, High D ose, Split, Preservative Free, Intramuscular 12/16/2024,11/16/2023,03/20/2017 Influenza, Unspecified 11/21/2023,11/17/2021, [employer] SARS-CoV-2 Monovalent Vaccination (12+ Yrs) PURPLE 11/17/2021,05/08/2020,04/19/2020 [...] Sign Reading Time Taken Comments Blood Pressure 136/80 01/01/2025 12:55 PM WILDLIFE FORENSIC GENETICIST Pulse 56 01/01/2025 12:55 PM WILDLIFE FORENSIC GENETICIST Temperature 36.6 C (97.8 F) 01/01/2025 12:55 PM WILDLIFE FORENSIC GENETICIST Respiratory Rate 16 01/01/2025 12:55 PM WILDLIFE FORENSIC GENETICIST Oxygen Saturation 98% 01/01/2025 12:55 PM WILDLIFE FORENSIC GENETICIST Inhaled Oxygen Concentration - - Weight 108 kg (238 lb) 01/01/2025 12:55 PM WILDLIFE FORENSIC GENETICIST Height 165.1 cm (5' 5) 01/01/2025 12:55 PM WILDLIFE FORENSIC GENETICIST Body Mass Index 39.61 01/01/2025 12:55 PM WILDLIFE FORENSIC GENETICIST Plan of Treatment Health Maintenance Due Date Last Done Comments Hepatitis C Screening 1945 DTaP/Tdap/Td Vaccine (1 - Tdap) 1956 Hepatitis B Screening 11/06/1963 Covid-19 Vaccine (2024-2 6 season) 2024 11/16/2023, 01/10/2023, 09/28/2022, Additional history exists Osteoporosis Screening-Bone Density Scan 01/26/2025 01/26/2023, 08/17/2018, 09/23/2013 Well Visit 65+ 06/27/2025 06/27/2024, 05/02/2023, 06/08/2022, Additional history exists Depression Screening 12/16/2025 [...] Diagnosis Comments EGFR Routine 12/25/2024 9:09 AM WILDLIFE FORENSIC GENETICIST Medicare annual wellness visit, subsequent Mixed hyperlipidemia Stage 3a chronic kidney disease (HCC) T4, FREE Routine 12/25/2024 9:09 AM WILDLIFE FORENSIC GENETICIST Acquired hypothyroidism DIFFERENTIAL AUTO Routine 12/25/2024 9:0 9 AM WILDLIFE FORENSIC GENETICIST Medicare annual wellness visit, subsequent Primary hypertension THYROID FUNCTION CASCADE Routine 12/25/2024 9:09 AM WILDLIFE FORENSIC GENETICIST Acquired hypothyroidism ERYTHROCYTE SEDIMENTATION RATE Routine 12/25/2024 9:09 AM WILDLIFE FORENSIC GENETICIST PMR (polymyalgia rheumatica) CBC WITH AUTO DIFFERENTIAL Routine 12/25/2024 9:09 AM WILDLIFE FORENSIC GENETICIST Medicare annual wellness visit, subsequent Primary hypertension COMPREHENSIVE METABOLIC PANEL Routine 12/25/2024 9:09 AM WILDLIFE FORENSIC GENETICIST Medicare annual wellness visit, subsequent Mixed hyperlipidemia Stage 3a chronic kidney disease (HCC) LIPID PANEL Routine 12/25/2024 9:09 AM WILDLIFE FORENSIC GENETICIST Medicare annual wellness visit, subsequent Mixed hyperlipidemia CT LUMBAR SPINE WO CONTRAST Schedule Routine, Read Routine (OP Routine) 12/20/2024 1:05 PM CDT Acute right-sided low back pain with right-sided sciatica Compression deformity of vertebra XR SPINE LUMBAR 2 OR 3 VIEWS Schedule Routine, Read Routine (OP Routine) 12/16/2024 9:57 AM CDT Acute right-sided low back pain with right-sided sciatica DEXA AXIAL SKELETON BONE DENSITY 1 OR MORE SITES Schedule Routine, Read Routine (OP Routine) 01/26/2023 10:09 AM WILDLIFE FORENSIC GENETICIST Postmenopausal status COLONOSCOPY Routine 10/24/2020 SCREENING MAMMOGRAM BILATERAL W BALA Routine 11/25/2014 8:54 AM CDT from Last 3 Months or Most Recently Relevant to Health Maintenance Results * (ABNORMAL) eGFR (12/25/2024 9:09 AM WILDLIFE FORENSIC GENETICIST) eGFR 56(L) >=60 mL/min/1. 73 m2 Comment: [...] last reviewed 2020. Blood 12/25/2024 9:09 AM WILDLIFE FORENSIC GENETICIST 12/25/2024 10:41 AM WILDLIFE FORENSIC GENETICIST us Blair Agarwal MD LAB BLOOD ORDERABLES Final Re sult [facility] [address] [facility] [place] [address] * Differential, auto (12/25/2024 9:09 AM WILDLIFE FORENSIC GENETICIST) Neutrophil abs 4.97 1.50 - 6.50 K/cumm Imm gran abs 0.02 0.00 - 0.10 K/cumm [facility] Lymphocyte abs 1.48 0.80 - 3.30 K/cumm [facility] Monocyte abs 0.63 0.20 - 0.80 K/cumm [facility] Eosinophil abs 0.37 0.00 - 0.50 K/cumm [facility] Basophil abs 0.05 0.00 - 0.10 K/cumm [facility] Neutrophil pct 66.0 % [facility] Comment: Interpretive Data Percent cell count reference ranges are not reported, since discordance with absolute values may lead to misinterpretation of CBC data. Current Interpretive Data was last revised on 2017. Imm gran pct 0.3 % [facility] Comment: Interpretive Data Percent cell count reference ranges are not reported, since discordance with absolute values may lead to misinterpretation of CBC data. Current Interpretive Data was last revised on 2017. Lymphocyte pct 19.7 % [facility] Comment: Interpretive Data Percent cell count reference ranges are not reported, since discordance with absolute values may lead to misinterpretation of CBC data. Current Interpretive Data was last revised on 2017. Monocyte pct 8.4 % [facility] Comment: Interpretive Data Percent cell count reference ranges are not reported, since discordance with absolute values may lead to misinterpretation of CBC data. Current Interpretive Data was last revised on 2017. Eosinophil pct 4.9 % [facility] Comment: Interpretive Data Percent cell count reference ranges are not reported, since discordance with absolute values may lead to misinterpretation of CBC data. Current Interpretive Data was last revised on 2017. Basophil pct 0.7 % [facility] Comment: Interpretive Data Percent cell count reference ranges are not reported, since discordance with absolute values may lead to misinterpretation of CBC data. Current Interpretive Data was last revised on 2017. Blood 12/25/2024 9:09 AM WILDLIFE FORENSIC GENETICIST 12/25/2024 10:43 AM WILDLIFE FORENSIC GENETICIST Blair Agarwal MD LAB BLOOD ORDERABLES Final Re sult Performing Organization Address [facility] Co de Phone Number [address] [address] * (ABNORMAL) Thyroid Function [place] (12/25/2024 9:09 AM WILDLIFE FORENSIC GENETICIST) [facility] TSH 5.99(H) 0.30 - 4.20 mcIUnit/mL Blood 12/25/2024 9:09 AM WILDLIFE FORENSIC GENETICIST 12/25/2024 10:41 AM WILDLIFE FORENSIC GENETICIST Blair Agarwal MD LAB BLOOD ORDERABLES Final Re sult Performing Organization Address [facility] Co de Phone Number [address] [address] * (ABNORMAL) CBC with auto differential (12/25/2024 9:09 AM WILDLIFE FORENSIC GENETICIST) [facility] WBC 7.52 3.80 - 9.90 K/cumm Hgb 11.4(L) 11.9 - 15.5 g/dL [facility] Hct 37.1 35.6 - 45.5 % [facility] Plt 300 150 - 400 K/cumm [facility] MPV 9.7 9.1 - 12.3 fL [facility] RBC 3.94 3.90 - 5.20 M/cumm [facility] MCV 94.2 81.3 - 96.4 fL [facility] MCH 28.9 27.1 - 33.3 pg [facility] MCHC 30.7(L) 32.3 - 35.7 g/dL [facility] RDW CV 15.5(H) 11.1 - 14.9 % [facility] RDW SD 52.4(H) 35.7 - 48.1 fL [facility] NRBC abs 0.00 0.00 - 0.01 K/cumm [facility] Blood 12/25/2024 9:09 AM WILDLIFE FORENSIC GENETICIST 12/25/2024 10:43 AM WILDLIFE FORENSIC GENETICIST Blair Agarwal MD LAB BLOOD ORDERABLES Final Re sult Performing Organization Address [facility] de Phone Number [address] [place] [address] * (ABNORMAL) Erythrocyte sedimentation rate (12/25/2024 9:09 AM WILDLIFE FORENSIC GENETICIST) Erythrocyte sedimentation rate 49(H) 1 - 30 mm/hr Blood 12/25/2024 9:09 AM WILDLIFE FORENSIC GENETICIST 12/25/2024 10:43 AM WILDLIFE FORENSIC GENETICIST Blair Agarwal MD LAB BLOOD ORDERABLES Final Re sult Performing Organization Address [facility] de Phone Number [address] [place] [place] [address] * T4, free (12/25/2024 9:09 AM WILDLIFE FORENSIC GENETICIST) Free T4 1.16 0.90 - 1.70 ng/dL Blood 12/25/2024 9:09 AM WILDLIFE FORENSIC GENETICIST 12/25/2024 10:41 AM WILDLIFE FORENSIC GENETICIST Narrative YULIYA - 12/25/2024 12:27 PM WILDLIFE FORENSIC GENETICIST This test was reflexed from a TSH result. Blair Agarwal MD LAB BLOOD ORDERABLES Final Re sult Performing Organization Address [facility] de Phone Number [place] [phone] [facility] [place] [place] [address] * Lipid panel (12/25/2024 9:09 AM WILDLIFE FORENSIC GENETICIST) Cholesterol 119 30 - 199 mg/dL Comment: [...] Pediatrics 2011;128:S213 2. NCEP Expert Panel. Circulation 2003;110:227 Current Interpretive Data was last revised on 2017. LDL, calculated 41 <=129 mg/dL [facility] Comment: Interpretive Data Ages [...] revised on 2023. Non-HDL Cholesterol 65 mg/dL [facility] Comment: Interpretive Data Ages < or = [...] last revised on 2017. Chol/HDL ratio 2 [facility] Blood 12/25/2024 9:09 AM WILDLIFE FORENSIC GENETICIST 12/25/2024 10:41 AM WILDLIFE FORENSIC GENETICIST Blair Agarwal MD LAB BLOOD ORDERABLES Final Re sult [facility] [address] [facility] Department [place] [address] * Comprehensive metabolic panel (12/25/2024 9:09 AM WILDLIFE FORENSIC GENETICIST) Sodium 141 135 - 145 mmol/L Potassium, pl 4.2 3.3 - 4.9 mmol/L [facility] Chloride 103 97 - 110 mmol/L [facility] CO2 27 22 - 32 mmol/L [facility] Anion gap 11 2 - 15 mmol/L [facility] BUN 16 6 - 25 mg/dL [facility] Creatinine 1.02 0.60 - 1.10 mg/dL [facility] Glucose 89 70 - 199 mg/dL [facility] Comment: Interpretive Data Fasting glucose >/= [...] 2022. Calcium 10.1 8.5 - 10.3 mg/dL [facility] Bilirubin, total 0.4 0.1 - 1.2 mg/dL [facility] Protein, pl 7.6 6.5 - 8.5 g/dL [facility] Albumin 4.2 3.5 - 5.0 g/dL [facility] Alk phos 66 40 - 130 Units/L [facility] ALT 14 7 - 45 Units/L [facility] AST 19 10 - 45 Units/L [facility] Blood 12/25/2024 9:09 AM WILDLIFE FORENSIC GENETICIST 12/25/2024 10:41 AM WILDLIFE FORENSIC GENETICIST us Blair Agarwal MD LAB BLOOD ORDERABLES Final Re sult [facility] [place] [address] * CT Lumbar Spine WO [...] signed by: Don Pierson D.O. Marlena Zelaya IMAaliyah CT PROCEDURES Final Result [...] Cholelithiasis. Electronically signed by: Sameer Crum M.D. Marlena Zelaya IMG XR PROCEDURES Final Result * Dexa Axial Skeleton Bone Density 1 or 2 Site (01/26/2023 10:09 AM WILDLIFE FORENSIC GENETICIST) Anatomical Region Laterality Modality Body N/A Mammography 01/26/2023 10:5 9 AM WILDLIFE FORENSIC GENETICIST Narrative 01/26/2023 11:00 AM WILDLIFE FORENSIC GENETICIST EXAM DESCRIPTION: DEXA AXIAL SKELETON BONE DENSITY 1 OR MORE SITES REASON FOR STUDY: 77 y/o year old F with given history of: Postmenopausal status. Patient has taken/is taking vitamin-D. History of prior fracture and smoking Imaging Engineer/Model: Plunify A (S/N [id number]) CLINICAL INFORMATION: Current height: 64 inches Maximum [...] 11:00 AM - Electronically signed by Ml oRss M.D. TW: TW Report ID: [id number] Reading Location: [place] [address] Procedure Note Ml Ross MD - 01/26/2023 EXAM DESCRIPTION: DEXA AXIAL SKELETON BONE DENSITY 1 OR MORE SITES REASON FOR STUDY: 77 y/o year old F with given history of:Postmenopausal status. Patient has taken/is taking vitamin-D. History of prior fractureand smoking Imaging Engineer/Model: [employer] Horizon A (S/N [id number]) CLINICAL INFORMATION: Current height: 64 inches Maximum [...] Ml Ross M.D. TW: SHEA Report ID: [id number] Reading Location: [id number] us Blair Agarwal MD IMG DXA PROCEDURES [...] Electronically signed by: Shukri Noe md/:11/25/2014 10:14:56 Dry Talc Racker: Mariah Herrera RT (R)(M), [facility] letter sent: Normal Exam Reading location: [...] dated: 09/23/2013 mammogram and 09/29/2011 mammogram/ultrasound - [facility]. BREAST TISSUE: There are scattered fibroglandular [...] dated: 09/23/2013 mammogram and 09/29/2011 mammogram/ultrasound - [facility]. BREAST TISSUE: There are scattered fibroglandular [...] Electronically signed by: Shukri Noe md/:11/25/2014 10:14:56 Dry Talc Racker: Mariah Herrera RT (R)(M), [facility] letter sent: Normal Exam Reading location: BI-RADS: 2 Benign [EOD] us Blair Agarwal MD IMG MAMMO PROCEDURES Final Re sult from Last 3 Months or Most Recently Relevant to Health Maintenance Insurance [facility] MEDIC[facility] Address: [address] [address] [place] [address] [facility]IC[facility] Address: [address] [address] [place] [address] Advance Directives For more information, please contact: [phone] Documents on File Type Date Recorded Patient World Designer Expl anation ADVANCE DIRECTIVE 05/14/2020 Care Teams Caddy Packer Relationship Specialty Start Date End Date Blair Agarwal MD [address] [facility] [address] [place] [address] PCP - General 06/23/18 [place] [address] [facility] [address] [place] [id number] Referring Physician Rheumatology 09/05/23
--- OUTSIDE RECORDS SUMMARY | 2025-01-14 10:10 | XMS_ITS | Clinical Summary ---
Author Organization [facility] Address [address] [place] [address] Care Team Providers Care Footwear Machinery Instructor Name Role Phone Unavailable Primary Care Provider [...]
--- OUTSIDE RECORDS SUMMARY | 2025-01-14 10:10 | XMS_ITS | Clinical Summary ---
Author Organization [facility] Address [address] [place] [address] Care Team Providers Care Alum Operator Name Role Phone Blair Agarwal MD Primary Care Provider Source Comments [facility],non-owned Affiliates and Associated Physician Practices is amultiple site organization consisting of ambulatory clinics and hospital sitesin [place], [place], [place] and [place]. This disclosure is being madepursuant to the Care Everywhere program and may not contain all information available regarding this patient. Last updated 17.[facility] Allergies No known active allergies Medications * [...] to complete this topic Insurance MEDICARE [facility] [employer] MANAGED MEDICARE ADV Care Teams Alum Operator Relationship Specialty Start Date End Date Blair Agarwal MD [facility] [place] [id number] PCP - General 05/29/17
[2025-01-14 10:21] LABS: Add Urine Microscopic? YES; Appearance Urine Cloudy (Clear); Glucose Urine UA Negative (Negative); Leukocyte Esterase Ur 3+ LEU/UL (Negative); Nitrate Urine Positive (Negative); Non Pathogenic Casts 0-2; Specific Grav Ur 1.011 (1.001-1.035)
[2025-01-14 10:25] LABS: Alanine Aminotransferase 15 U/L (6-35); Albumin Level 4.3 g/dL (3.5-5.1); Alkaline Phosphatase 56 U/L (38-126); Anion Gap 8 mmol/L (4-12); Aspartate Amino Transferase 28 U/L (14-36); Bilirubin,Total 0.5 mg/dL (0.2-1.3); Blood Urea Nitrogen 14 mg/dL (7-17); CRP 0.7 mg/dL (<1.0); Calcium 9.6 mg/dL (8.4-10.2); Carbon Dioxide 28 mmol/L (22-30); Chloride 103 mmol/L (98-107); Estimated Glomerular Filt Rate 48; Glucose 91 mg/dL (65-110); Potassium 3.9 mmol/L (3.4-5.0); Sodium 139 mmol/L (137-145); Total Protein 7.9 g/dL (6.3-8.2)
== END 2025-01-14 09:20 | disposition home or self-care (01) ==
LOC: ANHLAB 09:24
PROVIDERS: PCP Family Medicine; Visit Provider Internal Medicine
DX: M06.00 Rheumatoid arthritis without rheumatoid factor, unspecified site (principal)
CPT/HCPCS: 36415; 80053; 81001; 84100; 85025; 85652; 86140

== ENCOUNTER 2025-01-19 00:57 | Emergency (ER) | payer MEDICARE, SELFPAY ==
--- NOTE | ~2025-01-19 | XR_ITS ---
Examination: XR shoulder LT min 2V, XR elbow LT min 3V Clinical History: fall Comparison: None Technique: 3 views left shoulder, 3 views left elbow Findings/impression: Left shoulder: 1. No fracture or dislocation left shoulder. Left elbow: 1. No fracture or dislocation left elbow. Lateral projection, however, suboptimal. If concern for fracture persists, recommend repeat lateral film. Reviewed, dictated and finalized at location R. RVATION NURSE
[2025-01-19 01:14] VITALS: PULSE 92; RESP 18; TEMP 36.6; O2SAT 98
[2025-01-19 01:19] VITALS: BP 149/112
--- NOTE | 2025-01-19 02:21 | ED.FALL ---
HPI - Fall General Chief Complaint: Fall Stated Complaint: fall Time Seen by Provider: 01/19/25 01:08 History of Present Illness HPI Narrative: Patient was in her rolling chair when she bent forward to pick something up, the chair went out from under her and she ended up landing on her outstretched arms, she did not hit her head, she did not hurt her legs, but she does have pain to right hand, but especially to her left shoulder and elbow. Worse with movement. Related Data Home Medications ?Medication ?Instructions ?Recorded ?Confirmed ?Last Taken ?Type alprazolam 0.5 mg tablet 0.5 mg PO TID PRN Anxiety 10/22/20 06/28/24 06/20/24 History gabapentin 300 mg capsule 300 mg PO TID 10/22/20 06/28/24 06/27/24 21:00 History rivaroxaban 20 mg tablet (Xarelto) 20 mg PO DAILY 10/22/20 06/28/24 06/27/24 08:00 History levothyroxine 88 mcg tablet 88 mcg PO DAILY 12/29/20 06/28/24 06/27/24 History meclizine 25 mg tablet 25 mg PO DAILY PRN dizziness 12/29/20 06/28/24 06/20/24 History olmesartan 40 mg tablet 40 mg PO DAILY 12/29/20 06/28/24 06/27/24 10:00 History Held on 06/29/24. Instructions: until seen by her distribution sales representative spironolactone 25 mg tablet 25 mg PO DAILY 02/23/22 06/28/24 06/27/24 10:00 History Held on 06/29/24. Instructions: until seen by her distribution sales representative amlodipine 10 mg tablet 10 mg PO DAILY 06/28/24 06/28/24 06/27/24 08:00 History carboxymethylcellulose sodium 0.5 1 drp EACH EYE TID 06/28/24 06/28/24 06/27/24 18:00 History % eye drops (Refresh Tears) cholecalciferol (vitamin D3) 50 50 mcg PO DAILY 06/28/24 06/28/24 06/27/24 History mcg (2,000 unit) tablet (Vitamin D3) folic acid 1 mg tablet 1 mg PO DAILY 06/28/24 06/28/24 06/27/24 History lidocaine 4 % topical patch 1 patch topical BID PRN arthritic 06/28/24 06/28/24 06/27/24 19:30 History (Lidocaine Pain Relief) pain. methotrexate sodium 2.5 mg tablet 7.5 mg PO .COMPLEX 06/28/24 06/28/24 06/21/24 History multivitamin 1 tablet PO DAILY 06/28/24 06/28/24 06/27/24 History rosuvastatin 20 mg tablet 20 mg PO .Evening 06/28/24 06/28/24 06/27/24 19:00 History vit C 250 mg-vit E 90 mg-zinc 40 2 tablet PO DAILY 06/28/24 06/28/24 06/27/24 History mg-copper 1 [id number] capsule (PreserVision AREDS-2) Allergies Allergy/AdvReac Type Severity Reaction Status Date / Time No Known Allergies Allergy Verified 01/19/25 00:58 Review of Systems Review of Systems: All systems reviewed & are unremarkable except as noted in HPI and below PMFSH Past Medical History Medical History Macular degeneration Vitamin D deficiency Obstructive sleep apnea Apnea link screening was positive October 2020 Erosive gastritis (10/2020) AVM (arteriovenous malformation) of colon (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) Paroxysmal atrial fibrillation Acute blood loss anemia Weight gain Metatarsal bone fracture (02/13/19) Metatarsal bone fracture (02/13/19) Pulmonary embolism (~07/2018) Anxiety Hypothyroid GERD (gastroesophageal reflux disease) HTN (hypertension) Peripheral neuropathy CVA (cerebrovascular accident) Surgical History Surgical History History of esophagogastroduodenoscopy (EGD) (10/2020) AVMs noted in cecum and erosive gastritis Status post cataract extraction of both eyes with insertion of intraocular lens Family History Family History Father Acute myocardial infarction Heart problem Mother Chronic kidney disease (CKD) Son Heart problem Sibling A-fib Social History Social History Social History: She has been for 52 years. They had 1 son who last year at 49 years old of heart disease. She is a retired hairdresser. She still smokes about 5 cigarettes a day. Up until recent years she used to smoke a half a pack of cigarettes per day and started smoking as a teenager. She denies any alcohol use or illicit substance use. Smoking packs per day: 0.75 Smoking cigarettes per day: 15.0 Years smoked: 59 Smoking pack-years: 44.25 Smoking status: Former smoker Tobacco type: cigarettes Alcohol intake: never Substance use: never Substance use type: does not use Lack of Transportation: No Lack of Food: Never True Current Housing: I Have Housing Concerned About Future Housing: No Difficulty Paying Gas/Electric Bills: No Difficulty Paying for Meds: No Currently Unemployed: No Education: Trade/Vocational Certificate Difficulty w/ Childcare or Family Care: No Gender identity (if verbalized by the patient): Female Spiritual care concerns: No Exam Narrative: EXAMINATION OF ORGAN SYSTEMS/BODY AREAS: Constitutional: Vital signs per nursing GENERAL:[No acute distress, non-toxic appearing.] HEAD: Normal with no signs of head trauma. EYES: EOMI, conjunctiva normal ENT: Hearing grossly intact LUNGS: Nonlabored breathing. HEART: [Regular rate and rhythm], normal radial pulse ABD: [Soft], [nontender to palpation] EXT: Pain with ROM of L shoulder; tenderness to L elbow, shoulder SKIN: [No rashes or lesions.] NEURO: [Alert and oriented x 3. No gross focal sensory or strength deficits.] PSYCH: Normal affect Course Vital Signs Vital signs: Vital Signs Temperature 97.8 F 01/19/25 01:14 Pulse Rate 92 01/19/25 01:14 Respiratory Rate 18 01/19/25 01:14 Pulse Oximetry 98 01/19/25 01:14 Oxygen Delivery Room Air 01/19/25 01:14 Temperature 97.8 F 01/19/25 01:14 Pulse Rate 80 01/19/25 02:38 Respiratory Rate 16 01/19/25 02:38 Blood Pressure 170/95 H 01/19/25 02:38 Pulse Oximetry 92 01/19/25 02:38 Oxygen Delivery Room Air 01/19/25 01:14 MDM - Fall MDM Narrative Medical decision making narrative: Patient with mechanical fall; no head trauma but caught herself with bilateral arms, on exam she has pain to L shoulder/elbow and with range of motion to the shoulder. Neurovascularly intact. X-rays obtained of left shoulder and elbow, per read stat rad, no acute fracture or dislocation. Patient still reluctant to move the shoulder, discussed this with Ortho, who reviewed films, agrees no dislocation, will follow-up with patient clinic as needed. Patient agreeable to plan, prescriptions for pain medication and muscle relaxants provided. Return precautions Discharge Plan Discharge Clinical Impression: Shoulder sprain Patient Disposition: Home Condition: Stable Instructions: Shoulder Sprain (ED) Additional Instructions: Please follow-up with orthopedic surgeon, and using return to the ER for any further issues. You can take the medications as prescribed for pain Patient Language: Greek Prescriptions: New acetaminophen [Tylenol Extra Strength] 500 mg tablet 1,000 mg PO Q6H PRN (Reason: pain) Qty: 50 0RF methocarbamol 750 mg tablet 750 mg PO TID PRN (Reason: muscle spasm) Qty: 30 0RF No Action alprazolam 0.5 mg tablet 0.5 mg PO TID PRN (Reason: Anxiety) gabapentin 300 mg capsule 300 mg PO TID Xarelto 20 mg tablet 20 mg PO DAILY olmesartan 40 mg tablet 40 mg PO DAILY levothyroxine 88 mcg Tablet 88 mcg PO DAILY Rx Instructions: Pt instructed to take the 88mcg PO daily until bottle runs out and then increase to 100mcg PO daily. meclizine 25 mg Tablet 25 mg PO DAILY PRN (Reason: dizziness) spironolactone 25 mg tablet 25 mg PO DAILY ondansetron 4 mg tablet,disintegrating 4 mg PO Q6H PRN (Reason: nausea and vomiting) Qty: 10 0RF acetaminophen 500 mg tablet 1,000 mg PO TID PRN (Reason: pain (scale score 1-3)) 7 Days Qty: 42 0RF lidocaine [Lidocaine Pain Relief] 4 % adhesive patch,medicated 1 patch topical BID PRN (Reason: arthritic pain.) Rx Instructions: Apply one patch to area of arthritis pain BID PRN arthritic pain. rosuvastatin 20 mg tablet 20 mg PO .Evening multivitamin Tablet 1 tablet PO DAILY cholecalciferol (vitamin D3) [Vitamin D3] 50 mcg (2,000 unit) tablet 50 mcg PO DAILY PreserVision AREDS-2 250-90-40-1 mg capsule 2 tablet PO DAILY carboxymethylcellulose sodium [Refresh Tears] 0.5 % drops 1 drp EACH EYE TID amlodipine 10 mg tablet 10 mg PO DAILY folic acid 1 mg tablet 1 mg PO DAILY methotrexate sodium 2.5 mg tablet 7.5 mg PO .COMPLEX Rx Instructions: 7.5 mg orally BID weekly on Fridays. metoprolol tartrate 50 mg tablet 50 mg PO Q12H Qty: 60 0RF furosemide [Lasix] 20 mg tablet 20 mg PO DAILY Qty: 30 0RF Follow-up/Referrals: Stefano,Blair Wiggins MD [Primary Care Provider, Unknown] Edmund Peterson MD [Physician, Orthopedics] - 3 Days
[2025-01-19 02:38] VITALS: BP 170/95; PULSE 80; RESP 16; O2SAT 92
== END 2025-01-19 02:51 | disposition home or self-care (01) ==
PROVIDERS: Emergency Provider Emergency Medicine; PCP Family Medicine
DX: S43.402A Unspecified sprain of left shoulder joint, initial encounter (principal); E55.9 Vitamin D deficiency, unspecified; I48.0 Paroxysmal atrial fibrillation; I10 Essential (primary) hypertension; E03.9 Hypothyroidism, unspecified; G47.33 Obstructive sleep apnea (adult) (pediatric); G62.9 Polyneuropathy, unspecified; H35.30 Unspecified macular degeneration; F41.9 Anxiety disorder, unspecified; F17.210 Nicotine dependence, cigarettes, uncomplicated; Z86.711 Personal history of pulmonary embolism; Z86.73 Personal history of transient ischemic attack (TIA), and cerebral infarction without residual deficits; Z96.1 Presence of intraocular lens; Z98.42 Cataract extraction status, left eye; Z98.41 Cataract extraction status, right eye; Z79.01 Long term (current) use of anticoagulants; Z79.899 Other long term (current) drug therapy; W07.XXXA Fall from chair, initial encounter
CPT/HCPCS: 73030; 73080; 99284; A9270

== ENCOUNTER 2025-01-21 20:44 | Inpatient (IN) | payer MEDICARE, SELFPAY ==
--- NOTE | ~2025-01-21 | US_ITS ---
EXAMINATION: US carotid duplex BI DATE: 01/27/2025 18:15 INDICATION: Syncope. TECHNIQUE: Grayscale, color Doppler, and pulsed Doppler images of the cervical carotid arteries were obtained. The degree of vessel stenosis is placed in one of the following categories: normal, <50%, 50-69%, >=70% but less than near- occlusion, near-occlusion, or total occlusion. Note that percent stenosis relative to normal distal artery lumen diameter is indirectly measured from velocity measurements as described by Immanuel, et al. Radiology 2003; 229:340-346. COMPARISON: None. FINDINGS: RIGHT: The right common carotid artery (CCA) peak systolic velocity (PSV) is 57 cm/s. The right internal carotid artery (ICA) PSV is 102 cm/s. The right ICA end- diastolic velocity (EDV) is 28 cm/s. The right ICA/CCA PSV ratio is 1.8. Grayscale and color Doppler images yield an estimate of less than 50% diameter reduction from plaque in the ICA. There is antegrade flow in the right vertebral artery. LEFT: The left CCA PSV is 72 cm/s. The left ICA PSV is 81 cm/s. The left ICA EDV is 17 cm/s. The left ICA/CCA PSV ratio is 1.1. Grayscale and color Doppler images yield an estimate of less than 50% diameter reduction from plaque in the ICA. There is antegrade flow in the left vertebral artery. IMPRESSION: 1. Antegrade flow in both vertebral arteries. 2. Mild atherosclerotic disease producing less than 50% diameter narrowing at the carotid bulbs and proximal internal carotid arteries on both sides. No evidence to suggest hemodynamically significant obstruction on either side. Interpretation was based on NASCET criteria. Reviewed, dictated and finalized at location T. UCTION DISPATCHER IMPRESSION: 1. Antegrade flow in both vertebral arteries. 2. Mild atherosclerotic disease producing less than 50% diameter narrowing at t he carotid bulbs and proximal internal carotid arteries on both sides. No evide nce to suggest hemodynamically significant obstruction on either side. Interpre tation was based on NASCET criteria.
--- NOTE | ~2025-01-21 | XR_ITS ---
XR chest 1V INDICATION:. 79 years Female weakness COMPARISON: None FINDINGS: A single view of the chest demonstrates enlarged heart. Groundglass opacities are present bilaterally. There is a small left pleural effusion with associated atelectasis. IMPRESSION: Groundglass opacities bilaterally with small left pleural effusion. Reviewed, dictated and finalized at location S. CATION SPECIALIST
--- NOTE | ~2025-01-21 | XR_ITS ---
EXAMINATION: XR shoulder LT min 2V DATE: 01/29/2025 11:19 INDICATION: Injury TECHNIQUE: Left shoulder x-rays were obtained. COMPARISON: None. FINDINGS: No fracture or dislocation. On frontal views, slight caudal subluxation of the glenohumeral joint may be present. Moderately severe degenerative changes about the left shoulder. IMPRESSION: 1. No fracture lucency; possible mild subluxation caudally which could be associated with significant joint effusion. Reviewed, dictated and finalized at location A. AD SPOOLER IMPRESSION: 1. No fracture lucency; possible mild subluxation caudally which could be assoc iated with significant joint effusion.
--- NOTE | ~2025-01-21 | XR_ITS ---
XR shoulder LT min 2V HISTORY: pain . COMPARISON: None. FINDINGS: External and internal rotated views and axillary view of the left shoulder demonstrate no acute fracture or dislocation. Acromioclavicular joint and glenohumeral joint are unremarkable. IMPRESSION: Radiographic examination of the left shoulder demonstrates no acute fracture or dislocation. Reviewed, dictated and finalized at location S. TESTER
--- NOTE | ~2025-01-21 | CT_ITS ---
CT chst ab pel thor lum w HISTORY: fall, weak . COMPARISON: None. TECHNIQUE: Axial images of the chest, abdomen and pelvis Coned-down views of the thoracic and lumbar spine were obtained. were obtained without and with infusion of 100 Isovue 300. FINDINGS: CT CHEST: The examination demonstrates interstitial groundglass opacity within the lower lobes bilaterally. No pleural effusions or pneumothorax. No pathologically enlarged hilar or mediastinal lymphadenopathy is seen. Cardiac size and mediastinal configuration are normal in appearance. The pulmonary artery and thoracic aorta are normal in caliber and patency. Osseous structures are intact. Thyroid glands are enlarged. IMPRESSION: No acute cardiopulmonary process. No pathologic enhancement is noted. No pathologically enlarged mediastinal lymphadenopathy is noted. CT abdomen and pelvis with contrast: The liver parenchyma is unremarkable. No intrahepatic mass or ductal dilatation is evident. Cholelithiasis is noted. The pancreas and spleen are normal in appearance. The adrenal glands are symmetric in size. The kidneys demonstrate symmetric uptake and excretion of contrast. Benign bilateral renal cysts are noted measuring up to 1.8 cm. There is no solid mass. There is no hydronephrosis. Evaluation of the stomach and bowel loops are limited due to lack of oral contrast. The appendix is normal in appearance. There is colonic diverticulosis without evidence of acute diverticulitis. The bladder and rectum are normal. No free intraperitoneal fluid or air is evident. There is no significant retroperitoneal lymphadenopathy. Atherosclerotic calcification of the aorta and iliac vessels are noted. Aorta is normal in caliber. The lower thoracic and lumbar vertebrae are in normal alignment. IMPRESSION: No acute abnormality is noted in the abdomen and pelvis. Cholelithiasis without evidence of acute cholecystitis. Colonic diverticulosis without evidence of acute diverticulitis. All CT scans at this facility are performed using low dose modulation techniques as appropriate to perform exam including the following: automated exposure control; use of iterative reconstruction technique; adjustment of the mA and/or kV according to patient size (this includes techniques or standardized protocols for targeted exams where dose is matched to indication/reason for exam) Reviewed, dictated and finalized at location S. GE ASSISTANT IMPRESSION: No acute cardiopulmonary process. No pathologic enhancement is noted. No pathologically enlarged mediastinal lymphadenopathy is noted. CT abdomen and pelvis with contrast: The liver parenchyma is unremarkable. No intrahepatic mass or ductal dilatation is evident. Cholelithiasis is noted. The pancreas and spleen are normal in cesia earance. The adrenal glands are symmetric in size. The kidneys demonstrate symmetric uptake and excretion of contrast. Benign bila teral renal cysts are noted measuring up to 1.8 cm. There is no solid mass. The re is no hydronephrosis. Evaluation of the stomach and bowel loops are limited due to lack of oral contr ast. The appendix is normal in appearance. There is colonic diverticulosis with out evidence of acute diverticulitis. The bladder and rectum are normal. No free intraperitoneal fluid or air is evid ent. There is no significant retroperitoneal lymphadenopathy. Atherosclerotic calcification of the aorta and iliac vessels are noted. Aorta i s normal in caliber. The lower thoracic and lumbar vertebrae are in normal alignment. IMPRESSION: No acute abnormality is noted in the abdomen and pelvis. Cholelithiasis without evidence of acute cholecystitis. Colonic diverticulosis without evidence of acute diverticulitis. All CT scans at this facility are performed using low dose modulation techniqu es as appropriate to perform exam including the following: automated exposure c ontrol; use of iterative reconstruction technique; adjustment of the mA and/or kV according to patient size (this includes techniques or standardized protocol s for targeted exams where dose is matched to indication/reason for exam)
--- NOTE | ~2025-01-21 | MR_ITS ---
EXAMINATION: MRI left shoulder without contrast: DATE: 01/28/2025 INDICATION: Pain after trauma, fall. TECHNIQUE: Oblique coronal, oblique sagittal and axial images of the left shoulder as per protocol. Quality of the images are significantly compromised due to severe motion artifacts and use of nontraditional coil due to large body habitus. COMPARISON: Radiograph left shoulder dated 01/21/2025. FINDINGS: As mentioned above, quality of the study is extremely limited. However, there is evidence of extensive acute bone bruising at the neck of the humerus and greater tuberosity. Nondisplaced hairline fractures of the greater tuberosity is suspected. Bruising and partial-thickness tear of the supraspinatus tendon is noted. No evidence of full-thickness rotator cuff tear. No definite evidence of labral tear. Large effusion in the glenohumeral joint. Long head of biceps tendon appears to be intact. IMPRESSION: 1. Severely limited quality of the examination, as explained above. 2. There is definite evidence of fairly extensive bone bruise and likely hairline fractures at the neck of the humerus and greater tuberosity of the humerus. No displaced fragments are seen. Findings are consistent with acute or subacute injury. 3. Bruising of the supraspinatus tendon with partial-thickness tear. 4. Good sized effusion in the glenohumeral joint. Reviewed, dictated and finalized at location T. ING DEVICES ASSEMBLER IMPRESSION: 1. Severely limited quality of the examination, as explained above. 2. There is definite evidence of fairly extensive bone bruise and likely hairli ne fractures at the neck of the humerus and greater tuberosity of the humerus. No displaced fragments are seen. Findings are consistent with acute or subacute injury. 3. Bruising of the supraspinatus tendon with partial-thickness tear. 4. Good sized effusion in the glenohumeral joint.
--- NOTE | ~2025-01-21 | CT_ITS ---
CT cervical spine wo con HISTORY: fall COMPARISON: None TECHNIQUE: Axial images of the cervical spine were obtained. Multiplanar reconstruction in the coronal, sagittal and axial reformats to evaluate for cervical fracture. FINDINGS: The images demonstrate no acute fracture or paravertebral soft tissue swelling. There is disc bulging with disc osteophyte complex at C3 5 C6. There are facet joint arthropathy throughout the cervical spine. The visualized aspect of the upper lungs are clear. IMPRESSION: No acute fracture or subluxation. All CT scans at this facility are performed using low dose modulation techniques as appropriate to perform exam including the following: automated exposure control; adjustment of the mA and/or kV according to patient size (this includes techniques or standardized protocols for targeted exams where does is matched to indication/reason for exam; i.e. extremities or head); use of iterative reconstruction technique). Reviewed, dictated and finalized at location S. SERVICE EMPLOYEE IMPRESSION: No acute fracture or subluxation. All CT scans at this facility are performed using low dose modulation techniqu es as appropriate to perform exam including the following: automated exposure c ontrol; adjustment of the mA and/or kV according to patient size (this includes techniques or standardized protocols for targeted exams where does is matched to indication/reason for exam; i.e. extremities or head); use of iterative yuri nstruction technique).
--- NOTE | ~2025-01-21 | CT_ITS ---
CT brain wo con HISTORY:fall COMPARISON: None. TECHNIQUE: Axial images were obtained of the head without intravenous contrast. FINDINGS: No acute intracranial hemorrhage, mass effect or midline shift. No extra-axial fluid collections. The calvarium is intact. Visualized paranasal sinuses and mastoid air cells are clear. IMPRESSION: No acute intracranial hemorrhage or extra axial fluid collections. All CT scans at this facility are performed using low dose modulation techniques as appropriate to perform exam including the following: automated exposure control; use of iterative reconstruction technique; adjustment of the mA and/or kV according to patient size (this includes techniques or standardized protocols for targeted exams where dose is matched to indication/reason for exam). Reviewed, dictated and finalized at location S. NFORMATICS TEAM MEMBER IMPRESSION: No acute intracranial hemorrhage or extra axial fluid collections. All CT scans at this facility are performed using low dose modulation techniqu es as appropriate to perform exam including the following: automated exposure c ontrol; use of iterative reconstruction technique; adjustment of the mA and/or kV according to patient size (this includes techniques or standardized protocol s for targeted exams where dose is matched to indication/reason for exam).
--- NOTE | ~2025-01-21 | XR_ITS ---
EXAMINATION: XR chest 2V DATE: 01/29/2025 16:27 INDICATION: Shortness of breath TECHNIQUE: Frontal and lateral views of the chest were obtained. COMPARISON: January 21, 2025 FINDINGS: Exam somewhat limited by patient positioning and body habitus. No gross consolidative process, calvin pulmonary edema or definite effusion seen. Heart shadow mildly enlarged. Vascular markings mildly prominent. Aphthous chronic calcification in the aortic arch. No pneumothorax or subphrenic free air seen. Moderate kyphotic and degenerative changes throughout the thoracic spine which also appears mildly osteopenic. IMPRESSION: 1. Findings may represent mild vascular congestion but no calvin pulmonary edema or effusion seen. 2. Other findings as above. Reviewed, dictated and finalized at location A. SHOVELER
[2025-01-21 20:49] VITALS: PULSE 50; RESP 20; TEMP 36.7; O2SAT 96
--- NOTE | 2025-01-21 20:53 | ECG_ITS ---
Test Date: 2025-01-21 21:21:07 Measurements Intervals [place] Rate: 77 P: 13 UT: 196 QRS: -24 QRSD: 101 T: 23 QT: 386 QTc: 437 Interpretive Statements SINUS RHYTHM INCOMPLETE RIGHT BUNDLE BRANCH BLOCK POSSIBLE ANTERIOR MYOCARDIAL INFARCTION , PROBABLY OLD BASELINE ARTIFACT- V4-V5 ABNORMAL ECG Compared to ECG 12/29/2024 19:33:28 HEART RATE HAS INCREASED Electronically Signed On 01-22-2025 06:03:47 ANTIQUE REFINISHER by George Bardley D.O.
[2025-01-21 21:15] VITALS: BP 152/74; PULSE 112; RESP 18; O2SAT 94
[2025-01-21 21:57] LABS: Hematocrit 32.5 % (37.0-47.0); Hemoglobin 10.3 g/dL (12.0-15.0); Immature Granulocyte Percent A 0.4 % (0-0.5); Lymphocytes Absolute Auto 0.99 K/mm3 (0.9-3.2); Mean Corpuscular HGB Conc 31.7 g/dl (32-36); Mean Corpuscular Hemoglobin 29.1 pg (26-34); Mean Corpuscular Volume 91.8 fl (80-100); Nucleated Red Blood Cells Absolute Auto 0.000 K/mm3 (0.0-0.012); Nucleated Red Blood Cells Perc 0.0 % (0.0-0.2); Platelet Count Result 254 k/mm3 (150-375); Red Blood Count 3.54 M/mm3 (4.2-5.4); White Blood Count 7.1 K/mm3 (4.5-10.0)
[2025-01-21 22:05] LABS: Add Urine Microscopic? YES; Appearance Urine Clear (Clear); Glucose Urine UA Negative (Negative); Leukocyte Esterase Ur 1+ LEU/UL (Negative); Nitrate Urine Positive (Negative); Non Pathogenic Casts 0-2; Specific Grav Ur 1.008 (1.001-1.035)
[2025-01-21 22:10] LABS: INR 1.7; Prothrombin Time 19.5 Seconds (11.1-14.7)
[2025-01-21 22:11] LABS: Partial Thromboplastin Time 40.4 Seconds (22.3-36.8)
[2025-01-21 22:17] LABS: Alanine Aminotransferase 21 U/L (6-35); Albumin Level 4.3 g/dL (3.5-5.1); Alkaline Phosphatase 73 U/L (38-126); Anion Gap 8 mmol/L (4-12); Aspartate Amino Transferase 33 U/L (14-36); Bilirubin,Total 0.5 mg/dL (0.2-1.3); Blood Urea Nitrogen 15 mg/dL (7-17); Calcium 9.7 mg/dL (8.4-10.2); Carbon Dioxide 26 mmol/L (22-30); Chloride 103 mmol/L (98-107); Estimated CRCL calculation 43 ml/min; Estimated Glomerular Filt Rate 46; Glucose 111 mg/dL (65-110); Lipase 124 U/L (23-300); Magnesium 2.0 mg/dL (1.6-2.3); Potassium 3.4 mmol/L (3.4-5.0); Sodium 137 mmol/L (137-145); Total Protein 8.0 g/dL (6.3-8.2)
[2025-01-21 22:20] LABS: Troponin I < 0.012 ng/mL (0.000-0.034)
[2025-01-21 22:21] LABS: NT Pro B Type Natriuretic Pept 689 pg/mL (19.9-100)
--- NOTE | 2025-01-21 22:22 | ED.GENADULT ---
HPI - General Adult General Chief complaint: Extremity Injury, Upper Stated complaint: fall today Time Seen by Provider: 01/21/25 21:44 Source: patient and family Mode of arrival: EMS Limitations: no limitations History of Present Illness HPI narrative: Patient is a 79-year-old female presents to the emergency department complaining of feeling generally weak. Patient states she had a fall a few days ago, was seen for her shoulder discomfort coming days ago with symptoms home with status of persistent left shoulder discomfort. Patient was that she went to get up earlier today and felt weak and fell was able to get back up. Patient denies hitting her head or having loss of consciousness. Patient denies any nausea, vomiting, diarrhea. Patient denies any chest pain or difficulty breathing. Patient denies any cough. Patient denies any known fevers. Patient has been taking medications as prescribed. Patient is on anticoagulation for AFib. Related Data Home Medications ?Medication ?Instructions ?Recorded ?Confirmed ?Last Taken ?Type alprazolam 0.5 mg tablet 0.5 mg PO TID PRN Anxiety 10/22/20 06/28/24 06/20/24 History gabapentin 300 mg capsule 300 mg PO TID 10/22/20 06/28/24 06/27/24 21:00 History rivaroxaban 20 mg tablet (Xarelto) 20 mg PO DAILY 10/22/20 06/28/24 06/27/24 08:00 History levothyroxine 88 mcg tablet 88 mcg PO DAILY 12/29/20 06/28/24 06/27/24 History meclizine 25 mg tablet 25 mg PO DAILY PRN dizziness 12/29/20 06/28/24 06/20/24 History olmesartan 40 mg tablet 40 mg PO DAILY 12/29/20 06/28/24 06/27/24 10:00 History Held on 06/29/24. Instructions: until seen by her rotor assembler spironolactone 25 mg tablet 25 mg PO DAILY 02/23/22 06/28/24 06/27/24 10:00 History Held on 06/29/24. Instructions: until seen by her rotor assembler amlodipine 10 mg tablet 10 mg PO DAILY 06/28/24 06/28/24 06/27/24 08:00 History carboxymethylcellulose sodium 0.5 1 drp EACH EYE TID 06/28/24 06/28/24 06/27/24 18:00 History % eye drops (Refresh Tears) cholecalciferol (vitamin D3) 50 50 mcg PO DAILY 06/28/24 06/28/24 06/27/24 History mcg (2,000 unit) tablet (Vitamin D3) folic acid 1 mg tablet 1 mg PO DAILY 06/28/24 06/28/24 06/27/24 History lidocaine 4 % topical patch 1 patch topical BID PRN arthritic 06/28/24 06/28/24 06/27/24 19:30 History (Lidocaine Pain Relief) pain. methotrexate sodium 2.5 mg tablet 7.5 mg PO .COMPLEX 06/28/24 06/28/24 06/21/24 History multivitamin 1 tablet PO DAILY 06/28/24 06/28/24 06/27/24 History rosuvastatin 20 mg tablet 20 mg PO .Evening 06/28/24 06/28/24 06/27/24 19:00 History vit C 250 mg-vit E 90 mg-zinc 40 2 tablet PO DAILY 06/28/24 06/28/24 06/27/24 History mg-copper 1 [id number]-belygn capsule (PreserVision AREDS-2) Allergies Allergy/AdvReac Type Severity Reaction Status Date / Time No Known Allergies Allergy Verified 01/19/25 00:58 Review of Systems Review of Systems: A 10 system review of systems was completed on the patient and is negative except for what is stated in the HPI. Nursing and ancillary documentation was reviewed. 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) Paroxysmal atrial fibrillation Acute blood loss anemia Weight gain Metatarsal bone fracture (02/13/19) Metatarsal bone fracture (02/13/19) Pulmonary embolism (~07/2018) Anxiety Hypothyroid GERD (gastroesophageal reflux disease) HTN (hypertension) Peripheral neuropathy CVA (cerebrovascular accident) Surgical History Surgical History History of esophagogastroduodenoscopy (EGD) (10/2020) AVMs noted in cecum and erosive gastritis Status post cataract extraction of both eyes with insertion of intraocular lens Family History Family History Father Acute myocardial infarction Heart problem Mother Chronic kidney disease (CKD) Son Heart problem Sibling A-fib Social History Social History Social History: She has been for 52 years. They had 1 son who last year at 49 years old of heart disease. She is a retired hairdresser. She still smokes about 5 cigarettes a day. Up until recent years she used to smoke a half a pack of cigarettes per day and started smoking as a teenager. She denies any alcohol use or illicit substance use. Smoking packs per day: 0.75 Smoking cigarettes per day: 15.0 Years smoked: 59 Smoking pack-years: 44.25 Smoking status: Former smoker Tobacco type: cigarettes Alcohol intake: never Substance use: never Substance use type: does not use Lack of Transportation: No Lack of Food: Never True Current Housing: I Have Housing Concerned About Future Housing: No Difficulty Paying Gas/Electric Bills: No Difficulty Paying for Meds: No Currently Unemployed: No Education: Trade/Vocational Certificate Difficulty w/ Childcare or Family Care: No Gender identity (if verbalized by the patient): Female Spiritual care concerns: No Exam Narrative: CONST: No acute distress. Well nourished. HENMT: Head is normocephalic and atraumatic. Tacky mucous membranes. No posterior oropharynx erythema. EYES: No scleral icterus. No conjunctival injection or pallor. PERRL. NECK: No meningeal signs. RESP: Able to speak in full sentences. Normal respiratory effort. CTAB. CARDIO: Tachycardic rate. Irregularly irregular rhythm. 2+ DP and radial pulses bilaterally. GI: Nondistended. No tenderness to palpation. Soft. : No CVA tenderness to palpation. SKIN: No rashes or lesions noted on exposed skin. NEURO: Oriented x3. Moves all extremities. No focal strength deficits. EXTREM/MSK/BACK: No pedal edema. No palpable deformities. No midline vertebral tenderness to palpation or palpable step-offs. PSYCH: Normal affect. Course Vital Signs Vital signs: Vital Signs Temperature 98.1 F 01/21/25 20:49 Pulse Rate 50 L 01/21/25 20:49 Respiratory Rate 20 01/21/25 20:49 Pulse Oximetry 96 01/21/25 20:49 Oxygen Delivery Room Air 01/21/25 20:49 Temperature 98.1 F 01/21/25 20:49 Pulse Rate 84 01/22/25 01:01 Respiratory Rate 18 01/22/25 01:01 Blood Pressure 108/54 L 01/22/25 01:01 Pulse Oximetry 95 01/22/25 01:01 Oxygen Delivery Nasal Cannula 01/21/25 22:30 Oxygen Flow Rate 2 01/21/25 22:30 [facility] Narrative Medical decision making narrative: Patient presents with the above complaint. Initial vitals are remarkable for bradycardia, patient was tachycardic on my examination. Physical examination as noted above. Plan discussed: laboratory analysis, EKG, imaging. Patient ordered IVF, continues cardiac monitoring, continuous pulse oximetry. I spoke with the hospitalist on-call who has accepted the patient for admission. Repeat EKG showed atrial fibrillation with RVR, patient's heart rate is been primarily below 110 on the monitor. Differential Diagnosis Differential Diagnosis: UTI, pneumonia, intracranial hemorrhage, fracture, sprain, ACS, metabolic derangement, electrolyte derangement, thyroid dysfunction. Medical Records I have reviewed the following patient records and this information was taken into consideration when formulating the assessment and plan.: previous ER visits Lab Data [facility] Lab Attestation statement: I personally reviewed the patient's lab results. Lab results narrative: CBC reveals a hemoglobin of 10.3. Coags reveal PT of 19.5 an APTT of 40.4. VBG reveals a pH of 7.409, pCO2 40.2. Comprehensive metabolic panel reveals a creatinine 1.15, glucose 111. Magnesium is 2.0. Phosphorus 3.3. Lactic acid is 1.2. Total creatine kinase is 105. Troponin is less than 0.012. CRP is 3.6. BNP is 704. TSH is 5.310. Lipase is 124. Urinalysis reveals positive nitrate, 1+ leukocyte esterase, 6-10 wbc's, 4+ bacteria. UDS is negative. Ethyl alcohol level is less than 10. COVID and influenza and RSV testing are negative. 01/21/25 21:45 01/21/25 21:45 Labs: Lab Results 01/21/25 01/21/25 01/21/25 Range/Units 21:45 21:45 21:46 WBC 7.1 (4.5-10.0) K/mm3 RBC 3.54 L (4.2-5.4) M/mm3 Hgb 10.3 L (12.0-15.0) g/dL Hct 32.5 L (37.0-47.0) % MCV 91.8 (80-100) fl MCH 29.1 (26-34) pg MCHC 31.7 L (32-36) g/dl RDW 15.3 H (11.5-14.5) % Plt Count 254 (150-375) k/mm3 MPV 9.5 (7.4-10.4) fl Immature Gran % (Auto) 0.4 (0-0.5) % Neut % (Auto) 74.8 H (45.5-73.1) % Lymph % (Auto) 13.9 L (18.3-44.2) % Wallace % (Auto) 5.3 (2.6-8.5) % Eos % (Auto) 4.9 H (0-4.4) % Baso % (Auto) 0.7 (0.2-1.2) % Lymph # (Auto) 0.99 (0.9-3.2) K/mm3 Wallace # (Auto) 0.4 (0.1-0.6) K/mm3 Eos # (Auto) 0.4 H (0-0.3) K/mm3 Baso # (Auto) 0.1 (0.0-0.1) K/mm3 Abs Immat Gran (auto) 0.03 (0.00-0.031) K/mm3 Absolute Neuts (auto) 5.3 (1.3-6.7) K/mm3 Absolute Nucleated RBC 0.000 (0.0-0.012) K/mm3 Nucleated RBC % 0.0 (0.0-0.2) % PT 19.5 H (11.1-14.7) Seconds INR 1.7 APTT 40.4 H (22.3-36.8) Seconds Sodium 137 (137-145) mmol/L Potassium 3.4 (3.4-5.0) mmol/L Chloride 103 (98-107) mmol/L Carbon Dioxide 26 (22-30) mmol/L Anion Gap 8 (4-12) mmol/L BUN 15 (7-17) mg/dL Creatinine 1.15 H (0.7-1.0) mg/dL Estim Creat Clear Calc 43 ml/min Estimated GFR 46 L (59 - ) Glucose 111 H (65-110) mg/dL Lactic Acid (0.7-2.0) mmol/L Calcium 9.7 (8.4-10.2) mg/dL Phosphorus 3.3 (2.5-4.5) mg/dL Magnesium 2.0 (1.6-2.3) mg/dL Total Bilirubin 0.5 (0.2-1.3) mg/dL AST 33 (14-36) U/L ALT 21 (6-35) U/L Alkaline Phosphatase 73 (38-126) U/L Total Creatine Kinase 105 (30-135) U/L Troponin I < 0.012 (0.000-0.034) ng/mL C-Reactive Protein 3.6 H (<1.0) mg/dL NT-Pro-B Natriuret Pep 689 H 704 H (19.9-100) pg/mL Total Protein 8.0 (6.3-8.2) g/dL Albumin 4.3 (3.5-5.1) g/dL Lipase 124 (23-300) U/L TSH (Reflex) 5.310 H (0.465-4.68) uIU/mL Free T4 1.16 (0.78-2.19) ng/dL Total T3 0.96 (0.82-1.58) NG/ML Urine Color Yellow (Yellow) Urine Appearance Clear (Clear) Urine pH 7.5 (5.0-9.0) Ur Specific [place] 1.008 (1.001-1.035) Urine Protein Negative (Negative) mg/dL Urine Glucose (UA) Negative (Negative) mg/dL Urine Ketones Negative (Negative) mg/dL Ur Blood (Man) Negative (Negative) Urine Nitrate Positive H (Negative) Urine Bilirubin Negative (Negative) Urine Urobilinogen 0.2 (<2.0) mg/dL Leukocyte Esterase Rfl 1+ H (Negative) ISABEL/UL Urine RBC 0-2 (0-2) /hpf Urine WBC 6-10 H (0-3) /hpf Ur Squamous Epith Cells None seen (Few) /hpf Urine Bacteria 4+ H /hpf Urine Casts 0-2 Urine Opiates Screen Negative (Negative) Urine Methadone Screen Negative (Negative) Ur Barbiturates Screen Negative (Negative) Ur Phencyclidine Scrn Negative (Negative) Ur Amphetamine Screen Negative (Negative) U Benzodiazepines Scrn Negative (Negative) Urine Cocaine Screen Negative (Negative) U Cannabinoids Screen Negative (Negative) Ethyl Alcohol < 10 (<10) mg/dL Influenza A (RT-PCR) Negative (Negative) Influenza B (RT-PCR) Negative (Negative) RSV (RT-PCR) Negative (Negative) SARS-CoV-2 RNA (RT-PCR) Negative (Negative) 01/21/25 Range/Units 23:05 WBC (4.5-10.0) K/mm3 RBC (4.2-5.4) M/mm3 Hgb (12.0-15.0) g/dL Hct (37.0-47.0) % MCV (80-100) fl MCH (26-34) pg MCHC (32-36) g/dl RDW (11.5-14.5) % Plt Count (150-375) k/mm3 MPV (7.4-10.4) fl Immature Gran % (Auto) (0-0.5) % Neut % (Auto) (45.5-73.1) % Lymph % (Auto) (18.3-44.2) % Wallace % (Auto) (2.6-8.5) % Eos % (Auto) (0-4.4) % Baso % (Auto) (0.2-1.2) % Lymph # (Auto) (0.9-3.2) K/mm3 Wallace # (Auto) (0.1-0.6) K/mm3 Eos # (Auto) (0-0.3) K/mm3 Baso # (Auto) (0.0-0.1) K/mm3 Abs Immat Gran (auto) (0.00-0.031) K/mm3 Absolute Neuts (auto) (1.3-6.7) K/mm3 Absolute Nucleated RBC (0.0-0.012) K/mm3 Nucleated RBC % (0.0-0.2) % PT (11.1-14.7) Seconds INR APTT (22.3-36.8) Seconds Sodium (137-145) mmol/L Potassium (3.4-5.0) mmol/L Chloride (98-107) mmol/L Carbon Dioxide (22-30) mmol/L Anion Gap (4-12) mmol/L BUN (7-17) mg/dL Creatinine (0.7-1.0) mg/dL Estim Creat Clear Calc ml/min Estimated GFR (59 - ) Glucose (65-110) mg/dL Lactic Acid 1.2 (0.7-2.0) mmol/L Calcium (8.4-10.2) mg/dL Phosphorus (2.5-4.5) mg/dL Magnesium (1.6-2.3) mg/dL Total Bilirubin (0.2-1.3) mg/dL AST (14-36) U/L ALT (6-35) U/L Alkaline Phosphatase (38-126) U/L Total Creatine Kinase (30-135) U/L Troponin I (0.000-0.034) ng/mL C-Reactive Protein (<1.0) mg/dL NT-Pro-B Natriuret Pep (19.9-100) pg/mL Total Protein (6.3-8.2) g/dL Albumin (3.5-5.1) g/dL Lipase (23-300) U/L TSH (Reflex) (0.465-4.68) uIU/mL Free T4 (0.78-2.19) ng/dL Total T3 (0.82-1.58) NG/ML Urine Color (Yellow) Urine Appearance (Clear) Urine pH (5.0-9.0) Ur Specific [place] (1.001-1.035) Urine Protein (Negative) mg/dL Urine Glucose (UA) (Negative) mg/dL Urine Ketones (Negative) mg/dL Ur Blood (Man) (Negative) Urine Nitrate (Negative) Urine Bilirubin (Negative) Urine Urobilinogen (<2.0) mg/dL Leukocyte Esterase Rfl (Negative) ISABEL/UL Urine RBC (0-2) /hpf Urine WBC (0-3) /hpf Ur Squamous Epith Cells (Few) /hpf Urine Bacteria /hpf Urine Casts Urine Opiates Screen (Negative) Urine Methadone Screen (Negative) Ur Barbiturates Screen (Negative) Ur Phencyclidine Scrn (Negative) Ur Amphetamine Screen (Negative) U Benzodiazepines Scrn (Negative) Urine Cocaine Screen (Negative) U Cannabinoids Screen (Negative) Ethyl Alcohol (<10) mg/dL Influenza A (RT-PCR) (Negative) Influenza B (RT-PCR) (Negative) RSV (RT-PCR) (Negative) SARS-CoV-2 RNA (RT-PCR) (Negative) ABG Data ABG results: 01/21/25 23:05 VBG pH 7.409 H* VBG pCO2 40.2 L VBG pO2 < 27.0 L VBG HCO3 24.9 O2 Delivery Device Room air O2 Liters/Min Not Reportable FiO2 21 Imaging Data Radiologist's impression: ITS Impressions Chest X-Ray 01/21/25 21:43 IMPRESSION: Groundglass opacities bilaterally with small left pleural effusion. Shoulder X-Ray 01/21/25 21:44 IMPRESSION: Radiographic examination of the left shoulder demonstrates no acute fracture or dislocation. Head CT 01/21/25 22:48 IMPRESSION: No acute intracranial hemorrhage or extra axial fluid collections. All CT scans at this facility are performed using low dose modulation techniques as appropriate to perform exam including the following: automated exposure control; use of iterative reconstruction technique; adjustment of the mA and/or kV according to patient size (this includes techniques or standardized protocols for targeted exams where dose is matched to indication/reason for exam). Cervical Spine CT 01/21/25 22:49 IMPRESSION: No acute fracture or subluxation. All CT scans at this facility are performed using low dose modulation techniques as appropriate to perform exam including the following: automated exposure control; adjustment of the mA and/or kV according to patient size (this includes techniques or standardized protocols for targeted exams where does is matched to indication/reason for exam; i.e. extremities or head); use of iterative reconstruction technique). Chest/Abdomen/Pelvis/Spine CT 01/21/25 22:53 IMPRESSION: No acute cardiopulmonary process. No pathologic enhancement is noted. No pathologically enlarged mediastinal lymphadenopathy is noted. CT abdomen and pelvis with contrast: The liver parenchyma is unremarkable. No intrahepatic mass or ductal dilatation is evident. Cholelithiasis is noted. The pancreas and spleen are normal in appearance. The adrenal glands are symmetric in size. The kidneys demonstrate symmetric uptake and excretion of contrast. Benign bilateral renal cysts are noted measuring up to 1.8 cm. There is no solid mass. There is no hydronephrosis. Evaluation of the stomach and bowel loops are limited due to lack of oral contrast. The appendix is normal in appearance. There is colonic diverticulosis without evidence of acute diverticulitis. The bladder and rectum are normal. No free intraperitoneal fluid or air is evident. There is no significant retroperitoneal lymphadenopathy. Atherosclerotic calcification of the aorta and iliac vessels are noted. Aorta is normal in caliber. The lower thoracic and lumbar vertebrae are in normal alignment. IMPRESSION: No acute abnormality is noted in the abdomen and pelvis. Cholelithiasis without evidence of acute cholecystitis. Colonic diverticulosis without evidence of acute diverticulitis. All CT scans at this facility are performed using low dose modulation techniques as appropriate to perform exam including the following: automated exposure control; use of iterative reconstruction technique; adjustment of the mA and/or kV according to patient size (this includes techniques or standardized protocols for targeted exams where dose is matched to indication/reason for exam) ECG Data EKG #1: Attestation: I personally reviewed and interpreted this ECG as follows: ECG completion date: 01/21/25 ECG completion time: 21:21 Interpretation: Rate of 77, rhythm is sinus rhythm, axis is indeterminate, baseline artifact present, no overt ST elevation or depressions, no overt T-wave abnormalities. Discharge Plan Discharge Clinical Impression: Near syncope, Acute UTI, Pneumonia, Atrial fibrillation with RVR, Hypoxia Patient Disposition: Still a Patient Condition: Serious Time of Disposition: 23:57
[2025-01-21 22:30] VITALS: O2SAT 92
[2025-01-21 22:30] LABS: Influenza A QL RT-PCR Negative (Negative); Influenza B QL RT-PCR Negative (Negative); RSV RNA, RT-PCR Negative (Negative); SARS-CoV-2 RNA PCR Negative (Negative)
--- OUTSIDE RECORDS SUMMARY | 2025-01-21 22:35 | XMS_ITS | Clinical Summary ---
Author Organization [facility] Address [address] [place] [address] Care Team Providers Care Surfacing Machine Operator Name Role Phone Blair Agarwal MD Primary Care Provider [phone] Source Comments [facility],non-owned Affiliates and Associated Physician Practices is amultiple site organization consisting of ambulatory clinics and hospital sitesin [place], [place], [place] and [place]. This disclosure is being madepursuant to the Care Everywhere program and may not contain all information available regarding this patient. Last updated 17.[facility] Allergies No known active allergies Medications * [...] age to complete this topic Insurance MEDICARE [facility] UHC MANAGED MEDICARE ADV Care Teams Surfacing Machine Operator Relationship Specialty Start Date End Date Blair Agarwal MD [facility] [facility] [place] [address] PCP - General 05/29/17
--- OUTSIDE RECORDS SUMMARY | 2025-01-21 22:35 | XMS_ITS | Clinical Summary ---
Author Organization [facility] Address [address] [place] [id number] Care Team Providers Care Airplane Pilot Commercial Name Role Phone Unavailable Primary Care Provider [...]
--- OUTSIDE RECORDS SUMMARY | 2025-01-21 22:36 | XMS_ITS | Encounter Summary ---
Author Organization [facility] Care Team Providers Care Clinical Pathologist Name Role Phone Blair Agarwal MD Primary Care Provider [phone] rFank Whitney MD Unavailable [phone] Encounter Details Date Type Department Care Team (Latest Contact Info) Description 04/06/2018 Orders Only [facility] ProviderCarlos Manuel MD [address] [place] [address] [id number] Social History Tobacco Use Types Packs/Day Years [...] PROCEDURE - RESULT 04/06/2018 12 :00 AM SOUS CHEF KITCHEN MANAGER documented in this encounter Results * PROCEDURE - RESULT (04/06/2018 12:00 AM SOUS CHEF KITCHEN MANAGER) Narrative 04/06/2018 12:00 AM SOUS CHEF KITCHEN MANAGER Ordered by an unspecified provider. Historical Provider Final Res ult documented in this encounter Visit Diagnoses Not on filedocumented in this encounter Care Teams Clinical Pathologist Relationship Specialty Start Date End Date Blair Agarwal MD [address] [facility] [place] [address] PCP - General 06/23/18 [place] [id number] [address] Referring Physician Rheumatology 09/05/23 documented as of this encounter
--- OUTSIDE RECORDS SUMMARY | 2025-01-21 22:36 | XMS_ITS | Encounter Summary ---
Author Organization [facility] Healthcare Address [address] [place] [address] Care Team Providers Care Strap Cutter Name Role Phone Blair Agarwal MD Primary Care Provider Frank Whitney MD Unavailable [phone] Reason for Referral * MRI/CAT/PET Scan (Routine) - Closed Specialty Diagnoses / Procedures Referred By Contac t Referred To Contact Radiology Diagnoses Acute right-sided low back pain with right-sided sciatica Compression deformity of vertebra Procedures CT Lumbar Spine WO Contrast Marlena Marcial PA [address] [place] [address] [address] [place] [address] Phone: tel: fax: [address] [address] Referral ID Status Reason Start Date Expiration Date Visits Re quested Visits Authorized [id number] Closed 12/17/2024 01/16/2026 1 1 Encounter Details Date Type Department Care Team (Late st Contact Info) Description 12/16/2024 Results Follow-Up [facility] Family Medicine at [address] [place] [phone] Marlena Marcial PA [address] [place] [address] [address] [place] [id number] XR Spine Lumbar 2 Or 3 Vw [...] vertebra documented in this encounter Care Teams Strap Cutter Relationship Specialty Start Date End Date Blair Agarwal MD [address] [place] [address] PCP - General 06/23/18 [place] [address] [address] [place] [id number] Referring Physician Rheumatology 09/05/23 documented as of this encounter
--- OUTSIDE RECORDS SUMMARY | 2025-01-21 22:36 | XMS_ITS | Encounter Summary ---
Author Organization [facility] Healthcare Address [address] [place] [address] Care Team Providers Care Staff Physician Name Role Phone Blair Agarwal MD Primary Care Provider [phone] Frank Whitney MD Unavailable [phone] Encounter Details Date Type Department Care Team (Late st Contact Info) Description 12/22/2024 Results Follow-Up [facility] Family Medicine at [address] [place] [phone] Lumbar Spine WO Contrast Social History [...] on filedocumented in this encounter Care Teams Staff Physician Relationship Specialty Start Date End Date Blair Agarwal MD [address] [facility] [address] [place] [address] PCP - General 06/23/18 [place] [address] [place] [address] Referring Physician Rheumatology 09/05/23 documented as of this encounter
--- OUTSIDE RECORDS SUMMARY | 2025-01-21 22:36 | XMS_ITS | Clinical Summary ---
Author Organization [facility] at [facility] Address [address] [place] [address] Care Team Providers Care Medical Lab Technologist Name Role Phone Blair Agarwal MD Primary Care Provider [phone] Frank Whitney MD Unavailable [phone] Allergies No known active allergies Medications vitamins A,C,P-wvfo-dhtbln (ICAPS) 14,320226-200 ympe-ib-xtyn capsule Take 2 capsules by mouth daily [...] mouth daily Active methotrexate 2.5 mg tablet Take 1 tablet (2.5 mg total) by mouth 8 tablets once a week 024 Active ondansetron ODT (ZOFRAN-ODT) 4 mg disintegrating tablet Take 1 tablet (4 mg total) by mouth every 8 (eight) hours as needed for nausea or vomiting 20 tablet Active Xarelto 20 mg tablet TAKE 1 TABLET BY MOUTH DAILY 100 tablet 2 Active levothyroxine (SYNTHROID) 100 mcg tablet Take 1 tablet (100 mcg total) by mouth daily 90 tablet 3 Active ALPRAZolam (XANAX) 0.5 mg tabletIndications :JERRELL (generalized anxiety disorder) TAKE 1 TABLET BY MOUTH DAILY NEEDED FOR ANXIETY 90 tablet 025 Active rosuvastatin (CRESTOR) 20 mg tablet Take 1 tablet (20 mg total) by mouth nightly 90 tablet 6 Active hydroxychloroquin e (PLAQUENIL) 200 mg tablet Take 1 tablet (200 mg total) by mouth 2 (two) times a day Active methocarbamoL (ROBAXIN) 500 mg tabletIndications :Acute right-sided low back pain with right-sided sciatica Take 1 tablet (500 mg total) by mouth 3 (three) times a day as needed for muscle spasms 40 tablet Active furosemide (LASIX) 20 mg tablet Take 1 tablet (20 mg total) by mouth daily 30 tablet 2 Active potassium chloride ER (KLOR-CON) 10 mEq CR tablet Take 1 tablet/capsul e (10 mEq total) by mouth daily 30 tablet 2 2025 Active metoprolol tartrate (LOPRESSOR) 50 mg immediate release tablet Take 1 tablet (50 mg total) by mouth 2 (two) times a day 180 tablet 3 025 2025 Active amLODIPine (NORVASC) 10 mg tabletIndications :Uncontrolled hypertension TAKE 1 TABLET BY MOUTH DAILY 100 tablet 1 Active gabapentin (NEURONTIN) 300 mg capsule TAKE 1 CAPSULE BY MOUTH 3 TIMES DAILY 300 capsule 1 Active amLODIPine (NORVASC) 10 mg tabletIndications :Uncontrolled hypertension TAKE 1 TABLET BY MOUTH DAILY 100 tablet 1 025 2024 Discontinued gabapentin (NEURONTIN) 300 mg capsule TAKE 1 CAPSULE BY MOUTH 3 TIMES DAILY 300 capsule 025 2024 Discontinued metoprolol XL (TOPROL-XL) 50 mg extended release tablet Take 1 tablet (50 mg total) by mouth nightly 90 tablet 3 025 2024 Discontinued(R eorder) furosemide (LASIX) 20 mg tablet Take 1 tablet (20 mg total) by mouth daily 025 2024 Discontinued(R eorder) metoprolol XL (TOPROL-XL) 50 mg extended release tablet Take 1 tablet (50 mg total) by mouth nightly 90 tablet 3 025 2024 Discontinued(A lternate therapy) Active Problems Problem Noted Date Diagnosed [...] Type Department Care Team Description 01/02/2025 Telephone [facility] Medical [facility] Cardiology [address] [place] [address] Kiran Arevalo MD 01/01/2025 1:00 PM LEADERSHIP INTERN Office Visit [facility] Family Medicine at [address] [place] [address] Blair Agarwal MD Paroxysmal atrial fibrillation (HCC) (Primary Dx); Fluid retention in legs; Primary hypertension; Chronic anticoagulation; Gastroesophageal reflux disease, unspecified whether esophagitis present; Acquired hypothyroidism; Mixed hyperlipidemia; Elevated sed rate (elev SR); Mild anemia 12/25/2024 9:00 AM LEADERSHIP INTERN Lab [facility] [place] [facility] [address] [place] [address] Medicare annual wellness visit, subsequent; Mixed hyperlipidemia; Stage 3a chronic kidney disease (HCC); Primary hypertension; PMR (polymyalgia rheumatica); Acquired hypothyroidism 12/25/2024 Results Follow-Up [facility] Family Medicine at [address] [place] [address] Blair Agarwal MD Lipid panel, Comprehensive metabolic panel, CBC with auto differential, Additional followed-up results: 5 12/22/2024 Results Follow-Up [facility] Family Medicine at [address] [place] [address] Lumbar Spine WO Contrast 12/20/2024 12:56 PM CDT - 12/20/2024 11:59 PM CDT Hospital [facility] [address] [place] [address] Acute right-sided low back pain with right-sided sciatica; Compression deformity of vertebra Discharge Disposition: Discharge to home or self care 12/19/2024 Telephone [facility] Family Medicine at [address] [place] [address] Blair Agarwal MD Medical Question/Miscellaneo us 12/16/2024 9:52 AM CDT - 12/16/2024 11:59 PM CDT Hospital Encounter [facility] Di[facility] Imaging [address] [place] [address] Acute right-sided low back pain with right-sided sciatica Discharge Disposition: Discharge to home or self care 12/16/2024 9:15 AM CDT Office Visit [facility] Medical [facility] Family Medicine at [address] [place] [address] Marlena Marcial PA Acute right-sided low back pain with right-sided sciatica (Primary Dx); Need for influenza vaccination 12/16/2024 Results Follow-Up [facility] Family [facility] at [address] [place] [address] Marlena Marcial PA XR Spine Lumbar 2 Or 3 Vw 12/13/2024 Nurse Triage [facility] at [address] [place] [address] Cyndy Weinberg, RACHEAL 12/12/2024 2:00 PM CDT Office Visit [facility] Medical [facility] Cardiology [address] [place] [address] Kala Molina NP Paroxysmal atrial fibrillation (HCC); Chronic anticoagulation; Essential hypertension; Obesity, class 3 (E66.813); Body mass index [BMI] 40.0-44.9, adult (Z68.41) 11/06/2024 Telephone [facility] Medical [facility] Family Medicine at [address] [place] [address] Blair Agarwal MD Medical Records Request from [...] Comments Blood Pressure 136/80 01/01/2025 12:55 PM LEADERSHIP INTERN Pulse 56 01/01/2025 12:55 PM LEADERSHIP INTERN Temperature 36.6 C (97.8 F) 01/01/2025 12:55 PM LEADERSHIP INTERN Respiratory Rate 16 01/01/2025 12:55 PM LEADERSHIP INTERN Oxygen Saturation 98% 01/01/2025 12:55 PM LEADERSHIP INTERN Inhaled Oxygen Concentration - - Weight 108 kg (238 lb) 01/01/2025 12:55 PM LEADERSHIP INTERN Height 165.1 cm (5' 5) 01/01/2025 12:55 PM LEADERSHIP INTERN Body Mass Index 39.61 01/01/2025 12:55 PM LEADERSHIP INTERN Plan of Treatment Health Maintenance Due Date Last Done Comments Hepatitis C Screening 1945 DTaP/Tdap/Td Vaccine (1 - Tdap) 1956 Hepatitis B Screening 11/06/1963 Covid-19 Vaccine (2024-2 6 season) 2024 11/16/2023, 01/10/2023, 09/28/2022, Additional history exists Osteoporosis Screening-Bone Density Scan 01/26/2025 01/26/2023, 08/17/2018, 09/23/2013 Well Visit 65+ 06/27/2025 06/27/2024, 0502/2023, 06/08/2022, Additional history exists Depression Screening 12/16/2025 [...] Diagnosis Comments EGFR Routine 12/25/2024 9:09 AM LEADERSHIP INTERN Medicare annual wellness visit, subsequent Mixed hyperlipidemia Stage 3a chronic kidney disease (HCC) T4, FREE Routine 12/25/2024 9:09 AM LEADERSHIP INTERN Acquired hypothyroidism DIFFERENTIAL AUTO Routine 12/25/2024 9:0 9 AM LEADERSHIP INTERN Medicare annual wellness visit, subsequent Primary hypertension THYROID FUNCTION CASCADE Routine 12/25/2024 9:09 AM LEADERSHIP INTERN Acquired hypothyroidism ERYTHROCYTE SEDIMENTATION RATE Routine 12/25/2024 9:09 AM LEADERSHIP INTERN PMR (polymyalgia rheumatica) CBC WITH AUTO DIFFERENTIAL Routine 12/25/2024 9:09 AM LEADERSHIP INTERN Medicare annual wellness visit, subsequent Primary hypertension COMPREHENSIVE METABOLIC PANEL Routine 12/25/2024 9:09 AM LEADERSHIP INTERN Medicare annual wellness visit, subsequent Mixed hyperlipidemia Stage 3a chronic kidney disease (HCC) LIPID PANEL Routine 12/25/2024 9:09 AM LEADERSHIP INTERN Medicare annual wellness visit, subsequent Mixed hyperlipidemia [...] Read Routine (OP Routine) 01/26/2023 10:09 AM LEADERSHIP INTERN Postmenopausal status COLONOSCOPY Routine 10/24/2020 SCREENING MAMMOGRAM BILATERAL W BALA Routine 11/25/2014 8:54 AM CDT from Last 3 Months or Most Recently Relevant to Health Maintenance Results * (ABNORMAL) eGFR (12/25/2024 9:09 AM LEADERSHIP INTERN) eGFR 56(L) >=60 mL/min/1. 73 m2 Comment: [...] last reviewed 2020. Blood 12/25/2024 9:09 AM LEADERSHIP INTERN 12/25/2024 10:41 AM LEADERSHIP INTERN us Blair Agarwal MD LAB BLOOD ORDERABLES Final Re sult ADRYANFEO [address] [facility] Department [place] [address] * Differential, auto (12/25/2024 9:09 AM LEADERSHIP INTERN) Neutrophil abs 4.97 1.50 - 6.50 K/cumm Imm gran abs 0.02 0.00 - 0.10 K/cumm [facility] Lymphocyte abs 1.48 0.80 - 3.30 K/cumm [facility] Monocyte abs 0.63 0.20 - 0.80 K/cumm [facility] Eosinophil abs 0.37 0.00 - 0.50 K/cumm [facility] Basophil abs 0.05 0.00 - 0.10 K/cumm [facility] Neutrophil pct 66.0 % [facility] Comment: Interpretive Data Percent cell count reference ranges are not reported, since discordance with absolute values may lead to misinterpretation of CBC data. Current Interpretive Data was last revised on 2017. Imm gran pct 0.3 % [facility] Comment: Interpretive Data Percent cell count reference ranges are not reported, since discordance with absolute values may lead to misinterpretation of CBC data. Current Interpretive Data was last revised on 2017. Lymphocyte pct 19.7 % [facility] Comment: Interpretive Data Percent cell count reference ranges are not reported, since discordance with absolute values may lead to misinterpretation of CBC data. Current Interpretive Data was last revised on 2017. Monocyte pct 8.4 % [facility] Comment: Interpretive Data Percent cell count reference ranges are not reported, since discordance with absolute values may lead to misinterpretation of CBC data. Current Interpretive Data was last revised on 2017. Eosinophil pct 4.9 % [facility] Comment: Interpretive Data Percent cell count reference ranges are not reported, since discordance with absolute values may lead to misinterpretation of CBC data. Current Interpretive Data was last revised on 2017. Basophil pct 0.7 % [facility] Comment: Interpretive Data Percent cell count reference ranges are not reported, since discordance with absolute values may lead to misinterpretation of CBC data. Current Interpretive Data was last revised on 2017. Blood 12/25/2024 9:09 AM LEADERSHIP INTERN 12/25/2024 10:43 AM LEADERSHIP INTERN us Blair Agarwal MD LAB BLOOD ORDERABLES Final Re sult YULIYA [address] [facility] [place] [address] * (ABNORMAL) Thyroid Function [place] (12/25/2024 9:09 AM LEADERSHIP INTERN) Pathologist [facility] TSH 5.99(H) 0.30 - 4.20 mcIUnit/mL Blood 12/25/2024 9:09 AM LEADERSHIP INTERN 12/25/2024 10:41 AM LEADERSHIP INTERN Blair Agarwal MD LAB BLOOD ORDERABLES Final Re sult Performing Organization Address [facility] Co de Phone Number [address] [place] [address] * (ABNORMAL) CBC with auto differential (12/25/2024 9:09 AM LEADERSHIP INTERN) [facility] WBC 7.52 3.80 - 9.90 K/cumm Hgb 11.4(L) 11.9 - 15.5 g/dL [facility] Hct 37.1 35.6 - 45.5 % [facility] Plt 300 150 - 400 K/cumm [facility] MPV 9.7 9.1 - 12.3 fL [facility] RBC 3.94 3.90 - 5.20 M/cumm [facility] MCV 94.2 81.3 - 96.4 fL [facility] MCH 28.9 27.1 - 33.3 pg [facility] MCHC 30.7(L) 32.3 - 35.7 g/dL [facility] RDW CV 15.5(H) 11.1 - 14.9 % [facility] RDW SD 52.4(H) 35.7 - 48.1 fL [facility] NRBC abs 0.00 0.00 - 0.01 K/cumm [facility] Blood 12/25/2024 9:09 AM LEADERSHIP INTERN 12/25/2024 10:43 AM LEADERSHIP INTERN us Blair Agarwal MD LAB BLOOD ORDERABLES Final Re sult Performing Organization Address [facility] Co de Phone Number [address] [place] [address] * (ABNORMAL) Erythrocyte sedimentation rate (12/25/2024 9:09 AM LEADERSHIP INTERN) Erythrocyte sedimentation rate 49(H) 1 - 30 mm/hr Blood 12/25/2024 9:09 AM LEADERSHIP INTERN 12/25/2024 10:43 AM LEADERSHIP INTERN Blair Agarwal MD LAB BLOOD ORDERABLES Final Re sult Performing Organization Address [facility] Co de Phone Number [address]DRY[address] [place] [address] * T4, free (12/25/2024 9:09 AM LEADERSHIP INTERN) Free T4 1.16 0.90 - 1.70 ng/dL Blood 12/25/2024 9:09 AM LEADERSHIP INTERN 12/25/2024 10:41 AM LEADERSHIP INTERN Narrative YULIYA - 12/25/2024 12:27 PM LEADERSHIP INTERN This test was reflexed from a TSH result. Blair Agarwal MD LAB BLOOD ORDERABLES Final Re sult Performing Organization Address [facility] de Phone Number [address] [address] * Lipid panel (12/25/2024 9:09 AM LEADERSHIP INTERN) Cholesterol 119 30 - 199 mg/dL Comment: [...] 2004;110:227 3. Abner Keys al. BROOKE Cardiol. 2020 June 20;5(5):540-548. doi: [...] last revised on 2017. Chol/HDL ratio 2 [facility] Blood 12/25/2024 9:09 AM LEADERSHIP INTERN 12/25/2024 10:41 AM LEADERSHIP INTERN Blair Agarwal MD LAB BLOOD ORDERABLES Final Re sult [facility] [address] [facility] Department [place] [address] * Comprehensive metabolic panel (12/25/2024 9:09 AM LEADERSHIP INTERN) Sodium 141 135 - 145 mmol/L Potassium, pl 4.2 3.3 - 4.9 mmol/L [facility] Chloride 103 97 - 110 mmol/L [facility] CO2 27 22 - 32 mmol/L [facility] Anion gap 11 2 - 15 mmol/L [facility] BUN 16 6 - 25 mg/dL [facility] Creatinine 1.02 0.60 - 1.10 mg/dL [facility] Glucose 89 70 - 199 mg/dL [facility] Comment: Interpretive Data Fasting glucose [...] 2022. Calcium 10.1 8.5 - 10.3 mg/dL [facility] Bilirubin, total 0.4 0.1 - 1.2 mg/dL [facility] Protein, pl 7.6 6.5 - 8.5 g/dL [facility] Albumin 4.2 3.5 - 5.0 g/dL [facility] Alk phos 66 40 - 130 Units/L [facility] ALT 14 7 - 45 Units/L [facility] AST 19 10 - 45 Units/L [facility] Blood 12/25/2024 9:09 AM LEADERSHIP INTERN 12/25/2024 10:41 AM LEADERSHIP INTERN us Blair Agarwal MD LAB BLOOD ORDERABLES Final Re sult YULIYA [address] [facility] Department [place] [address] * CT Lumbar Spine WO Contrast (12/20/2024 [...] signed by: Don Pierson D.O. Marlena Zelaya IMG CT PROCEDURES Final Result * XR Spine [...] signed by: Sameer Crum M.D. Marlena Zelaya IM XR PROCEDURES Final Result * Dexa Axial Skeleton Bone Density 1 or 2 Site (01/26/2023 10:09 AM LEADERSHIP INTERN) Anatomical Region Laterality Modality Body N/A Mammography 01/26/2023 10:5 9 AM LEADERSHIP INTERN Narrative 01/26/2023 11:00 AM LEADERSHIP INTERN EXAM DESCRIPTION: DEXA AXIAL SKELETON BONE DENSITY 1 OR MORE SITES REASON FOR STUDY: 77 y/o year old F with given history of: Postmenopausal status. Patient has taken/is taking vitamin-D. History of prior fracture and smoking Fiberglass Laminator/Model: [employer] A (S/N [id number]) CLINICAL INFORMATION: Current height: 64 inches Maximum [...] Ml Ross M.D. TW: SHEA Report ID: [id number] Reading Location: [id number] Procedure Note Ml Ross MD - 01/26/2023 EXAM DESCRIPTION: DEXA AXIAL SKELETON BONE DENSITY 1 OR MORE SITES REASON FOR STUDY: 77 y/o year old F with given history of:Postmenopausal status. Patient has taken/is taking vitamin-D. History of prior fractureand smoking Fiberglass Laminator/Model: [employer] A (S/N [id number]) CLINICAL INFORMATION: Current height: 64 inches Maximum [...] Ml Ross M.D. TW: SHEA Report ID: [id number] Reading Location: [id number] Blair Agarwal MD IMG DXA PROCEDURES Final [...] Electronically signed by: Shukri Noe md/:11/25/2014 10:14:56 Office Helper: Mariah Herrera RT (R)(M), [facility] letter sent: Normal Exam Reading location: BI-RADS: 2 Benign [EOD] Narrative 11/25/2014 10:18 AM CDT - [facility] BILAT SCREENING 3D W/CAD BILATERAL DIGITAL [...] dated: 09/23/2013 mammogram and 09/29/2011 mammogram/ultrasound - [facility]. BREAST TISSUE: There are scattered fibroglandular [...] dated: 09/23/2013 mammogram and 09/29/2011 mammogram/ultrasound - [facility]. BREAST TISSUE: There are scattered fibroglandular [...] Electronically signed by: Shukri Noe md/:11/25/2014 10:14:56 Office Helper: Mariah Herrera RT (R)(M), [facility] letter sent: Normal Exam Reading location: BI-RADS: 2 Benign [EOD] Blair Agarwal MD IMG MAMMO PROCEDURES Final Re sult from Last 3 Months or Most Recently Relevant to Health Maintenance Insurance [facility] MEDICARE ADVANTAGE [facility] MEDIC[facility] Address: [facility] [address] [place] [address] [facility] MEDICARE ADVANTAGE [facility] MED[facility] Address: [facility] [address] [place] [address] Advance Directives For more information, please contact: [phone] Documents on File Type Date Recorded 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
--- OUTSIDE RECORDS SUMMARY | 2025-01-21 22:36 | XMS_ITS | Encounter Summary ---
Author Organization [facility] Address [address] [place] [address] Care Team Providers Care Family And Consumer Education Teacher Name Role Phone Blair Agarwal MD Primary Care Provider [phone] Frank Whitney MD Unavailable [phone] Encounter Details Date Type Department Care Team (Late st Contact Info) Description 12/25/2024 Results Follow-Up [facility] Family Medicine at [address] [address] Blair Agarwal MD [address] [place] [address] Lipid panel, Comprehensive metabolic panel, CBC [...] on filedocumented in this encounter Care Teams Family And Consumer Education Teacher Relationship Specialty Start Date End Date Blair Agarwal MD [address] [facility] [address] [place] [address] PCP - General 06/23/18 [place] [address] [facility] [address] [place] [address] Referring Physician Rheumatology 09/05/23 documented as of this encounter
[2025-01-21 22:43] LABS: CRP 3.6 mg/dL (<1.0); Creatine Kinase 105 U/L (30-135); Thyroid Stimulating Hormone Reflex 5.310 uIU/mL (0.465-4.68)
[2025-01-21 22:50] LABS: NT Pro B Type Natriuretic Pept 704 pg/mL (19.9-100)
[2025-01-21 22:53] LABS: Cannabinoid Screen Urine Negative (Negative)
[2025-01-21 23:09] LABS: Fractional Inspired Oxygen 21 %; HCO3 VBG 24.9 mEq/l (24.0-30.0); PCO2 VBG 40.2 mmHg (42.0-48.0)
[2025-01-21 23:11] LABS: PO2 VBG < 27.0 mmHg (35.0-45.0); pH VBG 7.409 (7.300-7.400)
[2025-01-21] MEDS: SODIUM CHLORIDE 0.9% IV 1,000 ML 999 ML IV CONT (23:11)
[2025-01-21] MEDS: cefTRIAXone 1 GM in SODIUM CHLORIDE 0.9% IV 50 ML 100 ML IVPB (23:12)
[2025-01-21 23:20] LABS: Free T4 Free Thyroxine Reflex 1.16 ng/dL (0.78-2.19)
[2025-01-22] VITALS (16 sets, daily range): BP systolic 108–147; BP diastolic 53–86; PULSE 64–107; RESP 14–20; TEMP 36.1–37.3; O2SAT 85–96; BMI 36.5
[2025-01-22 00:04] LABS: Total Triiodothyronine (T3) 0.96 NG/ML (0.82-1.58)
--- NOTE | 2025-01-22 00:09 | ECG_ITS ---
Test Date: 2025-01-22 00:57:48 Measurements Intervals [place] Rate: 100 P: 0 FL: 0 QRS: -17 QRSD: 90 T: 14 QT: 377 QTc: 487 Interpretive Statements SNUS BRADYCARDA WTH SHORT RUN OF ATRIAL FIBRILLATION CANNOT R/O SEPTAL INFARCT, AGE INDETERMINATE BASELINE ARTIFACT- I, II, AVR, AVL, AVF ABNORMAL ECG Compared to ECG 01/21/2025 21:21:07 SHORT RUN OF ATRIAL FIBRILLATION NOW PRESENT Electronically Signed On 01-22-2025 06:17:15 SALES/MARKETING by George Bradley D.O.
[2025-01-22] MEDS: SODIUM CHLORIDE 0.9% IV 1,000 ML 125 ML IV CONT (00:14)
[2025-01-22] MEDS: DOXYCYCLINE IV 100 MG in SODIUM CHLORIDE 0.9% IV 100 ML IVPB ×2 (00:15→12:40)
[2025-01-22 01:08] LABS: Troponin I 0.013 ng/mL (0.000-0.034)
[2025-01-22] MEDS: IPRATROPIUM 0.5 MG/ALBUTEROL SULFATE 2.5 MG (BASE) AMPUL.NEB 3 ML INHALATION (01:41)
--- NOTE | 2025-01-22 01:48 | WPCEDHO ---
ED Hand Off Checklist All vitals saved: Y IV Site documented: Y All med administrations documented: Y Triage Note Triage Note Patient here with complaints of 01/21/25 20:49 continued left shoulder pain. Also complaining of weakness-- patient has history of Afib rate changing from 50-157 in triage Allergies No Known Allergies Allergy (Verified 01/19/25 00:58) Family History (Last Reviewed 12/29/24 @ 19:20 by Zechariah Hodges DO) Father Acute myocardial infarction Heart problem Mother Chronic kidney disease (CKD) Son Heart problem Sibling A-fib Active Medications including assessments/comments Albuterol/Ipratropium (Ipratropium 0.5 Mg/Albuterol Sulfate 2.5 Mg (Base) Ampul.Neb 3 Ml) 3 ml INHALATION Q6HRT [facility] Last Admin: 01/22/25 01:41 Dose: 3 ml Documented By: MARTIN MAR Nebulizer Assessment Document 01/22/25 01:41 [facility] [place]Rec: 01/22/25 01:41 [facility] [place] [id number]) Updraft Nebulizer Treatment Method Mask Sodium Chloride (Normal Saline Iv) 1,000 mls @ 125 mls/hr IV CONT .Q8H [facility] Last Admin: 01/22/25 00:14 Dose: 125 mls/hr Documented By: BLANCA Infusion/Titration Document 01/22/25 00:14 [facility]ANCA (Rec: 01/22/25 00:15 BLANCA [id number]) Intake IV Site Peripheral Access Right Antecubital Container Volume 1,000 Waste Amount 0 Dosing Infusion Rate 125 Cumulative Dose Not Applicable Increase/Decrease Started Elapsed Time Elapsed Time ( 0m minutes) Administered/Completed Medications Discontinued Medications Sodium Chloride (Normal Saline Iv) 1,000 mls @ 999 mls/hr IV CONT .Q1H1M STA Stop: 01/21/25 23:22 Last Infusion: 01/22/25 00:12 Dose: Infused Documented By: Admin: 01/21/25 23:11 Dose: 999 mls/hr Documented By: BALNCA Ceftriaxone Sodium 1 gm/ (Sodium Chloride) 50 mls @ 100 mls/hr IVPB ONCE STA Stop: 01/21/25 22:56 Last Infusion: 01/21/25 23:48 Dose: Infused Documented By: Admin: 01/21/25 23:12 Dose: 100 mls/hr Documented By: BLANCA Ceftriaxone Sodium 1 gm/ (Sodium Chloride) 50 mls @ 100 mls/hr IVPB Q24H [facility] Last Admin: 01/21/25 23:13 Dose: Not Given Documented By: BLANCA Non-Admin Reason: Order Discontinued Doxycycline Hyclate 100 mg/ (Sodium Chloride) 100 mls @ 100 mls/hr IVPB ONCE STA Stop: 01/22/25 00:54 Last Infusion: 01/22/25 01:42 Dose: Infused Documented By: Admin: 01/22/25 00:15 Dose: 100 mls/hr Documented By: BLANCA Interventions/Assessments IV / Saline Lock, Insert Start: 01/21/25 20:48 Freq: Status: Active Protocol: Document 01/21/25 23:11 [facility] (Rec: 01/21/25 23:12 [facility] [id number]) IV Assessment Peripheral Access Right Antecubital IV Catheter Access Initiated IV Insertion Date 01/21/25 IV Insertion Time 21:00 Catheter Gauge 18 IV Insertion 1 Attempts Ultrasound Used for No Placement IV Site Assessment WNL IV Care and WNL Maintenance PA: Cardiovascular Assessment Start: 01/22/25 00:05 Freq: Status: Active Protocol: Document 01/21/25 22:30 [facility] (Rec: 01/22/25 00:06 [facility] [id number]) Cardiovascular Assessment Cardiovascular Palpitations Symptoms Skin Description Normal Color Heart Sounds Normal Jugular Vein None Distention Rhythm/Strength Monitor Rhythm Irregular Pulse Strength 3+ Normal EKG Rythm Atrial Fibrillation PA: Musculoskeletal Assessment Start: 01/22/25 00:05 Freq: Status: Active Protocol: Document 01/21/25 22:30 [facility] (Rec: 01/22/25 00:06 [facility] [id number]) Musculoskeletal Assessment Left Shoulder(s) Musculoskeletal Joint Pain,Joint Pain With Movement Symptoms Limb Description Normal Range of Motion Full Range of Motion Strength Strong General Generalized weakness Musculoskeletal Comments PA: Neurological Assessment Start: 01/22/25 00:05 Freq: Status: Active Protocol: Document 01/21/25 22:30 [facility] (Rec: 01/22/25 00:06 [facility]NK [id number]) Neurological Assessment Level of Alert,Awake Consciousness Arousable to Verbal Orientation Oriented to Person,Oriented to Place,Oriented to Time Neurological Weakness, General Symptoms Last Vital Signs Temperature 98.1 F 01/21/25 20:49 Pulse Rate 102 H 01/22/25 01:46 Respiratory Rate 20 01/22/25 01:46 Pulse Oximetry 96 01/22/25 01:46 Blood Pressure 108/53 L 01/22/25 01:46 Blood Pressure Mean 70 01/22/25 01:46 Oxygen Delivery Nasal Cannula 01/21/25 22:30 Oxygen Flow Rate 2 01/21/25 22:30 Weight 107.9 kg 01/21/25 20:49 Last Result - Abnormals Only RBC 3.54 M/mm3 (4.2-5.4) L 01/21/25 21:45 Hgb 10.3 g/dL (12.0-15.0) L 01/21/25 21:45 Hct 32.5 % (37.0-47.0) L 01/21/25 21:45 MCHC 31.7 g/dl (32-36) L 01/21/25 21:45 RDW 15.3 % (11.5-14.5) H 01/21/25 21:45 Neut % (Auto) 74.8 % (45.5-73.1) H 01/21/25 21:45 Lymph % (Auto) 13.9 % (18.3-44.2) L 01/21/25 21:45 Eos % (Auto) 4.9 % (0-4.4) H 01/21/25 21:45 Eos # (Auto) 0.4 K/mm3 (0-0.3) H 01/21/25 21:45 PT 19.5 Seconds (11.1-14.7) H 01/21/25 21:45 APTT 40.4 Seconds (22.3-36.8) H 01/21/25 21:45 VBG pH 7.409 (7.300-7.400) H* 01/21/25 23:05 VBG pCO2 40.2 mmHg (42.0-48.0) L 01/21/25 23:05 VBG pO2 < 27.0 mmHg (35.0-45.0) L 01/21/25 23:05 Creatinine 1.15 mg/dL (0.7-1.0) H 01/21/25 21:45 Estimated GFR 46 (59-) L 01/21/25 21:45 Glucose 111 mg/dL (65-110) H 01/21/25 21:45 C-Reactive Protein 3.6 mg/dL (<1.0) H 01/21/25 21:45 NT-Pro-B Natriuret Pep 689 pg/mL (19.9-100) H 01/21/25 21:45 NT-Pro-B Natriuret Pep 704 pg/mL (19.9-100) H 01/21/25 21:45 TSH (Reflex) 5.310 uIU/mL (0.465-4.68) H 01/21/25 21:45 Urine Nitrate Positive (Negative) H 01/21/25 21:46 Leukocyte Esterase Rfl 1+ ISABEL/UL (Negative) H 01/21/25 21:46 Urine WBC 6-10 /hpf (0-3) H 01/21/25 21:46 Urine Bacteria 4+ /hpf H 01/21/25 21:46 Most Recent Suicide Severity Rating Suicide Severity Rating NO RISK INDICATED 01/21/25 20:49
--- NOTE | 2025-01-22 02:23 | ADMGEN ---
This patient, Norma Coleman, was admitted to Medical Room 343-01. Patient/family oriented to hospital policies and general routines including ID bracelet, bed and alarms, visiting hours, pain management, procedures, bathroom and other care routines, personal items, smoking policy, room service/diet, and visiting hours. Information on how to activate the Rapid Response Team has been discussed. Patient/Family are encouraged to report perceived risks to care and to ask questions if they do not understand what they are told or what they should do.
--- NOTE | 2025-01-22 06:12 | PM.IMHP2 ---
H&P: HPI History of Present Illness Date/Time: 01/22/25 06:12 Chief Complaint: Recent fall and weakness Narrative: 79-year-old female presents to [facility] ER on 01/21/2025 with weakness. She had a fall on 01/19/2025 presents to the ER. She had bed for to pick something up out of her rolling chair and the rongeur slipped out from under her. She ended up landing on her outstretched arms. No strike of the head. She had pain to the right hand, left elbow and left shoulder. X-rays left shoulder and elbow no acute fracture or dislocation. Returns today feeling generally weak. Could not lift herself up. History of AFib on Xarelto, history of PE, hypertension, GERD, history of CVA, denies residual deficits. Chest abdomen pelvis thoracolumbar scan with contrast does not demonstrate acute cardiopulmonary process. Demonstrates cholelithiasis without evidence of acute cholecystitis, colonic diverticulosis without diverticulitis. Ground-glass opacities within the lower lobes bilaterally. Patient reports multiple outpatient clinicians have told her they heard some fluid on her lungs in the past but did not make anything of it and did not diagnose her with congestive heart failure. Urinalysis positive nitrates, leukocyte esterase, wbc's, bacteria. Patient's heart rate ranging from normal sinus rhythm to bradycardia to AFib with RVR in the low 100s. Review of Systems Review of Systems: All systems reviewed & are unremarkable except as noted in HPI and below (Subjective) PMFSH Past Medical History Medical History Macular degeneration Vitamin D deficiency Obstructive sleep apnea Apnea link screening was positive October 2020 Erosive gastritis (10/2020) AVM (arteriovenous malformation) of colon (10/2020) Paroxysmal atrial fibrillation Acute blood loss anemia Weight gain Metatarsal bone fracture (02/13/19) Metatarsal bone fracture (02/13/19) Pulmonary embolism (~07/2018) Anxiety Hypothyroid GERD (gastroesophageal reflux disease) HTN (hypertension) Peripheral neuropathy CVA (cerebrovascular accident) Surgical History Surgical History History of esophagogastroduodenoscopy (EGD) (10/2020) AVMs noted in cecum and erosive gastritis Status post cataract extraction of both eyes with insertion of intraocular lens Family History Family History Father Acute myocardial infarction Heart problem Mother Chronic kidney disease (CKD) Son Heart problem Sibling A-fib Social History Social History Social History: She has been for 52 years. They had 1 son who last year at 49 years old of heart disease. She is a retired hairdresser. She still smokes about 5 cigarettes a day. Up until recent years she used to smoke a half a pack of cigarettes per day and started smoking as a teenager. She denies any alcohol use or illicit substance use. Smoking packs per day: 0.5 Smoking cigarettes per day: 10.0 Years smoked: 59 Smoking pack-years: 29.50 Smoking status: Former smoker Tobacco type: cigarettes Alcohol intake: never Substance use: never Substance use type: does not use Lack of Transportation: No Lack of Food: Never True Current Housing: I Have Housing Concerned About Future Housing: No Difficulty Paying Gas/Electric Bills: No Difficulty Paying for Meds: No Currently Unemployed: No Education: Trade/Vocational Certificate Difficulty w/ Childcare or Family Care: No Gender identity (if verbalized by the patient): Female Spiritual care concerns: No Meds Home Medications and Allergies Home Medications ?Medication ?Instructions ?Recorded ?Confirmed ?Type alprazolam 0.5 mg tablet 0.5 mg PO TID PRN Anxiety 10/22/20 01/22/25 History gabapentin 300 mg capsule 300 mg PO TID 10/22/20 01/22/25 History rivaroxaban 20 mg tablet (Xarelto) 20 mg PO DAILY 10/22/20 01/22/25 History meclizine 25 mg tablet 25 mg PO DAILY PRN dizziness 12/29/20 01/22/25 History amlodipine 10 mg tablet 10 mg PO DAILY 06/28/24 01/22/25 History carboxymethylcellulose sodium 0.5 1 drp EACH EYE TID 06/28/24 01/22/25 History % eye drops (Refresh Tears) cholecalciferol (vitamin D3) 50 50 mcg PO DAILY 06/28/24 01/22/25 History mcg (2,000 unit) tablet (Vitamin D3) folic acid 1 mg tablet 1 mg PO DAILY 06/28/24 01/22/25 History methotrexate sodium 2.5 mg tablet 7.5 mg PO .COMPLEX 06/28/24 01/22/25 History multivitamin 1 tablet PO DAILY 06/28/24 01/22/25 History rosuvastatin 20 mg tablet 20 mg PO .Evening 06/28/24 01/22/25 History vit C 250 mg-vit E 90 mg-zinc 40 2 tablet PO DAILY 06/28/24 01/22/25 History mg-copper 1 [id number] capsule (PreserVision AREDS-2) metoprolol tartrate 50 mg tablet 50 mg PO Q12H #60 tabs 06/29/24 01/22/25 Rx furosemide 20 mg tablet (Lasix) 20 mg PO DAILY #30 tabs 12/29/24 01/22/25 Rx levothyroxine 100 mcg tablet 100 mcg PO DAILY 01/22/25 01/22/25 History Allergies Allergy/AdvReac Type Severity Reaction Status Date / Time No Known Allergies Allergy Verified 01/22/25 02:37 Vital Signs Vital Signs - 24 hr 01/21/25 20:49 01/21/25 21:15 01/21/25 22:30 Temperature 98.1 F Pulse Rate 50 L 112 H Respiratory Rate 20 18 Blood Pressure 152/74 H Pulse Oximetry 96 94 92 Oxygen Delivery Room Air Nasal Cannula Oxygen Flow Rate 2 01/22/25 00:03 01/22/25 01:01 01/22/25 01:42 Temperature Pulse Rate 88 84 96 Respiratory Rate 16 18 16 Blood Pressure 112/64 108/54 L Pulse Oximetry 95 95 Oxygen Delivery Oxygen Flow Rate 01/22/25 01:46 01/22/25 02:35 01/22/25 03:38 Temperature 97.3 F L Pulse Rate 102 H 107 H Respiratory Rate 20 20 Blood Pressure 108/53 L 123/86 Pulse Oximetry 96 95 Oxygen Delivery Room Air Oxygen Flow Rate 01/22/25 04:00 01/22/25 04:41 Temperature 97.2 F L Pulse Rate 64 66 Respiratory Rate 18 Blood Pressure 131/62 Pulse Oximetry 95 Oxygen Delivery Oxygen Flow Rate Exam Const: General: comfortable and no acute distress (A&O x3) HENMT: Mouth: Yes moist mucous membranes Eyes: Pupils: Equal, round and reactive pupils present Neck: Neck: supple Resp: Effort & Inspection: normal respiratory effort Auscultation: clear to auscultation bilaterally Cardio: Rate: regular rate Rhythm: regular rhythm Heart sounds: no gallops, no murmurs and no rubs GI: Inspection: non-distended GI Palp: Yes Soft to palpation Neuro: Motor exam (neuro): 5/5 motor strength present throughout Extrem: Other: 1+ pitting edema bilateral lower extremities below the knees Results Labs Labs: Short CBC 01/21/25 Range/Units 21:45 WBC 7.1 (4.5-10.0) K/mm3 Hgb 10.3 L (12.0-15.0) g/dL Hct 32.5 L (37.0-47.0) % Plt Count 254 (150-375) k/mm3 BMP 01/21/25 21:45 Sodium 137 Potassium 3.4 Chloride 103 Carbon Dioxide 26 BUN 15 Creatinine 1.15 H Glucose 111 H Calcium 9.7 Cardiac Enzymes 01/21/25 01/22/25 Range/Units 21:45 00:38 Total Creatine Kinase 105 (30-135) U/L Troponin I < 0.012 0.013 (0.000-0.034) ng/mL Liver Function 01/21/25 Range/Units 21:45 Total Bilirubin 0.5 (0.2-1.3) mg/dL AST 33 (14-36) U/L ALT 21 (6-35) U/L Alkaline Phosphatase 73 (38-126) U/L Albumin 4.3 (3.5-5.1) g/dL Urine 01/21/25 Range/Units 21:46 Urine Color Yellow (Yellow) Urine Appearance Clear (Clear) Urine pH 7.5 (5.0-9.0) Ur Specific [place] 1.008 (1.001-1.035) Urine Protein Negative (Negative) mg/dL Urine Glucose (UA) Negative (Negative) mg/dL Assessment and Plan Assessment and plan (1) Acute UTI: Code(s): N39.0 - Urinary tract infection, site not specified Status: Acute (2) Atrial fibrillation with rapid ventricular response: Code(s): I48.91 - Unspecified atrial fibrillation Status: Acute Plan She reports feeling better after being admitted to the floor. Continue telemetry without restarting her TAXATION ECONOMIST metoprolol and see where she goes as she had bradycardia and AFib with RVR within the span of 1 hour. Continue to treat urinary tract infection and follow-up urine culture. Patient denies the diagnosis of heart failure but she does take a water pill at home. Continue Lasix. PT/OT for weakness. Continue TAXATION ECONOMIST levothyroxine. Full code. Heart healthy diet. Fall precautions, ambulate with assistance. Resume TAXATION ECONOMIST Xarelto. Prior Studies I have reviewed the following patient records and this information was taken into consideration when formulating the assessment and plan.: previous labs, previous ER visits and previous hospitalizations Time Spent with Patient Time with patient: less than 45 minutes Hospitalist MIPS Advance Care Plan I have confirmed that the patient's Advanced Care Plan is present, code status is documented, or surrogate decision maker is listed in patient medical record.: Yes Medication Reconciliation I have utilized all available resources to obtain, update and review the patients current medications (includes all prescriptions, OTC, herbals, cannabis, and nutritional supplements).: Yes
[2025-01-22] MEDS: LEVOTHYROXINE SODIUM 100 MCG TABLET PO (06:40)
[2025-01-22] MEDS: GABAPENTIN 300 MG CAPSULE PO ×3 (06:40→21:27)
[2025-01-22] MEDS: FUROSEMIDE 20 MG TABLET PO (08:34)
--- NOTE | 2025-01-22 12:55 | P.PNIM_ITS ---
Assessment and Plan Assessment and Plan (1) HTN (hypertension): Code(s): I10 - Essential (primary) hypertension Status: Acute (2) Paroxysmal atrial fibrillation: Code(s): I48.0 - Paroxysmal atrial fibrillation Status: Acute (3) Chronic anticoagulation: Code(s): Z79.01 - terminal computer operator (current) use of anticoagulants Status: Acute (4) Acute UTI: Code(s): N39.0 - Urinary tract infection, site not specified Status: Acute Plan 79-year-old female presented to ER with weakness. She had a fall on 01/19/2025 presents to the ER. She had bed for to pick something up out of her rolling chair and the rongeur slipped out from under her. She ended up landing on her outstretched arms. No strike of the head. She had pain to the right hand, left elbow and left shoulder. X-rays left shoulder and elbow no acute fracture or dislocation. Presented back again on 01/21/2025 with feeling of generalized weakness. She has History of AFib on Xarelto, history of PE, hypertension, GERD, history of CVA, denies residual deficits. Chest abdomen pelvis thoracolumbar scan with contrast does not demonstrate acute cardiopulmonary process. Demonstrates cholelithiasis without evidence of acute cholecystitis, colonic diverticulosis without diverticulitis. Ground-glass opacities within the lower lobes bilaterally. 1. Possible UTI: Follow-up urine culture Continue with ceftriaxone 2. Paroxysmal atrial fibrillation: Continue with Xarelto Noted bradycardia, continue with telemetry Will hold beta-magen for now 3. Generalized weakness: PT/OT 4. History of hypothyroidism: Continue with levothyroxine 5. Code status: Full 6. DVT prophylaxis: Xarelto 7. Disposition: Pending improvement Time Spent With Patient Time with patient: less than 15 minutes Subjective Date/time seen: 01/22/25 12:55 Interval history: Generalized weakness Review of Systems Review of Systems: All systems reviewed & are unremarkable except as noted in HPI and below Exam Const: General: comfortable and no acute distress (A&O x3) HENMT: Mouth: Yes moist mucous membranes Eyes: Pupils: Equal, round and reactive pupils present Neck: Neck: supple Resp: Effort & Inspection: normal respiratory effort Auscultation: clear to auscultation bilaterally Cardio: Rate: regular rate Rhythm: regular rhythm GI: Inspection: non-distended GI Palp: Yes Soft to palpation Neuro: Motor exam (neuro): 5/5 motor strength present throughout Extrem: Other: 1+ pitting edema bilateral lower extremi ties below the knees Objective Data Vital Signs Vital Signs: Vital Signs - 24 hr 01/21/25 20:49 01/21/25 21:15 01/21/25 22:30 Temperature 98.1 F Pulse Rate 50 L 112 H Respiratory Rate 20 18 Blood Pressure 152/74 H Pulse Oximetry 96 94 92 Oxygen Delivery Room Air Nasal Cannula Oxygen Flow Rate 2 01/22/25 00:03 01/22/25 01:01 01/22/25 01:42 Temperature Pulse Rate 88 84 96 Respiratory Rate 16 18 16 Blood Pressure 112/64 108/54 L Pulse Oximetry 95 95 Oxygen Delivery Oxygen Flow Rate 01/22/25 01:46 01/22/25 02:35 01/22/25 03:38 Temperature 97.3 F L Pulse Rate 102 H 107 H Respiratory Rate 20 20 Blood Pressure 108/53 L 123/86 Pulse Oximetry 96 95 Oxygen Delivery Room Air Oxygen Flow Rate 01/22/25 04:00 01/22/25 04:41 01/22/25 08:35 Temperature 97.2 F L Pulse Rate 64 66 Respiratory Rate 18 Blood Pressure 131/62 Pulse Oximetry 95 95 Oxygen Delivery Nasal Cannula Oxygen Flow Rate 2 Intake/Output Intake/Output: Intake & Output 01/19/25 01/20/25 01/21/25 01/22/25 23:59 23:59 23:59 23:59 Intake Total 50 2340 Output Total 300 Balance 50 2040 Meds/Results Medications: Active Medications Generic Name Dose Route Start Last Admin Trade Name Freq PRN Reason Stop Dose Admin Acetaminophen 650 mg 01/21/25 23:57 Acetaminophen 325 Mg Tablet PO Q4H PRN Mild Pain (1-3) or Fever Albuterol/Ipratropium 3 ml 01/22/25 06:23 Ipratropium 0.5 Mg/Albuterol Sulfate 2.5 Mg (Base) Ampul.Neb 3 Ml INHALATION Q6HRT PRN sob Alprazolam 0.5 mg 01/22/25 06:18 Alprazolam (*Crx) 0.5 Mg Tablet PO TID PRN Anxiety Furosemide 20 mg 01/22/25 09:00 01/22/25 08:34 Furosemide 20 Mg Tablet PO 20 mg DAILY ANGELIQUE Administration Gabapentin 300 mg 01/22/25 06:25 01/22/25 06:40 Gabapentin 300 Mg Capsule PO 300 mg Q8HR ANGELIQUE Administration Doxycycline Hyclate 100 mg/ 100 mls @ 100 mls/hr 01/22/25 12:00 01/22/25 12:40 Sodium Chloride IVPB 01/26/25 12:59 100 mls/hr Q12H ANGELIQUE Administration Ceftriaxone Sodium 1 gm/ 50 mls @ 100 mls/hr 01/22/25 21:00 Sodium Chloride IVPB Q24H ANGELIQUE Levothyroxine Sodium 100 mcg 01/22/25 06:30 01/22/25 06:40 Levothyroxine Sodium 100 Mcg Tablet PO 100 mcg DAILY@0630 ANGELIQUE Administration Ondansetron HCl 4 mg 01/21/25 23:57 Ondansetron Inj 4 Mg/2 Ml Vial IV PUSH Q4H PRN Nausea Rivaroxaban 20 mg 01/22/25 17:00 Rivaroxaban 20 Mg Tablet PO DAILY@1700 [facility] Rosuvastatin Calcium 20 mg 01/22/25 21:00 Rosuvastatin 20 Mg Tablet PO QHS [facility] Radiology Results: ITS Impressions Chest X-Ray 01/21/25 21:43 IMPRESSION: Groundglass opacities bilaterally with small left pleural effusion. Shoulder X-Ray 01/21/25 21:44 IMPRESSION: Radiographic examination of the left shoulder demonstrates no acute fracture or dislocation. Head CT 01/21/25 22:48 IMPRESSION: No acute intracranial hemorrhage or extra axial fluid collections. All CT scans at this facility are performed using low dose modulation techniques as appropriate to perform exam including the following: automated exposure control; use of iterative reconstruction technique; adjustment of the mA and/or kV according to patient size (this includes techniques or standardized protocols for targeted exams where dose is matched to indication/reason for e xam). Cervical Spine CT 01/21/25 22:49 IMPRESSION: No acute fracture or subluxation. All CT scans at this facility are performed using low dose modulation techniques as appropriate to perform exam including the following: automated exposure control; adjustment of the mA and/or kV according to patient size (this includes techniques or standardized protocols for targeted exams where does is matched to indication/reason for exam; i.e. extremities or head); use of iterative reconstruction technique). Chest/Abdomen/Pelvis/Spine CT 01/21/25 22:53 IMPRESSION: No acute cardiopulmonary process. No pathologic enhancement is noted. No pathologically enlarged mediastinal lymphadenopathy is noted. CT abdomen and pelvis with contrast: The liver parenchyma is unremarkable. No intrahepatic mass or ductal dilatation is evident. Cholelithiasis is noted. The pancreas and spleen are normal in appearance. The adrenal glands are symmetric in size. The kidneys demonstrate symmetric uptake and excretion of contrast. Benign bilateral renal cysts are noted measuring up to 1.8 cm. There is no solid mass. There is no hydronephrosis. Evaluation of the stomach and bowel loops are limited due to lack of oral contrast. The appendix is normal in appearance. There is colonic diverticulosis without evidence of acute diverticulitis. The bladder and rectum are normal. No free intraperitoneal fluid or air is evident. There is no significant retroperitoneal lymphadenopathy. Atherosclerotic calcification of the aorta and iliac vessels are noted. Aorta is normal in caliber. The lower thoracic and lumbar vertebrae are in normal alignment. IMPRESSION: No acute abnormality is noted in the abdomen and pelvis. Cholelithiasis without evidence of acute cholecystitis. Colonic diverticulosis without evidence of acute diverticulitis. All CT scans at this facility are performed using low dose modulation techniques as appropriate to perform exam including the following: automated exposure control; use of iterative reconstruction technique; adjustment of the mA and/or kV according to patient size (this includes techniques or standardized protocols for targeted exams where dose is matched to indication/reason for exam) Labs Labs: Laboratory Results - last 24 hr 01/21/25 01/21/25 01/21/25 21:45 21:45 21:46 WBC 7.1 RBC 3.54 L Hgb 10.3 L Hct 32.5 L MCV 91.8 MCH 29.1 MCHC 31.7 L RDW 15.3 H Plt Count 254 MPV 9.5 Immature Gran % (Auto) 0.4 Neut % (Auto) 74.8 H Lymph % (Auto) 13.9 L [place] % (Auto) 5.3 Eos % (Auto) 4.9 H Baso % (Auto) 0.7 Lymph # (Auto) 0.99 [place] # (Auto) 0.4 Eos # (Auto) 0.4 H Baso # (Auto) 0.1 Abs Immat Gran (auto) 0.03 Absolute Neuts (auto) 5.3 Absolute Nucleated RBC 0.000 Nucleated RBC % 0.0 PT 19.5 H INR 1.7 APTT 40.4 H VBG pH VBG pCO2 VBG pO2 VBG HCO3 O2 Delivery Device O2 Liters/Min FiO2 Sodium 137 Potassium 3.4 Chloride 103 Carbon Dioxide 26 Anion Gap 8 BUN 15 Creatinine 1.15 H Estim Creat Clear Calc 43 Estimated GFR 46 L Glucose 111 H Lactic Acid Calcium 9.7 Phosphorus 3.3 Magnesium 2.0 Total Bilirubin 0.5 AST 33 ALT 21 Alkaline Phosphatase 73 Total Creatine Kinase 105 Troponin I < 0.012 C-Reactive Protein 3.6 H NT-Pro-B Natriuret Pep 689 H 704 H Total Protein 8.0 Albumin 4.3 Lipase 124 TSH (Reflex) 5.310 H Free T4 1.16 Total T3 0.96 Urine Color Yellow Urine Appearance Clear Urine pH 7.5 Ur Specific [place] 1.008 Urine Protein Negative Urine Glucose (UA) Negative Urine Ketones Negative Ur Blood (Man) Negative Urine Nitrate Positive H Urine Bilirubin Negative Urine Urobilinogen 0.2 Leukocyte Esterase Rfl 1+ H Urine RBC 0-2 Urine WBC 6-10 H Ur Squamous Epith Cells None seen Urine Bacteria 4+ H Urine Casts 0-2 Urine Opiates Screen Negative Urine Methadone Screen Negative Ur Barbiturates Screen Negative Ur Phencyclidine Scrn Negative Ur Amphetamine Screen Negative U Benzodiazepines Scrn Negative Urine Cocaine Screen Negative U Cannabinoids Screen Negative Ethyl Alcohol < 10 Influenza A (RT-PCR) Negative Influenza B (RT-PCR) Negative RSV (RT-PCR) Negative SARS-CoV-2 RNA (RT-PCR) Negative 01/21/25 01/22/25 23:05 00:38 WBC RBC Hgb Hct MCV MCH MCHC RDW Plt Count MPV Immature Gran % (Auto) Neut % (Auto) Lymph % (Auto) [place] % (Auto) Eos % (Auto) Baso % (Auto) Lymph # (Auto) [place] # (Auto) Eos # (Auto) Baso # (Auto) Abs Immat Gran (auto) Absolute Neuts (auto) Absolute Nucleated RBC Nucleated RBC % PT INR APTT VBG pH 7.409 H* VBG pCO2 40.2 L VBG pO2 < 27.0 L VBG HCO3 24.9 O2 Delivery Device Room air O2 Liters/Min Not Reportable FiO2 21 Sodium Potassium Chloride Carbon Dioxide Anion Gap BUN Creatinine Estim Creat Clear Calc Estimated GFR Glucose Lactic Acid 1.2 Calcium Phosphorus Magnesium Total Bilirubin AST ALT Alkaline Phosphatase Total Creatine Kinase Troponin I 0.013 C-Reactive Protein NT-Pro-B Natriuret Pep Total Protein Albumin Lipase TSH (Reflex) Free T4 Total T3 Urine Color Urine Appearance Urine pH Ur Specific [place] Urine Protein Urine Glucose (UA) Urine Ketones Ur Blood (Man) Urine Nitrate Urine Bilirubin Urine Urobilinogen Leukocyte Esterase Rfl Urine RBC Urine WBC Ur Squamous Epith Cells Urine Bacteria Urine Casts Urine Opiates Screen Urine Methadone Screen Ur Barbiturates Screen Ur Phencyclidine Scrn Ur Amphetamine Screen U Benzodiazepines Scrn Urine Cocaine Screen U Cannabinoids Screen Ethyl Alcohol Influenza A (RT-PCR) Influenza B (RT-PCR) RSV (RT-PCR) SARS-CoV-2 RNA (RT-PCR) Quality VTE Prophylaxis VTE prophylaxis: pharmacologic ordered
[2025-01-22] MEDS: RIVAROXABAN 20 MG TABLET PO (16:25)
[2025-01-22] MEDS: ROSUVASTATIN 20 MG TABLET PO (21:27)
[2025-01-22] MEDS: cefTRIAXone 1 GM in SODIUM CHLORIDE 0.9% IV 50 ML 100 ML IVPB (21:31)
[2025-01-23] VITALS (15 sets, daily range): BP systolic 113–170; BP diastolic 61–89; PULSE 66–144; RESP 14–20; TEMP 36.7–37.2; O2SAT 91–96
[2025-01-23] MEDS: LEVOTHYROXINE SODIUM 100 MCG TABLET PO (05:24)
[2025-01-23] MEDS: GABAPENTIN 300 MG CAPSULE PO ×3 (05:25→21:02)
[2025-01-23 06:35] LABS: Hematocrit 30.2 % (37.0-47.0); Hemoglobin 9.4 g/dL (12.0-15.0); Immature Granulocyte Percent A 0.4 % (0-0.5); Lymphocytes Absolute Auto 0.96 K/mm3 (0.9-3.2); Mean Corpuscular HGB Conc 31.1 g/dl (32-36); Mean Corpuscular Hemoglobin 29.1 pg (26-34); Mean Corpuscular Volume 93.5 fl (80-100); Nucleated Red Blood Cells Absolute Auto 0.000 K/mm3 (0.0-0.012); Nucleated Red Blood Cells Perc 0.0 % (0.0-0.2); Platelet Count Result 217 k/mm3 (150-375); Red Blood Count 3.23 M/mm3 (4.2-5.4); White Blood Count 4.9 K/mm3 (4.5-10.0)
[2025-01-23 06:48] LABS: Anion Gap 5 mmol/L (4-12); Blood Urea Nitrogen 13 mg/dL (7-17); Calcium 9.2 mg/dL (8.4-10.2); Carbon Dioxide 25 mmol/L (22-30); Chloride 108 mmol/L (98-107); Estimated CRCL calculation 48 ml/min; Estimated Glomerular Filt Rate 53; Glucose 93 mg/dL (65-110); Magnesium 1.9 mg/dL (1.6-2.3); Sodium 138 mmol/L (137-145)
[2025-01-23 06:56] LABS: Potassium 3.4 mmol/L (3.4-5.0)
[2025-01-23] MEDS: FUROSEMIDE 20 MG TABLET PO (08:51)
[2025-01-23] MEDS: METOPROLOL TARTRATE 50 MG TAB PO ×2 (10:24→21:02)
[2025-01-23] MEDS: METOPROLOL TARTRATE INJ 5 MG/5 ML VIAL IV PUSH (10:56)
--- NOTE | 2025-01-23 12:35 | PM.IMPN2 ---
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 She had a fall on 01/19/2025 presents to the ER. She had bed for to pick something up out of her rolling chair and the rongeur slipped out from under her. She ended up landing on her outstretched arms. No strike of the head. She had pain to the right hand, left elbow and left shoulder. X-rays left shoulder and elbow no acute fracture or dislocation. Presented back again on 01/21/2025 with feeling of generalized weakness. She has History of AFib on Xarelto, history of PE, hypertension, GERD, history of CVA, denies residual deficits. Chest abdomen pelvis thoracolumbar scan with contrast does not demonstrate acute cardiopulmonary process. Demonstrates cholelithiasis without evidence of acute cholecystitis, colonic diverticulosis without diverticulitis. Ground-glass opacities within the lower lobes bilaterally. 1. Possible UTI: Follow-up urine culture Continue with ceftriaxone 2. Paroxysmal atrial fibrillation: Went into RVR this morning Beta-magen was held on admission due to bradycardia Resumed home dose beta-magen which is 50 mg metoprolol b.i.d. Will give additional dose of 5 mg of IV metoprolol Continue with Xarelto Continue with telemetry 3. Generalized weakness: PT/OT 4. History of hypothyroidism: Continue with levothyroxine 5. Code status: Full 6. DVT prophylaxis: Xarelto 7. Disposition: Pending improvement/pending urine culture, improvement in heart rate Time Spent With Patient Time with patient: 25 - 35 minutes Subjective Date/time seen: 01/23/25 12:35 Interval history: AFib with RVR this morning Review of Systems Review of Systems: All systems reviewed & are unremarkable except as noted in HPI and below Exam Const: General: comfortable and no acute distress (A&O x3) HENMT: Mouth: Yes moist mucous membranes Eyes: Pupils: Equal, round and reactive pupils present Neck: Neck: supple Resp: Effort & Inspection: normal respiratory effort Auscultation: clear to auscultation bilaterally Cardio: Rate: tachycardic Rhythm: abnormal rhythm GI: Inspection: non-distended GI Palp: Yes Soft to palpation Neuro: Motor exam (neuro): 5/5 motor strength present throughout Extrem: Other: 1+ pitting edema bilateral lower extremities below the knees Objective Data Vital Signs Vital Signs: Vital Signs - 24 hr 01/22/25 14:00 01/22/25 14:05 01/22/25 15:10 Temperature 99.1 F Pulse Rate 72 Respiratory Rate 14 Blood Pressure 135/57 L Pulse Oximetry 85 L 95 94 Oxygen Delivery Nasal Cannula Room Air Oxygen Flow Rate 2 01/22/25 16:05 01/22/25 20:00 01/22/25 20:00 Temperature Pulse Rate 67 67 74 Respiratory Rate 14 Blood Pressure Pulse Oximetry 94 Oxygen Delivery Room Air Oxygen Flow Rate 01/22/25 20:19 01/23/25 00:00 01/23/25 04:00 Temperature 96.9 F L Pulse Rate 72 71 67 Respiratory Rate 18 Blood Pressure 147/78 H Pulse Oximetry 95 Oxygen Delivery Oxygen Flow Rate 01/23/25 04:59 01/23/25 07:58 01/23/25 10:17 Temperature 98.8 F Pulse Rate 70 144 H Respiratory Rate 19 Blood Pressure 170/63 H Pulse Oximetry 92 Oxygen Delivery Room Air Oxygen Flow Rate 01/23/25 10:20 01/23/25 10:24 01/23/25 10:56 Temperature Pulse Rate 140 H 140 H Respiratory Rate Blood Pressure 155/89 H Pulse Oximetry Oxygen Delivery Oxygen Flow Rate Intake/Output Intake/Output: Intake & Output 01/20/25 01/21/25 01/22/25 01/23/25 23:59 23:59 23:59 23:59 Intake Total 50 4050 640 Output Total 1050 300 Balance 50 3000 340 Meds/Results Medications: Active Medications Generic Name Dose Route Start Last Admin Trade Name Freq PRN Reason Stop Dose Admin Acetaminophen 650 mg 01/21/25 23:57 Acetaminophen 325 Mg Tablet PO Q4H PRN Mild Pain (1-3) or Fever Albuterol/Ipratropium 3 ml 01/22/25 06:23 Ipratropium 0.5 Mg/Albuterol Sulfate 2.5 Mg (Base) Ampul.Neb 3 Ml INHALATION Q6HRT PRN sob Alprazolam 0.5 mg 01/22/25 06:18 Alprazolam (*Crx) 0.5 Mg Tablet PO TID PRN Anxiety Amlodipine Besylate 10 mg 01/23/25 10:20 01/23/25 10:24 Amlodipine Besylate 10 Mg Tablet PO 10 mg DAILY ANGELIQUE Administration Furosemide 20 mg 01/22/25 09:00 01/23/25 08:51 Furosemide 20 Mg Tablet PO 20 mg DAILY ANGELIQUE Administration Gabapentin 300 mg 01/22/25 06:25 01/23/25 05:25 Gabapentin 300 Mg Capsule PO 300 mg Q8HR ANGELIQUE Administration Ceftriaxone Sodium 1 gm/ 50 mls @ 100 mls/hr 01/22/25 21:00 01/22/25 21:31 Sodium Chloride IVPB 100 mls/hr Q24H ANGELIQUE Administration Levothyroxine Sodium 100 mcg 01/22/25 06:30 01/23/25 05:24 Levothyroxine Sodium 100 Mcg Tablet PO 100 mcg DAILY@0630 ANGELIQUE Administration Meclizine HCl 25 mg 01/23/25 10:14 Meclizine Hcl 25 Mg Tablet PO DAILY PRN Dizziness Metoprolol Tartrate 50 mg 01/23/25 10:15 01/23/25 10:24 Metoprolol Tartrate 50 Mg Tab PO 50 mg Q12HR ANGELIQUE Administration Ondansetron HCl 4 mg 01/21/25 23:57 Ondansetron Inj 4 Mg/2 Ml Vial IV PUSH Q4H PRN Nausea Rivaroxaban 20 mg 01/22/25 17:00 01/22/25 16:25 Rivaroxaban 20 Mg Tablet PO 20 mg DAILY@1700 ANGELIQUE Administration Rosuvastatin Calcium 20 mg 01/22/25 21:00 01/22/25 21:27 Rosuvastatin 20 Mg Tablet PO 20 mg QHS ANGELIQUE Administration Radiology Results: ITS Impressions Chest X-Ray 01/21/25 21:43 IMPRESSION: Groundglass opacities bilaterally with small left pleural effusion. Shoulder X-Ray 01/21/25 21:44 IMPRESSION: Radiographic examination of the left shoulder demonstrates no acute fracture or dislocation. Head CT 01/21/25 22:48 IMPRESSION: No acute intracranial hemorrhage or extra axial fluid collections. All CT scans at this facility are performed using low dose modulation techniques as appropriate to perform exam including the following: automated exposure control; use of iterative reconstruction technique; adjustment of the mA and/or kV according to patient size (this includes techniques or standardized protocols for targeted exams where dose is matched to indication/reason for exam). Cervical Spine CT 01/21/25 22:49 IMPRESSION: No acute fracture or subluxation. All CT scans at this facility are performed using low dose modulation techniques as appropriate to perform exam including the following: automated exposure control; adjustment of the mA and/or kV according to patient size (this includes techniques or standardized protocols for targeted exams where does is matched to indication/reason for exam; i.e. extremities or head); use of iterative reconstruction technique). Chest/Abdomen/Pelvis/Spine CT 01/21/25 22:53 IMPRESSION: No acute cardiopulmonary process. No pathologic enhancement is noted. No pathologically enlarged mediastinal lymphadenopathy is noted. CT abdomen and pelvis with contrast: The liver parenchyma is unremarkable. No intrahepatic mass or ductal dilatation is evident. Cholelithiasis is noted. The pancreas and spleen are normal in appearance. The adrenal glands are symmetric in size. The kidneys demonstrate symmetric uptake and excretion of contrast. Benign bilateral renal cysts are noted measuring up to 1.8 cm. There is no solid mass. There is no hydronephrosis. Evaluation of the stomach and bowel loops are limited due to lack of oral contrast. The appendix is normal in appearance. There is colonic diverticulosis without evidence of acute diverticulitis. The bladder and rectum are normal. No free intraperitoneal fluid or air is evident. There is no significant retroperitoneal lymphadenopathy. Atherosclerotic calcification of the aorta and iliac vessels are noted. Aorta is normal in caliber. The lower thoracic and lumbar vertebrae are in normal alignment. IMPRESSION: No acute abnormality is noted in the abdomen and pelvis. Cholelithiasis without evidence of acute cholecystitis. Colonic diverticulosis without evidence of acute diverticulitis. All CT scans at this facility are performed using low dose modulation techniques as appropriate to perform exam including the following: automated exposure control; use of iterative reconstruction technique; adjustment of the mA and/or kV according to patient size (this includes techniques or standardized protocols for targeted exams where dose is matched to indication/reason for exam) Labs Labs: Laboratory Results - last 24 hr 01/23/25 06:04 WBC 4.9 RBC 3.23 L Hgb 9.4 L Hct 30.2 L MCV 93.5 MCH 29.1 MCHC 31.1 L RDW 15.7 H Plt Count 217 MPV 9.8 Immature Gran % (Auto) 0.4 Neut % (Auto) 62.6 Lymph % (Auto) 19.6 [place] % (Auto) 8.8 H Eos % (Auto) 7.8 H Baso % (Auto) 0.8 Lymph # (Auto) 0.96 [place] # (Auto) 0.4 Eos # (Auto) 0.4 H Baso # (Auto) 0.0 Abs Immat Gran (auto) 0.02 Absolute Neuts (auto) 3.1 Absolute Nucleated RBC 0.000 Nucleated RBC % 0.0 Sodium 138 Potassium 3.4 Chloride 108 H Carbon Dioxide 25 Anion Gap 5 BUN 13 Creatinine 1.00 Estim Creat Clear Calc 48 Estimated GFR 53 L Glucose 93 Calcium 9.2 Magnesium 1.9 Quality VTE Prophylaxis VTE prophylaxis: pharmacologic ordered
[2025-01-23] MEDS: OPTI-GEN TAB 2 TABLET PO (14:56)
[2025-01-23] MEDS: FOLIC ACID 1 MG TABLET PO (14:57)
[2025-01-23] MEDS: MULTIVITAMINS THERAPEUTIC TAB (*BKC) 1 TABLET PO (14:57)
[2025-01-23] MEDS: CHOLECALCIFEROL (VITAMIN D3) 25 MCG (1,000 UNITS) TABLET 50 MCG PO (14:57)
[2025-01-23] MEDS: POTASSIUM CHLORIDE 20 MEQ PACKET (FOR LIQUID) 40 MEQ PO (14:58)
[2025-01-23] MEDS: RIVAROXABAN 20 MG TABLET PO (16:08)
[2025-01-23] MEDS: ROSUVASTATIN 20 MG TABLET PO (21:02)
[2025-01-23] MEDS: cefTRIAXone 1 GM in SODIUM CHLORIDE 0.9% IV 50 ML 100 ML IVPB (21:02)
[2025-01-24] VITALS (13 sets, daily range): BP systolic 145–153; BP diastolic 68–85; PULSE 59–137; RESP 16–20; TEMP 36.6–36.7; O2SAT 91–95
[2025-01-24] MEDS: GABAPENTIN 300 MG CAPSULE PO ×3 (05:27→21:06)
[2025-01-24] MEDS: LEVOTHYROXINE SODIUM 100 MCG TABLET PO (05:27)
[2025-01-24 06:11] LABS: Anion Gap 5 mmol/L (4-12); Blood Urea Nitrogen 12 mg/dL (7-17); Calcium 9.4 mg/dL (8.4-10.2); Carbon Dioxide 26 mmol/L (22-30); Chloride 106 mmol/L (98-107); Estimated CRCL calculation 50 ml/min; Estimated Glomerular Filt Rate 57; Glucose 94 mg/dL (65-110); Magnesium 1.9 mg/dL (1.6-2.3); Potassium 3.6 mmol/L (3.4-5.0); Sodium 137 mmol/L (137-145)
[2025-01-24] MEDS: FUROSEMIDE 20 MG TABLET PO (09:54)
[2025-01-24] MEDS: CHOLECALCIFEROL (VITAMIN D3) 25 MCG (1,000 UNITS) TABLET 50 MCG PO (09:54)
[2025-01-24] MEDS: METOPROLOL TARTRATE 50 MG TAB PO ×2 (09:54→18:50)
[2025-01-24] MEDS: FOLIC ACID 1 MG TABLET PO (09:54)
[2025-01-24] MEDS: MULTIVITAMINS THERAPEUTIC TAB (*BKC) 1 TABLET PO (09:54)
[2025-01-24] MEDS: OPTI-GEN TAB 2 TABLET PO (09:55)
--- NOTE | 2025-01-24 12:54 | P.PNIM_ITS ---
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 She had a fall on 01/19/2025 presents to the ER. She had bed for to pick something up out of her rolling chair and the rongeur slipped out from under her. She ended up landing on her outstretched arms. No strike of the head. She had pain to the right hand, left elbow and left shoulder. X-rays left shoulder and elbow no acute fracture or dislocation. Presented back again on 01/21/2025 with feeling of generalized weakness. She has History of AFib on Xarelto, history of PE, hypertension, GERD, history of CVA, denies residual deficits. Chest abdomen pelvis thoracolumbar scan with contrast does not demonstrate acute cardiopulmonary process. Demonstrates cholelithiasis without evidence of acute cholecystitis, colonic diverticulosis without diverticulitis. Ground-glass opacities within the lower lobes bilaterally. 1. UTI: urine culture growing Gram-negative bacilli. awaiting finalization of urine culture Continue with ceftriaxone 2. Paroxysmal atrial fibrillation: continue with metoprolol Continue with Xarelto Continue with telemetry 3. Generalized weakness: PT/OT 4. History of hypothyroidism: Continue with levothyroxine 5. Code status: Full 6. DVT prophylaxis: Xarelto 7. Disposition: Pending improvement/pending urine culture, Time Spent With Patient Time with patient: 25 - 35 minutes Subjective Date/time seen: 01/24/25 12:54 Interval history: no acute events overnight Review of Systems Review of Systems: All systems reviewed & are unremarkable except as noted in HPI and below Exam Const: General: comfortable and no acute distress (A&O x3) HENMT: Mouth: Yes moist mucous membranes Eyes: Pupils: Equal, round and reactive pupils present Neck: Neck: supple Resp: Effort & Inspection: normal respiratory effort Auscultation: clear to auscultation bilaterally Cardio: Rate: tachycardic Rhythm: abnormal rhythm GI: Inspection: non-distended GI Palp: Yes Soft to palpation Neuro: Motor exam (neuro): 5/5 motor strength present throughout Extrem: Other: 1+ pitting edema bilateral lower extremi ties below the knees Objective Data Vital Signs Vital Signs: Vital Signs - 24 hr 01/23/25 13:41 01/23/25 14:00 01/23/25 16:05 Temperature 98.1 F Pulse Rate 100 84 66 Respiratory Rate 14 Blood Pressure 113/86 Pulse Oximetry 91 Oxygen Delivery 01/23/25 20:00 01/23/25 20:00 01/23/25 21:02 Temperature Pulse Rate 70 68 70 Respiratory Rate 14 Blood Pressure Pulse Oximetry 91 Oxygen Delivery Room Air 01/23/25 22:00 01/24/25 00:00 01/24/25 04:00 Temperature 99.0 F Pulse Rate 69 61 66 Respiratory Rate 20 Blood Pressure 144/61 H Pulse Oximetry 96 Oxygen Delivery 01/24/25 06:00 01/24/25 08:00 01/24/25 08:00 Temperature 97.8 F Pulse Rate 64 62 Respiratory Rate 20 Blood Pressure 153/68 H Pulse Oximetry 95 Oxygen Delivery Room Air 01/24/25 09:54 01/24/25 12:00 Temperature Pulse Rate 80 59 L Respiratory Rate Blood Pressure Pulse Oximetry Oxygen Delivery Intake/Output Intake/Output: Intake & Output 01/21/25 01/22/25 01/23/25 01/24/25 23:59 23:59 23:59 23:59 Intake Total 50 4200 2930 420 Output Total 1050 300 Balance 50 3150 2630 420 Meds/Results Medications: Active Medications Generic Name Dose Route Start Last Admin Trade Name Freq PRN Reason Stop Dose Admin Acetaminophen 650 mg 01/21/25 23:57 Acetaminophen 325 Mg Tablet PO Q4H PRN Mild Pain (1-3) or Fever Albuterol/Ipratropium 3 ml 01/22/25 06:23 Ipratropium 0.5 Mg/Albuterol Sulfate 2.5 Mg (Base) Ampul.Neb 3 Ml INHALATION Q6HRT PRN sob Alprazolam 0.5 mg 01/22/25 06:18 Alprazolam (*Crx) 0.5 Mg Tablet PO TID PRN Anxiety Amlodipine Besylate 10 mg 01/23/25 10:20 01/24/25 09:55 Amlodipine Besylate 10 Mg Tablet PO 10 mg DAILY ANGELIQUE Administration Folic Acid 1 mg 01/23/25 12:50 01/24/25 09:54 Folic Acid 1 Mg Tablet PO 1 mg DAILY ANGELIQUE Administration Furosemide 20 mg 01/22/25 09:00 01/24/25 09:54 Furosemide 20 Mg Tablet PO 20 mg DAILY ANGELIQUE Administration Gabapentin 300 mg 01/22/25 06:25 01/24/25 05:27 Gabapentin 300 Mg Capsule PO 300 mg Q8HR ANGELIQUE Administration Ceftriaxone Sodium 1 gm/ 50 mls @ 100 mls/hr 01/22/25 21:00 01/23/25 21:32 Sodium Chloride IVPB Infused Q24H ANGELIQUE Infusion Levothyroxine Sodium 100 mcg 01/22/25 06:30 01/24/25 05:27 Levothyroxine Sodium 100 Mcg Tablet PO 100 mcg DAILY@0630 ANGELIQUE Administration Meclizine HCl 25 mg 01/23/25 10:14 Meclizine Hcl 25 Mg Tablet PO DAILY PRN Dizziness Metoprolol Tartrate 50 mg 01/23/25 10:15 01/24/25 09:54 Metoprolol Tartrate 50 Mg Tab PO 50 mg Q12HR ANGELIQUE Administration Multivitamins Therapeutic 1 tablet 01/23/25 12:50 01/24/25 09:54 Multivitamins Therapeutic Tab (*Bkc) PO 1 tablet DAILY [facility] Administration Multivitamins/Minerals 2 tablet 01/23/25 12:50 01/24/25 09:55 Opti-Gen Tab PO 2 tablet QAM ANGELIQUE Administration Ondansetron HCl 4 mg 01/21/25 23:57 Ondansetron Inj 4 Mg/2 Ml Vial IV PUSH Q4H PRN Nausea Rivaroxaban 20 mg 01/22/25 17:00 01/23/25 16:08 Rivaroxaban 20 Mg Tablet PO 20 mg DAILY@1700 [facility] Administration Rosuvastatin Calcium 20 mg 01/22/25 21:00 01/23/25 21:02 Rosuvastatin 20 Mg Tablet PO 20 mg QHS ANGELIQUE Administration Vitamin D 50 mcg 01/23/25 12:50 01/24/25 09:54 Cholecalciferol (Vitamin D3) 25 Mcg (1,000 Units) Tablet PO 50 mcg DAILY ANGELIQUE Administration Radiology Results: ITS Impressions Chest X-Ray 01/21/25 21:43 IMPRESSION: Groundglass opacities bilaterally with small left pleural effusion. Shoulder X-Ray 01/21/25 21:44 IMPRESSION: Radiographic examination of the left shoulder demonstrates no acute fracture or dislocation. Head CT 01/21/25 22:48 IMPRESSION: No acute intracranial hemorrhage or extra axial fluid collections. All CT scans at this facility are performed using low dose modulation techniques as appropriate to perform exam including the following: automated exposure control; use of iterative reconstruction technique; adjustment of the mA and/or kV according to patient size (this includes techniques or standardized protocols for targeted exams where dose is matched to indication/reason for exam). Cervical Spine CT 01/21/25 22:49 IMPRESSION: No acute fracture or subluxation. All CT scans at this facility are performed using low dose modulation techniques as appropriate to perform exam including the following: automated exposure control; adjustment of the mA and/or kV according to patient size (this includes techniques or standardized protocols for targeted exams where does is matched to indication/reason for exam; i.e. extremities or head); use of iterative reconstruction technique). Chest/Abdomen/Pelvis/Spine CT 01/21/25 22:53 IMPRESSION: No acute cardiopulmonary process. No pathologic enhancement is noted. No pathologically enlarged mediastinal lymphadenopathy is noted. CT abdomen and pelvis with contrast: The liver parenchyma is unremarkable. No intrahepatic mass or ductal dilatation is evident. Cholelithiasis is noted. The pancreas and spleen are normal in appearance. The adrenal glands are symmetric in size. The kidneys demonstrate symmetric uptake and excretion of contrast. Benign bilateral renal cysts are noted measuring up to 1.8 cm. There is no solid mass. There is no hydronephrosis. Evaluation of the stomach and bowel loops are limited due to lack of oral contrast. The appendix is normal in appearance. There is colonic diverticulosis without evidence of acute diverticulitis. The bladder and rectum are normal. No free intraperitoneal fluid or air is evident. There is no significant retroperitoneal lymphadenopathy. Atherosclerotic calcification of the aorta and iliac vessels are noted. Aorta is normal in caliber. The lower thoracic and lumbar vertebrae are in normal alignment. IMPRESSION: No acute abnormality is noted in the abdomen and pelvis. Cholelithiasis without evidence of acute cholecystitis. Colonic diverticulosis without evidence of acute diverticulitis. All CT scans at this facility are performed using low dose modulation techniques as appropriate to perform exam including the following: automated exposure control; use of iterative reconstruction technique; adjustment of the mA and/or kV according to patient size (this includes techniques or standardized protocols for targeted exams where dose is matched to indication/reason for exam) Labs Labs: Laboratory Results - last 24 hr 01/24/25 05:27 Sodium 137 Potassium 3.6 Chloride 106 Carbon Dioxide 26 Anion Gap 5 BUN 12 Creatinine 0.95 Estim Creat Clear Calc 50 Estimated GFR 57 L Glucose 94 Calcium 9.4 Magnesium 1.9 Quality VTE Prophylaxis VTE prophylaxis: pharmacologic ordered
[2025-01-24] MEDS: RIVAROXABAN 20 MG TABLET PO (17:00)
--- NOTE | 2025-01-24 18:50 | PC.NURSE ---
Patient in a fib HR 80s-140s. Order from Dr. Rushing to give 2100 scheduled 50mg PO Metorprolol dose early now.
--- NOTE | 2025-01-24 19:40 | ECG_ITS ---
Test Date: 2025-01-24 19:55:31 Measurements Intervals [place] Rate: 126 P: 0 WI: 0 QRS: -29 QRSD: 94 T: 12 QT: 326 QTc: 474 Interpretive Statements ATRIAL FLUTTER/TACHYCARDIA WITH RAPID VENTRICULAR RESPONSE INCOMPLETE RIGHT BUNDLE BRANCH BLOCK ANTEROSEPTAL INFARCT, AGE INDETERMINATE BASELINE ARTIFACT- II, III, AVF ABNORMAL ECG Compared to ECG 01/22/2025 00:57:48 HEART RATE HAS INCREASED Electronically Signed On 01-24-2025 20:23:57 ROLL SHEETING CUTTER by George Bradley D.O.
[2025-01-24] MEDS: METOPROLOL TARTRATE INJ 5 MG/5 ML VIAL IV PUSH ×2 (19:47→20:12)
[2025-01-24] MEDS: cefTRIAXone 1 GM in SODIUM CHLORIDE 0.9% IV 50 ML 100 ML IVPB (21:06)
[2025-01-24] MEDS: ROSUVASTATIN 20 MG TABLET PO (21:06)
[2025-01-25] VITALS (13 sets, daily range): BP systolic 136–158; BP diastolic 56–107; PULSE 38–136; RESP 16–17; TEMP 36.2–37.5; O2SAT 90–93
--- NOTE | 2025-01-25 01:26 | ECG_ITS ---
Test Date: 2025-01-25 01:40:18 Measurements Intervals [place] Rate: 111 P: 12 MT: 181 QRS: -35 QRSD: 97 T: 41 QT: 382 QTc: 521 Interpretive Statements ATRIAL FLUTTER/TACHYCARDIA WITH INTERMITTENT SINUS RHYTHM LEFT AXIS DEVIATION INCOMPLETE RIGHT BUNDLE BRANCH BLOCK POSSIBLE ANTERIOR MYOCARDIAL INFARCTION , PROBABLY OLD ABNORMAL ECG Compared to ECG 01/24/2025 19:55:31 INTERMITTENT SINUS RHYTHM NOW PRESENT Electronically Signed On 01-25-2025 09:14:01 MARKETING RECRUITER by George Bradley D.O.
[2025-01-25] MEDS: ALPRAZolam (*CRX) 0.5 MG TABLET PO (02:09)
[2025-01-25] MEDS: POTASSIUM CHLORIDE 20 MEQ ER TABLET PO (02:09)
[2025-01-25] MEDS: METOPROLOL TARTRATE INJ 5 MG/5 ML VIAL IV PUSH (02:09)
[2025-01-25] MEDS: GABAPENTIN 300 MG CAPSULE PO ×3 (05:39→21:04)
[2025-01-25] MEDS: LEVOTHYROXINE SODIUM 100 MCG TABLET PO (05:39)
[2025-01-25] MEDS: FUROSEMIDE 20 MG TABLET PO (08:22)
[2025-01-25] MEDS: OPTI-GEN TAB 2 TABLET PO (08:22)
[2025-01-25] MEDS: FOLIC ACID 1 MG TABLET PO (08:22)
[2025-01-25] MEDS: METOPROLOL TARTRATE 50 MG TAB PO (08:22)
[2025-01-25] MEDS: MULTIVITAMINS THERAPEUTIC TAB (*BKC) 1 TABLET PO (08:23)
[2025-01-25] MEDS: CHOLECALCIFEROL (VITAMIN D3) 25 MCG (1,000 UNITS) TABLET 50 MCG PO (08:23)
--- NOTE | 2025-01-25 10:11 | P.PNIM_ITS ---
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 (2) Acute UTI: Code(s): N39.0 - Urinary tract infection, site not specified Status: Acute Assessment and Plan: * Continue ceftriaxone (3) Chronic anticoagulation: Code(s): Z79.01 - [facility] (current) use of anticoagulants Status: Acute Assessment and Plan: * Continue Xarelto (4) Left shoulder pain: Code(s): M25.512 - Pain in left shoulder Status: Acute Assessment and Plan: * Negative x-ray with limited ROM and severe weakness of left shoulder are consistent with rotator cuff pathology likely complete tear * 01/25 discussed with patient and spouse at bedside and they will follow up with Orthopedic surgery as outpatient (5) Obstructive sleep apnea of adult: Code(s): G47.33 - Obstructive sleep apnea (adult) (pediatric) Status: Acute Assessment and Plan: * June 2024 apnea link was markedly abnormal consistent with severe sleep apnea * 01/25 trial of auto PAP (6) HTN (hypertension): Code(s): I10 - Essential (primary) hypertension Status: Acute Assessment and Plan: * Controlled (7) Anemia: Qualifiers: Anemia type: iron deficiency Iron deficiency anemia type: chronic blood loss Qualified Code(s): D50.0 - Iron deficiency anemia secondary to blood loss (chronic) Code(s): D64.9 - Anemia, unspecified Status: Acute Assessment and Plan: * Possibly from chronic blood loss with history of colonic AVM and chronic anticoagulation * 01/25 lab ordered Subjective Date/time seen: 01/25/25 10:11 Interval history: Admitted with weakness. Fell 10 days ago. Pain and impaired mobility left shoulder since fall. Found to have urinary tract infection on admission. Also has atrial fibrillation chronically. Recent adjustments in beta-magen doses as outpatient. Heart rates between 30s and 170s while on telemetry. Tolerating diet. Only pain is in left shoulder. No shortness of breath. Does not wear home oxygen. Thinks she had a previous sleep apnea test about 4 months ago. No GI or complaints. No chest pain. Does feel palpitations intermittently. Takes Xarelto. Denied abnormal bleeding. Review of Systems Review of Systems: All systems reviewed & are unremarkable except as noted in HPI and below Exam Narrative: HEENT: EOMI, PERRL, sclerae nonicteric, pharyngeal mucosa pink and intact, with crowded posterior pharynx NECK: No JVD, adenopathy, or thyromegaly CHEST: Few bibasilar crackles. Normal effort HEART: NL S1/S2, irregular, no murmur ABDOMEN: BS+, soft, nontender, no mass, no bruits EXTREMITIES: No cyanosis, edema, or clubbing NEUROLOGIC: CN intact and symmetric to inspection, tone and strength symmetric MUSCULOSKELETAL: Left shoulder tender to palpation of the glenohumeral joint deltoid and AC joint, decreased strength left rotator cuff, range of motion moderately limited to abduction and external rotation PSYCH: Alert. Oriented to person, place, and time Objective Data Vital Signs Vital Signs: Vital Signs - 24 hr 01/24/25 12:00 01/24/25 14:00 01/24/25 16:00 Temperature 98.0 F Pulse Rate 59 L 61 63 Respiratory Rate 16 Blood Pressure 145/71 H Pulse Oximetry 91 Oxygen Delivery 01/24/25 18:50 01/24/25 19:36 01/24/25 19:47 Temperature 97.9 F Pulse Rate 120 H 120 H 137 H Respiratory Rate 19 Blood Pressure 148/85 H Pulse Oximetry 94 Oxygen Delivery 01/24/25 20:00 01/24/25 20:00 01/24/25 20:12 Temperature Pulse Rate 122 H 108 H 122 H Respiratory Rate 19 Blood Pressure Pulse Oximetry 94 Oxygen Delivery Room Air 01/25/25 00:00 01/25/25 01:50 01/25/25 02:09 Temperature 97.6 F Pulse Rate 94 76 132 H Respiratory Rate 17 Blood Pressure 158/107 H Pulse Oximetry 90 Oxygen Delivery 01/25/25 04:00 01/25/25 04:58 01/25/25 08:22 Temperature 97.1 F L Pulse Rate 104 H 38 L 136 H Respiratory Rate 17 Blood Pressure 153/65 H Pulse Oximetry 90 Oxygen Delivery Intake/Output Intake/Output: Intake & Output 01/22/25 01/23/25 01/24/25 01/25/25 23:59 23:59 23:59 23:59 Intake Total 4200 2930 950 470 Output Total 1050 300 400 Balance 3150 2630 950 70 Meds/Results Medications: Active Medications Generic Name Dose Route Start Last Admin Trade Name Freq PRN Reason Stop Dose Admin Acetaminophen 650 mg 01/21/25 23:57 Acetaminophen 325 Mg Tablet PO Q4H PRN Mild Pain (1-3) or Fever Albuterol/Ipratropium 3 ml 01/22/25 06:23 Ipratropium 0.5 Mg/Albuterol Sulfate 2.5 Mg (Base) Ampul.Neb 3 Ml INHALATION Q6HRT PRN sob Alprazolam 0.5 mg 01/22/25 06:18 01/25/25 02:09 Alprazolam (*Crx) 0.5 Mg Tablet PO 0.5 mg TID PRN Administration Anxiety Amlodipine Besylate 10 mg 01/23/25 10:20 01/25/25 08:22 Amlodipine Besylate 10 Mg Tablet PO 10 mg DAILY ANGELIQUE Administration Folic Acid 1 mg 01/23/25 12:50 01/25/25 08:22 Folic Acid 1 Mg Tablet PO 1 mg DAILY ANGELIQUE Administration Furosemide 20 mg 01/22/25 09:00 01/25/25 08:22 Furosemide 20 Mg Tablet PO 20 mg DAILY ANGELIQUE Administration Gabapentin 300 mg 01/22/25 06:25 01/25/25 05:39 Gabapentin 300 Mg Capsule PO 300 mg Q8HR ANGELIQUE Administration Ceftriaxone Sodium 1 gm/ 50 mls @ 100 mls/hr 01/22/25 21:00 01/24/25 21:36 Sodium Chloride IVPB Infused Q24H ANGELIQUE Infusion Levothyroxine Sodium 100 mcg 01/22/25 06:30 01/25/25 05:39 Levothyroxine Sodium 100 Mcg Tablet PO 100 mcg DAILY@0630 ANGELIQUE Administration Meclizine HCl 25 mg 01/23/25 10:14 Meclizine Hcl 25 Mg Tablet PO DAILY PRN Dizziness Metoprolol Tartrate 50 mg 01/23/25 10:15 01/25/25 08:22 Metoprolol Tartrate 50 Mg Tab PO 50 mg Q12HR ANGELIQUE Administration Multivitamins Therapeutic 1 tablet 01/23/25 12:50 01/25/25 08:23 Multivitamins Therapeutic Tab (*Bkc) PO 1 tablet DAILY ANGELIQUE Administration Multivitamins/Minerals 2 tablet 01/23/25 12:50 01/25/25 08:22 Opti-Gen Tab PO 2 tablet QAM ANGELIQUE Administration Ondansetron HCl 4 mg 01/21/25 23:57 Ondansetron Inj 4 Mg/2 Ml Vial IV PUSH Q4H PRN Nausea Rivaroxaban 20 mg 01/22/25 17:00 01/24/25 17:00 Rivaroxaban 20 Mg Tablet PO 20 mg DAILY@1700 ANGELIQUE Administration Rosuvastatin Calcium 20 mg 01/22/25 21:00 01/24/25 21:06 Rosuvastatin 20 Mg Tablet PO 20 mg QHS ANGELIQUE Administration Vitamin D 50 mcg 01/23/25 12:50 01/25/25 08:23 Cholecalciferol (Vitamin D3) 25 Mcg (1,000 Units) Tablet PO 50 mcg DAILY ANGELIQUE Administration Radiology Results: ITS Impressions Chest X-Ray 01/21/25 21:43 IMPRESSION: Groundglass opacities bilaterally with small left pleural effusion. Shoulder X-Ray 01/21/25 21:44 IMPRESSION: Radiographic examination of the left shoulder demonstrates no acute fracture or dislocation. Head CT 01/21/25 22:48 IMPRESSION: No acute intracranial hemorrhage or extra axial fluid collections. All CT scans at this facility are performed using low dose modulation techniques as appropriate to perform exam including the following: automated exposure control; use of iterative reconstruction technique; adjustment of the mA and/or kV according to patient size (this includes techniques or standardized protocols for targeted exams where dose is matched to indication/reason for exam). Cervical Spine CT 01/21/25 22:49 IMPRESSION: No acute fracture or subluxation. All CT scans at this facility are performed using low dose modulation techniques as appropriate to perform exam including the following: automated exposure control; adjustment of the mA and/or kV according to patient size (this includes techniques or standardized protocols for targeted exams where does is matched to indication/reason for exam; i.e. extremities or head); use of iterative reconstruction technique). Chest/Abdomen/Pelvis/Spine CT 01/21/25 22:53 IMPRESSION: No acute cardiopulmonary process. No pathologic enhancement is noted. No pathologically enlarged mediastinal lymphadenopathy is noted. CT abdomen and pelvis with contrast: The liver parenchyma is unremarkable. No intrahepatic mass or ductal dilatation is evident. Cholelithiasis is noted. The pancreas and spleen are normal in appearance. The adrenal glands are symmetric in size. The kidneys demonstrate symmetric uptake and excretion of contrast. Benign bilateral renal cysts are noted measuring up to 1.8 cm. There is no solid mass. There is no hydronephrosis. Evaluation of the stomach and bowel loops are limited due to lack of oral contrast. The appendix is normal in appearance. There is colonic diverticulosis without evidence of acute diverticulitis. The bladder and rectum are normal. No free intraperitoneal fluid or air is evident. There is no significant retroperitoneal lymphadenopathy. Atherosclerotic calcification of the aorta and iliac vessels are noted. Aorta is normal in caliber. The lower thoracic and lumbar vertebrae are in normal alignment. IMPRESSION: No acute abnormality is noted in the abdomen and pelvis. Cholelithiasis without evidence of acute cholecystitis. Colonic diverticulosis without evidence of acute diverticulitis. All CT scans at this facility are performed using low dose modulation techniques as appropriate to perform exam including the following: automated exposure control; use of iterative reconstruction technique; adjustment of the mA and/or kV according to patient size (this includes techniques or standardized protocols for targeted exams where dose is matched to indication/reason for exam) Labs Labs: Laboratory Results - last 24 hr 01/25/25 01:52 POC Capillary Glucose 110 H
[2025-01-25 12:03] LABS: IFOB Positive Control Positive; Immunochemical Fecal Occult Bl Negative (N)
--- NOTE | 2025-01-25 12:36 | P.CONCA_ITS ---
Assessment and Plan Assessment and plan (1) Paroxysmal atrial fibrillation: Code(s): I48.0 - Paroxysmal atrial fibrillation Status: Acute Plan Paroxysmal atrial fibrillation or flutter Associated with RVR dizziness Sinus bradycardia Hypertension controlled Chronic diastolic heart failure clinical data Hypothyroidism Plan Continue Xarelto Increase metoprolol to 100 mg b.i.d. continue amlodipine History of Present Illness History of Present Illness Consult date/time: 01/25/25 12:36 Reason For Visit: Near syncope Narrative: The patient presents to the hospital with episode of falling. 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 She felt severe pain in her left shoulder and could not get up from the floor by herself. She was admitted to the hospital further evaluation admitted to the telemetry noted to have recurrent episodes of atrial flutter. Has history of atrial flutter and fibrillation that was intermittent feeling of palpitations was is dizziness in between the episodes heart rate in the 50s. patient denied loss of consciousness or syncope. [facility] Past Medical History Medical History (Updated 01/25/25 @ 10:17 by Terrance Rudolph MD) Obstructive sleep apnea of adult Macular degeneration Vitamin D deficiency Obstructive sleep apnea Apnea link screening was positive October 2020 Erosive gastritis (10/2020) AVM (arteriovenous malformation) of colon (10/2020) Paroxysmal atrial fibrillation Acute blood loss anemia Weight gain Metatarsal bone fracture (02/13/19) Metatarsal bone fracture (02/13/19) Pulmonary embolism (~07/2018) Anxiety Hypothyroid GERD (gastroesophageal reflux disease) HTN (hypertension) Peripheral neuropathy CVA (cerebrovascular accident) Surgical History Surgical History History of esophagogastroduodenoscopy (EGD) (10/2020) AVMs noted in cecum and erosive gastritis Status post cataract extraction of both eyes with insertion of intraocular lens Family History Family History Father Acute myocardial infarction Heart problem Mother Chronic kidney disease (CKD) Son Heart problem Sibling A-fib Social History Social History Social History: She has been for 52 years. They had 1 son who last year at 49 years old of heart disease. She is a retired hairdresser. She still smokes about 5 cigarettes a day. Up until recent years she used to smoke a half a pack of cigarettes per day and started smoking as a teenager. She denies any alcohol use or illicit substance use. Smoking packs per day: 0.5 Smoking cigarettes per day: 10.0 Years smoked: 59 Smoking pack-years: 29.50 Smoking status: Former smoker Tobacco type: cigarettes Alcohol intake: never Substance use: never Substance use type: does not use Lack of Transportation: No Lack of Food: Never True Current Housing: I Have Housing Concerned About Future Housing: No Difficulty Paying Gas/Electric Bills: No Difficulty Paying for Meds: No Currently Unemployed: No Education: Trade/Vocational Certificate Difficulty w/ Childcare or Family Care: No Gender identity (if verbalized by the patient): Female Spiritual care concerns: No Meds Home Medications and Allergies Home Medications ?Medication ?Instructions ?Recorded ?Confirmed ?Type alprazolam 0.5 mg tablet 0.5 mg PO TID PRN Anxiety 01/22/25 History gabapentin 300 mg capsule 300 mg PO TID 10/22/2001/22 History rivaroxaban 20 mg tablet (Xarelto) 20 mg PO DAILY 04/1201/22/25 History meclizine 25 mg tablet 25 mg PO DAILY PRN dizziness 12/29/20 01/22/25 History amlodipine 10 mg tablet 10 mg PO DAILY 06/28/2405/14 History carboxymethylcellulose sodium 0.5 1 drp EACH EYE TID 0 06/28/24 01/22/25 History % eye drops (Refresh Tears) cholecalciferol (vitamin D3) 50 50 mcg PO DAILY 01/22/25 History mcg (2,000 unit) tablet (Vitamin D3) folic acid 1 mg tablet 1 mg PO DAILY 06/28/2401/22 History methotrexate sodium 2.5 mg tablet 7.5 mg PO .COMPLEX 0 06/28/24 01/22/25 History multivitamin 1 tablet PO DAILY 06/28/24 1 03/25/24 History rosuvastatin 20 mg tablet 20 mg PO .Evening 06/28/24 1 03/25/24 History vit C 250 mg-vit E 90 mg-zinc 40 2 tablet PO DAILY 11/1401/22/25 History mg-copper 1 [id number] capsule (PreserVision AREDS-2) metoprolol tartrate 50 mg tablet 50 mg PO Q12H #60 tab s 06/29/24 01/22/25 Rx furosemide 20 mg tablet (Lasix) 20 mg PO DAILY #30 tab s 12/29/24 01/22/25 Rx levothyroxine 100 mcg tablet 100 mcg PO DAILY 01/22/25 01/22/25 History Allergies Allergy/AdvReac Type Severity Reaction Status Date / Time No Known Allergies Allergy Verified 01/22/25 02:37 Vital Signs Vital Signs - 24 hr 01/24/25 14:00 01/24/25 16:00 01/24/25 18:50 Temperature 36.7 C Pulse Rate 61 63 120 H Respiratory Rate 16 Blood Pressure 145/71 H Pulse Oximetry 91 Oxygen Delivery 01/24/25 19:36 01/24/25 19:47 01/24/25 20:00 Temperature 36.6 C Pulse Rate 120 H 137 H 122 H Respiratory Rate 19 19 Blood Pressure 148/85 H Pulse Oximetry 94 94 Oxygen Delivery Room Air 01/24/25 20:00 01/24/25 20:12 01/25/25 00:00 Temperature Pulse Rate 108 H 122 H 94 Respiratory Rate Blood Pressure Pulse Oximetry Oxygen Delivery 01/25/25 01:50 01/25/25 02:09 01/25/25 04:00 Temperature 36.4 C Pulse Rate 76 132 H 104 H Respiratory Rate 17 Blood Pressure 158/107 H Pulse Oximetry 90 Oxygen Delivery 01/25/25 04:58 01/25/25 08:22 Temperature 36.2 C L Pulse Rate 38 L 136 H Respiratory Rate 17 Blood Pressure 153/65 H Pulse Oximetry 90 Oxygen Delivery Exam 2 Const: General: comfortable and no acute distress Other: Able to lie flat HENMT: Face/Nose/Sinus: Normal nares present and no epistaxis Mouth: Yes moist mucous membranes Eyes: Sclera: sclerae normal Pupils: Equal, round and reactive pupils present Neck: Neck: supple and no JVD Carotids: no bruits Resp: Auscultation: clear to auscultation bilaterally and lung sounds not diminished Other: No chest wall tenderness Cardio: Rate: regular rate Rhythm: regular rhythm Heart sounds: no gallops, no murmurs and no rubs GI: GI Palp: Yes Soft to palpation and No Tenderness to palpation present (GI) Auscultation: normal bowel sounds Skin: General skin exam: normal color, rashes and/or lesions noted and no erythema Other: Warm Neuro: Cranial nerves: Yes Equal, round and reactive pupils present Speech: normal speech Other: No obvious focal deficit or facial asymmetry Extrem: General: no edema Other: Normal capillary refills Intact distal pulses. Results Labs and Meds 01/23/25 06:04 01/24/25 05:27 Lab results: Intake and Output 01/24/25 01/25/25 01/25/25 23:59 07:59 15:59 Intake Total 290 350 120 Output Total 400 Balance 290 -50 120 Intake: IV 50 [id number] 1 gm In Sodium 50 Chloride 0.9% IV 50 ml @ 100 mls/hr IVPB Q24H ANGELIQUE Rx#: [id number] Oral 240 350 120 Output: Urine 400 Other: # Unmeasured Voids 2 1 Number of Bowel Movements Today 1 Patient Weight 01/25/25 23:59 Weight 100 kg
[2025-01-25] MEDS: RIVAROXABAN 20 MG TABLET PO (16:20)
[2025-01-25] MEDS: cefTRIAXone 1 GM in SODIUM CHLORIDE 0.9% IV 50 ML 100 ML IVPB (21:04)
[2025-01-25] MEDS: ROSUVASTATIN 20 MG TABLET PO (21:04)
[2025-01-25] MEDS: METOPROLOL TARTRATE 50 MG TAB 100 MG PO (21:04)
[2025-01-26] VITALS (11 sets, daily range): BP systolic 117–138; BP diastolic 48–68; PULSE 55–105; RESP 16–18; TEMP 36.1–37.2; O2SAT 91–95
[2025-01-26] MEDS: LEVOTHYROXINE SODIUM 100 MCG TABLET PO (05:31)
[2025-01-26] MEDS: GABAPENTIN 300 MG CAPSULE PO ×3 (05:31→21:15)
[2025-01-26 06:49] LABS: Iron 39 ug/dL (37-170)
[2025-01-26 06:59] LABS: Percent Iron Saturation 15 % (20-50)
[2025-01-26 08:01] LABS: Vitamin B12 288.0 pg/mL (239-931)
[2025-01-26] MEDS: METOPROLOL TARTRATE 50 MG TAB 100 MG PO ×2 (08:57→20:15)
[2025-01-26] MEDS: OPTI-GEN TAB 2 TABLET PO (08:57)
[2025-01-26] MEDS: MULTIVITAMINS THERAPEUTIC TAB (*BKC) 1 TABLET PO (08:57)
[2025-01-26] MEDS: CHOLECALCIFEROL (VITAMIN D3) 25 MCG (1,000 UNITS) TABLET 50 MCG PO (08:57)
[2025-01-26] MEDS: FUROSEMIDE 20 MG TABLET PO (08:58)
[2025-01-26] MEDS: FOLIC ACID 1 MG TABLET PO (08:58)
--- NOTE | 2025-01-26 09:26 | P.PNIM_ITS ---
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 * with addition of auto PAP an increase in beta-magen heart rate improved with up to 1.2 second pauses and no tachycardia and no symptoms related to heart rate (2) Acute UTI: Code(s): N39.0 - Urinary tract infection, site not specified Status: Acute Assessment and Plan: * Continue ceftriaxone (3) Chronic anticoagulation: Code(s): Z79.01 - penitentiary (current) use of anticoagulants Status: Acute Assessment and Plan: * Continue Xarelto (4) Left shoulder pain: Code(s): M25.512 - Pain in left shoulder Status: Acute Assessment and Plan: * Negative x-ray with limited ROM and severe weakness of left shoulder are consistent with rotator cuff pathology likely complete tear * 01/25, 01/26 discussed with patient and spouse at bedside and they will follow up with Orthopedic surgery as outpatient * 01/26 Initiate PT/OT prior to confirm safety for discharge to home (5) Obstructive sleep apnea of adult: Code(s): G47.33 - Obstructive sleep apnea (adult) (pediatric) Status: Acute Assessment and Plan: * June 2024 apnea link was markedly abnormal consistent with severe sleep apnea * 01/25 trial of auto PAP tolerated well (6) HTN (hypertension): Code(s): I10 - Essential (primary) hypertension Status: Acute Assessment and Plan: * Controlled (7) Anemia: Qualifiers: Anemia type: iron deficiency Iron deficiency anemia type: chronic blood loss Qualified Code(s): D50.0 - Iron deficiency anemia secondary to blood loss (chronic) Code(s): D64.9 - Anemia, unspecified Status: Acute Assessment and Plan: * Possibly from chronic blood loss with history of colonic AVM and chronic anticoagulation * 01/26 lab with negative occult blood, NL iron, low NL B12 Subjective Date/time seen: 01/26/25 09:27 Interval history: Tolerated diet. Did well with auto PAP overnight. Tolerated higher dose of beta-magen. Still with left shoulder pain and weakness. Referred to go home because of fear of navigating the multiple steps in her home. She states in total there are 54 steps in the house in order to get around the whole house. Review of Systems Review of Systems: All systems reviewed & are unremarkable except as noted in HPI and below Exam Narrative: HEENT: EOMI, PERRL, sclerae nonicteric, pharyngeal mucosa pink and intact, with crowded posterior pharynx NECK: No JVD CHEST: Few bibasilar crackles. Normal effort HEART: NL S1/S2, irregular, no murmur ABDOMEN: BS+, soft, nontender, no mass, no bruits EXTREMITIES: No cyanosis, edema, or clubbing NEUROLOGIC: CN intact and symmetric to inspection, tone and strength symmetric MUSCULOSKELETAL: Left shoulder tender to palpation of the glenohumeral joint deltoid and AC joint, decreased strength left rotator cuff, range of motion moderately limited to abduction and external rotation PSYCH: Alert. Oriented to person, place, and time Objective Data Vital Signs Vital Signs: Vital Signs - 24 hr 01/25/25 12:00 01/25/25 14:00 01/25/25 16:00 Temperature 98.0 F Pulse Rate 57 L 68 70 Respiratory Rate 16 Blood Pressure 136/56 L Pulse Oximetry 92 Oxygen Delivery 01/25/25 16:00 01/25/25 20:00 01/25/25 20:00 Temperature Pulse Rate 70 77 83 Respiratory Rate 16 Blood Pressure Pulse Oximetry 90 Oxygen Delivery Room Air 01/25/25 21:04 01/25/25 21:12 01/26/25 00:00 Temperature 99.5 F Pulse Rate 83 77 61 Respiratory Rate 16 Blood Pressure 143/63 H Pulse Oximetry 90 Oxygen Delivery 01/26/25 00:00 01/26/25 04:00 01/26/25 06:00 Temperature 99.0 F Pulse Rate 59 L 61 Respiratory Rate 18 Blood Pressure 138/68 Pulse Oximetry 91 Oxygen Delivery Autopap 01/26/25 08:57 Temperature Pulse Rate 61 Respiratory Rate Blood Pressure Pulse Oximetry Oxygen Delivery Intake/Output Intake/Output: Intake & Output 01/23/25 01/24/25 01/25/25 01/26/25 23:59 23:59 23:59 23:59 Intake Total 2930 950 1000 240 Output Total 300 400 100 Balance 2630 950 600 140 Meds/Results Medications: Active Medications Generic Name Dose Route Start Last Admin Trade Name Freq PRN Reason Stop Dose Admin Acetaminophen 650 mg 01/21/25 23:57 Acetaminophen 325 Mg Tablet PO Q4H PRN Mild Pain (1-3) or Fever Albuterol/Ipratropium 3 ml 01/22/25 06:23 Ipratropium 0.5 Mg/Albuterol Sulfate 2.5 Mg (Base) Ampul.Neb 3 Ml INHALATION Q6HRT PRN sob Alprazolam 0.5 mg 01/22/25 06:18 01/25/25 02:09 Alprazolam (*Crx) 0.5 Mg Tablet PO 0.5 mg TID PRN Administration Anxiety Amlodipine Besylate 10 mg 01/23/25 10:20 01/26/25 08:57 Amlodipine Besylate 10 Mg Tablet PO 10 mg DAILY ANGELIQUE Administration Folic Acid 1 mg 01/23/25 12:50 01/26/25 08:58 Folic Acid 1 Mg Tablet PO 1 mg DAILY ANGELIQUE Administration Furosemide 20 mg 01/22/25 09:00 01/26/25 08:58 Furosemide 20 Mg Tablet PO 20 mg DAILY ANGELIQUE Administration Gabapentin 300 mg 01/22/25 06:25 01/26/25 05:31 Gabapentin 300 Mg Capsule PO 300 mg Q8HR ANGELIQUE Administration Ceftriaxone Sodium 1 gm/ 50 mls @ 100 mls/hr 01/22/25 21:00 01/25/25 21:34 Sodium Chloride IVPB Infused Q24H ANGELIQUE Infusion Levothyroxine Sodium 100 mcg 01/22/25 06:30 01/26/25 05:31 Levothyroxine Sodium 100 Mcg Tablet PO 100 mcg DAILY@0630 ANGELIQUE Administration Meclizine HCl 25 mg 01/23/25 10:14 Meclizine Hcl 25 Mg Tablet PO DAILY PRN Dizziness Metoprolol Tartrate 100 mg 01/25/25 21:00 01/26/25 08:57 Metoprolol Tartrate 50 Mg Tab PO 100 mg Q12HR ANGELIQUE Administration Multivitamins Therapeutic 1 tablet 01/23/25 12:50 01/26/25 08:57 Multivitamins Therapeutic Tab (*Bkc) PO 1 tablet DAILY ANGELIQUE Administration Multivitamins/Minerals 2 tablet 01/23/25 12:50 01/26/25 08:57 Opti-Gen Tab PO 2 tablet QAM ANGELIQUE Administration Ondansetron HCl 4 mg 01/21/25 23:57 Ondansetron Inj 4 Mg/2 Ml Vial IV PUSH Q4H PRN Nausea Rivaroxaban 20 mg 01/22/25 17:00 01/25/25 16:20 Rivaroxaban 20 Mg Tablet PO 20 mg DAILY@1700 ANGELIQUE Administration Rosuvastatin Calcium 20 mg 01/22/25 21:00 01/25/25 21:04 Rosuvastatin 20 Mg Tablet PO 20 mg QHS ANGELIQUE Administration Vitamin D 50 mcg 01/23/25 12:50 01/26/25 08:57 Cholecalciferol (Vitamin D3) 25 Mcg (1,000 Units) Tablet PO 50 mcg DAILY ANGELIQUE Administration Radiology Results: ITS Impressions Chest X-Ray 01/21/25 21:43 IMPRESSION: Groundglass opacities bilaterally with small left pleural effusion. Shoulder X-Ray 01/21/25 21:44 IMPRESSION: Radiographic examination of the left shoulder demonstrates no acute fracture or dislocation. Head CT 01/21/25 22:48 IMPRESSION: No acute intracranial hemorrhage or extra axial fluid collections. All CT scans at this facility are performed using low dose modulation techniques as appropriate to perform exam including the following: automated exposure control; use of iterative reconstruction technique; adjustment of the mA and/or kV according to patient size (this includes techniques or standardized protocols for targeted exams where dose is matched to indication/reason for exam). Cervical Spine CT 01/21/25 22:49 IMPRESSION: No acute fracture or subluxation. All CT scans at this facility are performed using low dose modulation techniques as appropriate to perform exam including the following: automated exposure control; adjustment of the mA and/or kV according to patient size (this includes techniques or standardized protocols for targeted exams where does is matched to indication/reason for exam; i.e. extremities or head); use of iterative reconstruction technique). Chest/Abdomen/Pelvis/Spine CT 01/21/25 22:53 IMPRESSION: No acute cardiopulmonary process. No pathologic enhancement is noted. No pathologically enlarged mediastinal lymphadenopathy is noted. CT abdomen and pelvis with contrast: The liver parenchyma is unremarkable. No intrahepatic mass or ductal dilatation is evident. Cholelithiasis is noted. The pancreas and spleen are normal in appearance. The adrenal glands are symmetric in size. The kidneys demonstrate symmetric uptake and excretion of contrast. Benign bilateral renal cysts are noted measuring up to 1.8 cm. There is no solid mass. There is no hydronephrosis. Evaluation of the stomach and bowel loops are limited due to lack of oral contrast. The appendix is normal in appearance. There is colonic diverticulosis without evidence of acute diverticulitis. The bladder and rectum are normal. No free intraperitoneal fluid or air is evident. There is no significant retroperitoneal lymphadenopathy. Atherosclerotic calcification of the aorta and iliac vessels are noted. Aorta is normal in caliber. The lower thoracic and lumbar vertebrae are in normal alignment. IMPRESSION: No acute abnormality is noted in the abdomen and pelvis. Cholelithiasis without evidence of acute cholecystitis. Colonic diverticulosis without evidence of acute diverticulitis. All CT scans at this facility are performed using low dose modulation techniques as appropriate to perform exam including the following: automated exposure control; use of iterative reconstruction technique; adjustment of the mA and/or kV according to patient size (this includes techniques or standardized protocols for targeted exams where dose is matched to indication/reason for exam) Labs Labs: Laboratory Results - last 24 hr 01/25/25 01/26/25 10:50 05:40 Iron 39 TIBC 268 % Saturation 15 L Vitamin B12 288.0 Folate > 20.0 H Stl Occult Blood (IFOB) Negative
--- NOTE | 2025-01-26 14:47 | PM.PNCARD ---
Progress Note: A&P Assessment and Plan (1) Atrial fibrillation with rapid ventricular response: Code(s): I48.91 - Unspecified atrial fibrillation Status: Acute Plan Paroxysmal atrial fibrillation or flutter Associated with RVR dizziness Sinus bradycardia Hypertension controlled Chronic diastolic heart failure clinical data Hypothyroidism Plan Continue Xarelto Metoprolol to 100 mg b.i.d. Continue amlodipine F/U in clinic with event monitor Subjective Date/time seen: 01/26/25 14:47 Interval history: Follow-up for proximal a AFib no acute events Tele: NSR Review of Systems Review of Systems: All systems reviewed & are unremarkable except as noted in HPI and below Exam Const: General: comfortable and no acute distress Other: Able to lie flat HENMT: Face/Nose/Sinus: Normal nares present and no epistaxis Mouth: Yes moist mucous membranes Eyes: Sclera: sclerae normal Pupils: Equal, round and reactive pupils present Neck: Neck: supple and no JVD Carotids: no bruits Resp: Auscultation: clear to auscultation bilaterally and lung sounds not diminished Other: No chest wall tenderness Cardio: Rate: regular rate Rhythm: regular rhythm Heart sounds: no gallops, no murmurs and no rubs GI: GI Palp: Yes Soft to palpation and No Tenderness to palpation present (GI) Auscultation: normal bowel sounds Skin: General skin exam: normal color, rashes and/or lesions noted and no erythema Other: Warm Neuro: Cranial nerves: Yes Equal, round and reactive pupils present Speech: normal speech Other: No obvious focal deficit or facial asymmetry Extrem: General: no edema Other: Normal capillary refills Intact distal pulses. Objective Data Vital Signs Vital Signs: Vital Signs - 24 hr 01/25/25 16:00 01/25/25 16:00 01/25/25 20:00 Temperature Pulse Rate 70 70 77 Respiratory Rate 16 Blood Pressure Pulse Oximetry 90 Oxygen Delivery Room Air 01/25/25 20:00 01/25/25 21:04 01/25/25 21:12 Temperature 37.5 C Pulse Rate 83 83 77 Respiratory Rate 16 Blood Pressure 143/63 H Pulse Oximetry 90 Oxygen Delivery 01/26/25 00:00 01/26/25 00:00 01/26/25 04:00 Temperature Pulse Rate 61 59 L Respiratory Rate Blood Pressure Pulse Oximetry Oxygen Delivery Autopap 01/26/25 06:00 01/26/25 08:00 01/26/25 08:00 Temperature 37.2 C Pulse Rate 61 59 L Respiratory Rate 18 Blood Pressure 138/68 Pulse Oximetry 91 Oxygen Delivery Room Air 01/26/25 08:57 01/26/25 12:00 01/26/25 14:00 Temperature 36.6 C Pulse Rate 61 55 L 61 Respiratory Rate 18 Blood Pressure 123/48 L Pulse Oximetry 94 Oxygen Delivery Intake/Output Intake/Output: Intake & Output 01/23/25 01/24/25 01/25/25 01/26/25 23:59 23:59 23:59 23:59 Intake Total 2930 950 1000 480 Output Total 300 400 100 Balance 2630 950 600 380 Meds/Results Medications: Active Medications Generic Name Dose Route Start Last Admin Trade Name Freq PRN Reason Stop Dose Admin Acetaminophen 650 mg 01/21/25 23:57 Acetaminophen 325 Mg Tablet PO Q4H PRN Mild Pain (1-3) or Fever Albuterol/Ipratropium 3 ml 01/22/25 06:23 Ipratropium 0.5 Mg/Albuterol Sulfate 2.5 Mg (Base) Ampul.Neb 3 Ml INHALATION Q6HRT PRN sob Alprazolam 0.5 mg 01/22/25 06:18 01/25/25 02:09 Alprazolam (*Crx) 0.5 Mg Tablet PO 0.5 mg TID PRN Administration Anxiety Amlodipine Besylate 10 mg 01/23/25 10:20 01/26/25 08:57 Amlodipine Besylate 10 Mg Tablet PO 10 mg DAILY ANGELIQUE Administration Cyanocobalamin 1,000 mcg 01/26/25 10:10 Cyanocobalamin 1,000 Mcg Tablet PO QAM ANGELIQUE Folic Acid 1 mg 01/23/25 12:50 01/26/25 08:58 Folic Acid 1 Mg Tablet PO 1 mg DAILY ANGELIQUE Administration Furosemide 20 mg 01/22/25 09:00 01/26/25 08:58 Furosemide 20 Mg Tablet PO 20 mg DAILY ANGELIQUE Administration Gabapentin 300 mg 01/22/25 06:25 01/26/25 05:31 Gabapentin 300 Mg Capsule PO 300 mg Q8HR ANGELIQUE Administration Ceftriaxone Sodium 1 gm/ 50 mls @ 100 mls/hr 01/22/25 21:00 01/25/25 21:34 Sodium Chloride IVPB Infused Q24H ANGELIQUE Infusion Levothyroxine Sodium 100 mcg 01/22/25 06:30 01/26/25 05:31 Levothyroxine Sodium 100 Mcg Tablet PO 100 mcg DAILY@0630 ANGELIQUE Administration Meclizine HCl 25 mg 01/23/25 10:14 Meclizine Hcl 25 Mg Tablet PO DAILY PRN Dizziness Metoprolol Tartrate 100 mg 01/25/25 21:00 01/26/25 08:57 Metoprolol Tartrate 50 Mg Tab PO 100 mg Q12HR ANGELIQUE Administration Multivitamins/Calcium 1 tablet 01/27/25 09:00 Therapeutic Multivitamins/Minerals Tab (*Bkc) PO DAILY [facility] Multivitamins/Minerals 2 tablet 01/23/25 12:50 01/26/25 08:57 Opti-Gen Tab PO 2 tablet QAM [facility] Administration Ondansetron HCl 4 mg 01/21/25 23:57 Ondansetron Inj 4 Mg/2 Ml Vial IV PUSH Q4H PRN Nausea Rivaroxaban 20 mg 01/22/25 17:00 01/25/25 16:20 Rivaroxaban 20 Mg Tablet PO 20 mg DAILY@1700 [facility] Administration Rosuvastatin Calcium 20 mg 01/22/25 21:00 01/25/25 21:04 Rosuvastatin 20 Mg Tablet PO 20 mg QHS [facility] Administration Vitamin D 50 mcg 01/23/25 12:50 01/26/25 08:57 Cholecalciferol (Vitamin D3) 25 Mcg (1,000 Units) Tablet PO 50 mcg DAILY ANGELIQUE Administration Radiology Results: ITS Impressions Chest X-Ray 01/21/25 21:43 IMPRESSION: Groundglass opacities bilaterally with small left pleural effusion. Shoulder X-Ray 01/21/25 21:44 IMPRESSION: Radiographic examination of the left shoulder demonstrates no acute fracture or dislocation. Head CT 01/21/25 22:48 IMPRESSION: No acute intracranial hemorrhage or extra axial fluid collections. All CT scans at this facility are performed using low dose modulation techniques as appropriate to perform exam including the following: automated exposure control; use of iterative reconstruction technique; adjustment of the mA and/or kV according to patient size (this includes techniques or standardized protocols for targeted exams where dose is matched to indication/reason for exam). Cervical Spine CT 01/21/25 22:49 IMPRESSION: No acute fracture or subluxation. All CT scans at this facility are performed using low dose modulation techniques as appropriate to perform exam including the following: automated exposure control; adjustment of the mA and/or kV according to patient size (this includes techniques or standardized protocols for targeted exams where does is matched to indication/reason for exam; i.e. extremities or head); use of iterative reconstruction technique). Chest/Abdomen/Pelvis/Spine CT 01/21/25 22:53 IMPRESSION: No acute cardiopulmonary process. No pathologic enhancement is noted. No pathologically enlarged mediastinal lymphadenopathy is noted. CT abdomen and pelvis with contrast: The liver parenchyma is unremarkable. No intrahepatic mass or ductal dilatation is evident. Cholelithiasis is noted. The pancreas and spleen are normal in appearance. The adrenal glands are symmetric in size. The kidneys demonstrate symmetric uptake and excretion of contrast. Benign bilateral renal cysts are noted measuring up to 1.8 cm. There is no solid mass. There is no hydronephrosis. Evaluation of the stomach and bowel loops are limited due to lack of oral contrast. The appendix is normal in appearance. There is colonic diverticulosis without evidence of acute diverticulitis. The bladder and rectum are normal. No free intraperitoneal fluid or air is evident. There is no significant retroperitoneal lymphadenopathy. Atherosclerotic calcification of the aorta and iliac vessels are noted. Aorta is normal in caliber. The lower thoracic and lumbar vertebrae are in normal alignment. IMPRESSION: No acute abnormality is noted in the abdomen and pelvis. Cholelithiasis without evidence of acute cholecystitis. Colonic diverticulosis without evidence of acute diverticulitis. All CT scans at this facility are performed using low dose modulation techniques as appropriate to perform exam including the following: automated exposure control; use of iterative reconstruction technique; adjustment of the mA and/or kV according to patient size (this includes techniques or standardized protocols for targeted exams where dose is matched to indication/reason for exam) Labs Labs: Laboratory Results - last 24 hr 01/26/25 05:40 Iron 39 TIBC 268 % Saturation 15 L Vitamin B12 288.0 Folate > 20.0 H
[2025-01-26] MEDS: CYANOCOBALAMIN 1,000 MCG TABLET 1000 MCG PO (15:57)
[2025-01-26] MEDS: RIVAROXABAN 20 MG TABLET PO (16:04)
[2025-01-26] MEDS: ACETAMINOPHEN 325 MG TABLET 650 MG PO (16:07)
--- NOTE | 2025-01-26 20:17 | ECG_ITS ---
Test Date: 2025-01-26 20:28:35 Measurements Intervals [place] Rate: 84 P: 19 MT: 178 QRS: -29 QRSD: 101 T: 29 QT: 382 QTc: 454 Interpretive Statements SINUS RHYTHM WITH SUPRAVENTRICULAR TRIPLET, SUPRAVENTRICULAR COUPLETS AND SUPRAVENTRICULAR PREMATURE COMPLEX INCOMPLETE RIGHT BUNDLE BRANCH BLOCK LOW QRS VOLTAGE IN PRECORDIAL LEADS POSSIBLE ANTERIOR MYOCARDIAL INFARCTION , PROBABLY OLD ABNORMAL ECG Compared to ECG 01/25/2025 01:40:18 Atrial flutter no longer present Electronically Signed On 01-27-2025 06:00:44 [employer]OLD MOVER by George Bradley D.O.
[2025-01-26] MEDS: cefTRIAXone 1 GM in SODIUM CHLORIDE 0.9% IV 50 ML 100 ML IVPB (21:14)
[2025-01-26] MEDS: ROSUVASTATIN 20 MG TABLET PO (21:15)
[2025-01-27] VITALS (13 sets, daily range): BP systolic 115–129; BP diastolic 50–65; PULSE 55–83; RESP 14–18; TEMP 36.4–36.8; O2SAT 92–95
[2025-01-27] MEDS: GABAPENTIN 300 MG CAPSULE PO ×3 (05:34→21:05)
[2025-01-27] MEDS: LEVOTHYROXINE SODIUM 100 MCG TABLET PO (05:34)
[2025-01-27 06:13] LABS: Hematocrit 33.9 % (37.0-47.0); Hemoglobin 10.6 g/dL (12.0-15.0); Mean Corpuscular HGB Conc 31.3 g/dl (32-36); Mean Corpuscular Hemoglobin 29.0 pg (26-34); Mean Corpuscular Volume 92.9 fl (80-100); Platelet Count Result 270 k/mm3 (150-375); Red Blood Count 3.65 M/mm3 (4.2-5.4); White Blood Count 4.7 K/mm3 (4.5-10.0)
[2025-01-27 07:11] LABS: Anion Gap 7 mmol/L (4-12); Blood Urea Nitrogen 21 mg/dL (7-17); Calcium 9.2 mg/dL (8.4-10.2); Carbon Dioxide 25 mmol/L (22-30); Chloride 105 mmol/L (98-107); Estimated CRCL calculation 44 ml/min; Estimated Glomerular Filt Rate 48; Glucose 90 mg/dL (65-110); Potassium 3.2 mmol/L (3.4-5.0); Sodium 137 mmol/L (137-145)
[2025-01-27] MEDS: METOPROLOL TARTRATE 50 MG TAB 100 MG PO ×2 (09:14→21:05)
[2025-01-27] MEDS: THERAPEUTIC MULTIVITAMINS/MINERALS TAB (*BKC) 1 TABLET PO (09:14)
[2025-01-27] MEDS: CYANOCOBALAMIN 1,000 MCG TABLET 1000 MCG PO (09:15)
[2025-01-27] MEDS: FOLIC ACID 1 MG TABLET PO (09:15)
[2025-01-27] MEDS: FUROSEMIDE 20 MG TABLET PO (09:16)
[2025-01-27] MEDS: OPTI-GEN TAB 2 TABLET PO (09:16)
[2025-01-27] MEDS: CHOLECALCIFEROL (VITAMIN D3) 25 MCG (1,000 UNITS) TABLET 50 MCG PO (09:16)
--- NOTE | 2025-01-27 14:44 | P.PNIM_ITS ---
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 She had a fall on 01/19/2025 presents to the ER. She had bed for to pick something up out of her rolling chair and the rongeur slipped out from under her. She ended up landing on her outstretched arms. No strike of the head. She had pain to the right hand, left elbow and left shoulder. X-rays left shoulder and elbow no acute fracture or dislocation. Presented back again on 01/21/2025 with feeling of generalized weakness. She has History of AFib on Xarelto, history of PE, hypertension, GERD, history of CVA, denies residual deficits. Chest abdomen pelvis thoracolumbar scan with contrast does not demonstrate acute cardiopulmonary process. Demonstrates cholelithiasis without evidence of acute cholecystitis, colonic diverticulosis without diverticulitis. Ground-glass opacities within the lower lobes bilaterally. 1. UTI: urine culture growing E coli Continue with ceftriaxone for total 7 days 2. Paroxysmal atrial fibrillation: Intermittent tachycardia/bradycardia Continue tele monitoring Appreciate cardiology help continue with adjusted dose of metoprolol Continue with Xarelto Event monitor upon discharge Continued dizziness Obtain carotid ultrasound 3. Generalized weakness: PT/OT 4. Left shoulder pain: X-ray on admission was negative for any acute fracture/dislocation Will obtain MRI of left shoulder due to continued pain Will need outpatient referral to Orthopedics upon discharge 5.History of hypothyroidism: Continue with levothyroxine 6.? Nighttime hypoxia: Might benefit from sleep study as an outpatient Will obtain a overnight sleep study while in the hospital 7. Code status: Full 8. DVT prophylaxis: Xarelto 9. Disposition: Pending improvement Time Spent With Patient Time with patient: 25 - 35 minutes Subjective Date/time seen: 01/27/25 14:44 Interval history: Had an episode of dizziness with heart rate in 60s this morning Continues to have left shoulder pain Review of Systems Review of Systems: All systems reviewed & are unremarkable except as noted in HPI and below Exam Narrative: HEENT: EOMI, PERRL, sclerae nonicteric, pharyngeal mucosa pink and intact, with crowded posterior pharynx NECK: No JVD CHEST: Few bibasilar crackles. Normal effort HEART: NL S1/S2, irregular, no murmur ABDOMEN: BS+, soft, nontender, no mass, no bruits EXTREMITIES: No cyanosis, edema, or clubbing NEUROLOGIC: CN intact and symmetric to inspection, tone and strength symmetric MUSCULOSKELETAL: Left shoulder tender to palpation of the glenohumeral joint deltoid and AC joint, decreased strength left rotator cuff, range of motion moderately limited to abduction and external rotation PSYCH: Alert. Oriented to person, place, and time Objective Data Vital Signs Vital Signs: Vital Signs - 24 hr 01/26/25 16:00 01/26/25 20:00 01/26/25 20:00 Temperature Pulse Rate 61 101 H 105 H Respiratory Rate 18 Blood Pressure Pulse Oximetry 94 Oxygen Delivery Room Air 01/26/25 20:15 01/26/25 22:00 01/27/25 00:00 Temperature 97.0 F L Pulse Rate 101 H 80 83 Respiratory Rate 16 Blood Pressure 117/61 Pulse Oximetry 95 Oxygen Delivery 01/27/25 04:00 01/27/25 06:00 01/27/25 08:00 Temperature 97.8 F Pulse Rate 83 63 62 Respiratory Rate 16 Blood Pressure 115/61 Pulse Oximetry 93 Oxygen Delivery 01/27/25 08:40 01/27/25 09:14 01/27/25 10:16 Temperature 97.5 F L Pulse Rate 62 60 Respiratory Rate 14 Blood Pressure 129/65 Pulse Oximetry 93 92 Oxygen Delivery Room Air 01/27/25 12:00 01/27/25 14:00 Temperature 98.2 F Pulse Rate 55 L 57 L Respiratory Rate 18 Blood Pressure 129/50 L Pulse Oximetry 95 Oxygen Delivery Intake/Output Intake/Output: Intake & Output 01/24/25 01/25/25 01/26/25 01/27/25 23:59 23:59 23:59 23:59 Intake Total 950 1000 880 660 Output Total 618 710 6925 Balance 950 600 780 -490 Meds/Results Medications: Active Medications Generic Name Dose Route Start Last Admin Trade Name Freq PRN Reason Stop Dose Admin Acetaminophen 650 mg 01/21/25 23:57 01/26/25 16:07 Acetaminophen 325 Mg Tablet PO 650 mg Q4H PRN Administration Mild Pain (1-3) or Fever Albuterol/Ipratropium 3 ml 01/22/25 06:23 Ipratropium 0.5 Mg/Albuterol Sulfate 2.5 Mg (Base) Ampul.Neb 3 Ml INHALATION Q6HRT PRN sob Alprazolam 0.5 mg 01/22/25 06:18 01/25/25 02:09 Alprazolam (*Crx) 0.5 Mg Tablet PO 0.5 mg TID PRN Administration Anxiety Amlodipine Besylate 10 mg 01/23/25 10:20 01/27/25 09:16 Amlodipine Besylate 10 Mg Tablet PO 10 mg DAILY ANGELIQUE Administration Cyanocobalamin 1,000 mcg 01/26/25 10:10 01/27/25 09:15 Cyanocobalamin 1,000 Mcg Tablet PO 1,000 mcg QAM ANGELIQUE Administration Folic Acid 1 mg 01/23/25 12:50 01/27/25 09:15 Folic Acid 1 Mg Tablet PO 1 mg DAILY ANGELIQUE Administration Furosemide 20 mg 01/22/25 09:00 01/27/25 09:16 Furosemide 20 Mg Tablet PO 20 mg DAILY ANGELIQUE Administration Gabapentin 300 mg 01/22/25 06:25 01/27/25 13:41 Gabapentin 300 Mg Capsule PO 300 mg Q8HR ANGELIQUE Administration Ceftriaxone Sodium 1 gm/ 50 mls @ 100 mls/hr 01/22/25 21:00 01/26/25 21:44 Sodium Chloride IVPB Infused Q24H ANGELIQUE Infusion Levothyroxine Sodium 100 mcg 01/22/25 06:30 01/27/25 05:34 Levothyroxine Sodium 100 Mcg Tablet PO 100 mcg DAILY@0630 ANGELIQUE Administration Meclizine HCl 25 mg 01/23/25 10:14 Meclizine Hcl 25 Mg Tablet PO DAILY PRN Dizziness Metoprolol Tartrate 100 mg 01/25/25 21:00 01/27/25 09:14 Metoprolol Tartrate 50 Mg Tab PO 100 mg Q12HR ANGELIQUE Administration Multivitamins/Calcium 1 tablet 01/27/25 09:00 01/27/25 09:14 Therapeutic Multivitamins/Minerals Tab (*Bkc) PO 1 tablet DAILY ANGELIQUE Administration Multivitamins/Minerals 2 tablet 01/23/25 12:50 01/27/25 09:16 Opti-Gen Tab PO 2 tablet QAM ANGELIQUE Administration Ondansetron HCl 4 mg 01/21/25 23:57 Ondansetron Inj 4 Mg/2 Ml Vial IV PUSH Q4H PRN Nausea Rivaroxaban 20 mg 01/22/25 17:00 01/26/25 16:04 Rivaroxaban 20 Mg Tablet PO 20 mg DAILY@1700 ANGELIQUE Administration Rosuvastatin Calcium 20 mg 01/22/25 21:00 01/26/25 21:15 Rosuvastatin 20 Mg Tablet PO 20 mg QHS ANGELIQUE Administration Vitamin D 50 mcg 01/23/25 12:50 01/27/25 09:16 Cholecalciferol (Vitamin D3) 25 Mcg (1,000 Units) Tablet PO 50 mcg DAILY ANGELIQUE Administration Radiology Results: ITS Impressions Chest X-Ray 01/21/25 21:43 IMPRESSION: Groundglass opacities bilaterally with small left pleural effusion. Shoulder X-Ray 01/21/25 21:44 IMPRESSION: Radiographic examination of the left shoulder demonstrates no acute fracture or dislocation. Head CT 01/21/25 22:48 IMPRESSION: No acute intracranial hemorrhage or extra axial fluid collections. All CT scans at this facility are performed using low dose modulation techniqu es as appropriate to perform exam including the following: automated exposure control; use of iterative reconstruction technique; adjustment of the mA and/or kV according to patient size (this includes techniques or standardized protocols for targeted exams where dose is matched to indication/reason for exam). Cervical Spine CT 01/21/25 22:49 IMPRESSION: No acute fracture or subluxation. All CT scans at this facility are performed using low dose modulation techniques as appropriate to perform exam including the following: automated exposure control; adjustment of the mA and/or kV according to patient size (this includes techniques or standardized protocols for targeted exams where does is matched to indication/reason for exam; i.e. extremities or head); use of iterative reconstruction technique). Chest/Abdomen/Pelvis/Spine CT 01/21/25 22:53 IMPRESSION: No acute cardiopulmonary process. No pathologic enhancement is noted. No pathologically enlarged mediastinal lymphadenopathy is noted. CT abdomen and pelvis with contrast: The liver parenchyma is unremarkable. No intrahepatic mass or ductal dilatation is evident. Cholelithiasis is noted. The pancreas and spleen are normal in appearance. The adrenal glands are symmetric in size. The kidneys demonstrate symmetric uptake and excretion of contrast. Benign bilateral renal cysts are noted measuring up to 1.8 cm. There is no solid mass. There is no hydronephrosis. Evaluation of the stomach and bowel loops are limited due to lack of oral contrast. The appendix is normal in appearance. There is colonic diverticulosis without evidence of acute diverticulitis. The bladder and rectum are normal. No free intraperitoneal fluid or air is evident. There is no significant retroperitoneal lymphadenopathy. Atherosclerotic calcification of the aorta and iliac vessels are noted. Aorta is normal in caliber. The lower thoracic and lumbar vertebrae are in normal alignment. IMPRESSION: No acute abnormality is noted in the abdomen and pelvis. Cholelithiasis without evidence of acute cholecystitis. Colonic diverticulosis without evidence of acute diverticulitis. All CT scans at this facility are performed using low dose modulation techniques as appropriate to perform exam including the following: automated exposure control; use of iterative reconstruction technique; adjustment of the m A and/or kV according to patient size (this includes techniques or standardized protocols for targeted exams where dose is matched to indication/reason for exam) Labs Labs: Laboratory Results - last 24 hr 01/27/25 05:33 WBC 4.7 RBC 3.65 L Hgb 10.6 L Hct 33.9 L MCV 92.9 MCH 29.0 MCHC 31.3 L RDW 15.9 H Plt Count 270 MPV 9.8 Sodium 137 Potassium 3.2 L Chloride 105 Carbon Dioxide 25 Anion Gap 7 BUN 21 H Creatinine 1.09 H Estim Creat Clear Calc 44 Estimated GFR 48 L Glucose 90 Calcium 9.2 Quality VTE Prophylaxis VTE prophylaxis: pharmacologic ordered
[2025-01-27] MEDS: RIVAROXABAN 20 MG TABLET PO (16:59)
[2025-01-27] MEDS: POTASSIUM CHLORIDE 20 MEQ ER TABLET 40 MEQ PO ×2 (16:59→21:05)
[2025-01-27] MEDS: cefTRIAXone 1 GM in SODIUM CHLORIDE 0.9% IV 50 ML 100 ML IVPB (21:04)
[2025-01-27] MEDS: ROSUVASTATIN 20 MG TABLET PO (21:05)
[2025-01-28] VITALS (9 sets, daily range): BP systolic 119–141; BP diastolic 58–72; PULSE 47–58; RESP 14–16; TEMP 36.6–36.7; O2SAT 92–96
[2025-01-28] MEDS: LEVOTHYROXINE SODIUM 100 MCG TABLET PO (05:29)
[2025-01-28] MEDS: GABAPENTIN 300 MG CAPSULE PO ×3 (05:29→20:37)
[2025-01-28 06:24] LABS: Anion Gap 5 mmol/L (4-12); Blood Urea Nitrogen 21 mg/dL (7-17); Calcium 9.2 mg/dL (8.4-10.2); Carbon Dioxide 25 mmol/L (22-30); Chloride 106 mmol/L (98-107); Estimated CRCL calculation 47 ml/min; Estimated Glomerular Filt Rate 55; Glucose 90 mg/dL (65-110); Magnesium 1.9 mg/dL (1.6-2.3); Potassium 4.0 mmol/L (3.4-5.0); Sodium 136 mmol/L (137-145)
[2025-01-28] MEDS: FOLIC ACID 1 MG TABLET PO (09:03)
[2025-01-28] MEDS: METOPROLOL TARTRATE 50 MG TAB 100 MG PO ×2 (09:03→20:38)
[2025-01-28] MEDS: CHOLECALCIFEROL (VITAMIN D3) 25 MCG (1,000 UNITS) TABLET 50 MCG PO (09:03)
[2025-01-28] MEDS: OPTI-GEN TAB 2 TABLET PO (09:03)
[2025-01-28] MEDS: THERAPEUTIC MULTIVITAMINS/MINERALS TAB (*BKC) 1 TABLET PO (09:04)
[2025-01-28] MEDS: FUROSEMIDE 20 MG TABLET PO (09:04)
[2025-01-28] MEDS: CYANOCOBALAMIN 1,000 MCG TABLET 1000 MCG PO (09:04)
--- NOTE | 2025-01-28 10:37 | PCNWS ---
Weekly nutritional screen. Patient is tolerating current diet with adequate intake. No weight loss reported. No nutritional needs at this time.
--- NOTE | 2025-01-28 13:20 | P.PNIM_ITS ---
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 She had a fall on 01/19/2025 presents to the ER. She had bed for to pick something up out of her rolling chair and the rongeur slipped out from under her. She ended up landing on her outstretched arms. No strike of the head. She had pain to the right hand, left elbow and left shoulder. X-rays left shoulder and elbow no acute fracture or dislocation. Presented back again on 01/21/2025 with feeling of generalized weakness. She has History of AFib on Xarelto, history of PE, hypertension, GERD, history of CVA, denies residual deficits. Chest abdomen pelvis thoracolumbar scan with contrast does not demonstrate acute cardiopulmonary process. Demonstrates cholelithiasis without evidence of acute cholecystitis, colonic diverticulosis without diverticulitis. Ground-glass opacities within the lower lobes bilaterally. 1. UTI: urine culture growing E coli Status post 7 days of ceftriaxone 2. Paroxysmal atrial fibrillation: Intermittent tachycardia/bradycardia Continue tele monitoring Appreciate cardiology help continue with adjusted dose of metoprolol Continue with Xarelto Event monitor upon discharge Carotid ultrasound unremarkable 3. Generalized weakness: PT/OT 4. Left shoulder pain: X-ray on admission was negative for any acute fracture/dislocation Await MRI of left shoulder due to continued pain Will need outpatient referral to Orthopedics upon discharge 5.History of hypothyroidism: Continue with levothyroxine 6. Nocturnal hypoxia: Might benefit from sleep study as an outpatient Overnight pulse oximetry study shows extensive desaturation events on room air Will repeat pulse oximetry study on 2 L of O2 support today 7. Code status: Full 8. DVT prophylaxis: Xarelto 9. Disposition: Pending improvement Time Spent With Patient Time with patient: 25 - 35 minutes Subjective Date/time seen: 01/28/25 13:20 Interval history: No acute events overnight, dizziness is better Overnight pulse oximetry shows a lot of desaturations on room air Review of Systems Review of Systems: All systems reviewed & are unremarkable except as noted in HPI and below Exam Narrative: HEENT: EOMI, PERRL, sclerae nonicteric, pharyngeal mucosa pink and intact, with crowded posterior pharynx NECK: No JVD CHEST: Few bibasilar crackles. Normal effort HEART: NL S1/S2, irregular, no murmur ABDOMEN: BS+, soft, nontender, no mass, no bruits EXTREMITIES: No cyanosis, edema, or clubbing NEUROLOGIC: CN intact and symmetric to inspection, tone and strength symmetric MUSCULOSKELETAL: Left shoulder tender to palpation of the glenohumeral joint deltoid and AC joint, decreased strength left rotator cuff, range of motion moderately limited to abduction and external rotation PSYCH: Alert. Oriented to person, place, and time Objective Data Vital Signs Vital Signs: Vital Signs - 24 hr 01/27/25 14:00 01/27/25 16:00 01/27/25 20:00 Temperature 98.2 F Pulse Rate 57 L 57 L 57 L Respiratory Rate 18 18 Blood Pressure 129/50 L Pulse Oximetry 95 95 Oxygen Delivery Room Air 01/27/25 20:00 01/27/25 21:05 01/27/25 22:00 Temperature 97.8 F Pulse Rate 56 L 57 L 55 L Respiratory Rate 16 Blood Pressure 116/55 L Pulse Oximetry 92 Oxygen Delivery 01/28/25 00:00 01/28/25 04:00 01/28/25 06:00 Temperature 98.0 F Pulse Rate 49 L 52 L 51 L Respiratory Rate 16 Blood Pressure 119/58 L Pulse Oximetry 94 Oxygen Delivery 01/28/25 08:00 01/28/25 09:03 01/28/25 09:05 Temperature Pulse Rate 50 L 58 L Respiratory Rate Blood Pressure Pulse Oximetry Oxygen Delivery Room Air 01/28/25 12:00 Temperature Pulse Rate 47 L Respiratory Rate Blood Pressure Pulse Oximetry Oxygen Delivery Intake/Output Intake/Output: Intake & Output 01/25/25 01/26/25 01/27/25 01/28/25 23:59 23:59 23:59 23:59 Intake Total 6831 328 9741 540 Output Total 160 172 6063 Balance 600 780 280 540 Meds/Results Medications: Active Medications Generic Name Dose Route Start Last Admin Trade Name Freq PRN Reason Stop Dose Admin Acetaminophen 650 mg 01/21/25 23:57 01/26/25 16:07 Acetaminophen 325 Mg Tablet PO 650 mg Q4H PRN Administration Mild Pain (1-3) or Fever Albuterol/Ipratropium 3 ml 01/22/25 06:23 Ipratropium 0.5 Mg/Albuterol Sulfate 2.5 Mg (Base) Ampul.Neb 3 Ml INHALATION Q6HRT PRN sob Alprazolam 0.5 mg 01/22/25 06:18 01/25/25 02:09 Alprazolam (*Crx) 0.5 Mg Tablet PO 0.5 mg TID PRN Administration Anxiety Amlodipine Besylate 10 mg 01/23/25 10:20 01/28/25 09:04 Amlodipine Besylate 10 Mg Tablet PO 10 mg DAILY ANGELIQUE Administration Cyanocobalamin 1,000 mcg 01/26/25 10:10 01/28/25 09:04 Cyanocobalamin 1,000 Mcg Tablet PO 1,000 mcg QAM ANGELIQUE Administration Folic Acid 1 mg 01/23/25 12:50 01/28/25 09:03 Folic Acid 1 Mg Tablet PO 1 mg DAILY ANGELIQUE Administration Furosemide 20 mg 01/22/25 09:00 01/28/25 09:04 Furosemide 20 Mg Tablet PO 20 mg DAILY ANGELIQUE Administration Gabapentin 300 mg 01/22/25 06:25 01/28/25 13:01 Gabapentin 300 Mg Capsule PO 300 mg Q8HR ANGELIQUE Administration Levothyroxine Sodium 100 mcg 01/22/25 06:30 01/28/25 05:29 Levothyroxine Sodium 100 Mcg Tablet PO 100 mcg DAILY@0630 ANGELIQUE Administration Meclizine HCl 25 mg 01/23/25 10:14 Meclizine Hcl 25 Mg Tablet PO DAILY PRN Dizziness Metoprolol Tartrate 100 mg 01/25/25 21:00 01/28/25 09:03 Metoprolol Tartrate 50 Mg Tab PO 100 mg Q12HR ANGELIQUE Administration Multivitamins/Calcium 1 tablet 01/27/25 09:00 01/28/25 09:04 Therapeutic Multivitamins/Minerals Tab (*Bkc) PO 1 tablet DAILY ANGELIQUE Administration Multivitamins/Minerals 2 tablet 01/23/25 12:50 01/28/25 09:03 Opti-Gen Tab PO 2 tablet QAM ANGELIQUE Administration Ondansetron HCl 4 mg 01/21/25 23:57 Ondansetron Inj 4 Mg/2 Ml Vial IV PUSH Q4H PRN Nausea Rivaroxaban 20 mg 01/22/25 17:00 01/27/25 16:59 Rivaroxaban 20 Mg Tablet PO 20 mg DAILY@1700 ANGELIQUE Administration Rosuvastatin Calcium 20 mg 01/22/25 21:00 01/27/25 21:05 Rosuvastatin 20 Mg Tablet PO 20 mg QHS ANGELIQUE Administration Vitamin D 50 mcg 01/23/25 12:50 01/28/25 09:03 Cholecalciferol (Vitamin D3) 25 Mcg (1,000 Units) Tablet PO 50 mcg DAILY ANGELIQUE Administration Radiology Results: ITS Impressions Chest X-Ray 01/21/25 21:43 IMPRESSION: Groundglass opacities bilaterally with small left pleural effusion. Shoulder X-Ray 01/21/25 21:44 IMPRESSION: Radiographic examination of the left shoulder demonstrates no acute fracture or dislocation. Head CT 01/21/25 22:48 IMPRESSION: No acute intracranial hemorrhage or extra axial fluid collections. All CT scans at this facility are performed using low dose modulation techniques as appropriate to perform exam including the following: automated exposure control; use of iterative reconstruction technique; adjustment of the mA and/or kV according to patient size (this includes techniques or standardized protocols for targeted exams where dose is matched to indication/reason for e xam). Cervical Spine CT 01/21/25 22:49 IMPRESSION: No acute fracture or subluxation. All CT scans at this facility are performed using low dose modulation techniques as appropriate to perform exam including the following: automated exposure control; adjustment of the mA and/or kV according to patient size (this includes techniques or standardized protocols for targeted exams where does is matched to indication/reason for exam; i.e. extremities or head); use of iterative reconstruction technique). Chest/Abdomen/Pelvis/Spine CT 01/21/25 22:53 IMPRESSION: No acute cardiopulmonary process. No pathologic enhancement is noted. No pathologically enlarged mediastinal lymphadenopathy is noted. CT abdomen and pelvis with contrast: The liver parenchyma is unremarkable. No intrahepatic mass or ductal dilatation is evident. Cholelithiasis is noted. The pancreas and spleen are normal in appearance. The adrenal glands are symmetric in size. The kidneys demonstrate symmetric uptake and excretion of contrast. Benign bilateral renal cysts are noted measuring up to 1.8 cm. There is no solid mass. There is no hydronephrosis. Evaluation of the stomach and bowel loops are limited due to lack of oral contrast. The appendix is normal in appearance. There is colonic diverticulosis without evidence of acute diverticulitis. The bladder and rectum are normal. No free intraperitoneal fluid or air is evident. There is no significant retroperitoneal lymphadenopathy. Atherosclerotic calcification of the aorta and iliac vessels are noted. Aorta is normal in caliber. The lower thoracic and lumbar vertebrae are in normal alignment. IMPRESSION: No acute abnormality is noted in the abdomen and pelvis. Cholelithiasis without evidence of acute cholecystitis. Colonic diverticulosis without evidence of acute diverticulitis. All CT scans at this facility are performed using low dose modulation techniques as appropriate to perform exam including the following: automated exposure control; use of iterative reconstruction technique; adjustment of the mA and/or kV according to patient size (this includes techniques or standardized protocols for targeted exams where dose is matched to indication/reason for exam) Carotid Doppler Study 01/27/25 19:06 IMPRESSION: 1. Antegrade flow in both vertebral arteries. 2. Mild atherosclerotic disease producing less than 50% diameter narrowing at the carotid bulbs and proximal internal carotid arteries on both sides. No evidence to suggest hemodynamically significant obstruction on either side. Interpretation was based on NASCET criteria. Labs Labs: Laboratory Results - last 24 hr 01/28/25 05:30 Sodium 136 L Potassium 4.0 Chloride 106 Carbon Dioxide 25 Anion Gap 5 BUN 21 H Creatinine 0.98 Estim Creat Clear Calc 47 Estimated GFR 55 L Glucose 90 Calcium 9.2 Magnesium 1.9 Quality VTE Prophylaxis VTE prophylaxis: pharmacologic ordered
[2025-01-28] MEDS: RIVAROXABAN 20 MG TABLET PO (17:26)
[2025-01-28] MEDS: ROSUVASTATIN 20 MG TABLET PO (20:38)
[2025-01-29] VITALS (15 sets, daily range): BP systolic 112–179; BP diastolic 58–72; PULSE 45–94; RESP 12–18; TEMP 36.1–36.6; O2SAT 91–95
[2025-01-29] MEDS: LEVOTHYROXINE SODIUM 100 MCG TABLET PO (06:06)
[2025-01-29] MEDS: GABAPENTIN 300 MG CAPSULE PO ×3 (06:06→20:50)
[2025-01-29 06:44] LABS: Anion Gap 5 mmol/L (4-12); Blood Urea Nitrogen 18 mg/dL (7-17); Calcium 9.2 mg/dL (8.4-10.2); Carbon Dioxide 24 mmol/L (22-30); Chloride 107 mmol/L (98-107); Estimated CRCL calculation 50 ml/min; Estimated Glomerular Filt Rate 58; Glucose 90 mg/dL (65-110); Magnesium 1.9 mg/dL (1.6-2.3); Potassium 3.8 mmol/L (3.4-5.0); Sodium 136 mmol/L (137-145)
[2025-01-29] MEDS: CHOLECALCIFEROL (VITAMIN D3) 25 MCG (1,000 UNITS) TABLET 50 MCG PO (08:33)
[2025-01-29] MEDS: OPTI-GEN TAB 2 TABLET PO (08:33)
[2025-01-29] MEDS: CYANOCOBALAMIN 1,000 MCG TABLET 1000 MCG PO (08:33)
[2025-01-29] MEDS: METOPROLOL TARTRATE 50 MG TAB 100 MG PO (08:33)
[2025-01-29] MEDS: FUROSEMIDE 20 MG TABLET PO (08:33)
[2025-01-29] MEDS: FOLIC ACID 1 MG TABLET PO (08:33)
[2025-01-29] MEDS: THERAPEUTIC MULTIVITAMINS/MINERALS TAB (*BKC) 1 TABLET PO (08:34)
--- NOTE | 2025-01-29 08:56 | P.PNIM_ITS ---
Assessment and Plan Assessment and Plan (1) Paroxysmal atrial fibrillation: Code(s): I48.0 - Paroxysmal atrial fibrillation Status: Acute Assessment and Plan: - cardio followed - recommended to continue Xarelto, metoprolol 100 mg BID. Patient bradycardic today, decrease to metoprolol 75 mg BID. - continue to monitor on tele - outpatient event monitor (2) Acute UTI: Code(s): N39.0 - Urinary tract infection, site not specified Status: Acute Assessment and Plan: -urine culture growing E coli -Status post 7 days of ceftriaxone (3) Left shoulder pain: Code(s): M25.512 - Pain in left shoulder Status: Acute Assessment and Plan: -X-ray on admission was negative for any acute fracture/dislocation -MRI L shoulder obtained which showed definite evidence of fairly extensive bone bruise and likely hairline fractures at the neck of the humerus and greater tuberosity of the humerus. No displaced fragments are seen. Findings are consistent with acute or subacute injury.. Bruising of the supraspinatus tendon with partial-thickness tear. Good sized effusion in the glenohumeral joint. - ortho consulted, appreciate recs - planning for C on discharge. (4) Obstructive sleep apnea of adult: Code(s): G47.33 - Obstructive sleep apnea (adult) (pediatric) Status: Acute Assessment and Plan: -Overnight pulse oximetry study shows extensive desaturation events on room air, requires 2L NC at night - will need formal outpatient sleep study (5) HTN (hypertension): Code(s): I10 - Essential (primary) hypertension Status: Acute Assessment and Plan: - continue home amlodipine, lasix, metoprolol, Plan DVT prophylaxis: Xarelto Code status: full code Dispo: home with [facility] in 1-2 days Medical Record Review I have reviewed the following patient records and this information was taken into consideration when formulating the assessment and plan.: previous labs Subjective Date/time seen: 01/29/25 08:56 Interval history: Patient seen and examined at bedside. Noted bradycardia after receiving metoprolol this AM. Mild lightheadness, BP stable. Still having shoulder pain. Review of Systems Review of Systems: All systems reviewed & are unremarkable except as noted in HPI and below Exam Narrative: General: NAD Eyes: EOMI ENT: neck supple Cardiovascular: Regular rate, bradycardic Respiratory: Clear to auscultation, respirations even and unlabored on RA Gastrointestinal: Soft, non tender Genitourinary: no suprapubic tenderness Musculoskeletal: No edema. L shoulder with limited ROM with abduction. No gross deformity. Skin: warm, dry Neuro: Alert. Psych: Mood appropriate Objective Data Vital Signs Vital Signs: Vital Signs - 24 hr 01/28/25 09:03 01/28/25 09:05 01/28/25 12:00 Temperature Pulse Rate 58 L 47 L Respiratory Rate Blood Pressure Pulse Oximetry Oxygen Delivery Room Air 01/28/25 14:00 01/28/25 20:00 01/28/25 20:00 Temperature 97.8 F Pulse Rate 50 L 55 L Respiratory Rate 14 Blood Pressure 132/72 Pulse Oximetry 96 Oxygen Delivery Room Air 01/28/25 20:38 01/28/25 20:38 01/29/25 00:00 Temperature 97.8 F Pulse Rate 55 L 50 L Respiratory Rate 16 Blood Pressure 141/62 H Pulse Oximetry 92 Oxygen Delivery 01/29/25 04:00 01/29/25 04:15 01/29/25 08:33 Temperature 97.5 F L Pulse Rate 49 L 94 56 L Respiratory Rate 12 Blood Pressure 130/62 Pulse Oximetry 94 Oxygen Delivery 01/29/25 08:38 Temperature Pulse Rate 56 L Respiratory Rate Blood Pressure 112/63 Pulse Oximetry Oxygen Delivery Intake/Output Intake/Output: Intake & Output 01/26/25 01/27/25 01/28/25 01/29/25 23:59 23:59 23:59 23:59 Intake Total 880 1430 2140 20 Output Total 100 1150 Balance 091 213 3222 20 Meds/Results Medications: Active Medications Generic Name Dose Route Start Last Admin Trade Name Freq PRN Reason Stop Dose Admin Acetaminophen 650 mg 01/21/25 23:57 01/26/25 16:07 Acetaminophen 325 Mg Tablet PO 650 mg Q4H PRN Administration Mild Pain (1-3) or Fever Albuterol/Ipratropium 3 ml 01/22/25 06:23 Ipratropium 0.5 Mg/Albuterol Sulfate 2.5 Mg (Base) Ampul.Neb 3 Ml INHALATION Q6HRT PRN sob Alprazolam 0.5 mg 01/22/25 06:18 01/25/25 02:09 Alprazolam (*Crx) 0.5 Mg Tablet PO 0.5 mg TID PRN Administration Anxiety Amlodipine Besylate 10 mg 01/23/25 10:20 01/29/25 08:38 Amlodipine Besylate 10 Mg Tablet PO Not Given DAILY ANGELIQUE Cyanocobalamin 1,000 mcg 01/26/25 10:10 01/29/25 08:33 Cyanocobalamin 1,000 Mcg Tablet PO 1,000 mcg QAM ANGELIQUE Administration Folic Acid 1 mg 01/23/25 12:50 01/29/25 08:33 Folic Acid 1 Mg Tablet PO 1 mg DAILY ANGELIQUE Administration Furosemide 20 mg 01/22/25 09:00 01/29/25 08:33 Furosemide 20 Mg Tablet PO 20 mg DAILY ANGELIQUE Administration Gabapentin 300 mg 01/22/25 06:25 01/29/25 06:06 Gabapentin 300 Mg Capsule PO 300 mg Q8HR ANGELIQUE Administration Levothyroxine Sodium 100 mcg 01/22/25 06:30 01/29/25 06:06 Levothyroxine Sodium 100 Mcg Tablet PO 100 mcg DAILY@0630 ANGELIQUE Administration Meclizine HCl 25 mg 01/23/25 10:14 Meclizine Hcl 25 Mg Tablet PO DAILY PRN Dizziness Metoprolol Tartrate 100 mg 01/25/25 21:00 01/29/25 08:33 Metoprolol Tartrate 50 Mg Tab PO 100 mg Q12HR ANGELIQUE Administration Multivitamins/Calcium 1 tablet 01/27/25 09:00 01/29/25 08:34 Therapeutic Multivitamins/Minerals Tab (*Bkc) PO 1 tablet DAILY ANGELIQUE Administration Multivitamins/Minerals 2 tablet 01/23/25 12:50 01/29/25 08:33 Opti-Gen Tab PO 2 tablet QAM ANGELIQUE Administration Ondansetron HCl 4 mg 01/21/25 23:57 Ondansetron Inj 4 Mg/2 Ml Vial IV PUSH Q4H PRN Nausea Rivaroxaban 20 mg 01/22/25 17:00 01/28/25 17:26 Rivaroxaban 20 Mg Tablet PO 20 mg DAILY@1700 ANGELIQUE Administration Rosuvastatin Calcium 20 mg 01/22/25 21:00 01/28/25 20:38 Rosuvastatin 20 Mg Tablet PO 20 mg QHS ANGELIQUE Administration Vitamin D 50 mcg 01/23/25 12:50 01/29/25 08:33 Cholecalciferol (Vitamin D3) 25 Mcg (1,000 Units) Tablet PO 50 mcg DAILY ANGELIQUE Administration Radiology Results: ITS Impressions Chest X-Ray 01/21/25 21:43 IMPRESSION: Groundglass opacities bilaterally with small left pleural effusion. Shoulder X-Ray 01/21/25 21:44 IMPRESSION: Radiographic examination of the left shoulder demonstrates no acute fracture or dislocation. Head CT 01/21/25 22:48 IMPRESSION: No acute intracranial hemorrhage or extra axial fluid collections. All CT scans at this facility are performed using low dose modulation techniques as appropriate to perform exam including the following: automated exposure control; use of iterative reconstruction technique; adjustment of the mA and/or kV according to patient size (this includes techniques or standardized protocols for targeted exams where dose is matched to indication/reason for exam). Cervical Spine CT 01/21/25 22:49 IMPRESSION: No acute fracture or subluxation. All CT scans at this facility are performed using low dose modulation techniques as appropriate to perform exam including the following: automated exposure control; adjustment of the mA and/or kV according to patient size (this includes techniques or standardized protocols for targeted exams where does is matched to indication/reason for exam; i.e. extremities or head); use of iterative reconstruction technique). Chest/Abdomen/Pelvis/Spine CT 01/21/25 22:53 IMPRESSION: No acute cardiopulmonary process. No pathologic enhancement is noted. No pathologically enlarged mediastinal lymphadenopathy is noted. CT abdomen and pelvis with contrast: The liver parenchyma is unremarkable. No intrahepatic mass or ductal dilatation is evident. Cholelithiasis is noted. The pancreas and spleen are normal in appearance. The adrenal glands are symmetric in size. The kidneys demonstrate symmetric uptake and excretion of contrast. Benign bilateral renal cysts are noted measuring up to 1.8 cm. There is no solid mass. There is no hydronephrosis. Evaluation of the stomach and bowel loops are limited due to lack of oral contrast. The appendix is normal in appearance. There is colonic diverticulosis without evidence of acute diverticulitis. The bladder and rectum are normal. No free intraperitoneal fluid or air is evident. There is no significant retroperitoneal lymphadenopathy. Atherosclerotic calcification of the aorta and iliac vessels are noted. Aorta is normal in caliber. The lower thoracic and lumbar vertebrae are in normal alignment. IMPRESSION: No acute abnormality is noted in the abdomen and pelvis. Cholelithiasis without evidence of acute cholecystitis. Colonic diverticulosis without evidence of acute diverticulitis. All CT scans at this facility are performed using low dose modulation techniques as appropriate to perform exam including the following: automated exposure control; use of iterative reconstruction technique; adjustment of the mA and/or kV according to patient size (this includes techniques or standardized protocols for targeted exams where dose is matched to indication/reason for exam) Carotid Doppler Study 01/27/25 19:06 IMPRESSION: 1. Antegrade flow in both vertebral arteries. 2. Mild atherosclerotic disease producing less than 50% diameter narrowing at the carotid bulbs and proximal internal carotid arteries on both sides. No evidence to suggest hemodynamically significant obstruction on either side. I nterpretation was based on NASCET criteria. Shoulder MRI 01/28/25 16:47 IMPRESSION: 1. Severely limited quality of the examination, as explained above. 2. There is definite evidence of fairly extensive bone bruise and likely hairline fractures at the neck of the humerus and greater tuberosity of the humerus. No displaced fragments are seen. Findings are consistent with acute or subacute injury. 3. Bruising of the supraspinatus tendon with partial-thickness tear. 4. Good sized effusion in the glenohumeral joint. Labs Labs: Laboratory Results - last 24 hr 01/29/25 06:20 Sodium 136 L Potassium 3.8 Chloride 107 Carbon Dioxide 24 Anion Gap 5 BUN 18 H Creatinine 0.93 Estim Creat Clear Calc 50 Estimated GFR 58 L Glucose 90 Calcium 9.2 Magnesium 1.9
[2025-01-29] MEDS: MECLIZINE HCL 25 MG TABLET PO (15:45)
[2025-01-29] MEDS: SALINE 0.65% NAS SOLN 44 ML BTL 1 SPRAY NASAL ×2 (15:45→20:53)
[2025-01-29 16:34] LABS: Influenza A QL RT-PCR Negative (Negative); Influenza B QL RT-PCR Negative (Negative); RSV RNA, RT-PCR Negative (Negative); SARS-CoV-2 RNA PCR Positive (Negative)
[2025-01-29] MEDS: RIVAROXABAN 20 MG TABLET PO (17:21)
[2025-01-29 19:11] LABS: CRP 1.0 mg/dL (<1.0)
[2025-01-29] MEDS: guaiFENesin 12 HR 600 MG TABCR PO (20:50)
[2025-01-29] MEDS: ROSUVASTATIN 20 MG TABLET PO (20:50)
[2025-01-30] VITALS (12 sets, daily range): BP systolic 131–155; BP diastolic 56–62; PULSE 48–65; RESP 16; TEMP 36.6–36.7; O2SAT 91–95
[2025-01-30] MEDS: GABAPENTIN 300 MG CAPSULE PO ×2 (04:48→13:49)
[2025-01-30] MEDS: LEVOTHYROXINE SODIUM 100 MCG TABLET PO (05:43)
[2025-01-30] MEDS: FOLIC ACID 1 MG TABLET PO (10:05)
[2025-01-30] MEDS: METOPROLOL TARTRATE 25 MG TABLET 75 MG PO (10:05)
[2025-01-30] MEDS: CYANOCOBALAMIN 1,000 MCG TABLET 1000 MCG PO (10:05)
[2025-01-30] MEDS: CHOLECALCIFEROL (VITAMIN D3) 25 MCG (1,000 UNITS) TABLET 50 MCG PO (10:05)
[2025-01-30] MEDS: OPTI-GEN TAB 2 TABLET PO (10:05)
[2025-01-30] MEDS: THERAPEUTIC MULTIVITAMINS/MINERALS TAB (*BKC) 1 TABLET PO (10:05)
[2025-01-30] MEDS: FUROSEMIDE 20 MG TABLET PO (10:06)
[2025-01-30] MEDS: guaiFENesin 12 HR 600 MG TABCR PO (10:06)
[2025-01-30] MEDS: SALINE 0.65% NAS SOLN 44 ML BTL 1 SPRAY NASAL (10:07)
--- NOTE | 2025-01-30 13:37 | PM.CNOR ---
Assessment and Plan Assessment and plan (1) Fracture of proximal end of left humerus: Code(s): S42.202A - Unspecified fracture of upper end of left humerus, initial encounter for closed fracture Status: Acute Plan The patient is an otherwise active 79-year-old female with a stable left shoulder proximal neural fracture. I would recommend no use of a sling secondary to balance issues. I do recommend that she use a walker and be weight-bearing as tolerated by the walker. I would also like to see her back in my office in two weeks and she can be activity as she tolerates. History of Present Illness HPI Consult date: 01/30/25 Chief complaint: Left Shoulder Fracture Narrative: The patient is a 79-year-old right-hand dominant female who was admitted for a syncopal episode. After her admission it was determined that she had significant amounts of shoulder pain. However after evaluation in the emergency department, her initially negative result was determined. Subsequent MRI showed a minimally displaced proximal humerus fracture with significant hemarthrosis. The patient reports that she does have pain with overhead activities, pain with any movement of her left shoulder. However there is no pain at all when she's just laying in bed. She says that she primarily ambulates with a cane and at the time of her injury she was trying to reach over to grab her cane in an office chair that had wheels on it. The chair came out from underneath her. She fell on her bilateral outstretched upper extremity at the time. She had significant amounts of pain and it got worse over the subsequent days. Again the MRI showed that she has a non-displaced stable proximal humerus fracture with associated hemarthrosis. She reports pain nowhere else. She lives at home with her . [facility] Past Medical History Medical History (Updated 01/30/25 @ 13:41 by Edmund Peterson MD) Macular degeneration Vitamin D deficiency Obstructive sleep apnea Apnea link screening was positive October 2020 Erosive gastritis (10/2020) AVM (arteriovenous malformation) of colon (10/2020) Paroxysmal atrial fibrillation Acute blood loss anemia Weight gain Metatarsal bone fracture Metatarsal bone fracture (02/13/19) Pulmonary embolism (~07/2018) Anxiety Hypothyroid GERD (gastroesophageal reflux disease) HTN (hypertension) Peripheral neuropathy CVA (cerebrovascular accident) Surgical History Surgical History History of esophagogastroduodenoscopy (EGD) (10/2020) AVMs noted in cecum and erosive gastritis Status post cataract extraction of both eyes with insertion of intraocular lens Family History Family History Father Acute myocardial infarction Heart problem Mother Chronic kidney disease (CKD) Son Heart problem Sibling A-fib Social History Social History Social History: She has been for 52 years. They had 1 son who last year at 49 years old of heart disease. She is a retired hairdresser. She still smokes about 5 cigarettes a day. Up until recent years she used to smoke a half a pack of cigarettes per day and started smoking as a teenager. She denies any alcohol use or illicit substance use. Smoking packs per day: 0.5 Smoking cigarettes per day: 10.0 Years smoked: 59 Smoking pack-years: 29.50 Smoking status: Former smoker Tobacco type: cigarettes Alcohol intake: never Substance use: never Substance use type: does not use Lack of Transportation: No Lack of Food: Never True Current Housing: I Have Housing Concerned About Future Housing: No Difficulty Paying Gas/Electric Bills: No Difficulty Paying for Meds: No Currently Unemployed: No Education: Trade/Vocational Certificate Difficulty w/ Childcare or Family Care: No Gender identity (if verbalized by the patient): Female Spiritual care concerns: No Meds Home Medications and Allergies Home Medications ?Medication ?Instructions ?Recorded ?Confirmed ?Type alprazolam 0.5 mg tablet 0.5 mg PO TID PRN Anxiety 10/22/20 01/22/25 History gabapentin 300 mg capsule 300 mg PO TID 10/22/20 01/22/25 History rivaroxaban 20 mg tablet (Xarelto) 20 mg PO DAILY 10/22/20 01/22/25 History meclizine 25 mg tablet 25 mg PO DAILY PRN dizziness 12/29/20 01/22/25 History amlodipine 10 mg tablet 10 mg PO DAILY 06/28/24 01/22/25 History carboxymethylcellulose sodium 0.5 1 drp EACH EYE TID 06/28/24 01/22/25 History % eye drops (Refresh Tears) cholecalciferol (vitamin D3) 50 50 mcg PO DAILY 06/28/24 01/22/25 History mcg (2,000 unit) tablet (Vitamin D3) folic acid 1 mg tablet 1 mg PO DAILY 06/28/24 01/22/25 History methotrexate sodium 2.5 mg tablet 7.5 mg PO .COMPLEX 06/28/24 01/22/25 History multivitamin 1 tablet PO DAILY 06/28/24 01/22/25 History rosuvastatin 20 mg tablet 20 mg PO .Evening 06/28/24 01/22/25 History vit C 250 mg-vit E 90 mg-zinc 40 2 tablet PO DAILY 06/28/24 01/22/25 History mg-copper 1 [id number]-nazjym capsule (PreserVision AREDS-2) metoprolol tartrate 50 mg tablet 50 mg PO Q12H #60 tabs 06/29/24 01/22/25 Rx furosemide 20 mg tablet (Lasix) 20 mg PO DAILY #30 tabs 12/29/24 01/22/25 Rx levothyroxine 100 mcg tablet 100 mcg PO DAILY 01/22/25 01/22/25 History Allergies Allergy/AdvReac Type Severity Reaction Status Date / Time No Known Allergies Allergy Verified 01/22/25 02:37 Vital Signs Vital Signs - 24 hr 01/29/25 13:46 01/29/25 15:05 01/29/25 15:07 Temperature 36.1 C L 36.6 C Pulse Rate 56 L 55 L Respiratory Rate 18 16 Blood Pressure 179/72 H 172/70 H Pulse Oximetry 95 92 91 Oxygen Delivery Room Air Oxygen Flow Rate 01/29/25 16:00 01/29/25 20:00 01/29/25 20:00 Temperature Pulse Rate 55 L 58 L 62 Respiratory Rate 14 Blood Pressure Pulse Oximetry 92 Oxygen Delivery Nasal Cannula Oxygen Flow Rate 2 01/29/25 20:43 01/29/25 23:25 01/30/25 00:00 Temperature 36.5 C Pulse Rate 58 L 51 L Respiratory Rate 14 13 Blood Pressure 131/58 L Pulse Oximetry 92 Oxygen Delivery Autopap Oxygen Flow Rate 01/30/25 01:13 01/30/25 04:00 01/30/25 05:24 Temperature 36.6 C Pulse Rate 51 L 51 L 55 L Respiratory Rate 16 Blood Pressure 155/62 H Pulse Oximetry 95 Oxygen Delivery Oxygen Flow Rate 01/30/25 08:00 01/30/25 10:00 01/30/25 10:05 Temperature Pulse Rate 48 L 65 Respiratory Rate Blood Pressure Pulse Oximetry 95 Oxygen Delivery Room Air Oxygen Flow Rate 01/30/25 12:00 Temperature Pulse Rate 54 L Respiratory Rate Blood Pressure Pulse Oximetry Oxygen Delivery Oxygen Flow Rate Exam Narrative: left upper extremity she has: * Good radial pulse * Good sensation at this extremity with pain on external rotation to about 15 degrees and forward flexion to about 45 degrees * Moderate tenderness to palpation of the anterior aspect of her shoulder * No tenderness of the acromioclavicular joint * 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
--- NOTE | 2025-01-30 13:43 | P.DS_ITS ---
DS: Admitting Diagnosis Discharge Date 01/30/25 Admitting Diagnosis - AFib with RVR - syncope DS: Discharge Diagnosis Discharge Diagnosis (1) Paroxysmal atrial fibrillation: Code(s): I48.0 - Paroxysmal atrial fibrillation Status: Acute (2) Acute UTI: Code(s): N39.0 - Urinary tract infection, site not specified Status: Acute (3) Left shoulder pain: Code(s): M25.512 - Pain in left shoulder Status: Acute (4) HTN (hypertension): Code(s): I10 - Essential (primary) hypertension Status: Acute DS: Summary Hospital Course Reason for hospitalization: - afib with RVR - syncope Hospital Course: Ms. Norma Coleman is a 79-year-old female with a complex medical history including paroxysmal atrial fibrillation on chronic anticoagulation, hypertension, hypothyroidism, obstructive sleep apnea, prior pulmonary embolism, and chronic anemia, who was admitted following a syncopal episode and subsequent fall. On presentation, she reported generalized weakness and persistent left shoulder pain. Initial imaging was negative for acute fracture, but due to ongoing pain, an MRI was obtained and revealed a minimally displaced, stable proximal humerus fracture with significant hemarthrosis and a partial-thickness supraspinatus tendon tear. Orthopedic surgery was consulted and recommended no sling due to balance concerns, weight bearing as tolerated with a walker, and outpatient follow-up in two weeks for repeat imaging. During her admission, the patient experienced episodes of atrial fibrillation with rapid ventricular response alternating with sinus bradycardia. Cardiology was consulted and recommended continuation of rivaroxaban and adjustment of her metoprolol dose to 75 mg twice daily, with close outpatient follow-up and an event monitor upon discharge. She was also treated for an acute urinary tract infection with a 7-day course of ceftriaxone for E. coli bacteriuria. Patient was also incidentally found to be COVID positive. She remained on room air during the day and with ambulation. She was minimally symptomatic other than minor congestion. Patient was educated on symptomatic management. Return precautions discussed. The patient was noted to have nocturnal hypoxia on overnight pulse oximetry, requiring 2L nasal cannula at night, and will require a formal outpatient sleep study for further evaluation. Her hospital course was further complicated by mild anemia, but she remained hemodynamically stable throughout. She participated in physical and occupational therapy for generalized weakness and was able to ambulate safely with a walker at the time of discharge. On the day of discharge, I reviewed the plan with cardiology, who advised continuing metoprolol 75 mg BID with close outpatient monitoring. She will obtain a hospital monitor from the cardiology office. The patient was discharged home in stable condition with home health care arranged, and all recommendations and follow-up plans were discussed with the patient and her family. Status at Discharge Functional status at discharge: uses cane/walker Time Spent with Patient Time attestation: Total time spent providing and/or coordinating discharge services: Time spent: Greater than 30 minutes Exam Narrative: General: NAD Eyes: EOMI ENT: neck supple Cardiovascular: Regular rate and rhythm Respiratory: Clear to auscultation, respirations even and unlabored on RA Gastrointestinal: Soft, non tender Genitourinary: no suprapubic tenderness Musculoskeletal: No edema Skin: warm, dry Neuro: Alert. Psych: Mood appropriate DS: Data Data Completed and Pending Completed studies during hospitalization: ITS Impressions Chest X-Ray 01/21/25 21:43 IMPRESSION: Groundglass opacities bilaterally with small left pleural effusion. Shoulder X-Ray 01/21/25 21:44 IMPRESSION: Radiographic examination of the left shoulder demonstrates no acute fracture or dislocation. Head CT 01/21/25 22:48 IMPRESSION: No acute intracranial hemorrhage or extra axial fluid collections. All CT scans at this facility are performed using low dose modulation techniques as appropriate to perform exam including the following: automated e xposure control; use of iterative reconstruction technique; adjustment of the mA and/or kV according to patient size (this includes techniques or standardized protocols for targeted exams where dose is matched to indication/reason for exam). Cervical Spine CT 01/21/25 22:49 IMPRESSION: No acute fracture or subluxation. All CT scans at this facility are performed using low dose modulation techniques as appropriate to perform exam including the following: automated exposure control; adjustment of the mA and/or kV according to patient size (this includes techniques or standardized protocols for targeted exams where does is matched to indication/reason for exam; i.e. extremities or head); use of iterative reconstruction technique). Chest/Abdomen/Pelvis/Spine CT 01/21/25 22:53 IMPRESSION: No acute cardiopulmonary process. No pathologic enhancement is noted. No pathologically enlarged mediastinal lymphadenopathy is noted. CT abdomen and pelvis with contrast: The liver parenchyma is unremarkable. No intrahepatic mass or ductal dilatation is evident. Cholelithiasis is noted. The pancreas and spleen are normal in appearance. The adrenal glands are symmetric in size. The kidneys demonstrate symmetric uptake and excretion of contrast. Benign bilateral renal cysts are noted measuring up to 1.8 cm. There is no solid mass. There is no hydronephrosis. Evaluation of the stomach and bowel loops are limited due to lack of oral contrast. The appendix is normal in appearance. There is colonic diverticulosis without evidence of acute diverticulitis. The bladder and rectum are normal. No free intraperitoneal fluid or air is evident. There is no significant retroperitoneal lymphadenopathy. Atherosclerotic calcification of the aorta and iliac vessels are noted. Aorta is normal in caliber. The lower thoracic and lumbar vertebrae are in normal alignment. IMPRESSION: No acute abnormality is noted in the abdomen and pelvis. Cholelithiasis without evidence of acute cholecystitis. Colonic diverticulosis without evidence of acute diverticulitis. All CT scans at this facility are performed using low dose modulation techniques as appropriate to perform exam including the following: automated exposure control; use of iterative reconstruction technique; adjustment of the mA and/or kV according to patient size (this includes techniques or standardized protocols for targeted exams where dose is matched to indication/reason for exam) Carotid Doppler Study 01/27/25 19:06 IMPRESSION: 1. Antegrade flow in both vertebral arteries. 2. Mild atherosclerotic disease producing less than 50% diameter narrowing at the carotid bulbs and proximal internal carotid arteries on both sides. No evidence to suggest hemodynamically significant obstruction on either side. Interpretation was based on NASCET criteria. Shoulder MRI 01/28/25 16:47 IMPRESSION: 1. Severely limited quality of the examination, as explained above. 2. There is definite evidence of fairly extensive bone bruise and likely hairline fractures at the neck of the humerus and greater tuberosity of the humerus. No displaced fragments are seen. Findings are consistent with acute or subacute injury. 3. Bruising of the supraspinatus tendon with partial-thickness tear. 4. Good sized effusion in the glenohumeral joint. Shoulder X-Ray 01/29/25 11:29 IMPRESSION: 1. No fracture lucency; possible mild subluxation caudally which could be associated with significant joint effusion. Chest X-Ray 01/29/25 16:28 IMPRESSION: 1. Findings may represent mild vascular congestion but no calvin pulmonary edema or effusion seen. 2. Other findings as above. Labs on day of discharge: Labs from last 24 hours 01/29/25 01/29/25 15:48 06:20 C-Reactive Protein 1.0 Influenza A (RT-PCR) Negative Influenza B (RT-PCR) Negative RSV (RT-PCR) Negative SARS-CoV-2 RNA (RT-PCR) Positive A Discharge Plan Discharge Attending physician on discharge: Llait Rushing Consulting providers: Stuart Pelayo; Marii Resendiz; Edmund Peterson; Vivian Sorto Discharging Clinician: Marii Resendiz Anticipated Discharge Date/Time: 01/30/25 13:31 Patient Disposition: Home with Home Health Service Activity: as tolerated Discharge Instructions: Per Care Coordination: [facility] ([phone]) will call to set up initial visit. Diagnosis: * Atrial Fibrillation with Rapid Ventricular Response (RVR) and Bradycardia * Nocturnal Hypoxia * COVID-19 Infection * Hairline Fracture of Left Humerus with Joint Effusion 1.?Atrial Fibrillation & Heart Rate Management * Medication:?Your metoprolol dose has been increased to 75 mg twice daily. Take this medication exactly as prescribed. * Cardiac Monitoring:?You will picker/puller a hospital monitor at the cardiology office. Wear the monitor as instructed and return it as directed. * Follow-Up:?See your health therapist in 2 weeks for further evaluation and review of your hospital monitor results. * Symptoms to Watch For:?If you experience chest pain, severe shortness of breath, fainting, or palpitations that do not resolve, seek medical attention immediately. 2.?Nocturnal Hypoxia & Oxygen Use * Oxygen Therapy:?Use 2 liters of oxygen via nasal cannula at night as instructed. Ensure your oxygen equipment is functioning properly. * Sleep Study:?Schedule a follow-up with your primary care provider to arrange a formal sleep study for further evaluation of your nocturnal hypoxia. 3.?COVID-19 Infection * Isolation:?Remain isolated at home until you meet CDC criteria for discontinuing isolation (typically at least 5 days from symptom onset and 24 hours fever-free without medication, with improving symptoms). * Infection Prevention: * Wear a mask if you must be around others. * Wash your hands frequently. * Clean high-touch surfaces daily. * Avoid sharing personal items. * Monitor Symptoms: * Return to the hospital or seek immediate care if you develop: * Difficulty breathing or shortness of breath at rest * Chest pain or pressure * New confusion or inability to wake/stay awake * Bluish lips or face * Worsening symptoms or inability to keep fluids down * Rest and Hydration:?Get plenty of rest and stay well hydrated. 4.?Left Humerus Hairline Fracture * Activity:?Continue weight bearing as tolerated using your walker. * Pain Management:?Take Tylenol OTC for pain. Use ice packs to reduce swelling if needed. * Follow-Up:?See orthopedics in 2 weeks for a repeat x-ray and further evaluation. * Precautions:?Avoid lifting heavy objects or putting excessive strain on your left arm. 5.?General Instructions * Medications:?Take all prescribed medications as directed. * Appointments: * Cardiology follow-up in 2 weeks (hospital monitor review) * Orthopedic follow-up in 2 weeks (repeat x-ray) * Primary care provider for sleep study referral * When to Seek Immediate Care: * Chest pain, severe shortness of breath, fainting, or palpitations * Worsening arm pain, numbness, or inability to move your arm * Signs of severe COVID-19 as listed above If you have any questions or concerns, contact your healthcare provider. Patient Instructions: Antibiotic Form, Rivaroxaban (By mouth), Blood Thinners (GEN) Patient Language: Serbian Stand Alone Forms: General Discharge Information Follow-up/Referrals: Stuart Pelayo MD [Physician, Cardiology] - Call for Appointment Referral Note: follow-up in 2 weeks Stefano,Blair Wiggins MD [Primary Care Provider, Unknown] - Call for Appointment Referral Note: follow-up in 5-7 days Edmund Peterson MD [Physician, Orthopedics] - Call for Appointment Referral Note: follow-up in 2 weeks Discharge Medications: New cyanocobalamin (vitamin B-12) [Vitamin B-12] 1,000 mcg Tablet 1,000 mcg PO QAM Qty: 30 0RF guaifenesin [Mucus Relief ER] 600 mg Tablet Extended Release 12hr 600 mg PO Q12HR Qty: 10 0RF metoprolol tartrate [Lopressor] 50 mg tablet 75 mg PO BID 30 Days Qty: 90 0RF Continued alprazolam 0.5 mg tablet 0.5 mg PO TID PRN (Reason: Anxiety) gabapentin 300 mg capsule 300 mg PO TID Xarelto 20 mg tablet 20 mg PO DAILY meclizine 25 mg Tablet 25 mg PO DAILY PRN (Reason: dizziness) rosuvastatin 20 mg tablet 20 mg PO .Evening multivitamin Tablet 1 tablet PO DAILY cholecalciferol (vitamin D3) [Vitamin D3] 50 mcg (2,000 unit) tablet 50 mcg PO DAILY PreserVision AREDS-2 250-90-40-1 mg capsule 2 tablet PO DAILY carboxymethylcellulose sodium [Refresh Tears] 0.5 % drops 1 drp EACH EYE TID amlodipine 10 mg tablet 10 mg PO DAILY folic acid 1 mg tablet 1 mg PO DAILY methotrexate sodium 2.5 mg tablet 7.5 mg PO .COMPLEX Rx Instructions: 7.5 mg orally weekly on Fridays. furosemide [Lasix] 20 mg tablet 20 mg PO DAILY Qty: 30 0RF levothyroxine 100 mcg tablet 100 mcg PO DAILY Discontinued metoprolol tartrate 50 mg tablet 50 mg PO Q12H Qty: 60 0RF Other Ambulatory Orders: [place] cardiac event monitor (Routine) Timeframe: 1 Month Location: [facility] [place] Cardiology Ordered By: Vivian Sorto Date of admission: 01/22/25 13:34 Primary Care Provider: Stefano,Blair Wiggins Admitting Provider: Eleni Olivarez Attending physician on admission: Eleni Olivarez Condition: Stable
[2025-01-30] MEDS: MECLIZINE HCL 25 MG TABLET PO (13:49)
== END 2025-01-30 16:20 | disposition home health service (06) | DRG 308 ==
LOC: ANHED 23:58 → ANH3MEDSUR 01-22 00:52 → ANH3MED 01-22 01:31
PROVIDERS: Internal Medicine; Orthopaedic Surgery; Admitting Provider General Practice; Emergency Provider Student in an Organized Health Care Education/Training Program; PCP Family Medicine; Visit Provider Physician Assistant
DX: I48.0 Paroxysmal atrial fibrillation (principal); U07.1 COVID-19; S42.202A Unspecified fracture of upper end of left humerus, initial encounter for closed fracture; N39.0 Urinary tract infection, site not specified; I50.32 Chronic diastolic (congestive) heart failure; M25.012 Hemarthrosis, left shoulder; I11.0 Hypertensive heart disease with heart failure; B96.20 Unspecified Escherichia coli [E. coli] as the cause of diseases classified elsewhere; W07.XXXA Fall from chair, initial encounter; I49.5 Sick sinus syndrome; R09.02 Hypoxemia; D50.0 Iron deficiency anemia secondary to blood loss (chronic); M75.102 Unspecified rotator cuff tear or rupture of left shoulder, not specified as traumatic; E03.9 Hypothyroidism, unspecified; G47.33 Obstructive sleep apnea (adult) (pediatric); H35.30 Unspecified macular degeneration; F41.9 Anxiety disorder, unspecified; K21.9 Gastro-esophageal reflux disease without esophagitis; G62.9 Polyneuropathy, unspecified; Z79.01 Long term (current) use of anticoagulants; Z86.711 Personal history of pulmonary embolism; Z86.73 Personal history of transient ischemic attack (TIA), and cerebral infarction without residual deficits
CPT/HCPCS: 36415; 70450; 71045; 71046; 71260; 72125; 72129; 72132; 73030; 73221; 74177; 80048; 80053; 80307; 81001; 82077; 82274; 82550; 82607; 82746; 82803; 82948; 83540; 83550; 83605; 83690; 83735; 83880; 84100; 84439; 84443; 84480; 84484; 85025; 85027; 85610; 85730; 86140; 87040; 87086; 87186; 87637; 93005; 93880; 94618; 94640; 94660; 96365; 96367; 97110; 97116; 97161; 97165; 97530; 97535; 99199; 99285; A9270; G0378; J0616; J0696; J7030; Q9967